=== PATIENT | female | born 1950 | race Caucasian/White ===

== ENCOUNTER → 2016-12-19 | Outpatient (CLI) | payer OTHER, BC ==
[~2016-12-19] MED LIST: ACET-1256 PO; AMLO-110 PO; AMOX500T PO; ASPI81TA28 PO; ATOR-24 PO; CEFE1INJ3 IV; CLC100 PO; CLIN150C PO; DESM0.1T8 PO; DESM1TAB16 PO; FERR1TAB13 PO; FLM4 PO; FSLUDL325 PO; KPP/1000 PO; LACO100T PO; LCTX PO; LEVE100S IV; LEVE250T PO; LISI-725 PO; LPT40 PO; LSN20 PO; LSN5 OR; MAGN400T6 PO; MCRK20 PO; METO25TA3 PO; METO25TA56 PO; METO50TA17 PO; MGNO400 PO; MRLP17X PO; MULT-116 PO; NYSS/ PO; ONDA4TAB10 SL; OXYC-57 PO; PANT40TA PO; PHEN-775 PO; POTA10CA28 PO; POTA20TA16 PO; PRLSR20 PO; PROB1CAP32 PO; RGLI10 IV; SACC250C3 PO; SENN-65 PO; TOPI100T20 PO; TOPI100T45 PO; TOPI25TA99 PO; TOPI50TA16 PO; [UNRECOGNIZED DRUG - CODE] IV
--- NOTE | 2016-12-19 14:10 | DIAGNOSTIC IMAGING REPORT ---
VIDEO SWALLOW HISTORY: Stroke. Dysphagia. TECHNIQUE: Video fluoroscopic evaluation of swallowing was performed in the AP and lateral projections by the speech pathology staff. The patient is fed nectar-thick and thin liquid barium, a barium coated wafer, and barium pudding. FLUOROSCOPY TIME: 3.2 minutes.. COMPARISON STUDY: None. FINDINGS: There is normal hyoid excursion and epiglottic deflection. No significant penetration or aspiration identified. Swallowing function is within normal limits. IMPRESSION: 1. No aspiration identified. 2. Please see the speech pathologist report for detailed findings and recommendations. Electronically signed by: Jaspreet Gilliam M.D. 12/19/2016 2:08 PM Dictated Date/Time: 12/19/2016 2:07 PM
--- NOTE | 2016-12-19 16:47 | SWALLOWING EVALUATION ---
REFERRING SPEECH PATHOLOGIST: N/A HISTORY: This 66 year-old female, currently an inpatient at [facility], was referred for a VFSS at [facility] in order to determine readiness for diet upgrade and possible removal of PEG-tube. The patient has a PMH significant for frontal stroke associated with respiratory failure and seizure s/p back surgery for L4-S1 decompression in September 2016. She required tracheostomy and PEG-tube placement s/cp CVA and is now decannulated. She reports that she is eating a pureed diet and drinking thin liquids and she is anxious for a diet upgrade. Other PMH: head aches, hypertension, hypercholesterolemia, and carpal tunnel syndrome. PROCEDURE: The patient was seen in the Radiology Department of [facility] for the VFSS. Cursory examination of the oral cavity revealed adequate dentition. Movement of the articulators was WNL. Pt has active thrush. The patient was seated upright in a wheelchair and was viewed in both the Anterior-Posterior (A-P) and Lateral planes. Volitional phonation exercises completed in the A-P plane revealed bilateral vocal fold movement and vocal intensity within functional limits. In the lateral plane, the patient was given the following boluses: 1 tsp. thin liquid barium x 2, single swallow thin liquid barium self-presented from a cup, sequential swallows of thin liquid barium self-presented from a straw, 1 tsp. nectar-thick liquid barium, single swallow nectar-thick liquid barium self-presented from a cup, 1 tsp. barium pudding, and 1 club cracker with barium pudding. The patient was then repositioned into the A-P plane and given 1 tsp. barium pudding. RESULTS: Oral Stage: No labial bolus escape. Cohesive bolus between tongue and palate during oral bolus hold exercise. Prolonged mastication with complete bolus re-collection and delayed initiation of posterior bolus movement, but when given verbal cue to "push that back and swallow it" the patient moved the bolus cohesively to the pharynx. Diffuse lining of oral structures after the swallow, but patient has thrush so barium clung to tongue and palate. Initiation of the pharyngeal swallow when the bolus head was in the valleculae. Oral stage of the swallow was functionally WNL, but the patient needs verbal cues to stop chewing and initiate a swallow. She is responsive to the cues. Pharyngeal Stage: No bolus between the soft palate and pharyngeal wall. Complete superior movement of the thyroid cartilage with complete approximation of the arytenoids to the epiglottic petiole. Complete anterior hyoid movement. Complete epiglottic inversion. Complete laryngeal vestibular closure. Present pharyngeal stripping wave. Complete pharyngeal contraction in the AP plane. Complete PES opening. No contrast between tongue base and pharyngeal wall. No pharyngeal bolus retention. The pharyngeal stage of the swallow was WNL. No penetration or aspiration during this study. Esophageal Stage: A pudding bolus transited the esophagus without evidence of retention. SUMMARY/RECOMMENDATIONS: This patient presents with mild oral-stage dysphagia. The following is recommended: 1. Moist regular diet 2. Compensatory Strategies: supervision at meals to encourage timely mastication and bolus transfer to the pharynx, alternate solids and liquids, use general aspiration precautions, straws okay 3. Consideration of continued f/u with [facility] to address decreasing bolus preparation and transit time. 4. Consideration of PEG-tube removal if oral intake is adequate. A summary of the results and recommendations was recorded on a Consultation Record and returned with the patient immediately following the study. In addition, verbal report was given to the patient and her . Thank you for referral of this patient. Please contact me at if any additional information is needed.
== END | disposition home or self-care (01) ==
LOC: C.RAD 12:33
PROVIDERS: ATTEND Internal Medicine Critical Care Medicine
DX: R13.10 Dysphagia, unspecified (principal); I63.9 Cerebral infarction, unspecified

== ENCOUNTER → 2017-01-10 | Outpatient (CLI) | payer BC ==
[~2017-01-10] MED LIST changes: +OPTIRAY 320 IV PRN
--- NOTE | 2017-01-10 16:59 | DIAGNOSTIC IMAGING REPORT ---
CHEST CT WITH CONTRAST CT DOSE: 1109.25 mGy.cm HISTORY: Coughing. TECHNIQUE: Multiaxial CT images of the chest were performed following the intravenous administration of contrast. COMPARISON: None. FINDINGS: The central airways are patent. No pleural effusions. No pneumothorax. A few linear densities at the lung bases favor subsegmental atelectasis. Otherwise, the lungs are clear. There is mild motion artifact. Suggestion of hypertrophy of the kidneys. However, these are only partially imaged on this study. Benign fat-containing lesion within the left adrenal gland measuring 1.5 cm. This favors an adrenal myelolipoma. The visualized liver and spleen are unremarkable. No mediastinal or hilar lymphadenopathy. Normal caliber thoracic aorta. The central pulmonary arteries are patent. The heart is normal in size. IMPRESSION: 1. No focal lung consolidations to suggest pneumonia. 2. Possible enlargement of the kidneys which can be seen in the setting of acute renal failure. However, these are only partially visualized on this study. Recommend correlation with renal function laboratory values. Electronically signed by: Huan Carney M.D. 01/10/2017 4:57 PM Dictated Date/Time: 01/10/2017 4:53 PM
== END | disposition home or self-care (01) ==
LOC: C.CTS 16:17
PROVIDERS: ATTEND Internal Medicine Pulmonary Disease
DX: D64.9 Anemia, unspecified (principal); R00.0 Tachycardia, unspecified; R05 Cough; N20.1 Calculus of ureter; N83.201 Unspecified ovarian cyst, right side; K57.30 Diverticulosis of large intestine without perforation or abscess without bleeding

== ENCOUNTER → 2017-01-10 | Outpatient (CLI) | payer OTHER, BC ==
[~2017-01-10] MED LIST changes: -OPTIRAY 320 IV PRN
--- NOTE | 2017-01-10 17:04 | DIAGNOSTIC IMAGING REPORT ---
ABDOMEN AND PELVIS CT WITH IV AND ORAL CONTRAST CT DOSE: HISTORY: Pain nausea. Vomiting. TECHNIQUE: Multiaxial CT images of the abdomen and pelvis were performed following the use of intravenous and oral contrast. COMPARISON STUDY: None. FINDINGS: Lung bases are clear. Liver is uniform in enhancement area in gallbladder slightly contracted. Right kidney enhances uniformly. There is minimal outer cortical scarring. It is negative for hydronephrosis. Left kidney shows several nonobstructing renal calcifications. There is mild fullness left renal collecting system and left ureter. This appears to be secondary to a 5 mm partially obstructing calculus left ureterovesical junction. Bladder is midline. There are no contained calcifications. Bowel pattern is nonobstructive. There are several scattered colonic diverticuli with no evidence for acute diverticulitis. The right ovary is multicystic with several cysts measuring up to 1.5 cm. There are postoperative changes to low lumbar spine consistent with lumbar laminectomy and fusion. IMPRESSION: 1. 5 mm partially obstructing calculus left ureterovesical junction. 2. Mild left hydroureteronephrosis. 3. Several right ovarian cysts measuring up to 1.5 cm. 4. Scattered colonic diverticuli with no evidence for diverticulitis Electronically signed by: Tyler Herbert M.D. 01/10/2017 5:03 PM Dictated Date/Time: 01/10/2017 4:59 PM
== END | disposition home or self-care (01) ==
LOC: C.CTS 16:15
PROVIDERS: ATTEND Internal Medicine Critical Care Medicine
DX: R11.2 Nausea with vomiting, unspecified (principal); Z93.1 Gastrostomy status; D64.9 Anemia, unspecified; R00.0 Tachycardia, unspecified; R05 Cough; N20.1 Calculus of ureter; N83.201 Unspecified ovarian cyst, right side; K57.30 Diverticulosis of large intestine without perforation or abscess without bleeding

== ENCOUNTER 2017-01-19 09:20 | Inpatient (IN) | payer OTHER, BC ==
[~2017-01-19] VITALS: Ht 167.6 cm; Wt 66.5 kg
[2017-01-19] MEDS ORDERED: ONDANSETRON INJ 2 MG/ML 2 ML VIAL IV PRN (10:30)
[2017-01-19] MEDS ORDERED: MoRPHine SULFATE 4 MG/ML 1 ML CARP\\VIAL IV PRN (10:30)
[2017-01-19] MEDS ORDERED: SENN-65 PO (10:39)
[2017-01-19] MEDS ORDERED: KPP/1000 PO (10:39)
[2017-01-19] MEDS ORDERED: CLIN150C PO (10:39)
[2017-01-19] MEDS ORDERED: AMLO-110 PO (10:39)
[2017-01-19] MEDS ORDERED: MRLP17X PO (10:39)
[2017-01-19] MEDS ORDERED: NYSS/ PO (10:39)
[2017-01-19] MEDS ORDERED: CLC100 PO (10:39)
[2017-01-19] MEDS ORDERED: METO25TA56 PO (10:39)
[2017-01-19] MEDS ORDERED: PANT40TA PO (10:39)
[2017-01-19] MEDS ORDERED: CEFE1INJ3 IV (10:39)
[2017-01-19] MEDS ORDERED: TOPI100T45 PO (10:39)
[2017-01-19] MEDS ORDERED: TOPI25TA99 PO (10:39)
[2017-01-19] MEDS ORDERED: MULT-116 PO (10:39)
--- NOTE | 2017-01-19 10:51 | EMERGENCY ROOM VISIT NOTE ---
History Report prepared by Glenna: Missael Lemus Under the Supervision of: Dr. Jerry Brantley M.D. First contact with patient: 10:08 Chief Complaint: CONSTIPATION Stated Complaint: ABD PAIJN/NAUSEA/VOMITING Nursing Triage Summary: Pt arrives ALS from [facility] Pt at [facility] for stroke in November Pt c/o diffuse abd pain x "several days" Last BM 01/11 per staff +nausea Pt had 4mg zofran en route History of Present Illness The patient is a 66 year old female who presents to the Emergency Room via ALS from [facility] with complaints of persistent constipation starting a few days ago. Her last normal bowel movement was on January 11. She was given Magnesium Citrate and soap suds enema without relief. For the past few days, she has been having vomiting with eating. She has some trouble with swallowing occurring for the past 6-7 weeks. She has been coughing, gagging, and vomiting a white-clear- sticky liquid when she drinks fluids. She has lost about 30 pounds in the past few weeks. She currently complains of lower back pain and lower abdominal pain. As per family, the patient recently had back surgery. The patient denies fevers , chills, chest pain, shortness of breath, or any other complaints. She is not on any blood thinners. Source of History: patient, family Onset: a few days ago Position: other (global) Quality: other (constipation) Timing: other (persistent) Modifying Factors (Relieving): other (Magnesium Citrate and soap suds enema without relief) Associated Symptoms: + abdominal pain, + back pain, + vomiting, No SOB, No chest pain, No chills, No fevers Review of Systems All systems have been listed, reviewed, and are negative other than those previously mentioned. Please see Additional Medical History Sheet. Past Medical & Surgical Medical Problems: (1) Hyperlipidemia (2) Hypertension (3) Seizure Surgical Problems: (1) H/O: hysterectomy (2) History of appendectomy Family History FH: arthritis FH: emphysema Heart disease Stroke Social History Smoking Status: Never Smoker Marital Status: Occupation Status: unemployed Current/Historical Medications Scheduled Amlodipine (Norvasc), 5 MG PO DAILY Cefepime Hcl (Cefepime), 1 GM IV Q12 Clindamycin Hcl (Cleocin), 600 MG PO Q8 Docusate Sodium (Docusate Sodium), 100 MG PO BID Lacosamide (Vimpat), 200 MG PO Q12 Levetiracetam (Keppra), 2,000 MG PO Q12 Metoprolol Tartrate (Lopressor) (Lopressor), 75 MG PO Q12 Multiple Vitamins W/ Minerals (Theragran-M), 1 TAB PO DAILY Nystatin (Nystatin Suspension), 5 ML PO QID Pantoprazole (Protonix), 40 MG PO DAILY Polyethylene (Miralax), 17 GM PO DAILY@1200 Senna/Docusate Sod (Senokot S), 2 TAB PO DAILY@1200 Topiramate (Topamax), 100 MG PO BID Topiramate (Topamax ), 50 MG PO BID Allergies Coded Allergies: No Known Allergies (Verified , 01/19/17) Physical Exam Vital Signs Date Time Temp Pulse Resp B/P Pulse Ox O2 Delivery O2 Flow Rate FiO2 01/19/17 15:32 90 21 146/79 95 Room Air 01/19/17 13:48 101 16 151/69 95 Room Air 01/19/17 11:01 91 18 147/79 98 Room Air 01/19/17 09:26 36.7 90 18 149/67 97 Nasal Cannula 2.0 Physical Exam GENERAL: Patient awake, alert, oriented to person and place. Patient follows commands. Patient does not appear toxic. Patient is adequately hydrated and well-nourished. SKIN: No erythema, pallor, cyanosis or rash HEENT: Normal head, pupils equal, reactive to light and accommodation. Ears normal. Oral cavity and posterior pharynx appear normal. Neck: Without adenopathy, no neck vein distention. Healing trach site. LUNGS: Clear to auscultation. No wheezes, no rales, no rhonchi. HEART: No murmurs. No gallops. No rubs ABDOMEN: Slightly distended. Occasional infrequent bowel sounds. No masses, no rebound, no hepatomegaly or splenomegaly. EXTREMITIES: No signs of trauma. No pedal or pretibial edema. No calf or thigh tenderness. NEUROLOGIC: Cranial nerves II-XII within normal limits. No gross motor sensory function deficits. Medical Decision & Procedures ER Provider Diagnostic Interpretation: X-ray results as stated below per my interpretation and radiologist interpretation. CT results as stated below per my review and radiologist interpretation: CT SCAN OF THE ABDOMEN AND PELVIS WITH IV CONTRAST CLINICAL HISTORY: Generalized abdominal pain. Nausea and vomiting. COMPARISON STUDY: Abdominal CT dated 01/10/2017. TECHNIQUE: Following the IV administration of 116 cc of Optiray 320, CT scan of the abdomen and pelvis is performed from the lung bases to the proximal femora. Images are reviewed in the axial, sagittal, and coronal planes. IV contrast was administered without complication. Automated dose control exposure was utilized. The examination is degraded by motion artifact as well as by streak artifact from the patient's arms which could not be elevated above the abdomen. CT DOSE: 978.90 mGy.cm FINDINGS: Lung bases: The heart is normal in size and without pericardial effusion. There is a small right pleural effusion and right basilar airspace consolidation. Subsegmental atelectasis is present at the left lung base. Liver: The contrast-enhanced liver is normal in size, contour, and attenuation. There is no intrahepatic biliary ductal dilatation. The hepatic veins and portal veins are patent. An 11 mm cyst is again seen in the inferior right lobe of the liver on axial image #192. Gallbladder: Unremarkable. Spleen: Normal in size and attenuation. Pancreas: Atrophic and grossly unremarkable. Adrenal glands: A 1.7 cm fat-containing lesion in the left adrenal gland is typical in appearance for a myelolipoma. The right adrenal gland is unremarkable. Kidneys: The contrast enhanced kidneys are atrophic and without hydronephrosis. The kidneys enhance symmetrically. A 5 mm obstructing calculus at the left vesicoureteral junction seen on image #433 is unchanged in position from 01/10/2017. This causes mild left hydroureter. Additional nonobstructing left renal calculi are suspected. Abdominal vasculature: The abdominal aorta is normal in course and caliber noting mild atherosclerotic calcification. Bowel: The small bowel and colon are normal in course and caliber. Mild wall thickening and hyperemia is suggested in the rectum. The appendix is not identified and reported surgically absent. Peritoneum: There is no intraperitoneal free air or abdominal ascites. There is a small fat-containing umbilical hernia. Lymphadenopathy: None. Pelvic viscera: The the bladder is distended but otherwise normal in appearance. The uterus is surgically absent. Right-sided ovarian cystic foci measure up to 2.3 cm as seen on image #359. Phleboliths are noted in the pelvis. A 1.5 cm right-sided Bartholin's gland cyst is suspected. Skeletal structures: The skeletal structures are osteopenic. No lytic or blastic lesions are seen. There is moderate lumbosacral spondylosis with postoperative changes from L4 -S1 spinal fusion. IMPRESSION: 1. Motion and streak artifact degraded examination. 2. There is a small right pleural effusion with patchy airspace consolidation at the right lung base. The appearance is typical for pneumonia. Radiographic follow-up to resolution is recommended. 3. An obstructing 5 mm calculus at the left vesicoureteral junction is unchanged in position from 01/10/2017. This causes left-sided hydroureter. There is no left-sided hydronephrosis. 4. Additional nonobstructing left renal calculi are suspected. This is difficult to assess on a contrast-enhanced examination. 5. The rectal wall appears mildly thickened and hyperemic. Correlate clinically for evidence of a mild proctitis. 6. A 1.5 cm right-sided Bartholin's gland cyst is suspected. 7. There are cystic foci identified in the right ovary measuring up to 2.3 cm. This is an abnormal finding in a postmenopausal patient. Follow-up with nonemergent pelvic ultrasound in gynecologic assessment is recommended for further assessment. 8. Additional findings as above. Electronically signed by: Julio Mojica M.D. 01/19/2017 1:33 PM Dictated Date/Time: 01/19/2017 1:22 PM SINGLE VIEW CHEST CLINICAL HISTORY: Aspiration. FINDINGS: An AP, portable, upright chest radiograph is correlated with chest CT dated 01/10/2017. The examination is degraded by portable technique and patient rotation. The heart is top normal for projection. There is patchy bibasilar airspace consolidation, right greater than left. Small pleural effusions are identified. No pneumothorax is seen. The skeletal structures are osteopenic. The bony thorax is grossly intact. IMPRESSION: There is patchy bibasilar airspace consolidation, right greater than left with small pleural effusions. Correlate clinically for evidence of developing pneumonia/aspiration pneumonitis. Radiographic follow-up to resolution is recommended. Electronically signed by: Julio Mojica M.D. 01/19/2017 11:38 AM Dictated Date/Time: 01/19/2017 11:36 AM Laboratory Results 01/19/17 10:50 Red Blood Count 3.44, Mean Corpuscular Volume 84.6, Mean Corpuscular Hemoglobin 27.3, Mean Corpuscular Hemoglobin Concent 32.3, Mean Platelet Volume 8.5, Neutrophils (%) (Auto) 83.2, Lymphocytes (%) (Auto) 7.4, Monocytes (%) (Auto) 8.2, Eosinophils (%) (Auto) 0.5, Basophils (%) (Auto) 0.1, Neutrophils # (Auto) 13.32, Lymphocytes # (Auto) 1.19, Monocytes # (Auto) 1.32, Eosinophils # (Auto) 0.08, Basophils # (Auto) 0.01 01/19/17 10:50 Test 01/19/17 10:30 01/19/17 10:50 Urine Color YELLOW Urine Appearance CLEAR (CLEAR) Urine pH 7.0 (4.5-7.5) Urine Specific [place] 1.008 (1.000-1.030) Urine Protein TRACE (NEG) Urine Glucose (UA) NEG (NEG) Urine Ketones NEG (NEG) Urine Occult Blood TRACE (NEG) Urine Nitrite NEG (NEG) Urine Bilirubin NEG (NEG) Urine Urobilinogen NEG (NEG) Urine Leukocyte Esterase LARGE (NEG) Urine WBC (Auto) >30 /hpf (0-5) Urine RBC (Auto) 0-4 /hpf (0-4) Urine Hyaline Casts (Auto) 1-5 /lpf (0-5) Urine Epithelial Cells (Auto) 10-20 /lpf (0-5) Urine Bacteria (Auto) 1+ (NEG) Urine Renal Epithelial Cells /lpf (0-5) White Blood Count 16.02 K/uL (4.8-10.8) Red Blood Count 3.44 M/uL (4.2-5.4) Hemoglobin 9.4 g/dL (12.0-16.0) Hematocrit 29.1 % (37-47) Mean Corpuscular Volume 84.6 fL (80-100) Mean Corpuscular Hemoglobin 27.3 pg (25-34) Mean Corpuscular Hemoglobin Concent 32.3 g/dl (32-36) Platelet Count 371 K/uL (130-400) Mean Platelet Volume 8.5 fL (7.4-10.4) Neutrophils (%) (Auto) 83.2 % Lymphocytes (%) (Auto) 7.4 % Monocytes (%) (Auto) 8.2 % Eosinophils (%) (Auto) 0.5 % Basophils (%) (Auto) 0.1 % Neutrophils # (Auto) 13.32 K/uL (1.4-6.5) Lymphocytes # (Auto) 1.19 K/uL (1.2-3.4) Monocytes # (Auto) 1.32 K/uL (0.11-0.59) Eosinophils # (Auto) 0.08 K/uL (0-0.5) Basophils # (Auto) 0.01 K/uL (0-0.2) RDW Standard Deviation 50.5 fL (36.4-46.3) RDW Coefficient of Variation 16.2 % (11.5-14.5) Immature Granulocyte % (Auto) 0.6 % Immature Granulocyte # (Auto) 0.10 K/uL (0.00-0.02) Anion Gap 12.0 mmol/L (3-11) Est Creatinine Clear Calc Drug Dose 51.1 ml/min Estimated GFR () 67.5 Estimated GFR (Non- 58.3 BUN/Creatinine Ratio 26.2 (10-20) Calcium Level 9.7 mg/dl (8.5-10.1) Total Bilirubin 0.5 mg/dl (0.2-1) Aspartate Amino Transf (AST/SGOT) 39 U/L (15-37) Alanine Aminotransferase (ALT/SGPT) 63 U/L (12-78) Alkaline Phosphatase 314 U/L (45-117) Total Protein 7.3 gm/dl (6.4-8.2) Albumin 2.4 gm/dl (3.4-5.0) Globulin 4.9 gm/dl (2.5-4.0) Albumin/Globulin Ratio 0.5 (0.9-2) Lipase 64 U/L (73-393) Laboratory results as stated above per my review. ECG Indication: abdominal pain Rate (beats per minute): 90 Rhythm: normal sinus Findings: nonspecific-ST abn, RBBB (incomplete), no ectopy ED Course 1008: Past medical records reviewed. The patient was evaluated in room B02. A complete history and physical examination was performed. 1030: Zofran Inj 4 mg IV, Morphine Sulfate 2 mg IV 1517: Upon reevaluation, the patient is resting comfortably.I discussed today's findings with her. She verbalized agreement of the treatment plan. I spoke with Dr. Rocha of the [facility] to evaluate the patient for further management. Medical Decision Differential diagnosis includes but is not limited to constipation, bowel obstruction, pneumonia, status post back surgery. The patient had a very difficult several months with multiple admissions to a hospital in [facility]. The patient is now here with constipation and extreme weakness. Multiple labs, urinalysis and imaging were obtained. Please see above. The patient does not have a bowel obstruction. She does appear to have some proctitis. Patient also appears to have a new pneumonia. She is hypokalemic. The patient is anemic. Her white count is elevated. The patient will require admission for further evaluation and treatment. I discussed care with the patient, her and the hospitalist. Consults Time Called: 1500 Consulting Physician: Dr. Rocha of the [facility] Returned Call: [address] Rocha of the [facility] to evaluate the patient for further management. Impression Primary Impression: Pneumonia Additional Impressions: UTI (urinary tract infection) Hypokalemia Scribe Attestation The scribe's documentation has been prepared under my direction and personally reviewed by me in its entirety. I confirm that the note above accurately reflects all work, treatment, procedures, and medical decision making performed by me. Departure Information Dispostion Being Evaluated By Hospitalist Referrals Marek Pittman M.D. (PCP) Patient Instructions My [facility] Problem Qualifiers
[2017-01-19 11:00] LABS: HEMATOCRIT 29.1 % (37-47); MEAN CELL VOLUME 84.6 fL (80-100); MEAN CORPUSCULAR HEMOGLOBIN 27.3 pg (25-34); MEAN CORPUSCULAR HGB CONC 32.3 g/dl (32-36); MEAN PLATELET VOLUME 8.5 fL (7.4-10.4); PLATELET COUNT 371 K/uL (130-400); RED BLOOD COUNT 3.44 M/uL (4.2-5.4); WHITE BLOOD COUNT 16.02 K/uL (4.8-10.8)
[2017-01-19 11:17] LABS: BUN/CREATININE RATIO 26.2 (10-20); CALCIUM 9.7 mg/dl (8.5-10.1); POTASSIUM 2.9 mmol/L (3.5-5.1)
[2017-01-19 11:19] LABS: ALB/GLOB RATIO 0.5 (0.9-2)
[2017-01-19 11:20] LABS: BASO % 0.1 %; BASO ABS # 0.01 K/uL (0-0.2); COMPLETE YES; EOS % 0.5 %; IG% 0.6 %; LYMPH % 7.4 %; LYMPH ABS # 1.19 K/uL (1.2-3.4); MONO % 8.2 %; NEUT % 83.2 %
--- NOTE | 2017-01-19 11:39 | DIAGNOSTIC IMAGING REPORT ---
SINGLE VIEW CHEST CLINICAL HISTORY: Aspiration. FINDINGS: An AP, portable, upright chest radiograph is correlated with chest CT dated 01/10/2017. The examination is degraded by portable technique and patient rotation. The heart is top normal for projection. There is patchy bibasilar airspace consolidation, right greater than left. Small pleural effusions are identified. No pneumothorax is seen. The skeletal structures are osteopenic. The bony thorax is grossly intact. IMPRESSION: There is patchy bibasilar airspace consolidation, right greater than left with small pleural effusions. Correlate clinically for evidence of developing pneumonia/aspiration pneumonitis. Radiographic follow-up to resolution is recommended. Electronically signed by: Julio Mojica M.D. 01/19/2017 11:38 AM Dictated Date/Time: 01/19/2017 11:36 AM
[2017-01-19 11:52] LABS: URINE APPEARANCE CLEAR (CLEAR); URINE BILIRUBIN NEG (NEG); URINE COLOR YELLOW; URINE NITRITE NEG (NEG); URINE SPECIFIC GRAVITY 1.008 (1.000-1.030); UROBILINOGEN NEG (NEG); ZZURINE CULT IF INDIC CATH YES
[2017-01-19 11:53] LABS: MANUAL MICROSCOPIC REQUIRED? NO; REVIEW REQ? YES
--- NOTE | 2017-01-19 13:35 | DIAGNOSTIC IMAGING REPORT ---
CT SCAN OF THE ABDOMEN AND PELVIS WITH IV CONTRAST CLINICAL HISTORY: Generalized abdominal pain. Nausea and vomiting. COMPARISON STUDY: Abdominal CT dated 01/10/2017. TECHNIQUE: Following the IV administration of 116 cc of Optiray 320, CT scan of the abdomen and pelvis is performed from the lung bases to the proximal femora. Images are reviewed in the axial, sagittal, and coronal planes. IV contrast was administered without complication. Automated dose control exposure was utilized. The examination is degraded by motion artifact as well as by streak artifact from the patient's arms which could not be elevated above the abdomen. CT DOSE: 978.90 mGy.cm FINDINGS: Lung bases: The heart is normal in size and without pericardial effusion. There is a small right pleural effusion and right basilar airspace consolidation. Subsegmental atelectasis is present at the left lung base. Liver: The contrast-enhanced liver is normal in size, contour, and attenuation. There is no intrahepatic biliary ductal dilatation. The hepatic veins and portal veins are patent. An 11 mm cyst is again seen in the inferior right lobe of the liver on axial image #192. Gallbladder: Unremarkable. Spleen: Normal in size and attenuation. Pancreas: Atrophic and grossly unremarkable. Adrenal glands: A 1.7 cm fat-containing lesion in the left adrenal gland is typical in appearance for a myelolipoma. The right adrenal gland is unremarkable. Kidneys: The contrast enhanced kidneys are atrophic and without hydronephrosis. The kidneys enhance symmetrically. A 5 mm obstructing calculus at the left vesicoureteral junction seen on image #433 is unchanged in position from 01/10/2017. This causes mild left hydroureter. Additional nonobstructing left renal calculi are suspected. Abdominal vasculature: The abdominal aorta is normal in course and caliber noting mild atherosclerotic calcification. Bowel: The small bowel and colon are normal in course and caliber. Mild wall thickening and hyperemia is suggested in the rectum. The appendix is not identified and reported surgically absent. Peritoneum: There is no intraperitoneal free air or abdominal ascites. There is a small fat-containing umbilical hernia. Lymphadenopathy: None. Pelvic viscera: The the bladder is distended but otherwise normal in appearance. The uterus is surgically absent. Right-sided ovarian cystic foci measure up to 2.3 cm as seen on image #359. Phleboliths are noted in the pelvis. A 1.5 cm right-sided Bartholin's gland cyst is suspected. Skeletal structures: The skeletal structures are osteopenic. No lytic or blastic lesions are seen. There is moderate lumbosacral spondylosis with postoperative changes from L4 -S1 spinal fusion. IMPRESSION: 1. Motion and streak artifact degraded examination. 2. There is a small right pleural effusion with patchy airspace consolidation at the right lung base. The appearance is typical for pneumonia. Radiographic follow-up to resolution is recommended. 3. An obstructing 5 mm calculus at the left vesicoureteral junction is unchanged in position from 01/10/2017. This causes left-sided hydroureter. There is no left-sided hydronephrosis. 4. Additional nonobstructing left renal calculi are suspected. This is difficult to assess on a contrast-enhanced examination. 5. The rectal wall appears mildly thickened and hyperemic. Correlate clinically for evidence of a mild proctitis. 6. A 1.5 cm right-sided Bartholin's gland cyst is suspected. 7. There are cystic foci identified in the right ovary measuring up to 2.3 cm. This is an abnormal finding in a postmenopausal patient. Follow-up with nonemergent pelvic ultrasound in gynecologic assessment is recommended for further assessment. 8. Additional findings as above. Electronically signed by: Julio Mojica M.D. 01/19/2017 1:33 PM Dictated Date/Time: 01/19/2017 1:22 PM
[2017-01-19] MEDS ORDERED: POTASSIUM CHLR 20 MEQ / WTR 20 MEQ in PREMIXED WATER 100 ML IV STA (15:19)
[2017-01-19] MEDS ORDERED: POTASSIUM CHLORIDE 10 MEQ TABCR PO STA (15:19)
[2017-01-19] MEDS ORDERED: SOD PHOSPHATE/SOD BIPHOSPHATE ENEMA 132 ML BTL PR STA ×2 (15:59→19:14)
[2017-01-19] MEDS ORDERED: HEPARIN SOD 5000 UNIT/0.5 ML CARP SQ SCH (16:00)
[2017-01-19] MEDS ORDERED: ALUMINUM/MAGNESIUM/SIMETH (MAALOX MAX) 30 ML UDC PO PRN (16:00)
[2017-01-19] MEDS ORDERED: MAGNESIUM HYDROXIDE SUSP 30 ML UDC PO PRN (16:00)
[2017-01-19] MEDS ORDERED: POLYETHYLENE (MIRALAX) 17 GM PACK PO PRN (16:30)
--- NOTE | 2017-01-19 16:34 | History and Physical ---
History & Physical Date & Time of Service: Jan 19, 2017 at 16:09 Chief Complaint: Abd Paijn/Nausea/Vomiting Primary Care Physician: Marek Pittman M.D. History of Present Illness Source: patient, family Patient is a pleasant 66 y/o female, with PMHx of CVA, seizure disorder, HTN, and GERD, who presented to the ED with complaints of constipation x3 days. Patient is from [facility]. Her last normal bowel movement was on 01/11. She was was given milk of mag and soap suds enema without relief. Patient is passing small amounts of gas today. For about one week now, patient has been having nausea and vomiting. She is unable to keep anything down. The smell of food alone makes her very nausea. Patient suffered a CVA after receiving back surgery in September 2016. She has residual left sided weakness, difficulty with swallowing, and experiences seizures. Per , over the last couple of weeks , patient has not been progressing very well with PT/OT due to illnesses. Per , she has been on Cefepime and Clindamycin for pneumonia treatment. Patient has difficultly with swallowing- per patient, she has lost 30 pounds in the few weeks. +SOB. +cough. Patient denies any fever, chills, sweats, lightheadedness, dizziness, vision changes, CP, palpitations, edema, wheezing, diarrhea, urinary symptoms, melena, numbness/tingling, muscle/joint pain, anxiety/depression, active bleeding, or new skin discoloration/changes. Past Medical/Surgical History Medical Problems: 1. h/o CVA 2. Hyperlipidemia 3. HTN 4. GERD 5. Seizure disorder Surgical Problems: 1. H/O: hysterectomy 2. History of appendectomy 3. h/o back surgery Family History FH: arthritis FH: emphysema Heart disease Stroke Social History Smoking Status: Never Smoker Marital Status: Occupational Status: unemployed Multi-Drug Resistant Organisms History of MDRO: No Allergies Coded Allergies: No Known Allergies (Verified , 01/19/17) Home Medications Scheduled Amlodipine (Norvasc), 5 MG PO DAILY Cefepime Hcl (Cefepime), 1 GM IV Q12 Clindamycin Hcl (Cleocin), 600 MG PO Q8 Docusate Sodium (Docusate Sodium), 100 MG PO BID Lacosamide (Vimpat), 200 MG PO Q12 Levetiracetam (Keppra), 2,000 MG PO Q12 Metoprolol Tartrate (Lopressor) (Lopressor), 75 MG PO Q12 Multiple Vitamins W/ Minerals (Theragran-M), 1 TAB PO DAILY Nystatin (Nystatin Suspension), 5 ML PO QID Pantoprazole (Protonix), 40 MG PO DAILY Polyethylene (Miralax), 17 GM PO DAILY@1200 Senna/Docusate Sod (Senokot S), 2 TAB PO DAILY@1200 Topiramate (Topamax), 100 MG PO BID Topiramate (Topamax ), 50 MG PO BID Physical Exam Vital Signs Date Time Temp Pulse Resp B/P Pulse Ox O2 Delivery O2 Flow Rate FiO2 01/19/17 15:32 90 21 146/79 95 Room Air 01/19/17 13:48 101 16 151/69 95 Room Air 01/19/17 11:01 91 18 147/79 98 Room Air 01/19/17 09:26 36.7 90 18 149/67 97 Nasal Cannula 2.0 General Appearance: no apparent distress Head: normocephalic, atraumatic Eyes: normal inspection, PERRL ENT: hearing grossly normal Neck: supple Respiratory/Chest: lungs clear, no respiratory distress, no accessory muscle use Cardiovascular: regular rate, rhythm Abdomen/GI: normal bowel sounds, soft, + tenderness (diffuse mild ttp ) Extremities/Musculoskelatal: no calf tenderness, no pedal edema Neurologic/Psych: alert, normal mood/affect, oriented x 3, + pertinent finding (left-sided weakness ) Skin: normal color, warm/dry, no rash Diagnostics Laboratory Results Results Past 24 Hours Test 01/19/17 10:30 01/19/17 10:50 Range/Units Urine Color YELLOW Urine Appearance CLEAR CLEAR Urine pH 7.0 4.5-7.5 Urine Specific Denio 1.008 1.000-1.030 Urine Protein TRACE NEG Urine Glucose (UA) NEG NEG Urine Ketones NEG NEG Urine Occult Blood TRACE NEG Urine Nitrite NEG NEG Urine Bilirubin NEG NEG Urine Urobilinogen NEG NEG Urine Leukocyte Esterase LARGE NEG Urine WBC (Auto) >30 0-5 /hpf Urine RBC (Auto) 0-4 0-4 /hpf Urine Hyaline Casts (Auto) 1-5 0-5 /lpf Urine Epithelial Cells (Auto) 10-20 0-5 /lpf Urine Bacteria (Auto) 1+ NEG Urine Renal Epithelial Cells 0-5 /lpf White Blood Count 16.02 4.8-10.8 K/uL Red Blood Count 3.44 4.2-5.4 M/uL Hemoglobin 9.4 12.0-16.0 g/dL Hematocrit 29.1 37-47 % Mean Corpuscular Volume 84.6 80-100 fL Mean Corpuscular Hemoglobin 27.3 25-34 pg Mean Corpuscular Hemoglobin Concent 32.3 32-36 g/dl Platelet Count 371 130-400 K/uL Mean Platelet Volume 8.5 7.4-10.4 fL Neutrophils (%) (Auto) 83.2 % Lymphocytes (%) (Auto) 7.4 % Monocytes (%) (Auto) 8.2 % Eosinophils (%) (Auto) 0.5 % Basophils (%) (Auto) 0.1 % Neutrophils # (Auto) 13.32 1.4-6.5 K/uL Lymphocytes # (Auto) 1.19 1.2-3.4 K/uL Monocytes # (Auto) 1.32 0.11-0.59 K/uL Eosinophils # (Auto) 0.08 0-0.5 K/uL Basophils # (Auto) 0.01 0-0.2 K/uL RDW Standard Deviation 50.5 36.4-46.3 fL RDW Coefficient of Variation 16.2 11.5-14.5 % Immature Granulocyte % (Auto) 0.6 % Immature Granulocyte # (Auto) 0.10 0.00-0.02 K/uL Sodium Level 144 136-145 mmol/L Potassium Level 2.9 3.5-5.1 mmol/L Chloride Level 108 98-107 mmol/L Carbon Dioxide Level 24 21-32 mmol/L Anion Gap 12.0 3-11 mmol/L Blood Urea Nitrogen 26 7-18 mg/dl Creatinine 1.00 0.60-1.20 mg/dl Est Creatinine Clear Calc Drug Dose 51.1 ml/min Estimated GFR () 67.5 Estimated GFR (Non- 58.3 BUN/Creatinine Ratio 26.2 10-20 Random Glucose 134 70-99 mg/dl Calcium Level 9.7 8.5-10.1 mg/dl Total Bilirubin 0.5 0.2-1 mg/dl Aspartate Amino Transf (AST/SGOT) 39 15-37 U/L Alanine Aminotransferase (ALT/SGPT) 63 12-78 U/L Alkaline Phosphatase 314 45-117 U/L Total Protein 7.3 6.4-8.2 gm/dl Albumin 2.4 3.4-5.0 gm/dl Globulin 4.9 2.5-4.0 gm/dl Albumin/Globulin Ratio 0.5 0.9-2 Lipase 64 73-393 U/L Microbiology Results 01/19/17 Urine Culture, Received Pending Diagnostic Radiology SINGLE VIEW CHEST CLINICAL HISTORY: Aspiration. FINDINGS: An AP, portable, upright chest radiograph is correlated with chest CT dated 01/10/2017. The examination is degraded by portable technique and patient rotation. The heart is top normal for projection. There is patchy bibasilar airspace consolidation, right greater than left. Small pleural effusions are identified. No pneumothorax is seen. The skeletal structures are osteopenic. The bony thorax is grossly intact. IMPRESSION: There is patchy bibasilar airspace consolidation, right greater than left with small pleural effusions. Correlate clinically for evidence of developing pneumonia/aspiration pneumonitis. Radiographic follow-up to resolution is recommended. Electronically signed by: Julio Mojica M.D. 01/19/2017 11:38 AM Dictated Date/Time: 01/19/2017 11:36 AM The status of this report is Signed. Draft = Not yet reviewed or approved by Radiologist. Signed = Reviewed and approved by Radiologist. CT SCAN OF THE ABDOMEN AND PELVIS WITH IV CONTRAST CLINICAL HISTORY: Generalized abdominal pain. Nausea and vomiting. COMPARISON STUDY: Abdominal CT dated 01/10/2017. TECHNIQUE: Following the IV administration of 116 cc of Optiray 320, CT scan of the abdomen and pelvis is performed from the lung bases to the proximal femora. Images are reviewed in the axial, sagittal, and coronal planes. IV contrast was administered without complication. Automated dose control exposure was utilized. The examination is degraded by motion artifact as well as by streak artifact from the patient's arms which could not be elevated above the abdomen. CT DOSE: 978.90 mGy.cm FINDINGS: Lung bases: The heart is normal in size and without pericardial effusion. There is a small right pleural effusion and right basilar airspace consolidation. Subsegmental atelectasis is present at the left lung base. Liver: The contrast-enhanced liver is normal in size, contour, and attenuation. There is no intrahepatic biliary ductal dilatation. The hepatic veins and portal veins are patent. An 11 mm cyst is again seen in the inferior right lobe of the liver on axial image #192. Gallbladder: Unremarkable. Spleen: Normal in size and attenuation. Pancreas: Atrophic and grossly unremarkable. Adrenal glands: A 1.7 cm fat-containing lesion in the left adrenal gland is typical in appearance for a myelolipoma. The right adrenal gland is unremarkable. Kidneys: The contrast enhanced kidneys are atrophic and without hydronephrosis. The kidneys enhance symmetrically. A 5 mm obstructing calculus at the left vesicoureteral junction seen on image #433 is unchanged in position from 01/10/2017. This causes mild left hydroureter. Additional nonobstructing left renal calculi are suspected. Abdominal vasculature: The abdominal aorta is normal in course and caliber noting mild atherosclerotic calcification. Bowel: The small bowel and colon are normal in course and caliber. Mild wall thickening and hyperemia is suggested in the rectum. The appendix is not identified and reported surgically absent. Peritoneum: There is no intraperitoneal free air or abdominal ascites. There is a small fat-containing umbilical hernia. Lymphadenopathy: None. Pelvic viscera: The the bladder is distended but otherwise normal in appearance. The uterus is surgically absent. Right-sided ovarian cystic foci measure up to 2.3 cm as seen on image #359. Phleboliths are noted in the pelvis. A 1.5 cm right-sided Bartholin's gland cyst is suspected. Skeletal structures: The skeletal structures are osteopenic. No lytic or blastic lesions are seen. There is moderate lumbosacral spondylosis with postoperative changes from L4 -S1 spinal fusion. IMPRESSION: 1. Motion and streak artifact degraded examination. 2. There is a small right pleural effusion with patchy airspace consolidation at the right lung base. The appearance is typical for pneumonia. Radiographic follow-up to resolution is recommended. 3. An obstructing 5 mm calculus at the left vesicoureteral junction is unchanged in position from 01/10/2017. This causes left-sided hydroureter. There is no left-sided hydronephrosis. 4. Additional nonobstructing left renal calculi are suspected. This is difficult to assess on a contrast-enhanced examination. 5. The rectal wall appears mildly thickened and hyperemic. Correlate clinically for evidence of a mild proctitis. 6. A 1.5 cm right-sided Bartholin's gland cyst is suspected. 7. There are cystic foci identified in the right ovary measuring up to 2.3 cm. This is an abnormal finding in a postmenopausal patient. Follow-up with nonemergent pelvic ultrasound in gynecologic assessment is recommended for further assessment. 8. Additional findings as above. Electronically signed by: Julio Mojica M.D. 01/19/2017 1:33 PM Dictated Date/Time: 01/19/2017 1:22 PM The status of this report is Signed. Draft = Not yet reviewed or approved by Radiologist. Signed = Reviewed and approved by Radiologist. EKG NAZARIO JUNG ID:[id number] 19-JAN-2017 10:30:44 [facility] Normal sinus rhythm Incomplete right bundle branch block Diffuse Minor Nonspecific T wave abnormality Abnormal ECG When compared with ECG of 29-MAR-2010 12:14, Vent. rate has increased BY 33 BPM Otherwise no significant change Confirmed by YURIDIA HURTADO ([id number]) on 01/19/2017 2:00:07 PM 25mm/s 10mm/mV 150Hz 8.0 SP2 12SL 241 LATOYA: 0 Referred by: Cleone [facility] Confirmed By: YURIDIA HURTADO Vent. rate 90 BPM MN interval 162 ms QRS duration 94 ms QT/QTc 326/398 ms P-R-T axes 36 -8 38 1950 (66 yr) Female Room: Loc:15 [employer] Deputy Director:DIVYA Vargas ind: Impression Assessment and Plan 66 y/o female, with PMHx of CVA, seizure disorder, HTN, and GERD, who presented to the ED with complaints of constipation x3 days and nausea/vomiting x1 week. Constipation/Proctitis: - Admit med/surg - Fleet enema daily - Consult GI, appreciate recommendations Hypokalemia: - IV NSS + 40 mEq KCL @ 100 ml/hr - Mag level pending - Follow PRP Pneumonia, right lung base: - IV Zosyn + Vancomycin - MRSA swab pending - Follow CBC UTI: - Urine culture pending - Covered with IV antibiotics as above h/o CVA, residual left-sided weakness: - Difficulty with swallowing. Consult speech therapy Seizure disorder: Keppra 2000 mg BID PO to IV, Topamax 150 mg BID, Vimpat 200 mg BID HTN: Metoprolol 75 mg BID GERD: Protonix 40 mg IV GI Prophylaxis: Maalox PRN, IV Zofran PRN, Colace and/or Milk of Mag PRN DVT prophylaxis: KARAN and SCDs Code Status: LEVEL V, DNR Dispo: From [facility] Level of Care Med/Surg Resuscitation Status DO NOT RESUSCITATE VTE Prophylaxis VTE Risk Assessment Done? Y/N: Yes Risk Level: High Given or contraindicated: Unfractionated heparin SQ, T.E.D. Stockings, SCD's
[2017-01-19] MEDS ORDERED: POTASSIUM CHLORIDE 10 MEQ / 100ML WTR IV ONE (16:51)
[2017-01-19] MEDS: POTASSIUM CHLR 10 MEQ / WTR 10 MEQ in PREMIXED WATER 100 ML IV SCH ×2 (17:00→18:00)
[2017-01-19] MEDS ORDERED: VANCOMYCIN INJ 1,500 MG in SODIUM CHLORIDE 0.9% 500ML 500 ML IV SCH (17:00)
[2017-01-19] MEDS ORDERED: PIPERACILL/TAZOBAC IV 3.375 GM in DEXTROSE 5% 100ML IV ONE (17:00)
[2017-01-19] MEDS ORDERED: POTASSIUM CHLORIDE PWD 20 MEQ PACK PO ONE (17:15)
[2017-01-19] MEDS ORDERED: PIPERACILL/TAZOBAC CONSULT ACTIVE PRN (17:30)
[2017-01-19] MEDS ORDERED: VANCOMYCIN CONSULT ACTIVE PRN (17:30)
[2017-01-19 18:44] VITALS: Ht 167.6 cm; Wt 66.5 kg
--- NOTE | 2017-01-19 19:13 | Pharmacy Progress Note ---
Pharmacy Antibiotic Consult Date of Service: Jan 19, 2017. Pharmacy Dosing Scope Pharmacy is consulted to initiate vancomycin IV dosing therapy, order appropriate labs and adjust drug dose/frequency. Subjective The patient is a 66 year old female admitted on Jan 19, 2017 at 16:08 with constipation, nausea/vomiting. She was diagnosed with a pneumonia at [facility] and has been treated with cefepime and clindamycin. Objective Height (Feet): 5 Height (Inches): 6.00 Weight (Kilograms): 70.000 Lab Results (24hrs): Laboratory Tests Test 01/19/17 10:50 BUN/Creatinine Ratio 26.2 Blood Urea Nitrogen 26 mg/dl Creatinine 1.00 mg/dl White Blood Count 16.02 K/uL Red Blood Count 3.44 M/uL Hemoglobin 9.4 g/dL Hematocrit 29.1 % Mean Corpuscular Volume 84.6 fL Mean Corpuscular Hemoglobin 27.3 pg Mean Corpuscular Hemoglobin Concent 32.3 g/dl Platelet Count 371 K/uL Mean Platelet Volume 8.5 fL Neutrophils (%) (Auto) 83.2 % Lymphocytes (%) (Auto) 7.4 % Monocytes (%) (Auto) 8.2 % Eosinophils (%) (Auto) 0.5 % Basophils (%) (Auto) 0.1 % Neutrophils # (Auto) 13.32 K/uL Lymphocytes # (Auto) 1.19 K/uL Monocytes # (Auto) 1.32 K/uL Eosinophils # (Auto) 0.08 K/uL Basophils # (Auto) 0.01 K/uL Assessment & Plan Loading dose: vancomycin 1500 (20 mg/kg) mg IV X 1 dose then: vancomycin 1000 mg IV every 16 hours (population pharmacokinetics suggest a half-life of 15.1 hours with an elimination constant of 0.046 h-1); first dose of vancomycin will be given approximately 4 hours early because full load not given). Goal peak level estimate: between 35 - 40 mcg/mL. Goal trough level estimate: between 15 - 20 mcg/mL (indication: pneumonia). Trough has been ordered for: prior to the 1300 dose. Pharmacy will continue to follow and will adjust dose/frequency as necessary. Thank you
[2017-01-19 19:14] VITALS: BP 155/81; PULSE 104; TEMP 36.7; O2SAT 95
[2017-01-19] MEDS: TOPIRAMATE 50 MG TAB PO SCH (20:12)
[2017-01-19] MEDS: ACETAMINOPHEN 325 MG TAB PO PRN (20:12)
[2017-01-19] MEDS: LACOSAMIDE 50 MG TAB PO SCH (20:12)
[2017-01-19] MEDS: DOCUSATE SODIUM 100 MG CAP PO SCH (20:12)
[2017-01-19] MEDS: LEVETIRACETAM IV 2,000 MG in DEXTROSE 5% 250ML 250 ML IV SCH (20:13)
[2017-01-19] MEDS: METOPROLOL TARTRATE 25 MG TAB PO SCH (20:13)
[2017-01-19] MEDS: TOPIRAMATE 100 MG TAB PO SCH (20:13)
[2017-01-19] MEDS: POTASSIUM CHLORIDE INJ 40 MEQ in SODIUM CHLORIDE 0.9% 1000ML 1,000 ML IV SCH (20:14)
[2017-01-19 22:18] VITALS: BP 123/73; PULSE 67; TEMP 36.7; O2SAT 92
[2017-01-20] MEDS: ONDANSETRON INJ 2 MG/ML 2 ML VIAL IV PRN ×2 (00:09→05:22)
[2017-01-20] MEDS: PIPERACILL/TAZOBAC IV 3.375 GM in DEXTROSE 5% 100ML 100 ML IV SCH ×3 (02:27→17:41)
[2017-01-20] MEDS: POTASSIUM CHLORIDE INJ 40 MEQ in SODIUM CHLORIDE 0.9% 1000ML 1,000 ML IV SCH ×2 (05:18→15:26)
[2017-01-20] MEDS: VANCOMYCIN INJ 1,000 MG in SODIUM CHLORIDE 0.9% 250ML 250 ML IV SCH ×2 (05:18→21:23)
[2017-01-20 07:09] LABS: MEAN CELL VOLUME 84.1 fL (80-100); MEAN CORPUSCULAR HEMOGLOBIN 26.4 pg (25-34); MEAN CORPUSCULAR HGB CONC 31.4 g/dl (32-36); MEAN PLATELET VOLUME 8.3 fL (7.4-10.4); PLATELET COUNT 349 K/uL (130-400); RED BLOOD COUNT 3.45 M/uL (4.2-5.4); WHITE BLOOD COUNT 14.67 K/uL (4.8-10.8)
[2017-01-20 07:16] VITALS: BP 150/77; PULSE 88; TEMP 36.5; O2SAT 93
[2017-01-20 07:38] LABS: CREATININE 1.1 mg/dl (0.60-1.20)
[2017-01-20 07:39] LABS: BUN/CREATININE RATIO 16.5 (10-20); CALCIUM 9.2 mg/dl (8.5-10.1); MAGNESIUM 1.8 mg/dl (1.8-2.4); POTASSIUM 3.3 mmol/L (3.5-5.1)
[2017-01-20] MEDS: LEVETIRACETAM IV 2,000 MG in DEXTROSE 5% 250ML 250 ML IV SCH ×2 (07:59→20:11)
[2017-01-20] MEDS ORDERED: AMLODIPINE BESYLATE 5 MG TAB PO SCH (08:00)
[2017-01-20] MEDS: DOCUSATE SODIUM 100 MG CAP PO SCH ×2 (08:36→20:00)
[2017-01-20] MEDS: TOPIRAMATE 100 MG TAB PO SCH ×2 (08:37→20:32)
[2017-01-20] MEDS: TOPIRAMATE 50 MG TAB PO SCH ×2 (08:37→20:32)
[2017-01-20] MEDS: LACOSAMIDE 50 MG TAB PO SCH ×2 (08:38→20:32)
[2017-01-20] MEDS: METOPROLOL TARTRATE 25 MG TAB PO SCH ×2 (08:38→20:33)
--- NOTE | 2017-01-20 09:10 | Progress Note ---
Subjective Date of Service: Jan 20, 2017. Subjective Pt evaluation today including: conversation w/ patient, conversation w/ family , physical exam, chart review, review of studies, review of inpatient medication list Spoke wit at great length. He provided additional history including back surgery a year ago for spinal fluid leak, CVA x2 with known PFO, one seizure episoe associated with her first CVA. For her BP, she takes amlodipine and metoprolol succinate. She also has a h/o f tachycardic episode but workup by cardiology revealed no cardiac damage and no further intervention per the . No recent seizures since the back surgery. Patient is mostly bedridden and dependent with ADL. No chest pain, no sob. She only complains of left-sided an lower abdominal discomfort. She also reports chronic aspirations and coughing when she eats. Problem List Medical Problems: (1) Hypokalemia Status: Acute (2) Pneumonia Status: Acute (3) UTI (urinary tract infection) Status: Acute Review of Systems All Other Systems: Reviewed and Negative Medications Acetaminophen (Tylenol Tab) 650 mg Q4H PRN PO Last administered on 01/19/17 20 :12; Admin Dose 650 MG; Start 01/19/17 at 16:00; Stop 02/18/17 at 15:59 Al Hydrox/Mg Hydrox/Simethicone (Maalox Max Susp) 15 ml Q4H PRN PO; Start at 16:00; Stop 02/18/17 at 15:59 Amlodipine Besylate (Norvasc Tab) 5 mg DAILY PO Last administered on 01/20/17 08 :37; Admin Dose 5 MG; Start 01/20/17 at 08:00; Stop 02/19/17 at 08:59 Docusate Sodium (coLACE CAP) 100 mg BID PO Last administered on 01/20/17 08:36; Admin Dose 100 MG; Start 01/19/17 at 20:00; Stop 02/18/17 at 20:59 Lacosamide 200 mg 200 mg BID PO Last administered on 01/20/17 08:38; Admin Dose 200 MG; Start 01/19/17 at 20:00; Stop 02/18/17 at 20:59 Levetiracetam/ Dextrose (Keppra Iv/D5 250ml) 270 ml @ 540 mls/hr BID IV Last administered on 01/20/17 07:59; Admin Dose 540 MLS/HR; Start 01/19/17 at 20:00; Stop 02/18/17 at 20:59 Magnesium Hydroxide (Milk Of Magnesia Susp) 30 ml Q6H PRN PO; Start 01/19/17 at 16:00; Stop 02/18/17 at 15:59 Metoprolol Tartrate (Lopressor Tab) 75 mg Q12 PO Last administered on 01/20/17 08:38; Admin Dose 75 MG; Start 01/19/17 at 21:00; Stop 02/18/17 at 20:59 Ondansetron HCl 4 mg 4 mg Q6H PRN IV Last administered on 01/20/17 05:22; Admin Dose 4 MG; Start 01/19/17 at 16:00; Stop 02/18/17 at 15:59 Pantoprazole Sodium/Syringe (Protonix Inj/ Syringe) 10 ml @ 5 mls/min DAILY@11 IV; Start 01/20/17 at 11:00; Stop 02/19/17 at 10:59 Piperacillin Sod/ Tazobactam Sod (Consult) 1 ea UD PRN N/A; Start 01/19/17 at 17 :30; Stop 02/18/17 at 17:29 Piperacillin Sod/ Tazobactam Sod 3.375 gm/Dextrose 115 ml @ 28.75 mls/ hr Q8H IV Last administered on 01/20/17 02:27; Admin Dose 28.75 MLS/HR; Start 01/20/17 at 02:00; Stop 01/26/17 at 23:59 Polyethylene (Miralax Powder Packet) 17 gm DAILY PRN PO; Start 01/19/17 at 16:30 ; Stop 02/18/17 at 16:29 Polyethylene (Miralax Powder Packet) 17 gm DAILY@1200 PO; Start 01/20/17 at 12:00 ; Stop 02/19/17 at 11:59 Potassium Chloride 40 meq/ Sodium Chloride 1,020 ml @ 100 mls/hr [id number] IV Last administered on 01/20/17 05:18; Admin Dose 100 MLS/HR; Start 01/19/17 at 19: 00; Stop 02/18/17 at 18:59 Senna/Docusate Sodium (Senokot S Tab) 2 tab DAILY@1200 PO; Start 01/20/17 at 12: 00; Stop 02/19/17 at 11:59 Sodium Biphosphate/ Sodium Phosphate (Fleet Enema) 132 ml DAILY PRN [place]; Start 01/20/17 at 16:00; Stop 02/19/17 at 15:59 Topiramate (Topamax Tab) 50 mg BID PO Last administered on 01/20/17 08:37; Admin Dose 50 MG; Start 01/19/17 at 20:00; Stop 02/18/17 at 20:59 Topiramate (Topamax Tab) 100 mg BID PO Last administered on 01/20/17 08:37; Admin Dose 100 MG; Start 01/19/17 at 20:00; Stop 02/18/17 at 20:59 Vancomycin HCl (Consult) 1 ea UD PRN N/A; Start 01/19/17 at 17:30; Stop 02/18/17 at 17:29 Vancomycin HCl 1000 mg/Sodium Chloride 270 ml @ 125 mls/hr Q16H IV Last administered on 01/20/17 05:18; Admin Dose 125 MLS/HR; Start 01/20/17 at 05:00; Stop 01/26/17 at 23:59 Objective Vital Signs Date Time Temp Pulse Resp B/P Pulse Ox O2 Delivery O2 Flow Rate FiO2 01/20/17 07:16 36.5 88 20 150/77 93 Room Air 01/20/17 01:45 Room Air 01/19/17 22:18 36.7 67 18 123/73 92 Room Air 01/19/17 19:14 36.7 104 24 155/81 95 Room Air 01/19/17 18:44 Room Air 01/19/17 17:50 94 20 165/73 95 01/19/17 15:32 90 21 146/79 95 Room Air 01/19/17 13:48 101 16 151/69 95 Room Air 01/19/17 11:01 91 18 147/79 98 Room Air 01/19/17 09:26 36.7 90 18 149/67 97 Nasal Cannula 2.0 Physical Exam Comments: nad, aox3 eomi, anicteric s1 s2 rrr, no murmurs appreciated right LL rales, no wheezing, no rhonchi ab soft, LLQ tend with deep palpation +BS no LE edema LUE weakness with good strength in all other extremities Laboratory Results Last 24 Hours Test 01/19/17 10:30 01/19/17 10:50 01/20/17 07:00 Urine Color YELLOW Urine Appearance CLEAR Urine pH 7.0 Urine Specific [place] 1.008 Urine Protein TRACE Urine Glucose (UA) NEG Urine Ketones NEG Urine Occult Blood TRACE Urine Nitrite NEG Urine Bilirubin NEG Urine Urobilinogen NEG Urine Leukocyte Esterase LARGE Urine WBC (Auto) >30 /hpf Urine RBC (Auto) 0-4 /hpf Urine Hyaline Casts (Auto) 1-5 /lpf Urine Epithelial Cells (Auto) 10-20 /lpf Urine Bacteria (Auto) 1+ Urine Renal Epithelial Cells /lpf White Blood Count 16.02 K/uL 14.67 K/uL Red Blood Count 3.44 M/uL 3.45 M/uL Hemoglobin 9.4 g/dL 9.1 g/dL Hematocrit 29.1 % 29.0 % Mean Corpuscular Volume 84.6 fL 84.1 fL Mean Corpuscular Hemoglobin 27.3 pg 26.4 pg Mean Corpuscular Hemoglobin Concent 32.3 g/dl 31.4 g/dl Platelet Count 371 K/uL 349 K/uL Mean Platelet Volume 8.5 fL 8.3 fL Neutrophils (%) (Auto) 83.2 % Lymphocytes (%) (Auto) 7.4 % Monocytes (%) (Auto) 8.2 % Eosinophils (%) (Auto) 0.5 % Basophils (%) (Auto) 0.1 % Neutrophils # (Auto) 13.32 K/uL Lymphocytes # (Auto) 1.19 K/uL Monocytes # (Auto) 1.32 K/uL Eosinophils # (Auto) 0.08 K/uL Basophils # (Auto) 0.01 K/uL RDW Standard Deviation 50.5 fL 50.3 fL RDW Coefficient of Variation 16.2 % 16.4 % Immature Granulocyte % (Auto) 0.6 % Immature Granulocyte # (Auto) 0.10 K/uL Sodium Level 144 mmol/L 146 mmol/L Potassium Level 2.9 mmol/L 3.3 mmol/L Chloride Level 108 mmol/L 115 mmol/L Carbon Dioxide Level 24 mmol/L 20 mmol/L Anion Gap 12.0 mmol/L 11.0 mmol/L Blood Urea Nitrogen 26 mg/dl 18 mg/dl Creatinine 1.00 mg/dl 1.10 mg/dl Est Creatinine Clear Calc Drug Dose 51.1 ml/min 46.4 ml/min Estimated GFR () 67.5 60.2 Estimated GFR (Non- 58.3 51.9 BUN/Creatinine Ratio 26.2 16.5 Random Glucose 134 mg/dl 156 mg/dl Calcium Level 9.7 mg/dl 9.2 mg/dl Total Bilirubin 0.5 mg/dl Aspartate Amino Transf (AST/SGOT) 39 U/L Alanine Aminotransferase (ALT/SGPT) 63 U/L Alkaline Phosphatase 314 U/L Total Protein 7.3 gm/dl Albumin 2.4 gm/dl Globulin 4.9 gm/dl Albumin/Globulin Ratio 0.5 Lipase 64 U/L Magnesium Level 1.8 mg/dl Assessment and Plan 1. constipation - would stop amlodipine with known association with constipation - will monitor BP throughout the day with only metoprolol - if persistently >150 systolic, will start acei/arb 2. htn - has been elevated - will give metoprolol this morning, norvasc already given - will monitor bp throughout the day - will start acei or arb if persistently elevated 3. prior CVA x2, seizure - cont lacosamide, cont keppra IV for now, topiramate 4. Recent pneumonia - on Cefepime and Clinda outpatient - I'm unsure why this was switched to ZOsyn and Vanco - if cultures and work-up for infectious process including UCx are negative, would resume prior abx regimen 5. DVT ppx
[2017-01-20] MEDS ORDERED: HydrALAZINE HCL 20 MG/ML VIAL IV. PRN (09:15)
[2017-01-20] MEDS: PANTOprazole INJ 40 MG in SYRINGE 0 ML IV SCH (09:46)
[2017-01-20] MEDS: DOCUSATE SODIUM/SENNA 50/8.6MG TAB PO SCH (11:52)
[2017-01-20] MEDS ORDERED: POLYETHYLENE (MIRALAX) 17 GM PACK PO SCH ×2 (12:00→17:00)
[2017-01-20 12:55] LABS: BUN/CREATININE RATIO 15.5 (10-20); CALCIUM 9.2 mg/dl (8.5-10.1); MAGNESIUM 1.8 mg/dl (1.8-2.4); POTASSIUM 3.4 mmol/L (3.5-5.1)
--- NOTE | 2017-01-20 14:39 | Gastrointestinal Consultation ---
Gastrointestinal Consultation Date of Consultation: Jan 20, 2017 Attending Physician: Dr. Caldera Consulting Physician: Dr. Leslie Reason for Consultation: constipation History of Present Illness Patient is a 66 year old female with multiple comorbidities including h/o CVA following back surgery in 2016, seizure disorder, chronic constipation, and HTN whose was admitted with 1 week of nausea, intermittent vomiting, and worsened constipation. SHe also has a history of recurrent aspiration and has been on broad spectrum antibiotics at [facility]. Her outpatient/[facility] bowel regimen has consisted of MiraLax once daily and Senokot BID. Per patient and family she has a BM about once a week. CT scan done on admission showed mild rectal wall thickening - "clinical correlation needed to r/o proctitis." Sh eis on amlodipine for HTN. THis was stopped here as it can contribute to constipation. Past Medical/Surgical History Medical Problems: (1) Hypokalemia Status: Acute (2) Pneumonia Status: Acute (3) UTI (urinary tract infection) Status: Acute Past Medical History: as noted in HPI Past Surgical History: ALEXIA appy back surgery Family History FH: arthritis FH: emphysema Heart disease Stroke non-contributory Social History Smoking Status: Never Smoker Alcohol Use: none Drug Use: none Marital Status: Occupation Status: unemployed Allergies Coded Allergies: No Known Allergies (Verified , 01/19/17) Current Medications Home Meds and Scripts Medications Dose Route/Sig Max Daily Dose Days Date Category Topamax (Topiramate) 25 Mg Tab 50 Mg PO BID 01/19/17 Reported Topamax (Topiramate) 100 Mg Tab 100 Mg PO BID 01/19/17 Reported Senokot S (Senna/Docusate Sodium) 1 Tab Tab 2 Tab PO DAILY@1200 01/19/17 Reported Miralax (Polyethylene) 17 Gm Pow 17 Gm PO DAILY@1200 01/19/17 Reported Protonix (Pantoprazole Sodium) 40 Mg Tab 40 Mg PO DAILY 01/19/17 Reported Nystatin Suspension (Nystatin) 1 Ml Susp 5 Ml PO QID 01/19/17 Reported Theragran-M (Multiple Vitamins W/ Minerals) 1 Tab Tab 1 Tab PO DAILY 01/19/17 Reported Lopressor (Metoprolol Tartrate) 25 Mg Tab 75 Mg PO Q12 01/19/17 Reported Keppra (Levetiracetam) 1,000 Mg Tab 2,000 Mg PO Q12 01/19/17 Reported Vimpat (Lacosamide) 100 Mg Tab 200 Mg PO Q12 01/19/17 Reported Docusate Sodium 100 Mg Cap 100 Mg PO BID 01/19/17 Reported Cleocin (Clindamycin Hcl) 150 Mg Cap 600 Mg PO Q8 01/19/17 Reported Cefepime (Cefepime Hcl) 1 Gm Inj 1 Gm IV Q12 01/19/17 Reported Norvasc (Amlodipine Besylate) 5 Mg Tab 5 Mg PO DAILY 01/19/17 Reported Review of Systems 12 systems reviewed and negative except as noted Physical Exam Date Time Temp Pulse Resp B/P Pulse Ox O2 Delivery O2 Flow Rate FiO2 01/20/17 08:30 Room Air 01/20/17 07:16 36.5 88 20 150/77 93 Room Air 01/20/17 01:45 Room Air 01/19/17 22:18 36.7 67 18 123/73 92 Room Air 01/19/17 19:14 36.7 104 24 155/81 95 Room Air 01/19/17 18:44 Room Air 01/19/17 17:50 94 20 165/73 95 01/19/17 15:32 90 21 146/79 95 Room Air General Appearance: WD/WN, no apparent distress Eyes: normal inspection, PERRL ENT: normal ENT inspection, hearing grossly normal, pharynx normal Neck: supple, no adenopathy, no JVD Respiratory/Chest: chest non-tender, + decreased breath sounds Cardiovascular: regular rate, rhythm, no murmur Abdomen: normal bowel sounds, non tender, + distended Extremities: + pedal edema Neurologic/Psych: screw down II-XII nml as tested, alert, normal mood/affect, oriented x 3, + pertinent finding (left sided weakness) Skin: normal color, no jaundice, warm/dry, no rash Laboratory Results Last 24 Hours Test 01/20/17 07:00 01/20/17 12:20 White Blood Count 14.67 K/uL Red Blood Count 3.45 M/uL Hemoglobin 9.1 g/dL Hematocrit 29.0 % Mean Corpuscular Volume 84.1 fL Mean Corpuscular Hemoglobin 26.4 pg Mean Corpuscular Hemoglobin Concent 31.4 g/dl RDW Standard Deviation 50.3 fL RDW Coefficient of Variation 16.4 % Platelet Count 349 K/uL Mean Platelet Volume 8.3 fL Sodium Level 146 mmol/L 145 mmol/L Potassium Level 3.3 mmol/L 3.4 mmol/L Chloride Level 115 mmol/L 115 mmol/L Carbon Dioxide Level 20 mmol/L 16 mmol/L Anion Gap 11.0 mmol/L 14.0 mmol/L Blood Urea Nitrogen 18 mg/dl 16 mg/dl Creatinine 1.10 mg/dl 1.00 mg/dl Est Creatinine Clear Calc Drug Dose 46.4 ml/min 51.1 ml/min Estimated GFR () 60.2 67.5 Estimated GFR (Non- 51.9 58.3 BUN/Creatinine Ratio 16.5 15.5 Random Glucose 156 mg/dl 153 mg/dl Calcium Level 9.2 mg/dl 9.2 mg/dl Magnesium Level 1.8 mg/dl 1.8 mg/dl Impression Patient is a 66 year old female with a history of stroke, seizure disorder, aspiration/dysphagia following CVA, and chronic constipation. Last "real" BM reportedly was 01/11. Admitted with abd discomfort, nausea and vomiting in addition. Plan - She needs a more aggressive bowel regimen. Would increase her miralax to BID and if she can tolerate it, consider giving her 1/2 of a bowel prep (like for a colonoscopy). - Colace 100 mg BID. - PRN enemas and stimulant suppositories. - Mobilize as possible, - CT findings likely a result of chronic constipation/obstipation. Would not consider colonoscopy at this time.
[2017-01-20 15:49] VITALS: BP 153/70; PULSE 82; TEMP 36.8; O2SAT 94
[2017-01-20] MEDS ORDERED: SOD PHOSPHATE/SOD BIPHOSPHATE ENEMA 132 ML BTL PR PRN (16:00)
[2017-01-20] MEDS ORDERED: POTASSIUM CHLORIDE 10 MEQ TABCR PO STA (16:36)
[2017-01-20 16:57] LABS: INR 1.1 (0.9-1.1); PARTIAL THROMBOPLASTIN RATIO 1.1; PROTHROMBIN TIME (PATIENT) 11.9 SECONDS (9.0-12.0)
[2017-01-20 20:35] VITALS: BP 157/78; PULSE 102
[2017-01-20] MEDS: HEPARIN SOD 5000 UNIT/0.5 ML CARP SQ SCH (22:02)
[2017-01-20 23:30] VITALS: BP 156/64; PULSE 74; TEMP 36.6; O2SAT 95
[2017-01-21] MEDS: POTASSIUM CHLORIDE INJ 40 MEQ in SODIUM CHLORIDE 0.9% 1000ML 1,000 ML IV SCH (01:33)
[2017-01-21] MEDS: PIPERACILL/TAZOBAC IV 3.375 GM in DEXTROSE 5% 100ML 100 ML IV SCH ×3 (01:33→17:48)
[2017-01-21 06:01] LABS: BASO % 0.4 %; BASO ABS # 0.05 K/uL (0-0.2); COMPLETE YES; EOS % 9.5 %; HEMATOCRIT 29.6 % (37-47); IG% 1.5 %; LYMPH % 11.2 %; LYMPH ABS # 1.35 K/uL (1.2-3.4); MEAN CELL VOLUME 87.3 fL (80-100); MEAN CORPUSCULAR HEMOGLOBIN 27.1 pg (25-34); MEAN CORPUSCULAR HGB CONC 31.1 g/dl (32-36); MEAN PLATELET VOLUME 8.9 fL (7.4-10.4); MONO % 5.8 %; NEUT % 71.6 %; PLATELET COUNT 416 K/uL (130-400); RED BLOOD COUNT 3.39 M/uL (4.2-5.4); WHITE BLOOD COUNT 12.08 K/uL (4.8-10.8)
[2017-01-21 06:40] LABS: BUN/CREATININE RATIO 14.8 (10-20); CALCIUM 9.6 mg/dl (8.5-10.1); CREATININE 0.84 mg/dl (0.60-1.20); MAGNESIUM 1.8 mg/dl (1.8-2.4); POTASSIUM 3.6 mmol/L (3.5-5.1)
[2017-01-21] MEDS: LEVETIRACETAM IV 2,000 MG in DEXTROSE 5% 250ML 250 ML IV SCH ×2 (07:31→20:02)
[2017-01-21] MEDS: LACOSAMIDE 50 MG TAB PO SCH ×2 (07:31→20:03)
[2017-01-21] MEDS: TOPIRAMATE 50 MG TAB PO SCH ×2 (07:32→20:02)
[2017-01-21] MEDS: DOCUSATE SODIUM 100 MG CAP PO SCH ×2 (07:32→20:02)
[2017-01-21] MEDS: METOPROLOL TARTRATE 25 MG TAB PO SCH ×2 (07:32→20:23)
[2017-01-21] MEDS: TOPIRAMATE 100 MG TAB PO SCH ×2 (07:32→20:02)
[2017-01-21] MEDS: HEPARIN SOD 5000 UNIT/0.5 ML CARP SQ SCH ×2 (07:34→21:35)
--- NOTE | 2017-01-21 08:29 | Progress Note ---
Subjective Date of Service: Jan 21, 2017. Subjective Pt evaluation today including: conversation w/ patient, physical exam, chart review, lab review, review of inpatient medication list Patient feeling better. Had BM overnight. Did receive abdominal sq shot (likely heparin) and complaining of discomfort in that area. Otherwise, no chest pain ,no sob. Tolerating diet. Problem List Medical Problems: (1) Hypokalemia Status: Acute (2) Pneumonia Status: Acute (3) UTI (urinary tract infection) Status: Acute Review of Systems All Other Systems: Reviewed and Negative Medications Acetaminophen (Tylenol Tab) 650 mg Q4H PRN PO Last administered on 01/19/17 20 :12; Admin Dose 650 MG; Start 01/19/17 at 16:00; Stop 02/18/17 at 15:59 Al Hydrox/Mg Hydrox/Simethicone (Maalox Max Susp) 15 ml Q4H PRN PO; Start at 16:00; Stop 02/18/17 at 15:59 Docusate Sodium (coLACE CAP) 100 mg BID PO Last administered on 01/21/17 07:32; Admin Dose 100 MG; Start 01/19/17 at 20:00; Stop 02/18/17 at 20:59 Heparin Sodium (Porcine) 5000 unit 5,000 unit Q12 SQ Last administered on 07:34; Admin Dose 5,000 UNIT; Start 01/20/17 at 21:00; Stop 02/19/17 at 20:59 Hydralazine HCl (HydrALAZINE INJ) 10 mg Q8H PRN IV.; Start 01/20/17 at 09:15; Stop 02/19/17 at 09:14 Lacosamide 200 mg 200 mg BID PO Last administered on 01/21/17 07:31; Admin Dose 200 MG; Start 01/19/17 at 20:00; Stop 02/18/17 at 20:59 Levetiracetam/ Dextrose (Keppra Iv/D5 250ml) 270 ml @ 540 mls/hr BID IV Last administered on 01/21/17 07:31; Admin Dose 540 MLS/HR; Start 01/19/17 at 20:00; Stop 02/18/17 at 20:59 Lisinopril (Zestril Tab) 20 mg QAM PO; Start 01/21/17 at 10:00; Stop 02/20/17 at 09:59 Magnesium Hydroxide (Milk Of Magnesia Susp) 30 ml Q6H PRN PO; Start 01/19/17 at 16:00; Stop 02/18/17 at 15:59 Metoprolol Tartrate (Lopressor Tab) 75 mg Q12 PO Last administered on 01/21/17 07:32; Admin Dose 75 MG; Start 01/19/17 at 21:00; Stop 02/18/17 at 20:59 Ondansetron HCl 4 mg 4 mg Q6H PRN IV Last administered on 01/20/17 05:22; Admin Dose 4 MG; Start 01/19/17 at 16:00; Stop 02/18/17 at 15:59 Pantoprazole Sodium/Syringe (Protonix Inj/ Syringe) 10 ml @ 5 mls/min DAILY@11 IV Last administered on 01/20/17 09:46; Admin Dose 5 MLS/MIN; Start 01/20/17 at 11:00; Stop 02/19/17 at 10:59 Piperacillin Sod/ Tazobactam Sod (Consult) 1 ea UD PRN N/A; Start 01/19/17 at 17 :30; Stop 02/18/17 at 17:29 Piperacillin Sod/ Tazobactam Sod 3.375 gm/Dextrose 115 ml @ 28.75 mls/ hr Q8H IV Last administered on 01/21/17 01:33; Admin Dose 28.75 MLS/HR; Start 01/20/17 at 02:00; Stop 01/26/17 at 23:59 Polyethylene (Miralax Powder Packet) 17 gm BID@0900,1700 PRN PO; Start 01/21/17 at 09:00; Stop 02/20/17 at 08:59 Potassium Chloride/Sodium Chloride (1/2 Nss + 20meq KCl 1000ml) 1,000 ml @ 75 mls/hr [id number] IV; Start 01/21/17 at 10:00; Stop 02/20/17 at 09:59 Senna/Docusate Sodium (Senokot S Tab) 2 tab DAILY@1200 PO Last administered on 11:52; Admin Dose 2 TAB; Start 01/20/17 at 12:00; Stop 02/19/17 at 11:59 Sodium Biphosphate/ Sodium Phosphate (Fleet Enema) 132 ml DAILY PRN [place]; Start 01/20/17 at 16:00; Stop 02/19/17 at 15:59 Topiramate (Topamax Tab) 50 mg BID PO Last administered on 01/21/17 07:32; Admin Dose 50 MG; Start 01/19/17 at 20:00; Stop 02/18/17 at 20:59 Topiramate (Topamax Tab) 100 mg BID PO Last administered on 01/21/17 07:32; Admin Dose 100 MG; Start 01/19/17 at 20:00; Stop 02/18/17 at 20:59 Vancomycin HCl (Consult) 1 ea UD PRN N/A; Start 01/19/17 at 17:30; Stop 02/18/17 at 17:29 Vancomycin HCl 1000 mg/Sodium Chloride 270 ml @ 125 mls/hr Q16H IV Last administered on 01/20/17 21:23; Admin Dose 125 MLS/HR; Start 01/20/17 at 05:00; Stop 01/26/17 at 23:59 Objective Vital Signs Date Time Temp Pulse Resp B/P Pulse Ox O2 Delivery O2 Flow Rate FiO2 01/20/17 23:59 Room Air 01/20/17 23:30 36.6 74 20 156/64 95 Room Air 01/20/17 20:35 102 157/78 01/20/17 20:00 Room Air 01/20/17 16:30 Room Air 01/20/17 15:49 36.8 82 22 153/70 94 Room Air 01/20/17 08:30 Room Air Physical Exam Comments: nad, aox3 eomi, perrl, anicteric s1 s2 rrr, no murmurs appreciated ctab no w/r/r abd soft, nt/nd +BS no LE edema left hemiparesis noted Laboratory Results Last 24 Hours Test 01/20/17 12:20 01/20/17 16:29 01/21/17 05:19 Sodium Level 145 mmol/L 153 mmol/L Potassium Level 3.4 mmol/L 3.6 mmol/L Chloride Level 115 mmol/L 122 mmol/L Carbon Dioxide Level 16 mmol/L 20 mmol/L Anion Gap 14.0 mmol/L 11.0 mmol/L Blood Urea Nitrogen 16 mg/dl 12 mg/dl Creatinine 1.00 mg/dl 0.84 mg/dl Est Creatinine Clear Calc Drug Dose 51.1 ml/min 60.8 ml/min Estimated GFR () 67.5 83.4 Estimated GFR (Non- 58.3 71.9 BUN/Creatinine Ratio 15.5 14.8 Random Glucose 153 mg/dl 121 mg/dl Calcium Level 9.2 mg/dl 9.6 mg/dl Magnesium Level 1.8 mg/dl 1.8 mg/dl Prothrombin Time 11.9 SECONDS Prothromb Time International Ratio 1.1 Activated Partial Thromboplast Time 27.5 SECONDS Partial Thromboplastin Ratio 1.1 White Blood Count 12.08 K/uL Red Blood Count 3.39 M/uL Hemoglobin 9.2 g/dL Hematocrit 29.6 % Mean Corpuscular Volume 87.3 fL Mean Corpuscular Hemoglobin 27.1 pg Mean Corpuscular Hemoglobin Concent 31.1 g/dl Platelet Count 416 K/uL Mean Platelet Volume 8.9 fL Neutrophils (%) (Auto) 71.6 % Lymphocytes (%) (Auto) 11.2 % Monocytes (%) (Auto) 5.8 % Eosinophils (%) (Auto) 9.5 % Basophils (%) (Auto) 0.4 % Neutrophils # (Auto) 8.65 K/uL Lymphocytes # (Auto) 1.35 K/uL Monocytes # (Auto) 0.70 K/uL Eosinophils # (Auto) 1.15 K/uL Basophils # (Auto) 0.05 K/uL RDW Standard Deviation 53.0 fL RDW Coefficient of Variation 16.5 % Immature Granulocyte % (Auto) 1.5 % Immature Granulocyte # (Auto) 0.18 K/uL Assessment and Plan 1. constipation - would stop amlodipine with known association with constipation - has had BMs overnight - resume bowel regimen as needed 2. htn - has been elevated - will give dose of lisinopril this morning - will start a nightly dose of lisinopril 10mg - resume metoprolol 3. prior CVA x2, seizure - cont lacosamide, cont keppra IV for now, topiramate 4. Recent pneumonia - on Cefepime and Clinda outpatient - UCx with staph growing, awaiting sensitivities - Cont on vanco and zosyn for now 5. DVT ppx
[2017-01-21] MEDS ORDERED: POLYETHYLENE (MIRALAX) 17 GM PACK PO PRN (09:00)
[2017-01-21 09:02] VITALS: BP 175/96; PULSE 106; TEMP 36.3; O2SAT 98
[2017-01-21] MEDS: LISINOPRIL 20 MG TAB PO SCH (09:36)
[2017-01-21] MEDS ORDERED: SODIUM CHLOR 0.45% + 20MEQ KCL 1,000 ML IV SCH (10:00)
[2017-01-21] MEDS: PANTOprazole INJ 40 MG in SYRINGE 0 ML IV SCH (10:52)
[2017-01-21] MEDS: DOCUSATE SODIUM/SENNA 50/8.6MG TAB PO SCH (11:44)
[2017-01-21] MEDS ORDERED: VANCOMYCIN TROUGH SCH (12:30)
[2017-01-21] MEDS: VANCOMYCIN INJ 1,000 MG in SODIUM CHLORIDE 0.9% 250ML 250 ML IV SCH (14:22)
[2017-01-21 15:00] VITALS: BP 156/78; PULSE 80; TEMP 36.8; O2SAT 96
--- NOTE | 2017-01-21 15:28 | Pharmacy Progress Note ---
Pharmacy Antibiotic Prog Note Date of Service: Jan 21, 2017. Subjective: The patient is currently receiving Vancomycin 1gm IV q16h. The patient is currently on day #3 of IV therapy. Objective: Height (Feet): 5 Height (Inches): 6.00 Weight (Kilograms): 70.000 Levels: Item Value Date Time Vancomycin Level Trough 17.0 mcg/ml 01/21/17 1243 Lab Results (24hrs): Laboratory Tests Test 01/21/17 05:19 01/21/17 15:00 BUN/Creatinine Ratio 14.8 Blood Urea Nitrogen 12 mg/dl Creatinine 0.84 mg/dl White Blood Count 12.08 K/uL Red Blood Count 3.39 M/uL Hemoglobin 9.2 g/dL Hematocrit 29.6 % Mean Corpuscular Volume 87.3 fL Mean Corpuscular Hemoglobin 27.1 pg Mean Corpuscular Hemoglobin Concent 31.1 g/dl Platelet Count 416 K/uL Mean Platelet Volume 8.9 fL Neutrophils (%) (Auto) 71.6 % Lymphocytes (%) (Auto) 11.2 % Monocytes (%) (Auto) 5.8 % Eosinophils (%) (Auto) 9.5 % Basophils (%) (Auto) 0.4 % Neutrophils # (Auto) 8.65 K/uL Lymphocytes # (Auto) 1.35 K/uL Monocytes # (Auto) 0.70 K/uL Eosinophils # (Auto) 1.15 K/uL Basophils # (Auto) 0.05 K/uL Micro Results: Item Value Date Time Urine Culture - Preliminary Resulted 01/19/17 1030 Urine,Catheterized Staph Species MRSA DNA Surveillance Screen - Final Complete 01/19/17 2200 Nasal Specimen Negative for MRSA by DNA Probe Recent Pertinent Medications: Item Value Date Time Vancomycin HCl 530 ml @ 200 mls/hr 01/19/17 1700 1500 mg/Sodium TODAY@1700/IV 01/19/17 1936 Chloride Vancomycin HCl 270 ml @ 125 mls/hr 01/20/17 0500 1000 mg/Sodium Q16H/IV 01/21/17 1422 Chloride Item Value Date Time Piperacillin Sod/ 115 ml @ 230 mls/hr 01/19/17 1700 Tazobactam Sod NOW ONCE/IV 01/19/17 1936 3.375 gm/Dextrose Piperacillin Sod/ 115 ml @ 28.75 mls/hr 01/20/17 0200 Tazobactam Sod Q8H/IV 01/21/17 0936 3.375 gm/Dextrose Assessment & Plan: Vancomycin * 66 yo F transferred from [facility] with pneumonia/UTI--staph in urine cx * goal trough level: 15-20mcg/mL * trough level drawn: 17mcg/mL --> Therapeutic * continue current tx with Vanco 1gm IV q16h * will recheck trough level in a few days or earlier if needed Pharmacy will continue to follow and will adjust dose/frequency as necessary. Thank you
[2017-01-21 16:33] LABS: BUN/CREATININE RATIO 13.2 (10-20); CREATININE 0.84 mg/dl (0.60-1.20)
[2017-01-21 20:01] VITALS: BP 165/76; PULSE 82
[2017-01-22 00:15] VITALS: BP 165/77; PULSE 63; TEMP 36.9; O2SAT 93
[2017-01-22] MEDS: PIPERACILL/TAZOBAC IV 3.375 GM in DEXTROSE 5% 100ML 100 ML IV SCH ×3 (02:36→17:54)
[2017-01-22] MEDS: VANCOMYCIN INJ 1,000 MG in SODIUM CHLORIDE 0.9% 250ML 250 ML IV SCH ×2 (05:27→22:21)
[2017-01-22 06:14] LABS: BASO % 0.7 %; BASO ABS # 0.08 K/uL (0-0.2); COMPLETE YES; EOS % 9.6 %; HEMATOCRIT 28.3 % (37-47); IG% 3.8 %; LYMPH % 15.4 %; LYMPH ABS # 1.68 K/uL (1.2-3.4); MEAN CELL VOLUME 85.2 fL (80-100); MEAN CORPUSCULAR HEMOGLOBIN 27.4 pg (25-34); MEAN CORPUSCULAR HGB CONC 32.2 g/dl (32-36); MEAN PLATELET VOLUME 8.3 fL (7.4-10.4); MONO % 8.9 %; NEUT % 61.6 %; PLATELET COUNT 385 K/uL (130-400); RED BLOOD COUNT 3.32 M/uL (4.2-5.4); WHITE BLOOD COUNT 10.92 K/uL (4.8-10.8)
[2017-01-22 06:42] LABS: BUN/CREATININE RATIO 12.7 (10-20); CALCIUM 8.7 mg/dl (8.5-10.1); CREATININE 0.77 mg/dl (0.60-1.20); MAGNESIUM 1.5 mg/dl (1.8-2.4); POTASSIUM 2.5 mmol/L (3.5-5.1)
[2017-01-22 08:25] VITALS: BP 169/83; PULSE 96; TEMP 36.7; O2SAT 97
[2017-01-22] MEDS ORDERED: MAGNESIUM SULFATE 1GM / D5W 1 GM in PREMIXED IN D5W 100 ML IV ONE (08:45)
[2017-01-22] MEDS: LISINOPRIL 20 MG TAB PO SCH (09:04)
[2017-01-22] MEDS: DOCUSATE SODIUM 100 MG CAP PO SCH ×2 (09:04→21:11)
[2017-01-22] MEDS: POTASSIUM CHLORIDE 20 MEQ TABCR PO SCH ×2 (09:05→21:12)
[2017-01-22] MEDS: METOPROLOL TARTRATE 25 MG TAB PO SCH ×2 (09:05→21:14)
[2017-01-22] MEDS: LACOSAMIDE 50 MG TAB PO SCH ×2 (09:06→21:13)
[2017-01-22] MEDS: POTASSIUM CHLR 10 MEQ / WTR 10 MEQ in PREMIXED WATER 100 ML IV SCH ×3 (09:07→13:46)
[2017-01-22] MEDS: TOPIRAMATE 50 MG TAB PO SCH ×2 (09:08→21:12)
[2017-01-22] MEDS: TOPIRAMATE 100 MG TAB PO SCH ×2 (09:09→21:12)
[2017-01-22] MEDS: HEPARIN SOD 5000 UNIT/0.5 ML CARP SQ SCH ×2 (09:11→21:24)
--- NOTE | 2017-01-22 09:36 | Clinical Documentation Query ---
JOCY GALEAS : CLINICAL DOCUMENTATION QUERIES QUERY 1 OF 3 Patient is a 66 year old female presenting for evaluation and treatment of constipation, nausea, and vomiting. Per patient's , she was being treated as an outpatient with Cefepime and Clindamycin for pneumonia. Inpatient antibiotic coverage has included Vancomycin and Zosyn. Patient reports difficulty swallowing and in fact speech evaluation earlier in this calendar year demonstrated mild oral stage dysphagia. In your clinical opinion is this patient being managed for: (X ) (Possible/Suspected/Likely) Aspiration and/or MRSA pneumonia ( ) Other explanation of clinical findings (Please Explain) ( ) Unable to determine (Please Define) ( ) Need to Discuss ( ) Not Agree The medical record reflects the following clinical findings, treatment, and risk factors. Clinical Indicators: As above Treatment: Blood cultures, Vancomycin, Zosyn Risk Factors: Oral dysphagia, CVA history QUERY 2 OF 3 Patient reports about a 30 pound weight loss in the past few weeks in the setting of constipation, nausea, and vomiting. 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 As appropriate, consider clarification as suggested below as this directly impacts DRG assignment, risk of mortality, and severity of illness. In your clinical opinion is this patient being managed for: ( x ) Severe protein-calorie malnutrition ( ) Other explanation of clinical findings (Please Explain) ( ) Unable to determine (Please Define) ( ) Need to Discuss ( ) Not Agree The medical record reflects the following clinical findings, treatment, and risk factors. Clinical Indicators: 30 pound weight loss in a few weeks duration, dysphagia Treatment: IVF, GI consultation Risk Factors: Dysphagia, CVA, constipation with nausea and vomiting QUERY 3 OF 3 Serum sodium on admission of 144 mmol/L. Values increased to a maximum of 153 mmol/L on 01/21. Patient was being treated IV NSS since admission until this time. IVF were changed to a 1/2NSS solution. Repeat PRP pending at this time. In your clinical opinion is this patient being managed for: ( ) Hypernatremia ( x) Other explanation of clinical findings (Please Explain) ( ) Unable to determine (Please Define) ( ) Need to Discuss ( ) Not Agree The medical record reflects the following clinical findings, treatment, and risk factors. Clinical Indicators: As above Treatment:IVF were changed to a 1/2NSS solution. Repeat PRP Risk Factors: Isotonic NSS administration Please clarify and document your clinical opinion in the progress notes and discharge summary. Terms such as "probable", "suspected", "likely", "questionable", "possible", or "still to be ruled out" are acceptable. IF IN AGREEMENT, YOU MUST DOCUMENT ABOVE DIAGNOSTIC STATEMENT IN DAILY PROGRESS NOTES AND DISCHARGE SUMMARY. This document is not part of the patient's record. Thank You, Weston Delatorre, RN [phone]
--- NOTE | 2017-01-22 09:37 | Clinical Documentation Query ---
LISBETH Cisneros : CLINICAL DOCUMENTATION QUERIES QUERY 1 OF 3 Patient is a 66 year old female presenting for evaluation and treatment of constipation, nausea, and vomiting. Per patient's , she was being treated as an outpatient with Cefepime and Clindamycin for pneumonia. Inpatient antibiotic coverage has included Vancomycin and Zosyn. Patient reports difficulty swallowing and in fact speech evaluation earlier in this calendar year demonstrated mild oral stage dysphagia. In your clinical opinion is this patient being managed for: ( x ) (Possible/Suspected/Likely) Aspiration and/or MRSA pneumonia ( ) Other explanation of clinical findings (Please Explain) ( ) Unable to determine (Please Define) ( ) Need to Discuss ( ) Not Agree The medical record reflects the following clinical findings, treatment, and risk factors. Clinical Indicators: As above Treatment: Blood cultures, Vancomycin, Zosyn Risk Factors: Oral dysphagia, CVA history QUERY 2 OF 3 Patient reports about a 30 pound weight loss in the past few weeks in the setting of constipation, nausea, and vomiting. 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 As appropriate, consider clarification as suggested below as this directly impacts DRG assignment, risk of mortality, and severity of illness. In your clinical opinion is this patient being managed for: (x ) Severe protein-calorie malnutrition ( ) Other explanation of clinical findings (Please Explain) ( ) Unable to determine (Please Define) ( ) Need to Discuss ( ) Not Agree The medical record reflects the following clinical findings, treatment, and risk factors. Clinical Indicators: 30 pound weight loss in a few weeks duration, dysphagia Treatment: IVF, GI consultation Risk Factors: Dysphagia, CVA, constipation with nausea and vomiting QUERY 3 OF 3 Serum sodium on admission of 144 mmol/L. Values increased to a maximum of 153 mmol/L on 01/21. Patient was being treated IV NSS since admission until this time. IVF were changed to a 1/2NSS solution. Repeat PRP pending at this time. In your clinical opinion is this patient being managed for: ( x ) Hypernatremia ( ) Other explanation of clinical findings (Please Explain) ( ) Unable to determine (Please Define) ( ) Need to Discuss ( ) Not Agree The medical record reflects the following clinical findings, treatment, and risk factors. Clinical Indicators: As above Treatment:IVF were changed to a 1/2NSS solution. Repeat PRP Risk Factors: Isotonic NSS administration Please clarify and document your clinical opinion in the progress notes and discharge summary. Terms such as "probable", "suspected", "likely", "questionable", "possible", or "still to be ruled out" are acceptable. IF IN AGREEMENT, YOU MUST DOCUMENT ABOVE DIAGNOSTIC STATEMENT IN DAILY PROGRESS NOTES AND DISCHARGE SUMMARY. This document is not part of the patient's record. Thank You, Weston Delatorre, RN [phone]
[2017-01-22] MEDS: LEVETIRACETAM IV 2,000 MG in DEXTROSE 5% 250ML 250 ML IV SCH ×2 (09:38→21:02)
[2017-01-22] MEDS: PANTOprazole INJ 40 MG in SYRINGE 0 ML IV SCH (11:10)
[2017-01-22] MEDS: DOCUSATE SODIUM/SENNA 50/8.6MG TAB PO SCH (12:48)
--- NOTE | 2017-01-22 12:48 | Clinical Documentation Query ---
JIMMY DAVIS : CLINICAL DOCUMENTATION QUERIES QUERY 1 OF 3 Patient is a 66 year old female presenting for evaluation and treatment of constipation, nausea, and vomiting. Per patient's , she was being treated as an outpatient with Cefepime and Clindamycin for pneumonia. Inpatient antibiotic coverage has included Vancomycin and Zosyn. Patient reports difficulty swallowing and in fact speech evaluation earlier in this calendar year demonstrated mild oral stage dysphagia. In your clinical opinion is this patient being managed for: ( x ) (Possible/Suspected/Likely) Aspiration and/or MRSA pneumonia ( ) Other explanation of clinical findings (Please Explain) ( ) Unable to determine (Please Define) ( ) Need to Discuss ( ) Not Agree The medical record reflects the following clinical findings, treatment, and risk factors. Clinical Indicators: As above Treatment: Blood cultures, Vancomycin, Zosyn Risk Factors: Oral dysphagia, CVA history QUERY 2 OF 3 Patient reports about a 30 pound weight loss in the past few weeks in the setting of constipation, nausea, and vomiting. 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 As appropriate, consider clarification as suggested below as this directly impacts DRG assignment, risk of mortality, and severity of illness. In your clinical opinion is this patient being managed for: ( ) Severe protein-calorie malnutrition ( ) Other explanation of clinical findings (Please Explain) (x ) Unable to determine (Please Define)-general malnutrition ( ) Need to Discuss ( ) Not Agree The medical record reflects the following clinical findings, treatment, and risk factors. Clinical Indicators: 30 pound weight loss in a few weeks duration, dysphagia Treatment: IVF, GI consultation Risk Factors: Dysphagia, CVA, constipation with nausea and vomiting QUERY 3 OF 3 Serum sodium on admission of 144 mmol/L. Values increased to a maximum of 153 mmol/L on 01/21. Patient was being treated IV NSS since admission until this time. IVF were changed to a 1/2NSS solution. Repeat PRP pending at this time. In your clinical opinion is this patient being managed for: ( x ) Hypernatremia ( ) Other explanation of clinical findings (Please Explain) ( ) Unable to determine (Please Define) ( ) Need to Discuss ( ) Not Agree The medical record reflects the following clinical findings, treatment, and risk factors. Clinical Indicators: As above Treatment:IVF were changed to a 1/2NSS solution. Repeat PRP Risk Factors: Isotonic NSS administration Please clarify and document your clinical opinion in the progress notes and discharge summary. Terms such as "probable", "suspected", "likely", "questionable", "possible", or "still to be ruled out" are acceptable. IF IN AGREEMENT, YOU MUST DOCUMENT ABOVE DIAGNOSTIC STATEMENT IN DAILY PROGRESS NOTES AND DISCHARGE SUMMARY. This document is not part of the patient's record. Thank You, Weston Delatorre, SWEETIE [phone]
--- NOTE | 2017-01-22 13:04 | Progress Note ---
Subjective Date of Service: Jan 22, 2017. (Danial Kilpatrick M.D.) Subjective pt has some memory loss but remembers me from previous visits (Danial Kilpatrick M.D.) Pt evaluation today including: conversation w/ patient, conversation w/ family , physical exam, chart review, lab review, review of studies, review of inpatient medication list Patient thinks that she is getting better. Denies any shortness of breath. Occasional cough with white sputum. Chest pressure. Still feeling nauseated. No fever or chills. No vomiting. Having bowel movements. (Pavithra Nair PA-C) Problem List Medical Problems: (1) Hypokalemia Status: Acute (2) Pneumonia Status: Acute (3) UTI (urinary tract infection) Status: Acute (Danial Kilpatrick M.D.) Review of Systems Constitutional: No chills, No fever, No weakness Cardiac: No chest pain, No edema Abdomen: + constipation, + diarrhea, + pain, No nausea, No vomiting (Danial Kilpatrick M.D.) 6 system review negative. Please see pertinent positives in the history of present illness section. (Pavithra Nair PA-C) Objective Vital Signs Date Time Temp Pulse Resp B/P Pulse Ox O2 Delivery O2 Flow Rate FiO2 01/22/17 00:15 36.9 63 20 165/77 93 Room Air 01/21/17 23:59 Room Air 01/21/17 20:01 82 165/76 01/21/17 20:00 Room Air 01/21/17 16:30 Room Air 01/21/17 15:00 36.8 80 20 156/78 96 Room Air 01/21/17 09:02 36.3 106 20 175/96 98 Room Air 01/21/17 08:30 Room Air (Danial Kilpatrick M.D.) Physical Exam General Appearance: WD/WN, + mild distress Neck: supple, no JVD Respiratory/Chest: chest non-tender, lungs clear, normal breath sounds Cardiovascular: regular rate, rhythm, no murmur Abdomen: normal bowel sounds, non tender, soft (Danial Kilpatrick M.D.) General Appearance: no apparent distress Eyes: EOMI ENT: + pertinent finding (oral mucosa somewhat dry) Neck: no JVD Respiratory/Chest: + pertinent finding (few crackles noted at the right base) Cardiovascular: regular rate, rhythm Abdomen: normal bowel sounds, non tender, soft Extremities: non-tender, no pedal edema Neurologic/Psychiatric: + pertinent finding (left-sided weakness noted. Left- sided facial droop noted.) Skin: warm/dry (Pavithra Nair PA-C) Laboratory Results Last 24 Hours Test 01/21/17 12:43 01/21/17 15:16 01/22/17 05:45 Vancomycin Level Trough 17.0 mcg/ml Sodium Level 150 mmol/L 149 mmol/L Potassium Level 3.0 mmol/L 2.5 mmol/L Chloride Level 116 mmol/L 115 mmol/L Carbon Dioxide Level 19 mmol/L 20 mmol/L Anion Gap 15.0 mmol/L 14.0 mmol/L Blood Urea Nitrogen 11 mg/dl 10 mg/dl Creatinine 0.84 mg/dl 0.77 mg/dl Est Creatinine Clear Calc Drug Dose 60.8 ml/min 66.3 ml/min Estimated GFR () 83.4 92.6 Estimated GFR (Non- 71.9 79.9 BUN/Creatinine Ratio 13.2 12.7 Random Glucose 115 mg/dl 165 mg/dl Calcium Level 9.0 mg/dl 8.7 mg/dl White Blood Count 10.92 K/uL Red Blood Count 3.32 M/uL Hemoglobin 9.1 g/dL Hematocrit 28.3 % Mean Corpuscular Volume 85.2 fL Mean Corpuscular Hemoglobin 27.4 pg Mean Corpuscular Hemoglobin Concent 32.2 g/dl Platelet Count 385 K/uL Mean Platelet Volume 8.3 fL Neutrophils (%) (Auto) 61.6 % Lymphocytes (%) (Auto) 15.4 % Monocytes (%) (Auto) 8.9 % Eosinophils (%) (Auto) 9.6 % Basophils (%) (Auto) 0.7 % Neutrophils # (Auto) 6.73 K/uL Lymphocytes # (Auto) 1.68 K/uL Monocytes # (Auto) 0.97 K/uL Eosinophils # (Auto) 1.05 K/uL Basophils # (Auto) 0.08 K/uL RDW Standard Deviation 51.5 fL RDW Coefficient of Variation 16.4 % Immature Granulocyte % (Auto) 3.8 % Immature Granulocyte # (Auto) 0.41 K/uL Magnesium Level 1.5 mg/dl (Danial Kilpatrick M.D.) 01/22/17 05:45 Red Blood Count 3.32, Mean Corpuscular Volume 85.2, Mean Corpuscular Hemoglobin 27.4, Mean Corpuscular Hemoglobin Concent 32.2, Mean Platelet Volume 8.3, Neutrophils (%) (Auto) 61.6, Lymphocytes (%) (Auto) 15.4, Monocytes (%) (Auto) 8.9, Eosinophils (%) (Auto) 9.6, Basophils (%) (Auto) 0.7, Neutrophils # (Auto) 6.73, Lymphocytes # (Auto) 1.68, Monocytes # (Auto) 0.97, Eosinophils # (Auto) 1.05, Basophils # (Auto) 0.08 01/22/17 05:45 Test 01/22/17 05:45 White Blood Count 10.92 K/uL (4.8-10.8) Red Blood Count 3.32 M/uL (4.2-5.4) Hemoglobin 9.1 g/dL (12.0-16.0) Hematocrit 28.3 % (37-47) Mean Corpuscular Volume 85.2 fL (80-100) Mean Corpuscular Hemoglobin 27.4 pg (25-34) Mean Corpuscular Hemoglobin Concent 32.2 g/dl (32-36) Platelet Count 385 K/uL (130-400) Mean Platelet Volume 8.3 fL (7.4-10.4) Neutrophils (%) (Auto) 61.6 % Lymphocytes (%) (Auto) 15.4 % Monocytes (%) (Auto) 8.9 % Eosinophils (%) (Auto) 9.6 % Basophils (%) (Auto) 0.7 % Neutrophils # (Auto) 6.73 K/uL (1.4-6.5) Lymphocytes # (Auto) 1.68 K/uL (1.2-3.4) Monocytes # (Auto) 0.97 K/uL (0.11-0.59) Eosinophils # (Auto) 1.05 K/uL (0-0.5) Basophils # (Auto) 0.08 K/uL (0-0.2) RDW Standard Deviation 51.5 fL (36.4-46.3) RDW Coefficient of Variation 16.4 % (11.5-14.5) Immature Granulocyte % (Auto) 3.8 % Immature Granulocyte # (Auto) 0.41 K/uL (0.00-0.02) Anion Gap 14.0 mmol/L (3-11) Est Creatinine Clear Calc Drug Dose 66.3 ml/min Estimated GFR () 92.6 Estimated GFR (Non- 79.9 BUN/Creatinine Ratio 12.7 (10-20) Calcium Level 8.7 mg/dl (8.5-10.1) Magnesium Level 1.5 mg/dl (1.8-2.4) (Pavithra Nair, PA-C) Assessment and Plan 66 y/o female, with PMHx of CVA post op spine surgery in 10/04, [facility], severe constipation, and pneumonia that was being treated on admission Constipation, relieved with fleets, now on Colace and Senokot Pneumonia, right lung base, concern for aspiration :- IV Zosyn + Vancomycin - Urine culture shows coag neg staph sensitive to vancomycin h/o CVA, residual left-sided weakness: - Difficulty with swallowing. Consult speech therapy Seizure disorder: stable Keppra 2000 mg BID PO to IV, Topamax 150 mg BID, Vimpat 200 mg BID HTN: Metoprolol 75 mg BID, lisinopril GERD: Protonix 40 mg IV DVT prophylaxis: KARAN and SCDs Code Status: LEVEL V, DNR Dispo: From [facility] (Danial Kilpatrick M.D.) 66-year-old female with a history of postoperative CVA, residual left-sided weakness and dysphagia admitted to the hospital with anorexia, nausea, constipation and likely aspiration pneumonia please refer to Dr. Kilpatrick's note for plan Right cystic structure on ovary -Patient will need a pelvic ultrasound as an outpatient for further evaluation L uretal stone-renal fxn in tact She will also need follow-up with urology for left ureteral stone Hypernatremia-likely dehydration -1/2 NS + KCl 20 mEq at 80 cc/hr x 1 liter Nausea -Zofran 4 mg IV q 6 hr scheduled Hypokalemia/hypomagnesia-poor po intake/malnutrition -repleted (Pavithra Nair, PEPE)
[2017-01-22] MEDS ORDERED: SODIUM CHLOR 0.45% + 20MEQ KCL 1,000 ML IV SCH (13:30)
[2017-01-22 15:49] VITALS: BP 164/76; PULSE 73; TEMP 36.6; O2SAT 96
[2017-01-22] MEDS: ONDANSETRON INJ 2 MG/ML 2 ML VIAL IV SCH ×2 (16:39→22:22)
[2017-01-22 23:50] VITALS: BP 145/70; PULSE 67; TEMP 36.8; O2SAT 92
[2017-01-23] VITALS: BP 143/69; PULSE 70; O2SAT 94
[2017-01-23 01:25] LABS: BLOOD UREA NITROGEN 10 mg/dl (7-18); CALCIUM 8.3 mg/dl (8.5-10.1); CARBON DIOXIDE 20 mmol/L (21-32); CHLORIDE 115 mmol/L (98-107); CREATININE 0.74 mg/dl (0.60-1.20); GLUCOSE 112 mg/dl (70-99); MAGNESIUM 1.5 mg/dl (1.8-2.4); POTASSIUM 2.9 mmol/L (3.5-5.1); SODIUM 148 mmol/L (136-145)
[2017-01-23] MEDS: PIPERACILL/TAZOBAC IV 3.375 GM in DEXTROSE 5% 100ML 100 ML IV SCH ×4 (01:43→18:01)
[2017-01-23] MEDS ORDERED: POTASSIUM CHLR 10 MEQ / WTR 10 MEQ in PREMIXED WATER 100 ML IV STA (03:21)
[2017-01-23] MEDS: ONDANSETRON INJ 2 MG/ML 2 ML VIAL IV SCH ×4 (03:51→22:10)
[2017-01-23 05:53] LABS: HEMATOCRIT 29.7 % (37-47); MEAN CELL VOLUME 86.8 fL (80-100); MEAN CORPUSCULAR HEMOGLOBIN 26.9 pg (25-34); MEAN PLATELET VOLUME 8.4 fL (7.4-10.4); PLATELET COUNT 407 K/uL (130-400); RED BLOOD COUNT 3.42 M/uL (4.2-5.4); WHITE BLOOD COUNT 11.89 K/uL (4.8-10.8)
[2017-01-23 06:28] LABS: BUN/CREATININE RATIO 10.7 (10-20); CALCIUM 8.7 mg/dl (8.5-10.1); CREATININE 0.81 mg/dl (0.60-1.20); MAGNESIUM 1.5 mg/dl (1.8-2.4)
[2017-01-23 07:18] VITALS: BP 138/76; PULSE 84; TEMP 37.1; O2SAT 94
[2017-01-23] MEDS ORDERED: ASPIRIN 81 MG ECTAB PO STA (07:35)
[2017-01-23] MEDS ORDERED: POTASSIUM CHLORIDE 20 MEQ/15 ML UDC PO STA (07:44)
--- NOTE | 2017-01-23 07:56 | Progress Note ---
Progress Note Date of Service Jan 23, 2017. Progress Note Overnight called by RN due to patient having chest pain. EKG stat ordered. S: Patient having right sided chest and neck pain. Same pain she has been having for the last 2 weeks. Intermittent. Lasts for 1 hour each time. Comes on at rest. Worse on exertion. No nausea, diaphoresis, O: HS 1+2, no murmurs noted, HR and blood pressure stable Chest appears clear to auscultation although she has poor inspiratory effort, normal RR with out accessory muscle use. No increase in saturations Abdo: SNT, BS pos No JVD or peripheral edema. A: Chest pain noted in Pavithra's note on 01/22. Possible related to her pneumonia. EKG show no ischemic changes. Given low potassium stat labs for BMP and troponin ordered. Unlikely cardiac ischemia causing pain. P: BMP + troponin stat - showed K 2.9 (10meq IV prescribed), troponin negative. Troponin added to labs from the morning. Discussed events overnight with day team (Pavithra Nair PA-C)
[2017-01-23] MEDS: METOPROLOL TARTRATE 25 MG TAB PO SCH ×2 (09:03→19:46)
[2017-01-23] MEDS: LACOSAMIDE 50 MG TAB PO SCH ×2 (09:03→19:45)
[2017-01-23] MEDS: LISINOPRIL 20 MG TAB PO SCH (09:03)
[2017-01-23] MEDS: TOPIRAMATE 50 MG TAB PO SCH ×2 (09:04→19:46)
[2017-01-23] MEDS: TOPIRAMATE 100 MG TAB PO SCH ×2 (09:04→19:45)
[2017-01-23] MEDS: PANTOprazole SOD 40 MG TAB PO SCH (09:04)
[2017-01-23] MEDS: DOCUSATE SODIUM 100 MG CAP PO SCH ×2 (09:05→19:47)
[2017-01-23] MEDS: POTASSIUM CHLR 10 MEQ / WTR 10 MEQ in PREMIXED WATER 100 ML IV SCH ×2 (09:06→10:07)
[2017-01-23] MEDS: MAGNESIUM SULFATE 1GM / D5W 1 GM in PREMIXED IN D5W 100 ML IV SCH ×2 (09:06→10:06)
[2017-01-23] MEDS: HEPARIN SOD 5000 UNIT/0.5 ML CARP SQ SCH (09:13)
[2017-01-23] MEDS: MAGNESIUM OXIDE 400 MG TAB PO SCH ×2 (09:14→19:48)
[2017-01-23] MEDS: LEVETIRACETAM IV 2,000 MG in DEXTROSE 5% 250ML 250 ML IV SCH (11:04)
[2017-01-23] MEDS: DOCUSATE SODIUM/SENNA 50/8.6MG TAB PO SCH (12:00)
--- NOTE | 2017-01-23 12:42 | Hospitalist Progress Note ---
Hospitalist Progress Note Date of Service Jan 23, 2017. (Pavithra Nair PA-C) Subjective Pt evaluation today including: conversation w/ patient, conversation w/ family , physical exam, chart review, lab review, review of inpatient medication list Artery today. Denies any shortness of breath. Mild cough noted. No fever or chills. Nausea is much improved. She is having regular bowel movements. She had 2 yesterday. The patient did experience some chest pain overnight. This lasted for approximately 30 minutes. She describes it as a tightening sensation in the center of her chest. It does not radiate anywhere. She denies any dizziness, heart palpitations or sweating. She thinks that this is possibly related to acid reflux she has been having this intermittently over the last several weeks. She denies any history of coronary disease. An EKG and labs were obtained during the pain. Additional Comments: 6 system review negative. Please see pertinent positives in the history of present illness section. (Pavithra Nair PA-C) Objective Vital Signs Date Time Temp Pulse Resp B/P Pulse Ox O2 Delivery O2 Flow Rate FiO2 01/23/17 10:50 Room Air 01/23/17 07:18 37.1 84 16 138/76 94 Room Air 01/23/17 00:45 Room Air 01/23/17 00:00 70 143/69 94 Room Air 01/22/17 23:50 36.8 67 16 145/70 92 Room Air 01/22/17 16:10 Room Air 01/22/17 15:49 36.6 73 16 164/76 96 Room Air (Pavithra Nair PA-C) Physical Exam General Appearance: no apparent distress (appears more energetic today. Color improved.) Eyes: EOMI ENT: + pertinent finding (oral mucosa remains slightly dry.) Neck: no JVD Respiratory/Chest: + pertinent finding (few crackles at the bases right greater than left.) Cardiovascular: regular rate, rhythm Abdomen: normal bowel sounds, non tender, soft Extremities: non-tender, no pedal edema Neurologic/Psychiatric: alert, oriented x 3, + pertinent finding (residual left -sided weakness and left facial droop) Skin: warm/dry (Pavithra Nair PA-C) Laboratory Results 01/23/17 05:25 01/23/17 05:25 Test 01/23/17 05:25 01/23/17 12:00 Red Blood Count 3.42 M/uL (4.2-5.4) Mean Corpuscular Volume 86.8 fL (80-100) Mean Corpuscular Hemoglobin 26.9 pg (25-34) Mean Corpuscular Hemoglobin Concent 31.0 g/dl (32-36) RDW Standard Deviation 52.0 fL (36.4-46.3) RDW Coefficient of Variation 16.3 % (11.5-14.5) Mean Platelet Volume 8.4 fL (7.4-10.4) Anion Gap 15.0 mmol/L (3-11) Est Creatinine Clear Calc Drug Dose 63.1 ml/min Estimated GFR () 87.1 Estimated GFR (Non- 75.2 BUN/Creatinine Ratio 10.7 (10-20) Calcium Level 8.7 mg/dl (8.5-10.1) Magnesium Level 1.5 mg/dl (1.8-2.4) Last 24 Hours Test 01/23/17 00:55 01/23/17 05:25 01/23/17 12:00 Sodium Level 148 mmol/L 148 mmol/L Potassium Level 2.9 mmol/L 3.0 mmol/L Chloride Level 115 mmol/L 116 mmol/L Carbon Dioxide Level 20 mmol/L 17 mmol/L Anion Gap 13.0 mmol/L 15.0 mmol/L Blood Urea Nitrogen 10 mg/dl 9 mg/dl Creatinine 0.74 mg/dl 0.81 mg/dl Est Creatinine Clear Calc Drug Dose 69.1 ml/min 63.1 ml/min Estimated GFR () 97.2 87.1 Estimated GFR (Non- 83.8 75.2 BUN/Creatinine Ratio 13.0 10.7 Random Glucose 112 mg/dl 121 mg/dl Calcium Level 8.3 mg/dl 8.7 mg/dl Magnesium Level 1.5 mg/dl 1.5 mg/dl Troponin I < 0.015 ng/ml 0.054 ng/ml White Blood Count 11.89 K/uL Red Blood Count 3.42 M/uL Hemoglobin 9.2 g/dL Hematocrit 29.7 % Mean Corpuscular Volume 86.8 fL Mean Corpuscular Hemoglobin 26.9 pg Mean Corpuscular Hemoglobin Concent 31.0 g/dl RDW Standard Deviation 52.0 fL RDW Coefficient of Variation 16.3 % Platelet Count 407 K/uL Mean Platelet Volume 8.4 fL (Pavithra Nair PA-C) Assessment and Plan 66-year-old female with a history of postoperative CVA found to have PFO in September 2016 after laminectomy, residual left-sided weakness and dysphagia admitted to the hospital with anorexia, nausea, constipation and likely aspiration pneumonia Aspiration pneumonia -Continue Zosyn. Treat for a total of 7 days -Patient will need PICC line UTI-MRSA -Continue vancomycin for a total of 7 days Constipation-improving -Continue MiraLAX prn -Dulcolax 100 mg po BID Nausea and vomiting -Zofran 4 mg IV every 6 hours was made scheduled yesterday with significant improvement in symptoms. Continue for today Chest pain overnight-EKG reviewed. No acute ischemic changes noted. First troponin negative. Very slight elevation in second troponin at 0.054 -Repeat troponin at noon today. If continuing to elevate, transfer to telemetry and obtain echo -Start ASA 81 mg daily Seizure disorder -Continue Vimpat -Keppra 2000 mg IV BID--> changed to PO today Hypokalemia -Repleted again today -Begin KCl po BID Hypomagnesemia -Mag sulfate 2 g IV ordered again today -Begin mag oxide 400 mg po BID Right cystic structure on ovary -Patient will need a pelvic ultrasound as an outpatient for further evaluation L uretal stone-renal fxn in tact She will also need follow-up with urology for left ureteral stone Hypernatremia-likely dehydration-modest improvement DVT prophylaxis -heparin subQ BID -TEDS, SCDs CODE STATUS -LEVEL V DO NO RESUSCITATE (Pavithra Nair PA-C) [facility] Physician Supervision Note: I interviewed and examined the patient. Discussed with [Name of resident] and agree with findings and plan as documented in the note. Any exceptions or clarifications are listed here: None This pt developed some atypical chest pain overnight and now mild troponin elevation without associated ECG or ECHO changes, is started on aspirin and lovenox. vss 'car is regular without murmur lungs are clear will transfer to tele to complete cardiac evaluation and if troponin continue to rise will consider cardiology consult, continue to treat aspiration pneumonia updated at bedside and sister via phone Documented By: Danial Kilpatrick (Danial Kilpatrick M.D.)
[2017-01-23] MEDS: VANCOMYCIN INJ 1,000 MG in SODIUM CHLORIDE 0.9% 250ML 250 ML IV SCH (13:44)
[2017-01-23 14:34] VITALS: BP 138/76; PULSE 84; TEMP 37.1; O2SAT 94
--- NOTE | 2017-01-23 16:20 | ECHOCARDIOGRAM REPORT ---
*NOTICE TO RECEIVING [facility] This information is strictly Confidential and protected under [place] law. [place] law prohibits you from making any further disclosure of this information unless further disclosure is expressly permitted by the written consent of the person to whom it pertains or is authorized by law. A general authorization for the release of medical or other information is not sufficient for this purpose. Hospital accepts no responsibility if the information is made available to any other person, INCLUDING THE PATIENT. Interpretation Summary * Name: NAZARIO JUNG Study Date: 01/23/2017 03:57 PM BP: 138/76 mmHg * Patient Location: .2T\S\E219\S\1 HR: 84 * : 1950 (M/d/yyy) Gender: Female Height: 66 in * Age: 66 yrs Ethnicity: [place] Weight: 154 lb * Ordering Physician: Pavithra Nair * [facility] * Performed By: Ariane Moulton * * Reason For Study: CHEST PAIN * BSA: 1.8 m2 * -- Conclusions -- * Left ventricular systolic function is normal. * No regional wall motion abnormalities noted. * Ejection Fraction = 60-65%. * There is mild concentric left ventricular hypertrophy. * There is mild mitral regurgitation. Procedure Details * A complete two-dimensional transthoracic echocardiogram was performed (2D, M-mode, Doppler and color flow Doppler). * The study was technically difficult. * There were technical limitations due to patient'sinability to cooperate * A contrast injection of Definity was performed to improve assessment of LV function. * Contrast was injected into an intravenous site in the left arm. * One vial of Definity ultrasound contrast was diluted in normal saline to a total volume of 10 ml. A total of '2' ml of solution was administered during imaging. * Lot # [id number] of Definity utilized for procedure. * Expiration date 01/06. * The attending nurse who injected the contrast agent was MARIA DE JESUS OCONNELL RN. Left Ventricle * The left ventricle is normal in size. * There is mild concentric left ventricular hypertrophy. * Ejection Fraction = 60-65%. * Left ventricular systolic function is normal. * No regional wall motion abnormalities noted. Right Ventricle * The right ventricle is grossly normal size. * The right ventricular systolic function is normal as assessed by tricuspid annular plane systolic excursion (TAPSE) (normal >1.5 cm). Atria * The left atrial size is normal. * Right atrial size is normal. * No ASD detected; PFO is not assessed. Mitral Valve * The mitral valve anatomy is normal. * There is no mitral valve stenosis. * There is mild mitral regurgitation. Tricuspid Valve * The tricuspid valve is not well visualized, but is grossly normal. * There is no tricuspid stenosis. * Significant tricuspid regurgitation is absent. Aortic Valve * The aortic valve is normal in structure and function. * No hemodynamically significant valvular aortic stenosis. * No aortic regurgitation is present. Pulmonic Valve * The pulmonary valve is not well seen, but the Doppler examination is normal without significant regurgitation or stenosis. Great Vessels * Borderline aortic root dilatation. * The pulmonary is not well visualized. Pericardium/Pleural * There is no pericardial effusion. Great Vessels * Normal inferior vena cava size and collapsability with sniff indicates a normal right atrial pressure of 3 mmHg Left Ventricular Diastolic Function * Grade I diastolic dysfunction, (abnormal relaxation pattern). MMode 2D Measurements and Calculations IVSd 1.4 cm IVSs 1.6 cm LVIDd 3.6 cm LVIDs 2.0 cm LVPWd 1.1 cm LVPWs 1.5 cm IVS/LVPW 1.2 FS 43.5 % EDV(Teich) 55.0 ml ESV(Teich) 13.4 ml EF(Teich) 75.6 % EDV(cubed) 47.2 ml ESV(cubed) 8.5 ml EF(cubed) 82.0 % % IVS thick 13.4 % % LVPW thick 35.0 % LV mass(C)d 153.9 grams LV mass(C)dI 86.0 grams/m\S\2 LV mass(C)s 107.3 grams LV mass(C)sI 59.9 grams/m\S\2 SV(Teich) 41.6 ml SI(Teich) 23.2 ml/m\S\2 SV(cubed) 38.7 ml SI(cubed) 21.6 ml/m\S\2 ACS 1.2 cm LA dimension 2.9 cm asc Aorta Diam 3.1 cm LVOT diam 1.9 cm LVOT area 3.0 cm\S\2 LVAd ap4 31.1 cm\S\2 LVLd ap4 8.4 cm EDV(MOD-sp4) 94.3 ml EDV(sp4-el) 97.7 ml LVAs ap4 14.9 cm\S\2 LVLs ap4 6.2 cm ESV(MOD-sp4) 29.7 ml ESV(sp4-el) 30.2 ml EF(MOD-sp4) 68.5 % EF(sp4-el) 69.1 % LVAd ap2 23.7 cm\S\2 LVLd ap2 7.5 cm EDV(MOD-sp2) 65.2 ml EDV(sp2-el) 63.4 ml LVAs ap2 10.4 cm\S\2 LVLs ap2 5.2 cm ESV(MOD-sp2) 17.6 ml ESV(sp2-el) 17.9 ml EF(MOD-sp2) 72.9 % EF(sp2-el) 71.8 % LVLd %diff -12.07 % EDV(MOD-bp) 82.0 ml LVLs %diff -20.09 % ESV(MOD-bp) 25.0 ml EF(MOD-bp) 69.6 % SV(MOD-sp4) 64.6 ml SI(MOD-sp4) 36.1 ml/m\S\2 SV(MOD-sp2) 47.6 ml SI(MOD-sp2) 26.6 ml/m\S\2 SV(MOD-bp) 57.0 ml SI(MOD-bp) 31.9 ml/m\S\2 SV(sp4-el) 67.5 ml SI(sp4-el) 37.7 ml/m\S\2 SV(sp2-el) 45.5 ml SI(sp2-el) 25.4 ml/m\S\2 Doppler Measurements and Calculations MV E max misael 78.5 cm/sec MV A max misael 62.7 cm/sec MV E/A 1.3 MV dec time 0.30 sec Ao V2 max 114.3 cm/sec Ao max PG 5.2 mmHg Ao max PG (full) 0.69 mmHg SHAKA(V,A) 2.7 cm\S\2 SHAKA(V,D) 2.7 cm\S\2 LV V1 max PG 4.5 mmHg LV V1 max 106.4 cm/sec PA V2 max 74.7 cm/sec PA max PG 2.2 mmHg PI end-d misael 95.9 cm/sec TR max misael 247.4 cm/sec
[2017-01-23] MEDS ORDERED: ENOXAPARIN 1 MG/KG SQ SCH (18:15)
[2017-01-23] MEDS: ENOXAPARIN 80 MG/0.8 ML SYR SQ SCH (18:20)
[2017-01-23 19:37] VITALS: BP 147/70; PULSE 74; TEMP 36.3; O2SAT 98
[2017-01-23] MEDS: POTASSIUM CHLORIDE 20 MEQ/15 ML UDC PO SCH (19:44)
[2017-01-23] MEDS: LEVETIRACETAM ORAL SOLN 100MG/ML PO SCH (19:47)
[2017-01-23 23:33] VITALS: BP 134/75; PULSE 67; TEMP 36.9; O2SAT 97
[2017-01-24] VITALS (7 sets, daily range): BP systolic 147–156; BP diastolic 69–84; PULSE 70–93; TEMP 36.2–36.8; O2SAT 96–99
[2017-01-24] MEDS: PIPERACILL/TAZOBAC IV 3.375 GM in DEXTROSE 5% 100ML 100 ML IV SCH ×3 (01:59→18:29)
[2017-01-24] MEDS: ONDANSETRON INJ 2 MG/ML 2 ML VIAL IV SCH (03:45)
[2017-01-24] MEDS ORDERED: VANCOMYCIN TROUGH SCH (04:30)
[2017-01-24 04:33] LABS: BLOOD UREA NITROGEN 7 mg/dl (7-18); BUN/CREATININE RATIO 8.1 (10-20); CALCIUM 8.9 mg/dl (8.5-10.1); CARBON DIOXIDE 19 mmol/L (21-32); CHLORIDE 117 mmol/L (98-107); CREATININE 0.91 mg/dl (0.60-1.20); GLUCOSE 124 mg/dl (70-99); POTASSIUM 3.7 mmol/L (3.5-5.1); SODIUM 148 mmol/L (136-145)
[2017-01-24] MEDS: VANCOMYCIN INJ 1,000 MG in SODIUM CHLORIDE 0.9% 250ML 250 ML IV SCH (05:17)
[2017-01-24] MEDS: ENOXAPARIN 80 MG/0.8 ML SYR SQ SCH ×2 (05:19→18:30)
[2017-01-24] MEDS: METOPROLOL TARTRATE 25 MG TAB PO SCH (07:55)
[2017-01-24] MEDS: TOPIRAMATE 100 MG TAB PO SCH (07:55)
[2017-01-24] MEDS: MAGNESIUM OXIDE 400 MG TAB PO SCH (07:56)
[2017-01-24] MEDS: TOPIRAMATE 50 MG TAB PO SCH (07:56)
[2017-01-24] MEDS: DOCUSATE SODIUM/SENNA 50/8.6MG TAB PO SCH (07:56)
[2017-01-24] MEDS: LISINOPRIL 20 MG TAB PO SCH (07:56)
[2017-01-24] MEDS: PANTOprazole SOD 40 MG TAB PO SCH (07:56)
[2017-01-24] MEDS: LACOSAMIDE 50 MG TAB PO SCH (07:56)
[2017-01-24] MEDS: POTASSIUM CHLORIDE 20 MEQ/15 ML UDC PO SCH (07:57)
[2017-01-24] MEDS: LEVETIRACETAM ORAL SOLN 100MG/ML PO SCH (07:57)
[2017-01-24] MEDS: DOCUSATE SODIUM 100 MG CAP PO SCH ×2 (07:58→20:59)
--- NOTE | 2017-01-24 09:46 | Pharmacy Progress Note ---
Pharmacy Antibiotic Prog Note Date of Service: Jan 24, 2017. Subjective: The patient is currently receiving Vancomycin 1000 mg IV q16h and Zosyn 3.375 g IV q8h for treatment of aspiration pneumonia and coag neg staph UTI. The patient is currently on day # 6 of IV therapy. Objective: Height (Feet): 5 Height (Inches): 6.00 Weight (Kilograms): 66.700 Levels: Item Value Date Time Vancomycin Level Trough 21.5 mcg/ml 01/24/17 0350 Lab Results (24hrs): Laboratory Tests Test 01/24/17 03:50 BUN/Creatinine Ratio 8.1 Blood Urea Nitrogen 7 mg/dl Creatinine 0.91 mg/dl Micro Results: RUN DATE: 01/22/17 [facility] PAGE 1 RUN TIME: 0806 Specimen Inquiry PATIENT: NAZARIO JUNG LOC: [id number] U # : [id number] AGE/SX: 66/F ROOM: E406 REG : 01/19/[address]: Rosa Allan MD : 1950 BED: 1 DIS : STATUS: ADM IN TLOC: SPEC #: [id number] LAURA: 01/19/17 STATUS: DWAYNE REQ #: [id number] RECD: 01/19/[address] [facility] [address]: Jerry Brantley M.D. SOURCE: URINE CATH ENTR: 01/19/[address]: Marek Pittman [facility].D. [facility] C[facility] UR CATH Procedure Result Verified Site URINE CULTURE Final 01/22/17 Organism 1 COAG NEG STAPH NOT SAPROPHYTIC COLONY COUNT >100,000 CFU/ml SENS SENSITIVITY TO FOLLOW 1. COAG NEG STAPH NOT SAPROPHYTIC Target Route Dose RX AB Cost M.I.C. IQ ------ ----- ------ -- ------ -------- - ------ TRIMET/SULFA R >2/38 * OXACILLIN R >2 VANCOMYCIN S 4 DAPTOMYCIN S 1 NITROFURANTOIN S <=32 S = SENSITIVE I = INTERMEDIATE R = RESISTANT Assessment & Plan: 65 year old female on day #6 of Zosyn for aspiration pneumonia and Vanc IV for treatment of oxacillin resistant coag negative staph UTI. Patient was recently at [facility] and received broad spectrum antibiotic therapy (cefepime and clindamycin). Plan Vancomycin for UTI * Trough level of 21.5 mcg/mL is slightly supratherapeutic. Of note, trough level was drawn ~40 min early * Will extend dosing interval - > change to Vancomycin 1000 mg (15 mg/kg) IV every 18 hours. * Goal trough level estimate for UTI: between 15 - 20 mcg/mL. * No further levels will be ordered unless change in clinical status or antibiotic is continued beyond 7 days. Zosyn for asp. pnx * Continue 3.375 g IV every 8 hours (ext. infusion) for CrCl > 20 ml/min. Pharmacy will continue to follow and will adjust dose/frequency as necessary. Thank you
[2017-01-24] MEDS: ATORVASTATIN 40 MG TAB PO SCH (09:55)
--- NOTE | 2017-01-24 11:45 | Hospitalist Progress Note ---
Hospitalist Progress Note Date of Service Jan 24, 2017. (Pavithra Nair PA-C) Subjective Pt evaluation today including: conversation w/ patient, conversation w/ family , physical exam, chart review, lab review, review of inpatient medication list Patient one episode of vomiting this morning immediately after taking her pills. She did not feel nauseated beforehand. She does not feel nauseated now. She is having adequate bowel movements. Denies abdominal pain. Eating better. Denies any chest pain or pressure. No shortness of breath, dizziness, heart palpitations or sweating overnight. No fever or chills. Additional Comments: 6 system review negative. Please see pertinent positives in the history of present illness section. (Pavithra Nair PA-C) Objective Vital Signs Date Time Temp Pulse Resp B/P Pulse Ox O2 Delivery O2 Flow Rate FiO2 01/24/17 07:33 36.5 75 16 147/76 96 Room Air 01/24/17 04:06 36.4 74 19 150/69 96 Room Air 01/24/17 04:00 Room Air 01/23/17 23:59 Room Air 01/23/17 23:33 36.9 67 19 134/75 97 Room Air 01/23/17 20:00 Room Air 01/23/17 19:37 36.3 74 18 147/70 98 01/23/17 17:01 Room Air 01/23/17 16:00 Room Air 01/23/17 14:34 37.1 84 16 94 (Pavithra Nair PA-C) Physical Exam General Appearance: + mild distress (mildly uncomfortable in appearance. Sitting up eating breakfast.) Eyes: EOMI Neck: no JVD Respiratory/Chest: lungs clear Cardiovascular: regular rate, rhythm Abdomen: normal bowel sounds, non tender, soft Extremities: non-tender, no pedal edema Neurologic/Psychiatric: oriented x 3 (answering questions appropriately. Residual left-sided weakness noted.) (Pavithra Nair PA-C) Laboratory Results 01/24/17 03:50 Test 01/24/17 03:50 Anion Gap 12.0 mmol/L (3-11) Est Creatinine Clear Calc Drug Dose 56.2 ml/min Estimated GFR () 75.7 Estimated GFR (Non- 65.3 BUN/Creatinine Ratio 8.1 (10-20) Calcium Level 8.9 mg/dl (8.5-10.1) Magnesium Level 2.1 mg/dl (1.8-2.4) Total Creatine Kinase 18 U/L (26-192) Creatine Kinase MB < 0.5 ng/ml (0.5-3.6) Creatine Kinase MB Ratio (0-3.0) Troponin I 0.085 ng/ml (0-0.045) Vancomycin Level Trough 21.5 mcg/ml (SEE COMMENT) Last 24 Hours Test 01/23/17 12:41 01/23/17 19:24 01/24/17 03:50 Troponin I 0.280 ng/ml 0.180 ng/ml 0.085 ng/ml Total Creatine Kinase 10 U/L 18 U/L Creatine Kinase MB 1.0 ng/ml < 0.5 ng/ml Creatine Kinase MB Ratio 10.0 Sodium Level 148 mmol/L Potassium Level 3.7 mmol/L Chloride Level 117 mmol/L Carbon Dioxide Level 19 mmol/L Anion Gap 12.0 mmol/L Blood Urea Nitrogen 7 mg/dl Creatinine 0.91 mg/dl Est Creatinine Clear Calc Drug Dose 56.2 ml/min Estimated GFR () 75.7 Estimated GFR (Non- 65.3 BUN/Creatinine Ratio 8.1 Random Glucose 124 mg/dl Calcium Level 8.9 mg/dl Magnesium Level 2.1 mg/dl Vancomycin Level Trough 21.5 mcg/ml (Pavithra Nair, PAKenzieC) Assessment and Plan 66-year-old female with a history of postoperative CVA found to have PFO in September 2016 after laminectomy, residual left-sided weakness and dysphagia admitted to the hospital with anorexia, nausea, constipation and likely aspiration pneumonia Aspiration pneumonia-clinically improving -Continue Zosyn. Treat for a total of 7 days. Today is day #5 UTI-MRSA -Continue vancomycin for a total of 7 days. Today is day #5 Constipation-resolved -Continue MiraLAX prn -Dulcolax 100 mg po BID Nausea and vomiting-did have one episode of emesis this morning. Likely associated with taking her pills. -Change Zofran back to every 6 hours as needed Chest pain on 01/23 in the middle the night-no EKG changes noted. Troponin peaked at 0.280. Now trending down to 0.085. ? NSTEMI -Transferred to tele 01/23-->continue for now -Echo shows a preserved EF of 60-65%. No regional wall motion abnormalities noted. -Started on aspirin 81 mg daily -Full dose Lovenox started 01/23--> continue for now -Cardiology consult -Continue ASHLEY inhibitor beta mellisa. Begin statin. Seizure disorder -Continue Vimpat, Topamax -Keppra 2000 mg IV BID--> changed to liquid -Will set up f/u with [employer] here in [place] as her f/u appt now is scheduled in [place] in April Hypokalemia-stabilizing -Begin KCl po BID Hypomagnesemia-resolved -Begin mag oxide 400 mg po BID Right cystic structure on ovary -Patient will need a pelvic ultrasound as an outpatient for further evaluation L uretal stone-renal fxn in tact She will also need follow-up with urology for left ureteral stone Hypernatremia-noted. -check serum/urine osmol, ADH -D5W @ 100 cc/hr x 2 liters -daily PRP DVT prophylaxis -Lovenox -TEDS, SCDs CODE STATUS -LEVEL V DO NO RESUSCITATE (Pavithra Nair, PA-C) I interviewed and examined the patient. Discussed with Pavithra Nair PAC and agree with findings and plan as documented in the note. Any exceptions or clarifications are listed here: None PT with peak and decline of a mild troponin elevation and chest pain without associated ECG or ECHO changes, is started on aspirin and lovenox. vss car is regular without murmur lungs are clear cardiology consult does not feel ACS but offered risk stratifying stress which the patient declined, 48 hrs of lovenox for nstemi, asa statin continue to treat aspiration pneumonia, mrsa uti, will attempt to continue to use peripheral IV and not use picc at this time (Danial Kilpatrick M.D.)
--- NOTE | 2017-01-24 14:17 | CARDIOLOGY CONSULTATION ---
DATE OF CONSULTATION: 01/24/2017 PERTINENT HISTORY: Ms. Osborne is a 66-year-old white female with a complex past medical history, who developed a chest pain syndrome early in the day on January 23. This consultation was ordered to assist in her cardiac management. Just after midnight on January 23, the patient developed discomfort in her upper abdomen which radiated up her right chest to her neck. The patient claims that this discomfort lasted for approximately 30 minutes. There were no associated symptoms such as shortness of breath, nausea, vomiting, or diaphoresis. The patient explains that the discomfort resolved spontaneously. There were no EKG changes. Initial troponin was undetectable, but followup values increased to 0.28. CKs were normal. The patient has never experienced this discomfort previously. Her recent history began back in September when she had elective back surgery at the [facility] in [place], [place]. She apparently suffered a grand-mal seizure at the end of the case. She was eventually transferred to [facility] in a comatose state according to her . She had a complicated course there and eventually suffered a CVA, which was likely a secondary paradoxical embolism and related to her patent foramen ovale. She now has a significant left-sided residual and dysphagia. She was admitted to our institution on the 3rd of this month with a presumed aspiration pneumonia. We have had a long discussion regarding management of this episode of chest discomforts realizing her elevated troponin level. She was offered to be doing stress test, however, she refused. She would like to simply follow her symptoms. PAST MEDICAL HISTORY: 1. Hypertension. 2. Hypercholesterolemia. 3. Mild left ventricular hypertrophy. 4. Lumbar back surgery - September 2016. 5. CVA - paradoxical embolism - patent foramen ovale - winter. 6. Right-sided residual. 7. Dysphagia. 8. Chronic aspiration. 9. GERD. 10. Seizure disorder. 11. Appendectomy. 12. Tonsillectomy. 13. Tubal ligation. 14. Vaginal hysterectomy. MEDICATIONS: 1. Lopressor 75 mg b.i.d. 2. Lisinopril 20 mg daily. 3. Lipitor 40 mg at bedtime. 4. Lovenox 70 mg b.i.d. 5. Magnesium oxide 400 mg b.i.d. 6. Potassium 40 mEq b.i.d. 7. Vancomycin 1 gram IV q. 18 hours. 8. Piperacillin/tazobactam 3.375 grams IV q. 8 hours. 9. Colace 100 mg b.i.d. 10. Senokot-S 2 tablets daily. 11. Protonix 40 mg per day. 12. Topamax 150 mg b.i.d. 13. Vimpat 200 mg b.i.d. ALLERGIES: None. SOCIAL HISTORY: The patient is and lives with her . 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 Does not use tobacco. Alcohol use is occasional. FAMILY HISTORY: Father at age 79 from congestive heart failure. Mother at age 92 from "old age." REVIEW OF SYSTEMS: A 10-point review of systems is negative except for that described above. PHYSICAL EXAMINATION: GENERAL: This is a well-developed and well-nourished white female lying supine in bed without complaints. VITAL SIGNS: Blood pressure 140/76 with a regular pulse of 75, respiratory rate is 16. The patient is afebrile at 36.5 degrees Celsius. Saturations 96% on room air. HEENT: Negative. NECK: Supple with full carotid upstrokes. No carotid bruits. Jugular venous pressure is flat at 90 degrees. There is no thyromegaly. CARDIOVASCULAR: Reveals a regular rhythm with normal S1 and S2. Heart sounds are distant. No obvious murmurs. LUNGS: Clear without rales, rhonchi, or wheezes. ABDOMEN: Soft and nontender without bruits. EXTREMITIES: Reveal intact radial artery pulses bilaterally. Trace pretibial edema is noted. DATA: CBC notes hemoglobin of 9.2, hematocrit 29.7, white count 11.8, and platelet count 407,000. Electrolytes note a sodium of 148, potassium 3.7, chloride 117, bicarb 19, creatinine 0.9, BUN 7, glucose 124. EKG notes normal sinus rhythm with an incomplete right bundle-branch block. Echocardiogram notes normal left ventricular systolic function with ejection fraction of 60% to 65%. There are no wall motion abnormalities. Mild left ventricular hypertrophy is seen along with mild mitral regurgitation. IMPRESSION: Ms. Osborne experienced a 30-minute episode of chest discomfort and did have an elevation in her troponin I level suggesting the possibility of myocardial ischemia. As above, she was offered dobutamine stress test, but refuses. This seems reasonable as she has never experienced similar discomfort. Her explanations for her elevated troponin could be related to her left ventricular hypertrophy. We will follow her wishes and simply observe at this time. PLAN: 1. Continue her current medications. 2. Monitor symptom complex. 3. Discussed duration of Lovenox with Dr. Kilpatrick. They favor a total of 48 hours. 4. Further recommendations depending on her clinical course.
[2017-01-24] MEDS: DEXTROSE 5% 1000ML 1,000 ML IV SCH (14:19)
[2017-01-24] MEDS ORDERED: VANCOMYCIN HCL 125 MG/2.5ML SOLN PO PRN (18:00)
[2017-01-24] MEDS: SACCHAROMYCES BOUL (FLORASTOR) 250 MG CAP PO SCH (18:00)
[2017-01-25] VITALS (7 sets, daily range): BP systolic 134–150; BP diastolic 75–84; PULSE 65–99; TEMP 36.4–36.9; O2SAT 93–99
[2017-01-25] MEDS: VANCOMYCIN INJ 1,000 MG in SODIUM CHLORIDE 0.9% 250ML 250 ML IV SCH ×2 (00:32→18:14)
[2017-01-25] MEDS: DEXTROSE 5% 1000ML 1,000 ML IV SCH (00:32)
[2017-01-25] MEDS: METOPROLOL TARTRATE 25 MG TAB PO SCH ×3 (00:35→21:08)
[2017-01-25] MEDS: TOPIRAMATE 100 MG TAB PO SCH ×3 (00:35→21:08)
[2017-01-25] MEDS: MAGNESIUM OXIDE 400 MG TAB PO SCH ×3 (00:35→21:02)
[2017-01-25] MEDS: LEVETIRACETAM ORAL SOLN 100MG/ML PO SCH ×2 (00:35→07:44)
[2017-01-25] MEDS: TOPIRAMATE 50 MG TAB PO SCH ×3 (00:35→21:03)
[2017-01-25] MEDS: POTASSIUM CHLORIDE 20 MEQ/15 ML UDC PO SCH ×2 (00:35→07:43)
[2017-01-25] MEDS: LACOSAMIDE 50 MG TAB PO SCH ×3 (00:36→21:04)
[2017-01-25] MEDS: PIPERACILL/TAZOBAC IV 3.375 GM in DEXTROSE 5% 100ML 100 ML IV SCH ×3 (03:07→18:14)
[2017-01-25] MEDS: ENOXAPARIN 80 MG/0.8 ML SYR SQ SCH ×2 (05:11→18:14)
[2017-01-25] MEDS: ONDANSETRON INJ 2 MG/ML 2 ML VIAL IV PRN (06:14)
[2017-01-25 07:35] LABS: BUN/CREATININE RATIO 7.3 (10-20); CALCIUM 8.9 mg/dl (8.5-10.1); CREATININE 0.8 mg/dl (0.60-1.20); POTASSIUM 2.8 mmol/L (3.5-5.1)
[2017-01-25] MEDS: SACCHAROMYCES BOUL (FLORASTOR) 250 MG CAP PO SCH (07:41)
[2017-01-25] MEDS: PANTOprazole SOD 40 MG TAB PO SCH (07:41)
[2017-01-25] MEDS: LISINOPRIL 20 MG TAB PO SCH (07:42)
[2017-01-25] MEDS: DOCUSATE SODIUM 100 MG CAP PO SCH ×2 (07:44→21:07)
--- NOTE | 2017-01-25 08:27 | Progress Note ---
Subjective Date of Service: Jan 25, 2017. Subjective pt has no further chest pain, has issues with electrolytes, I spoke to Dr Pittman today about possible adh deficiency Problem List Medical Problems: (1) Hypokalemia Status: Acute (2) Pneumonia Status: Acute (3) UTI (urinary tract infection) Status: Acute Review of Systems Constitutional: No chills, No fever Respiratory: No cough, No shortness of breath Cardiac: No chest pain, No edema Abdomen: No diarrhea, No nausea, No pain, No vomiting Psychiatric: + anxiety, + depression symptoms Objective Vital Signs Date Time Temp Pulse Resp B/P Pulse Ox O2 Delivery O2 Flow Rate FiO2 01/25/17 07:46 36.6 99 20 138/84 98 Room Air 01/25/17 04:00 Room Air 01/25/17 03:24 36.9 95 18 134/75 93 Room Air 01/24/17 23:59 Room Air 01/24/17 23:57 36.7 93 18 151/72 96 Room Air 01/24/17 20:00 Room Air 01/24/17 19:08 36.7 78 20 152/78 98 Room Air 01/24/17 16:00 98 Room Air 01/24/17 15:13 36.2 70 20 148/84 98 Room Air 01/24/17 12:00 Room Air 01/24/17 11:47 36.8 80 22 156/ 99 Physical Exam General Appearance: WD/WN, + mild distress Neck: supple, no JVD Respiratory/Chest: chest non-tender, lungs clear Cardiovascular: regular rate, rhythm, no murmur Abdomen: normal bowel sounds, non tender, soft Extremities: no pedal edema, no calf tenderness Neurologic/Psychiatric: alert, + motor weakness Laboratory Results Last 24 Hours Test 01/24/17 14:16 01/24/17 14:45 01/25/17 06:45 Urine Osmolality 155 mOms/kg Sodium Level 145 mmol/L Potassium Level 2.8 mmol/L Chloride Level 112 mmol/L Carbon Dioxide Level 20 mmol/L Anion Gap 13.0 mmol/L Blood Urea Nitrogen 6 mg/dl Creatinine 0.80 mg/dl Est Creatinine Clear Calc Drug Dose 63.9 ml/min Estimated GFR () 88.4 Estimated GFR (Non- 76.3 BUN/Creatinine Ratio 7.3 Random Glucose 129 mg/dl Calcium Level 8.9 mg/dl Assessment and Plan 66 y/o female, with PMHx of CVA post op spine surgery in 10/04, [facility] [place] with anorexia, severe constipation, and pneumonia also identified MRSA UTI and mild troponin elevation felt not to have acs, and now persistent electrolyte abnormalities with new nephrology consult Pneumonia, right lung base, concern for aspiration :- IV Zosyn + Vancomycin - Urine culture shows coag neg staph sensitive to vancomycin Elevated troponin with abdominal and chest pain, enzymes have receded, no ECG or Echo changes, pt does not want to proceed with stress Hypokalemia, some hypernatremia, elevated chloride and minor bicarb decrease, will consult nephrology, have fluid restriction,consider adh use h/o CVA, residual left-sided weakness: - Difficulty with swallowing. return to [facility], 01/25 I spoke to rehab medical attending Dr Villarreal and gave update of patients progress [facility] hopes of return Seizure disorder: stable Keppra 2000 mg BID PO to IV, Topamax 150 mg BID, Vimpat 200 mg BID HTN: Metoprolol 75 mg BID, lisinopril GERD: Protonix 40 mg IV DVT prophylaxis: KARAN and SCDs Code Status: LEVEL V, DNR Dispo: From [facility]
[2017-01-25] MEDS: POTASSIUM CHLORIDE INJ 40 MEQ in DEXTROSE 5% 1000ML 1,000 ML IV SCH ×2 (08:54→19:43)
[2017-01-25] MEDS: ATORVASTATIN 40 MG TAB PO SCH (08:55)
[2017-01-25] MEDS: POTASSIUM CHLR 10 MEQ / WTR 10 MEQ in PREMIXED WATER 100 ML IV SCH ×3 (08:56→13:02)
--- NOTE | 2017-01-25 09:45 | CARDIOLOGY PROGRESS NOTE ---
DATE: 01/25/2017 SUBJECTIVE: Mrs. Osborne is resting comfortably in bed without complaints of chest pain or dyspnea. Had a sleep last night. OBJECTIVE: VITAL SIGNS: Blood pressure 138/84 with a regular pulse of 90. Respiratory rate is 20. The patient is afebrile at 36.6 degrees Celsius. Saturation 93% on room air. NECK: Supple with full carotid upstrokes. There are no carotid bruits. Jugular venous pressure is flat at 90 degrees. There is no thyromegaly. CARDIOVASCULAR: Reveals a regular rhythm with normal S1 and S2. Heart sounds are distant. No obvious murmurs. LUNGS: Clear without rales, rhonchi, or wheezes. ABDOMEN: Soft, nontender without bruits. EXTREMITIES: Reveal intact radial artery pulses bilaterally. Trace pretibial edema is noted. DATA: Electrolytes note a sodium of 145, potassium 2.8, chloride 112, bicarbonate 20, BUN 6, creatinine 0.8, glucose 129. traffic monitor specialist is benign. IMPRESSION AND PLAN: 1. Chest pain syndrome - as before, had a 30-minute episode with a minor increase in her troponin. She was offered dobutamine stress test; however, refuses. She would simply like to follow her symptoms at this time. 2. Hypertension - controlled. 3. Hypercholesterolemia - continue statin. 4. Mild left ventricular hypertrophy. 5. Hypokalemia - repletion ordered. 6. History of cerebrovascular accident - likely secondary to a paradoxical embolism related to a patent foramen ovale. 7. Right-sided residual. 8. Dysphagia - with chronic aspiration. [facility]
[2017-01-25] MEDS: DOCUSATE SODIUM/SENNA 50/8.6MG TAB PO SCH (10:11)
[2017-01-25] MEDS ORDERED: NURSING VERBAL MED ORDER ONE (10:15)
[2017-01-25 10:58] LABS: ARTERIAL BLD GAS O2 SATURATION 94.4 % (90-95); ARTERIAL BLOOD GAS BASE EXCESS -3.1 mEq/L (-9-1.8); ARTERIAL BLOOD GAS HCO3 20 mmol/L (19-24); ARTERIAL BLOOD GAS PO2 85 mm/Hg (80-95); ARTERIAL BLOOD GAS pH 7.46 (7.35-7.45)
[2017-01-25 10:59] LABS: ALLEN TEST POS (POS); O2 ADMINISTRATION ROOM AIR
[2017-01-25] MEDS: DESMOPRESSIN ACETATE 0.1 MG TAB PO SCH ×2 (11:18→21:05)
--- NOTE | 2017-01-25 11:47 | NEPHROLOGY CONSULTATION ---
DATE OF CONSULTATION: 01/25/2017 REFERRING PHYSICIAN: [facility] group hospitalist service. SUBJECTIVE: Ms. Osborne is a 66-year-old woman that has been followed by me for a number of years, primarily for problems of hypertension, hypercholesterolemia and non-insulin dependent diabetes mellitus. Over the years, she has done remarkably well and has remained physically active. Prior to the acute events that ultimately led to this hospitalization, she had been taking spironolactone/hydrochlorothiazide 25/25 mg 1 twice daily and metoprolol succinate 25 mg daily for her hypertension. Her blood pressure was well controlled. Additionally, she was taking atorvastatin 40 mg at bedtime for hypercholesterolemia, which was likewise well controlled. Additionally, she has a history of non-insulin dependent diabetes mellitus. On a restricted sodium and principally restricted carbohydrate diet, she has done well. She had never been on oral hypoglycemics. Her peak hemoglobin A1c prior to starting a restricted carbohydrate diet was 6.8 mg/dL, but subsequent to that, her hemoglobin A1c remained in the range of 6.0%-6.2%. It was last checked as an outpatient by me in approximately July of 2016. The only complication of her diabetes was peripheral neuropathy, which was likely multifactorial. Pertinent to her immediate problems, when her electrolytes were last checked as an outpatient, which they were at least twice a year, her serum sodium was 135 mmol/L, potassium 3.9 mmol/L, chloride is 98 mmol/L, and CO2 content 32 mmol/L. Her BUN and creatinine were normal. Her serum calcium was 9.8. She had had no previous history of heart disease, acquired or congenital that had been recognized. Additionally, she had had no central nervous system symptoms or problems including seizures. An intercurrent issue that developed over the years was problems with back pain and sciatica. She had been worked up extensively. She was noted to have spinal stenosis at L2-L3 and L3-L4 as well as neural foraminal stenosis at L2-L3, L3-L4 and L5-S1. She had been treated as an outpatient with physical therapy and epidural steroids. However, her discomfort persisted and finally on 10/07/2016, she underwent an elective decompression at L4-L5 with an instrumented fusion. Surgery was done at [facility] by Dr. Kennedy. Unfortunately, she had a postoperative seizure and remained in status epilepticus. She was treated with anti-seizure medications. An MRI showed significant abnormalities. She had a T2 hyperdensity in the right middle frontal gyrus. She was transferred to the [facility]. A repeat MRI done there showed evidence of an intracranial hypotension as well as scattered right-sided hemispheric signal diffusion abnormalities and restricted diffusion. She was also noted to have a significant spinal leak at the site. She had a prolonged hospitalization at [facility] that was complicated in many ways. During that time, a lumbar drain was placed for her CSF leak and she also had a tracheostomy and a PEG tube placed. Both of those have been removed. Apparently during her hospitalization, she also developed a pneumonia. Because of a poor venous access, a PICC line was placed. That was complicated by phlebitis. Prior to that, she had been anticoagulated. When she developed the phlebitis at the site of her PICC line, anticoagulation was discontinued. Unfortunately, she developed new central nervous system changes. She underwent a JAN and it was recognized (according to the family) that she had a patent foramen ovale, which led to a paradoxical embolus to her brain. Nonetheless, since that time, she has made significant progress. Obviously, her trach tube and PEG tube have been removed. She is now admitted here with evidence of pneumonia and possible urinary tract infection as well. In the hospital, she has been treated with intermittent boluses of vancomycin as well as piperacillin/tazobactam in appropriate doses. Her anti-seizure therapy includes Keppra, Topamax, and Vimpat. Of specific note is the fact that when she came to the hospital, she was noted to be hyponatremic and to have a very significant urine output. According to the patient, she has always been drinking a lot of fluid and urinating a lot since childhood. [place] and apparently had a chores to do and would drink regularly to keep hydrated. During her adult years, she used to drink significant amounts of Diet Pepsi. She did not think that she had an unusually large urine output. As noted above, when her electrolytes were regularly checked to follow up on her antihypertensive therapy, particularly with diuretics, her serum sodium was always in the normal or low normal range. Again on presentation here, her serum sodium was elevated. Her urine output has been dramatic. According to her , she has been drinking water constantly and maintains a relatively large urine output. She says that she feels a significant thirst and is uncertain as to whether or not that is different than the chronic thirst that she has had over the years. Nonetheless, at the current time, her serum sodium has been quite high and her serum potassium has been low. She is not currently taking any diuretics. She has not had any vomiting and she has not had any diarrhea. Her pneumonia appears to be clearing at this time. The remainder of her past medical history, family history, social history and review of systems are as outlined on her admission note and the information alluded to above. CURRENT MEDICATIONS: Include intravenous potassium supplements, intermittent vancomycin, Keppra, Lovenox, Protonix, magnesium oxide, Zestril, p.r.n. hydralazine, Topamax, Vimpat and p.r.n. Tylenol. ALLERGIES: No known drug allergies. OBJECTIVE: GENERAL: On physical exam when seen by me on the day of this dictation, the patient was lying comfortably in bed. She was awake, alert and oriented, but somewhat slower than she had been in the past. She had somewhat of a depressed affect. VITAL SIGNS: She is afebrile (36.6), her blood pressure 138/84, her pulse 99 and regular, respiratory rate recorded as 20 and I observed it to be about the same and her pulse ox 98% on room air. SKIN: Shows essentially normal skin turgor. She has scars from prior surgical procedures. She has no rash or infiltrative skin disease. LYMPHATICS: Show no palpable lymphadenopathy. HEAD: Normal. EYES: Grossly normal. She has a slight disconjugate gaze involving the right eye. Pupils are equal and reactive to light. The ocular fundi were not examined. EARS, NOSE, MOUTH AND THROAT: Unremarkable. Oral mucous membranes are moist. NECK: Supple. She has no jugular venous distention, carotid bruit or thyromegaly. CHEST: Shows a few bibasilar crackles that seemed to improve with deep breathing. CARDIAC: Shows a regular rhythm. S1 and S2 are normal. I hear no definite murmur or gallop. ABDOMEN: Nontender. There is no organomegaly or mass. Bowel sounds are normal. EXTREMITIES: Show no cyanosis, clubbing or peripheral edema. Peripheral pulses are intact. She has no diabetic foot changes. NEUROLOGIC: A full neurologic examination was not done. There were no obvious lateralizing changes. PERTINENT LABORATORY WORK: From today shows a sodium of 145 mmol/L, potassium 2.8 mmol/L, chlorides 112 mmol/L, and CO2 content of 20 mmol/L. Her anion gap is 13, but is likely higher because of an albumin level of 2.4 that was noted on admission on January 19. Her BUN is 6 and creatinine is 0.80. Her serum calcium is 8.9. Her serum osmolality is 287. Urine osmolality is 155. Her routine urinalysis at the time of admission did show greater than 30 white cells per high power field and 10-20 epithelial cells per high power field as well as some bacteria. Her urine culture did grow out a coag negative staph. She was MRSA negative. Her vancomycin trough level done yesterday was 21.5. Previously, a serum magnesium level was in the low normal range. She has received supplemental magnesium. ASSESSMENT: Ms. Osborne had multiple unfortunate complications of her lumbar surgery. During that time, she has been discovered to have a patent foramen ovale that likely led to paradoxical embolus at least as described by the patient's family. Details are not clear on the discharge note that I got from [facility], however. Her immediate issues for which I was consulted include her hypernatremia as well as polyuria and a low urine osmolality. She had been treated with half normal saline, but her serum sodium did not drop. Yesterday after discussion that I had with Dr. Kilpatrick, we switched her to D5W that has led to some improvement in her serum sodium. Nonetheless, her urine output remains dramatic and the issue of diabetes insipidus is raised. Diabetes insipidus is either central or nephrogenic. However, nephrogenic diabetes insipidus is unlikely given her history of normal serum sodiums that occurred prior to the current acute complications. Therefore, a central diabetes insipidus is more likely and it would appear that that would have to be acquired given her longstanding history of a normal serum sodiums. 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 I am not aware of any symptoms or problems of diabetes insipidus associated with Keppra, Topamax or Vimpat. Additionally, she has a significant hypokalemia, the etiology of which is unclear since she is not currently receiving diuretics nor she had any vomiting or diarrhea. Her hypokalemia may be explained by a significant alkalosis. Given her electrolyte picture, this would have to be more of a respiratory alkalosis. RECOMMENDATIONS: After discussion with Dr. Kilpatrick yesterday, we did send off an ADH level. Given her history, I would expect that her ADH level is going to be very low. Therapeutically for now, I would continue her on D5W. However, I would start her on desmopressin 0.2 mg orally twice daily. Would keep a close eye on her urine output and continue to monitor daily electrolytes. For the evaluation of her hypokalemia, I would first check arterial blood gases to see if she is significantly alkalotic. If not, we will have to look further into what might have caused her hypokalemia. I doubt that hypomagnesemia is a significant factor. Thank you for allowing me to formally participate in the care of this very nice, but unfortunate woman.
[2017-01-25] MEDS: POTASSIUM CHLORIDE 20 MEQ TABCR PO SCH ×2 (13:03→21:07)
[2017-01-25] MEDS ORDERED: POTASSIUM CHLORIDE 20 MEQ/15 ML UDC PO SCH (14:00)
[2017-01-25] MEDS: LEVETIRACETAM 500 MG TAB PO SCH (21:05)
[2017-01-26] VITALS (8 sets, daily range): BP systolic 106–133; BP diastolic 64–81; PULSE 61–82; TEMP 36.2–36.9; O2SAT 92–99
[2017-01-26] MEDS: PIPERACILL/TAZOBAC IV 3.375 GM in DEXTROSE 5% 100ML 100 ML IV SCH ×3 (02:23→17:14)
[2017-01-26] MEDS: ENOXAPARIN 80 MG/0.8 ML SYR SQ SCH (06:16)
[2017-01-26 07:28] LABS: HEMATOCRIT 29.1 % (37-47); MEAN CELL VOLUME 85.8 fL (80-100); MEAN CORPUSCULAR HEMOGLOBIN 27.1 pg (25-34); MEAN CORPUSCULAR HGB CONC 31.6 g/dl (32-36); MEAN PLATELET VOLUME 8.1 fL (7.4-10.4); PLATELET COUNT 392 K/uL (130-400); RED BLOOD COUNT 3.39 M/uL (4.2-5.4); WHITE BLOOD COUNT 9.57 K/uL (4.8-10.8)
[2017-01-26 08:12] LABS: CALCIUM 8.8 mg/dl (8.5-10.1); CREATININE 0.93 mg/dl (0.60-1.20); POTASSIUM 4.1 mmol/L (3.5-5.1)
[2017-01-26] MEDS: LISINOPRIL 20 MG TAB PO SCH (08:25)
[2017-01-26] MEDS: PANTOprazole SOD 40 MG TAB PO SCH (08:25)
[2017-01-26] MEDS: MAGNESIUM OXIDE 400 MG TAB PO SCH ×2 (08:26→19:42)
[2017-01-26] MEDS: LACOSAMIDE 50 MG TAB PO SCH ×2 (08:26→19:43)
[2017-01-26] MEDS: LEVETIRACETAM 500 MG TAB PO SCH ×2 (08:26→19:39)
[2017-01-26] MEDS: POTASSIUM CHLORIDE 20 MEQ TABCR PO SCH ×3 (08:28→19:41)
[2017-01-26] MEDS: DESMOPRESSIN ACETATE 0.1 MG TAB PO SCH ×3 (08:29→22:09)
[2017-01-26] MEDS: ATORVASTATIN 40 MG TAB PO SCH (08:29)
[2017-01-26] MEDS: TOPIRAMATE 100 MG TAB PO SCH ×2 (08:29→19:42)
[2017-01-26] MEDS: SACCHAROMYCES BOUL (FLORASTOR) 250 MG CAP PO SCH (08:29)
[2017-01-26] MEDS: METOPROLOL TARTRATE 25 MG TAB PO SCH ×2 (08:29→19:41)
[2017-01-26] MEDS: TOPIRAMATE 50 MG TAB PO SCH ×2 (08:29→19:42)
[2017-01-26] MEDS: ACETAMINOPHEN 325 MG TAB PO PRN (08:30)
[2017-01-26] MEDS: DOCUSATE SODIUM 100 MG CAP PO SCH (08:30)
[2017-01-26] MEDS: ENOXAPARIN 40 MG/0.4 ML SYR SQ SCH (09:31)
--- NOTE | 2017-01-26 11:21 | PROGRESS NOTE ---
DATE: 01/26/2017 SUBJECTIVE: Mrs. Osborne says she is doing about the same. Today, I watched that she was walking in the riggs with the physical therapist and she seemed to be doing reasonably well. She says that there has been no change in her thirst and her urine output has remained quite vigorous. She has been started on DDAVP 0.1 mg b.i.d. Her first dose was given at 11:18 yesterday. OBJECTIVE: GENERAL: On physical examination, Mrs. Osborne appears about the same. She was sitting in her room at the time seen by me. She was afebrile (36.8). VITAL SIGNS: Her blood pressure 121/72. Her pulse is 73 and regular. Respiratory rate 20. Her pulse ox 94-95%. SKIN: Her skin shows normal skin turgor. She has scars from prior procedures including her lumbar scar, a scar from a tracheostomy and small abdominal scars from PEG tube. She has no lymphadenopathy. HEAD: Normal. EYES: Grossly normal. The ocular fundi not examined. EARS, NOSE, MOUTH AND THROAT: Unremarkable. Oral mucous membranes are moist. NECK: Supple. I see no jugular venous distention. I hear no carotid bruit and there is no thyromegaly. CHEST: Clear to auscultation. CARDIAC: Shows a regular rhythm. S1 and S2 seem normal. I hear no murmur or gallop. ABDOMEN: Nontender. There is no obvious organomegaly or mass. EXTREMITIES: She has no peripheral edema. NEUROLOGIC: Not done. She was however awake, alert and oriented. PERTINENT LABORATORY WORK: Shows a white count of 9570. Her hemoglobin is 9.2. Her hematocrit 29.1 and platelet count is 392,000. Clinical chemistries done from today show a sodium of 143 mmol/L, potassium 4.1 mmol/L, chloride is 112 mmol/L, and CO2 content 21 mmol/L. Her BUN is down to 9, her creatinine 0.93. Her serum calcium is 8.8. A random blood sugar was 114, presumably with an IV running. Arterial blood gases done yesterday showed a pH of 7.46, pCO2 of 30 and pO2 of 85 on room air. ASSESSMENT: It is difficult to assess the degree to which the addition of DDAVP has been helpful. I have not seen a dramatic decrease in her urine output, associated with DDAVP although her serum sodium is down. However, that may be an improvement purely related to her getting pure free water as an IV. RECOMMENDATIONS: For now, we would continue her on the same IV. We would increase her DDAVP to 0.1 mg q. 8 hours. Continue to monitor her I\T\O. Over the next day or so, if her serum sodium falls below 140, we would dramatically taper her IV fluids and discontinue them completely if it appears that her urine output has declined significantly. As far as her previous hypokalemia is concerned, I do not think any additional steps need to be taken at this point but if her serum potassium does drop again, checking a urine potassium will be helpful. No other immediate recommendations for now. She does have an anemia and certainly checking a serum iron, iron binding capacity and ferritin would be helpful, as well as B12 and folic acid level.
[2017-01-26 11:35] LABS: FERRITIN 439.1 ng/ml (8.0-388.0)
[2017-01-26] MEDS: VANCOMYCIN INJ 1,000 MG in SODIUM CHLORIDE 0.9% 250ML 250 ML IV SCH (11:37)
--- NOTE | 2017-01-26 12:16 | CARDIOLOGY PROGRESS NOTE ---
DATE: 01/26/2017 SUBJECTIVE: Mrs. Osborne is resting comfortably in a bedside chair without complaints of chest discomfort. She was ambulatory in the hallway this morning without difficulty. OBJECTIVE: VITAL SIGNS: Blood pressure 106/64 with a regular pulse of 65. Respiratory rate is 20. The patient is afebrile at 36.7 degrees Celsius. Saturations 96% on room air. NECK: Supple with full carotid upstrokes. No obvious bruits. Jugular venous pressure is flat at 90 degrees. There is no thyromegaly. CARDIOVASCULAR: Reveals a regular rhythm with normal S1 and S2. Heart sounds are distant. No obvious murmurs. LUNGS: Clear without rales, rhonchi or wheezes. ABDOMEN: Soft without bruits. EXTREMITIES: Reveal intact radial artery pulses bilaterally. Trace pretibial edema is noted. DATA: CBC notes hemoglobin of 9.2, hematocrit 29.1, white count 9.5, platelet count 392,000. Electrolytes note a sodium of 143, potassium 4.1, chloride 112, bicarbonate 21, BUN 9, creatinine 0.9, glucose 114. nuclear monitoring technician is benign. IMPRESSION AND PLAN: 1. Chest pain syndrome -- has resolved. The patient refused dobutamine stress test several days ago. We will continue to monitor her symptoms. 2. Hypertension -- controlled. 3. Hypercholesterolemia -- continue statin. 4. Mild left ventricular hypertrophy. 5. Electrolyte abnormalities -- management per Dr. Pittman. 6. 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 7. Dysfunction -- chronic aspiration.
--- NOTE | 2017-01-26 12:45 | Hospitalist Progress Note ---
Hospitalist Progress Note Date of Service Jan 26, 2017. (Pavithra Nair PA-C) Subjective Pt evaluation today including: conversation w/ patient, conversation w/ family , physical exam, chart review, lab review, conversation w/ organizational consultant, review of inpatient medication list Reports feeling better today. Denies any chest pain or shortness of breath. No fever or chills. Minimal cough. Denies nausea or abdominal pain. Had a BM last night that was reportedly loose. Constitutional: No fever Respiratory: No shortness of breath Cardiovascular: No chest pain Abdomen: No nausea, No pain Additional Comments: 6 system review negative. Please see pertinent positives in the history of present illness section. (Pavithar Nair PA-C) Objective Vital Signs Date Time Temp Pulse Resp B/P Pulse Ox O2 Delivery O2 Flow Rate FiO2 01/26/17 07:49 36.8 73 20 121/72 94 Room Air 01/26/17 04:03 36.6 68 18 124/73 95 Room Air 01/26/17 04:00 Room Air 01/26/17 00:00 36.7 72 18 131/81 95 Room Air 01/25/17 23:59 Room Air 01/25/17 20:00 98 Room Air 01/25/17 19:24 36.4 87 20 134/76 98 Room Air 01/25/17 16:00 99 Room Air 01/25/17 15:13 36.8 68 16 150/78 99 Room Air 01/25/17 11:53 36.8 65 18 147/82 94 Room Air 01/25/17 11:37 Room Air (Pavithra Nair PA-C) Physical Exam General Appearance: no apparent distress Eyes: EOMI Neck: no JVD Respiratory/Chest: lungs clear Cardiovascular: regular rate, rhythm Abdomen: normal bowel sounds, non tender, soft Extremities: non-tender, no pedal edema Neurologic/Psychiatric: oriented x 3, + pertinent finding (residual left-sided weakness) Skin: warm/dry (Pavithra Nair PA-C) Laboratory Results 01/26/17 07:14 01/26/17 07:05 Test 01/26/17 07:05 01/26/17 07:14 01/26/17 10:51 Anion Gap 10.0 mmol/L (3-11) Est Creatinine Clear Calc Drug Dose 55.0 ml/min Estimated GFR () 73.7 Estimated GFR (Non- 63.6 BUN/Creatinine Ratio 10.0 (10-20) Calcium Level 8.8 mg/dl (8.5-10.1) Red Blood Count 3.39 M/uL (4.2-5.4) Mean Corpuscular Volume 85.8 fL (80-100) Mean Corpuscular Hemoglobin 27.1 pg (25-34) Mean Corpuscular Hemoglobin Concent 31.6 g/dl (32-36) RDW Standard Deviation 51.7 fL (36.4-46.3) RDW Coefficient of Variation 17.0 % (11.5-14.5) Mean Platelet Volume 8.1 fL (7.4-10.4) Iron Level 26 mcg/dl (35-150) Total Iron Binding Capacity 181 mcg/dl (250-450) Ferritin 439.1 ng/ml (8.0-388.0) Last 24 Hours Test 01/25/17 10:46 01/26/17 07:05 01/26/17 07:14 Arterial Blood pH 7.46 Arterial Blood Partial Pressure CO2 30 mmHg Arterial Blood Partial Pressure O2 85 mm/Hg Arterial Blood HCO3 20 mmol/L Arterial Blood Oxygen Saturation 94.4 % Arterial Blood Base Excess -3.1 mEq/L Arterial Blood Gas Delivery ROOM AIR Ernesto Test POS Sodium Level 143 mmol/L Potassium Level 4.1 mmol/L Chloride Level 112 mmol/L Carbon Dioxide Level 21 mmol/L Anion Gap 10.0 mmol/L Blood Urea Nitrogen 9 mg/dl Creatinine 0.93 mg/dl Est Creatinine Clear Calc Drug Dose 55.0 ml/min Estimated GFR () 73.7 Estimated GFR (Non- 63.6 BUN/Creatinine Ratio 10.0 Random Glucose 114 mg/dl Calcium Level 8.8 mg/dl White Blood Count 9.57 K/uL Red Blood Count 3.39 M/uL Hemoglobin 9.2 g/dL Hematocrit 29.1 % Mean Corpuscular Volume 85.8 fL Mean Corpuscular Hemoglobin 27.1 pg Mean Corpuscular Hemoglobin Concent 31.6 g/dl RDW Standard Deviation 51.7 fL RDW Coefficient of Variation 17.0 % Platelet Count 392 K/uL Mean Platelet Volume 8.1 fL (Pavithra Nair, PA-C) Assessment and Plan 66-year-old female with a history of postoperative CVA found to have PFO in September 2016 after laminectomy, residual left-sided weakness and dysphagia admitted to the hospital with anorexia, nausea, constipation and likely aspiration pneumonia Aspiration pneumonia-clinically improving -Continue Zosyn. Treat for a total of 7 days. Day 05/25 UTI-MRSA -Continue vancomycin for a total of 7 days. Day 05/25 Constipation-resolved -Continue MiraLAX prn -Dulcolax 100 mg po BID Nausea and vomiting- -Change Zofran back to every 6 hours as needed Chest pain on 01/23 in the middle the night-no EKG changes noted. Troponin peaked at 0.280. Now trending down to 0.085. ? NSTEMI -Transferred to tele 01/23 -Echo shows a preserved EF of 60-65%. No regional wall motion abnormalities noted. -Started on aspirin 81 mg daily and atorvastatin 40 mg daily -Full dose Lovenox started 01/23--> continued for 48 hrs. D/C today -Cardiology consult appreciated. Pt refused stress test -Continue ASHLEY inhibitor, beta mellisa. Seizure disorder -Continue Vimpat, Topamax -Keppra 2000 mg IV BID--> changed to liquid -Will set up f/u with [facility] here [place] as her f/u appt now is scheduled in [place] in April Hypokalemia- -KCl po BID scheduled Hypomagnesemia-resolved -Continue mag oxide 400 mg po BID Right cystic structure on ovary -Patient will need a pelvic ultrasound as an outpatient for further evaluation L uretal stone-renal fxn in tact She will also need follow-up with urology for left ureteral stone Hypernatremia-urine very dilute...? diabetes insipidus vs polydipsia. Na improving -nephrology consult appreciated-->begin desmopressin 0.2 mg BID -D5W @ 100 cc/hr for another day DVT prophylaxis -Lovenox -TEDS, SCDs CODE STATUS -LEVEL V DO NO RESUSCITATE (Pavithra Nair, PA-C) I interviewed and examined the patient. Discussed with Pavithra Nair PAC and agree with findings and plan as documented in the note. Any exceptions or clarifications are listed here: None Pt has had good response to desmopressin as suggestion of [facility], followed by Dr Pittman for clinical response vss car is regular without murmur lungs are clear still making dilute clear urine hypernatremia, hypokalemia, hyperchloremia, improving with D5W and ADH, follow and augment as needed cardiology consult does not feel ACS but offered risk stratifying stress which the patient declined, 48 hrs of lovenox for nstemi, asa statin complete treatment of aspiration pneumonia, mrsa uti, (Danial Kilpatrick M.D.)
[2017-01-27] MEDS: ONDANSETRON INJ 2 MG/ML 2 ML VIAL IV PRN (01:17)
[2017-01-27 03:46] VITALS: BP 128/72; PULSE 77; TEMP 37.1; O2SAT 92
[2017-01-27] MEDS: DESMOPRESSIN ACETATE 0.1 MG TAB PO SCH (06:20)
[2017-01-27 07:13] LABS: BUN/CREATININE RATIO 13.4 (10-20); CALCIUM 9.4 mg/dl (8.5-10.1); CREATININE 0.99 mg/dl (0.60-1.20); POTASSIUM 4.4 mmol/L (3.5-5.1)
[2017-01-27 08:10] VITALS: BP 129/71; PULSE 83; TEMP 36.2; O2SAT 97
[2017-01-27] MEDS: ATORVASTATIN 40 MG TAB PO SCH (08:23)
[2017-01-27] MEDS: LEVETIRACETAM 500 MG TAB PO SCH (08:24)
[2017-01-27] MEDS: LISINOPRIL 20 MG TAB PO SCH (08:24)
[2017-01-27] MEDS: METOPROLOL TARTRATE 25 MG TAB PO SCH (08:24)
[2017-01-27] MEDS: TOPIRAMATE 50 MG TAB PO SCH (08:25)
[2017-01-27] MEDS: TOPIRAMATE 100 MG TAB PO SCH (08:25)
[2017-01-27] MEDS: PANTOprazole SOD 40 MG TAB PO SCH (08:25)
[2017-01-27] MEDS: SACCHAROMYCES BOUL (FLORASTOR) 250 MG CAP PO SCH (08:25)
[2017-01-27] MEDS: LACOSAMIDE 50 MG TAB PO SCH (08:26)
[2017-01-27] MEDS: MAGNESIUM OXIDE 400 MG TAB PO SCH (08:26)
[2017-01-27] MEDS: ENOXAPARIN 40 MG/0.4 ML SYR SQ SCH (08:26)
[2017-01-27] MEDS: POTASSIUM CHLORIDE 20 MEQ TABCR PO SCH ×2 (08:27→14:03)
--- NOTE | 2017-01-27 10:05 | Discharge Instructions ---
Discharge Instructions Date of Service Jan 27, 2017. Admission Reason for Admission: Hypokalemia, Pneumonia, Uti Discharge Discharge Diagnosis / Problem: constipation, aspiration PNA, UTI, DI Discharge Goals Goal(s): Improve function, Diagnostic testing, Therapeutic intervention Activity Recommendations Activity Limitations: per Instructions/Follow-up section Exercise/Sports Limitations: as tolerated Instructions / Follow-Up Instructions / Follow-Up You have been treated in the hospital for aspiration pneumonia, MRSA UTI, constipation and Diabetes insipidus The following changes/additions have been made to your medication list: -Desmopressin 0.2 mg every 8 hrs -Docusate 100 mg twice daily -Zofran 4 mg every 6 hrs as needed for nausea -Florastor 1 tab daily -Ferrous sulfate 325 mg twice daily -Lisinopril 20 mg daily -potassium and magnesium supplements Please repeat a basic metabolic panel in 3 days The following follow up appointments are needed: -Dr. Pittman, nephrololgy, within 1 week -Dr. Barrera or Dr. Garcia, neurology within 2 weeks -Dr. Askew from [employer] [facility] within 2-4 weeks Call your doctor or return to the emergency department if you have any of the following symptoms: -Fever of 101F or greater -Persistent vomiting - Persistent diarrhea -Lethargy -Chest pain -Shortness of breath -severe dizziness -weakness on one side of your body DISCHARGE SUMMARY 66-year-old female with a history of postoperative CVA found to have PFO in September 2016 after laminectomy, residual left-sided weakness and dysphagia admitted to the hospital with anorexia, nausea, constipation and likely aspiration pneumonia (from [facility]) Aspiration pneumonia-clinically improving -Completed a 7 day course of zosyn UTI-MRSA -Completed a 7 day course of vancomycin Constipation-resolved -Continue MiraLAX prn -Dulcolax 100 mg po BID Nausea and vomiting-improved with treating constipation -continue zofran PRN Dysphagia -aspiration precautions Chest pain on 01/23 in the middle the night-no EKG changes noted. Troponin peaked at 0.280. Now trending down to 0.085. ? NSTEMI -Transferred to [facility] 01/23 -Echo shows a preserved EF of 60-65%. No regional wall motion abnormalities noted. -Started on aspirin 81 mg daily and atorvastatin 40 mg daily -Full dose Lovenox started 01/23--> continued for 48 hrs. -Cardiology consult appreciated. Pt refused stress test -Continue ASHLEY inhibitor, beta mellisa. Seizure disorder -Continue Vimpat, Topamax -Keppra 2000 mg IV BID--> changed to liquid -Will set up f/u with [facility] here in [place] (Dr. Barrera or Dr. Garcia) in 2 weeks Hypokalemia-ongoing supplementation needed -KCl po BID scheduled Hypomagnesemia-resolved -Continue mag oxide 400 mg po BID Right cystic structure on ovary -Patient will need a pelvic ultrasound as an outpatient for further evaluation L uretal stone-renal fxn in tact. No pain Hypernatremia-likely secondary to diabetes insipidus -hydrated with D5W -nephrology consult appreciated-->begin desmopressin 0.2 mg po q 8 hrs -needs repeat PRP in 3 days -f/u with Dr. Pittman this week DVT prophylaxis -Lovenox -TEDS, SCDs CODE STATUS -LEVEL V DO NO RESUSCITATE DISPO -BACK TO [facility] FOR [facility] Current Hospital Diet Patient's current hospital diet: Regular Diet Discharge Diet Recommended Diet: Regular Diet Procedures Procedures Performed: ct abd pelvis 1. Motion and streak artifact degraded examination. 2. There is a small right pleural effusion with patchy airspace consolidation at the right lung base. The appearance is typical for pneumonia. Radiographic follow-up to resolution is recommended. 3. An obstructing 5 mm calculus at the left vesicoureteral junction is unchanged in position from 01/10/2017. This causes left-sided hydroureter. There is no left-sided hydronephrosis. 4. Additional nonobstructing left renal calculi are suspected. This is difficult to assess on a contrast-enhanced examination. 5. The rectal wall appears mildly thickened and hyperemic. Correlate clinically for evidence of a mild proctitis. 6. A 1.5 cm right-sided Bartholin's gland cyst is suspected. 7. There are cystic foci identified in the right ovary measuring up to 2.3 cm. This is an abnormal finding in a postmenopausal patient. Follow-up with nonemergent pelvic ultrasound in gynecologic assessment is recommended for further assessment. 8. Additional findings as above. Pending Studies Studies pending at discharge: no Laboratory Results 01/27/17 06:24 Test 01/26/17 10:51 01/27/17 06:24 Iron Level 26 mcg/dl (35-150) Total Iron Binding Capacity 181 mcg/dl (250-450) Ferritin 439.1 ng/ml (8.0-388.0) Vitamin B12 Level 585 pg/mL (211-911) Folate 17.39 ng/mL (>5.38) Anion Gap 13.0 mmol/L (3-11) Est Creatinine Clear Calc Drug Dose 51.6 ml/min Estimated GFR () 68.3 Estimated GFR (Non- 59.0 BUN/Creatinine Ratio 13.4 (10-20) Calcium Level 9.4 mg/dl (8.5-10.1) Medical Emergencies . Who to Call and When: Medical Emergencies: If at any time you feel your situation is an emergency, please call 911 immediately. . Non-Emergent Contact Non-Emergency issues call your: Primary Care Provider . . "Provider Documentation" section prepared by Pavithra Nair. VTE Core Measure Inpt VTE Proph given/why not?: Unfractionated heparin SQ, T.E.Adryan. Stockings, SCD 's
[2017-01-27] MEDS ORDERED: SACC250C3 PO (10:11)
[2017-01-27] MEDS ORDERED: MGNO400 PO (10:11)
[2017-01-27] MEDS ORDERED: LPT40 PO (10:11)
[2017-01-27] MEDS ORDERED: FSLUDL325 PO (10:11)
[2017-01-27] MEDS ORDERED: DESM0.1T8 PO (10:11)
[2017-01-27] MEDS ORDERED: LSN20 PO (10:11)
[2017-01-27] MEDS ORDERED: MCRK20 PO (10:11)
--- NOTE | 2017-01-27 10:23 | Discharge Summary ---
Discharge Summary Date of Service Jan 27, 2017. (Pavithra Nair PA-C) Discharge Summary Admission Date: Jan 19, 2017 at 16:08 Discharge Date: Jan 27, 2017 Discharge Disposition: Rehab Principal Diagnosis: aspiration pneumonia, MRSA UTI, Problems/Secondary Diagnoses: CVA with residual left-sided weakness status post laminectomy in September 2016 constipation diabetes insipidus NSTEMI Hypertension Nausea, vomiting Procedures: Echo * Left ventricular systolic function is normal. * No regional wall motion abnormalities noted. * Ejection Fraction = 60-65%. * There is mild concentric left ventricular hypertrophy. * There is mild mitral regurgitation. CT abdomen and pelvis 1. Motion and streak artifact degraded examination. 2. There is a small right pleural effusion with patchy airspace consolidation at the right lung base. The appearance is typical for pneumonia. Radiographic follow-up to resolution is recommended. 3. An obstructing 5 mm calculus at the left vesicoureteral junction is unchanged in position from 01/10/2017. This causes left-sided hydroureter. There is no left-sided hydronephrosis. 4. Additional nonobstructing left renal calculi are suspected. This is difficult to assess on a contrast-enhanced examination. 5. The rectal wall appears mildly thickened and hyperemic. Correlate clinically for evidence of a mild proctitis. 6. A 1.5 cm right-sided Bartholin's gland cyst is suspected. 7. There are cystic foci identified in the right ovary measuring up to 2.3 cm. This is an abnormal finding in a postmenopausal patient. Follow-up with nonemergent pelvic ultrasound in gynecologic assessment is recommended for further assessment. 8. Additional findings as above. Consultations: GI Cardiology Nephrology (Pavithra Nair PA-C) Medication Reconciliation New Medications: Atorvastatin (Atorvastatin Calcium) 40 Mg Tab 40 MG PO QAM for 30 Days, #30 TAB Desmopressin Acetate (Desmopressin Acetate) 0.1 Mg Tab 0.2 MG PO Q8 for 30 Days, #90 TAB Ferrous Sulfate (Ferrous Sulfate) 325 Mg/7.4 Ml Elix 325 MG PO BIDM for 30 Days, #60 DOSE Lisinopril (Lisinopril) 20 Mg Tab 20 MG PO QAM for 30 Days, #30 TAB Magnesium Oxide (Magnesium-Oxide) 400 Mg Tab 400 MG PO BID for 30 Days, #60 TAB Potassium Chloride (Klor-Con M20) 20 Meq Tabcr 40 MEQ PO TID for 30 Days, #90 DOSE Saccharomyces Boulardii (Florastor) 250 Mg Cap 250 MG PO DAILY for 30 Days, #30 CAP Continued Medications: Amlodipine (Norvasc) 5 Mg Tab 5 MG PO DAILY, TAB Docusate Sodium (Docusate Sodium) 100 Mg Cap 100 MG PO BID Lacosamide (Vimpat) 100 Mg Tab 200 MG PO Q12 Levetiracetam (Keppra) 1,000 Mg Tab 2000 MG PO Q12, TAB Metoprolol Tartrate (Lopressor) (Lopressor) 25 Mg Tab 75 MG PO Q12, TAB Multiple Vitamins W/ Minerals (Theragran-M) 1 Tab Tab 1 TAB PO DAILY Pantoprazole (Protonix) 40 Mg Tab 40 MG PO DAILY, #30 TAB Polyethylene (Miralax) 17 Gm Pow 17 GM PO DAILY@1200 Senna/Docusate Sod (Senokot S) 1 Tab Tab 2 TAB PO DAILY@1200, TAB Topiramate (Topamax) 100 Mg Tab 100 MG PO BID, TAB Topiramate (Topamax ) 25 Mg Tab 50 MG PO BID, TAB Discontinued Medications: Cefepime Hcl (Cefepime) 1 Gm Inj 1 GM IV Q12 Clindamycin Hcl (Cleocin) 150 Mg Cap 600 MG PO Q8, CAP Nystatin (Nystatin Suspension) 1 Ml Susp 5 ML PO QID Referrals At Discharge Follow up Referrals: Human Relations Teacher Referral - Within a Month with Marissa Askew M.D. Bookkeeping Manager Referral - Within 1 Week with Marek Pittman M.D. Neurologist Referral - Within 2 Weeks with Christopher Garcia M.D. (MEDICINE) Discharge Exam Patient reports feeling depressed today. Thinks that she needs to get out of the hospital. Denies any pain. No shortness of breath or cough. Denies any chest pain or pressure. Review of Systems: Constitutional: No fever Respiratory: No cough, No shortness of breath Cardiovascular: No chest pain Abdomen: No nausea Physical Exam: General Appearance: no apparent distress Eyes: EOMI Neck: no JVD Respiratory/Chest: lungs clear Cardiovascular: regular rate, rhythm Abdomen / GI: normal bowel sounds, non tender, soft Extremities: no calf tenderness, no pedal edema Neurologic/Psychiatric: oriented x 3, + pertinent finding (depressed affect noted) Skin: warm/dry (Pavithra Nair PA-C) Hospital Course 66-year-old female with a history of postoperative CVA found to have PFO in September 2016 after laminectomy, residual left-sided weakness and dysphagia admitted to the hospital with anorexia, nausea, constipation and likely aspiration pneumonia (from [facility]) Aspiration pneumonia-clinically improving -Completed a 7 day course of zosyn UTI-MRSA -Completed a 7 day course of vancomycin Constipation-resolved -Continue MiraLAX prn -Dulcolax 100 mg po BID Nausea and vomiting-improved with treating constipation -continue zofran PRN Dysphagia -aspiration precautions Chest pain on 01/23 in the middle the night-no EKG changes noted. Troponin peaked at 0.280. Now trending down to 0.085. ? NSTEMI -Transferred to [facility] 01/23 -Echo shows a preserved EF of 60-65%. No regional wall motion abnormalities noted. -Started on aspirin 81 mg daily and atorvastatin 40 mg daily -Full dose Lovenox started 01/23--> continued for 48 hrs. -Cardiology consult appreciated. Pt refused stress test -Continue ASHLEY inhibitor, beta mellisa. Seizure disorder -Continue Vimpat, Topamax -Keppra 2000 mg IV BID--> changed to liquid -Will set up f/u with [facility] here in [place] (Dr. Barrera or Dr. Garcia) in 2 weeks Hypokalemia-ongoing supplementation needed -KCl po BID scheduled Hypomagnesemia-resolved -Continue mag oxide 400 mg po BID Right cystic structure on ovary -Patient will need a pelvic ultrasound as an outpatient for further evaluation L uretal stone-renal fxn in tact. No pain Hypernatremia-likely secondary to diabetes insipidus -hydrated with D5W -nephrology consult appreciated-->begin desmopressin 0.1 mg po q 8 hrs -needs repeat PRP in 3 days -f/u with Dr. Pittman this week Depression-would likely improve once patient is discharged. -Not interested in starting any medication -No SI -Needs close f/u with PCP DVT prophylaxis -Lovenox -TEDS, SCDs CODE STATUS -LEVEL V DO NO RESUSCITATE DISPO -BACK TO [facility] FOR REHAB Total Time Spent: Greater than 30 minutes This includes examination of the patient, discharge planning, medication reconciliation, and communication with other providers. (Pavithra Nair PA-C) I interviewed and examined the patient. Discussed with Pavithra Nair PAC and agree with findings and plan as documented in the note. Any exceptions or clarifications are listed here: None Pt feels intensly depressed and requested to move to rehab today as to continue her progress toward eventually getting home, has had good response to desmopressin as suggestion of [facility], will be followed by Dr Pittman for clinical response in the outpt setting vss car is regular without murmur lungs are clear hypernatremia, hypokalemia, hyperchloremia, improved with desmopressin, will continue weekly outpt follow up cardiology consult does not feel ACS but offered risk stratifying stress which the patient declined, 48 hrs of lovenox for nstemi, asa statin complete treatment of aspiration pneumonia, mrsa uti, Total Time Spent: Greater than 30 minutes (Danial Kilpatrick M.D.) Discharge Instructions Please refer to the electronic Patient Visit Report (Discharge Instructions) for additional information. (Pavithra Nair PA-C) Follow-Up PCP, Dr. Pittman-1 week Neurology, Dr. Barrera or Jose-[address] Askew, [employer]-1 month (Pavithra Nair PA-C) Additional Copies To Marissa Askew M.D.; Marek Pittman M.D.; Christopher Garcia M.D. (MEDICINE)
[2017-01-27] MEDS ORDERED: DESMOPRESSIN ACETATE 0.1 MG TAB PO SCH (11:00)
--- NOTE | 2017-01-27 12:32 | Nephrology Progress Note ---
Nephrology Progress Note Date of Service Jan 27, 2017. Chief Complaint Follow-up for hypernatremia possibly secondary to neurogenic diabetes insipidus. Ralph Cheek was seen and examined in her room with her family at bedside. Overall she feels same and continues to feel tired. Denies any shortness of breath. No chest pain or palpitation. She feels like thirsty and she has been drinking liquids but wondering whether she is drinking too much. serum sodium slightly went up to 145 again today, she continues to be net negative more than 2 L and her urine output was almost 4.3 L. Review of Systems A complete review of systems was performed. Pertinent positives are noted above. All other systems are negative. Vital Signs Last 8 Hrs Date Time Temp Pulse Resp B/P Pulse Ox O2 Delivery O2 Flow Rate FiO2 01/27/17 08:10 36.2 83 16 129/71 97 Room Air 01/27/17 08:00 Room Air I & O 24-Hour Column 01/27/17 08:00 Intake Total 1703 ml Output Total 4250 ml Balance -2547 ml Last Recorded Weight Weight (Kilograms): 66.500 Physical Exam GENERAL: Middle-aged female, AAA x 3, pleasant, ill-appearing, not in any distress. NECK: Supple, no JVD. RESPIRATORY: Normal breathing efforts, no accessory muscle use, clear to auscultation bilaterally, no wheezes or rales. CARDIOVASCULAR: S1, S2 normal, rate rhythm regular. EXTREMITY: No lower extremity edema NEURO: speech fluent. PSYCHIATRY: Normal mood and judgment Family History FH: arthritis FH: emphysema Heart disease Stroke Social History Drug Use: none Marital Status: Occupation: unemployed Laboratory Results Past 24 Hours 01/27/17 06:24 Test 01/27/17 06:24 Anion Gap 13.0 mmol/L (3-11) Est Creatinine Clear Calc Drug Dose 51.6 ml/min Estimated GFR () 68.3 Estimated GFR (Non- 59.0 BUN/Creatinine Ratio 13.4 (10-20) Calcium Level 9.4 mg/dl (8.5-10.1) Allergies Coded Allergies: No Known Allergies (Verified , 01/19/17) Medications Current Inpatient Medications Medications (Trade) Dose Ordered Sig/[place] Route Start Time Stop Time Status Last Admin Dose Admin Acetaminophen (Tylenol Tab) 650 mg Q4H PRN PO 01/19/17 16:00 02/18/17 15:59 01/26/17 08:30 650 MG Al Hydrox/Mg Hydrox/Simethicone (Maalox Max Susp) 15 ml Q4H PRN PO 01/19/17 16:00 02/18/17 15:59 Magnesium Hydroxide (Milk Of Magnesia Susp) 30 ml Q6H PRN PO 01/19/17 16:00 02/18/17 15:59 Sodium Biphosphate/ Sodium Phosphate (Fleet Enema) 132 ml DAILY PRN DC 01/20/17 16:00 02/19/17 15:59 Metoprolol Tartrate (Lopressor Tab) 75 mg Q12 PO 01/19/17 21:00 02/18/17 20:59 01/27/17 08:24 75 MG Topiramate (Topamax Tab) 50 mg BID PO 01/19/17 20:00 02/18/17 20:59 01/27/17 08:25 50 MG Topiramate (Topamax Tab) 100 mg BID PO 01/19/17 20:00 02/18/17 20:59 01/27/17 08:25 100 MG Lacosamide (Vimpat Tab) 200 mg BID PO 01/19/17 20:00 02/18/17 20:59 01/27/17 08:26 200 MG Hydralazine HCl (HydrALAZINE INJ) 10 mg Q8H PRN IV. 01/20/17 09:15 02/19/17 09:14 Lisinopril (Zestril Tab) 20 mg QAM PO 01/21/17 10:00 02/20/17 09:59 01/27/17 08:24 20 MG Polyethylene (Miralax Powder Packet) 17 gm BID@0900,1700 PRN PO 01/21/17 09:00 02/20/17 08:59 01/22/17 09:06 17 GM Pantoprazole Sodium (Protonix Tab) 40 mg QAM PO 01/23/17 08:00 02/22/17 07:59 01/27/17 08:25 40 MG Magnesium Oxide (Mag-Ox Tab) 400 mg BID PO 01/23/17 08:00 02/22/17 07:59 01/27/17 08:26 400 MG Ondansetron HCl (Zofran Inj) 4 mg Q6H PRN IV 01/24/17 10:00 02/23/17 09:59 01/27/17 01:17 4 MG Atorvastatin Calcium (Lipitor Tab) 40 mg QAM PO 01/24/17 09:00 02/23/17 08:59 01/27/17 08:23 40 MG Saccharomyces Boulardii (Florastor Cap) 250 mg DAILY PO 01/24/17 18:00 02/23/17 17:59 01/27/17 08:25 250 MG Potassium Chloride (Klor-Con Tab) 40 meq TID PO 01/25/17 14:00 02/24/17 13:59 01/27/17 08:27 40 MEQ Levetiracetam (Keppra Tab) 2,000 mg BID PO 01/25/17 21:00 02/24/17 20:59 01/27/17 08:24 2,000 MG Enoxaparin Sodium (Lovenox Inj) 40 mg QAM SQ 01/26/17 09:00 02/25/17 08:59 01/27/17 08:26 40 MG Ferrous Sulfate (Feosol Elix) 325 mg BIDM PO 01/27/17 16:45 02/26/17 16:44 Desmopressin Acetate (Desmopressin Acetate) 0.2 mg Q8 PO 01/27/17 11:00 02/26/17 10:59 01/27/17 10:48 0.2 MG Nazia Cheek is a 66-year-old female with 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 ADH level is currently pending. serum sodium improved but again slightly increased today to 145, however she feels thirsty and she has been drinking that she drinks more than 2 L of but urine output continues to remain high area she made 4.3 L of urine and has been net negative more than 2 L. DDAVP was the started the tumor and currently on 0.1 3 times a day. Recommendations --encourage patient to continue to increase her fluid intake as she is persistently net negative with high urine output -- increase DDAVP to 0.2 mg 3 times a day -- closely monitor intake and output --If patient is not able to keep up with the fluid intake and serum sodium continues to go high, may need to start her on D5 water --We should check serum sodium at least every 12 hours Will follow
[2017-01-27 14:32] VITALS: BP 129/71; PULSE 83; TEMP 36.2; O2SAT 97
[2017-01-27] MEDS ORDERED: FERROUS SULFATE 325 MG/7.4 ML UDP PO SCH (16:45)
[2017-01-27] MEDS ORDERED: VANCOMYCIN TROUGH ONE (23:30)
--- NOTE | 2017-02-07 11:23 | REHABILITATION CONSULTATION ---
DATE OF CONSULTATION: 01/24/2017 The patient was discussed with Dr. Kilpatrick. She has been admitted to [facility] 4 times in the past 6 months, has been on continous hospitalization. She was seen upon readmission to [facility]. She does need a rehabilitation consult at [facility].
[2017-02-16] MEDS ORDERED: AMOX500T PO (12:44)
[2017-02-16] MEDS ORDERED: LSN5 OR (12:44)
[2017-02-16] MEDS ORDERED: METO50TA17 PO (12:44)
[2017-02-16] MEDS ORDERED: FLM4 PO (12:44)
[2017-02-16] MEDS ORDERED: ONDA4TAB10 SL (15:00)
[2017-02-20] MEDS ORDERED: LEVE250T PO (08:15)
[2017-02-20] MEDS ORDERED: METO25TA3 PO (08:15)
[2017-02-20] MEDS ORDERED: TOPI50TA16 PO (08:15)
[2017-02-20] MEDS ORDERED: PROB1CAP32 PO (08:17)
[2017-02-22] MEDS ORDERED: OXYC-57 PO (11:07)
[2017-02-22] MEDS ORDERED: PHEN-775 PO (11:07)
[2017-08-06] MEDS ORDERED: ATOR-24 PO (02:53)
[2017-08-06] MEDS ORDERED: DESM1TAB16 PO (02:53)
[2017-08-06] MEDS ORDERED: LISI-725 PO (08:15)
[2017-08-06] MEDS ORDERED: LACO100T PO (10:39)
[2017-08-06] MEDS ORDERED: ASPI81TA28 PO (13:56)
== END 2017-01-27 15:15 | DRG 178 ==
LOC: ENRESERVTM → ENRESERVDT → EDBD 09:20 → C.EDB 09:22 → C.4E 16:08 → UNDOADMIN 16:08 → C.4E 01-23 15:26 → C.2T 01-23 15:26
PROVIDERS: ADMIT Hospitalist; ATTEND Internal Medicine
DX: J69.0 Pneumonitis due to inhalation of food and vomit (principal); N39.0 Urinary tract infection, site not specified; I69.354 Hemiplegia and hemiparesis following cerebral infarction affecting left non-dominant side; E23.2 Diabetes insipidus; E46 Unspecified protein-calorie malnutrition; N20.2 Calculus of kidney with calculus of ureter; J90 Pleural effusion, not elsewhere classified; A49.02 Methicillin resistant Staphylococcus aureus infection, unspecified site; K59.00 Constipation, unspecified; I10 Essential (primary) hypertension; G40.909 Epilepsy, unspecified, not intractable, without status epilepticus; K21.9 Gastro-esophageal reflux disease without esophagitis; E86.0 Dehydration; E83.42 Hypomagnesemia; K42.9 Umbilical hernia without obstruction or gangrene; R13.10 Dysphagia, unspecified; Z66 Do not resuscitate; K62.89 Other specified diseases of anus and rectum; E78.00 Pure hypercholesterolemia, unspecified; R07.9 Chest pain, unspecified; N83.201 Unspecified ovarian cyst, right side; F32.9 Major depressive disorder, single episode, unspecified

== ENCOUNTER 2017-02-13 00:58 | Inpatient (IN) | payer OTHER, BC ==
[2017-02-13] VITALS (8 sets, daily range): BP systolic 79–133; BP diastolic 46–65; PULSE 62–101; TEMP 36.3–37.4; O2SAT 95–99; Ht 167.6 cm; Wt 68.0 kg
[~2017-02-13] VITALS: Ht 167.6 cm; Wt 68.0 kg
[~2017-02-13 00:58] MED LIST changes: -ACET-1256 PO; -AMOX500T PO; -ASPI81TA28 PO; -ATOR-24 PO; -CEFE1INJ3 IV; -CLIN150C PO; -DESM1TAB16 PO; -FERR1TAB13 PO; -FLM4 PO; -LACO100T PO; -LCTX PO; -LEVE100S IV; -LEVE250T PO; -LISI-725 PO; -LSN5 OR; -MAGN400T6 PO; -METO25TA3 PO; -METO50TA17 PO; -NYSS/ PO; -ONDA4TAB10 SL; -OXYC-57 PO; -PHEN-775 PO; -POTA10CA28 PO; -POTA20TA16 PO; -PRLSR20 PO; -PROB1CAP32 PO; -RGLI10 IV; -TOPI100T20 PO; -TOPI50TA16 PO; -[UNRECOGNIZED DRUG - CODE] IV
[2017-02-13] MEDS ORDERED: SODIUM CHLORIDE 0.9% 1000ML 1,000 ML IV SCH (01:11)
[2017-02-13] MEDS ORDERED: ONDANSETRON INJ 2 MG/ML 2 ML VIAL IV STA (01:23)
[2017-02-13 01:39] LABS: BASO % 0.5 %; BASO ABS # 0.05 K/uL (0-0.2); COMPLETE YES; EOS % 4.6 %; HEMATOCRIT 29.3 % (37-47); IG% 1.4 %; LYMPH % 32.3 %; LYMPH ABS # 3.13 K/uL (1.2-3.4); MEAN CELL VOLUME 82.3 fL (80-100); MEAN CORPUSCULAR HGB CONC 32.8 g/dl (32-36); MEAN PLATELET VOLUME 8.1 fL (7.4-10.4); MONO % 9.3 %; NEUT % 51.9 %; PLATELET COUNT 353 K/uL (130-400); RED BLOOD COUNT 3.56 M/uL (4.2-5.4); WHITE BLOOD COUNT 9.68 K/uL (4.8-10.8)
[2017-02-13 01:58] LABS: BLOOD UREA NITROGEN 29 mg/dl (7-18); BUN/CREATININE RATIO 22.4 (10-20); CALCIUM 9.9 mg/dl (8.5-10.1); CARBON DIOXIDE 24 mmol/L (21-32); CHLORIDE 101 mmol/L (98-107); GLUCOSE 112 mg/dl (70-99); POTASSIUM 4.1 mmol/L (3.5-5.1); SODIUM 135 mmol/L (136-145)
[2017-02-13 02:26] LABS: URINE APPEARANCE CLOUDY (CLEAR); URINE BILIRUBIN NEG (NEG); URINE COLOR YELLOW; URINE EPITHELIAL CELL AUTO 0-5 /lpf (0-5); URINE NITRITE NEG (NEG); UROBILINOGEN NEG (NEG); ZZURINE CULT IF INDIC CATH YES
[2017-02-13 02:31] LABS: MANUAL MICROSCOPIC REQUIRED? NO; REVIEW REQ? NO
[2017-02-13] MEDS ORDERED: VANCOMYCIN IV STA (02:41)
[2017-02-13] MEDS ORDERED: SODIUM CHLORIDE 0.9% IV STA (02:41)
[2017-02-13] MEDS ORDERED: PIPERACILLIN/TAZOBACTAM 4.5 GM/100ML D5W IV STA (02:41)
--- NOTE | 2017-02-13 02:49 | EMERGENCY ROOM VISIT NOTE ---
History Report prepared by Glenna: Alon[facility] Under the Supervision of: Dr. Felicity Lees M.D. First contact with patient: 01:11 Chief Complaint: ALTERED MENTAL STATUS Stated Complaint: ALTERED MENTAL STATUS EVALUATION History of Present Illness The patient is a 66 year old female who presents to the Emergency Room with complaints of a constant altered mental status beginning shortly prior to arrival. The patient's states that he went to check on during the night after he heard her violently coughing, and found her to be very confused. He estimates that he noticed her symptoms 1.5 hours ago. He states that she was behaving fairly normally tonight before she went to bed. He states that she went to bed approximately four hours ago. The patient is unsure as to what happened tonight. She states that she does not know where she is or why she is here. Nursing staff states that the patient knew where she was several minutes earlier. The patient's states that the patient had a laminectomy four months ago, and ultimately ended up having a seizure and a stroke. He states that the patient was in a coma for around five weeks. He states that the patient has since had problems with constipation, a second stroke, a UTI and multiple pneumonias since that time. The patient's states that the patient has a few physical ailments including left arm weakness from her previous stroke, but is usually able to converse normally at baseline. HPI limited secondary to altered mental status. Source of History: patient, spouse/significant other () History Limited By: AMS Onset: shortly prior to arrival Quality: other (altered mental status) Timing: constant Review of Systems ROS limited secondary to altered mental status. Past Medical & Surgical Medical Problems: (1) Hyperlipidemia (2) Hypertension (3) Seizure Surgical Problems: (1) H/O: hysterectomy (2) History of appendectomy Family History FH: arthritis FH: emphysema Heart disease Stroke Social History Smoking Status: Never Smoker Alcohol Use: none Drug Use: none Marital Status: Occupation Status: unemployed Current/Historical Medications Scheduled Amlodipine (Norvasc), 5 MG PO HS Atorvastatin (Lipitor), 40 MG PO QPM Desmopressin Acetate (Ddavp), 0.2 MG PO TIDM Ferrous Sulfate (Kp Ferrous Sulfate), 1 TAB PO BIDM Lacosamide (Vimpat), 200 MG PO BID Lactobacillus Acidophilus (Floranex), 1 TAB PO QPM Levetiracetam (Keppra), 2,000 MG PO BID Lisinopril (Lisinopril), 20 MG PO QAM Magnesium Oxide (Mag-Ox), 400 MG PO BID Metoprolol Tartrate (Lopressor) (Lopressor), 75 MG PO BID Omeprazole (Prilosec), 20 MG PO QPM Ondasetron Odt (Zofran Odt), 4 MG SL Q6H Potassium Ext Rel (Klor-Con), 20 MEQ PO QAM Topiramate (Topamax ), 50 MG PO BID Topiramate (Topamax), 100 MG PO BID Scheduled PRN Acetaminophen (Tylenol), 500 MG PO Q4H PRN for Pain or Fever Allergies Coded Allergies: Clarithromycin (Verified Allergy, Unknown, UNKNOWN, 02/13/17) Codeine (Verified Allergy, Unknown, UNKNOWN, 02/13/17) Doxycycline (Verified Allergy, Unknown, UNKNOWN, 02/13/17) Oxycodone (Verified Allergy, Unknown, UNKNOWN, 02/13/17) Physical Exam Vital Signs Date Time Temp Pulse Resp B/P Pulse Ox O2 Delivery O2 Flow Rate FiO2 02/13/17 02:44 62 20 110/54 99 Room Air 02/13/17 02:16 62 20 111/47 99 Room Air 02/13/17 01:09 64 02/13/17 01:05 98 Room Air 02/13/17 01:05 36.4 65 18 130/51 98 Room Air Physical Exam Vital signs reviewed. General: Well-appearing female, in no significant distress. HEENT: No scleral icterus, PERRLA, neck supple. Atraumatic. Cardiovascular: Regular rate and rhythm, no extra sounds. Pulmonary: Clear to auscultation bilaterally, normal work of breathing. Abdomen: Soft, nontender, nondistended, positive bowel sounds. Musculoskeletal: Atraumatic, no peripheral edema. Neurologic: Left nasal labial fold flattening. 3/4 strength to the LUE. 5/5 to the RUE. Difficulty following complicated commands. Unable to state date of or age. Knows her name and her husbands name. Unaware of location and proceeding events. Skin: Warm, dry, no rash Medical Decision & Procedures ER Provider Diagnostic Interpretation: CT results per statrad and my review. CT HEAD: No prior available for comparison. Right frontal operculum hypodensity, involving cortex, suspicious for a late acute or subacute infarct, chronic infarct considered less likely. No evidence of intracranial hemorrhage. Left cerebellar hemispheric hypodensity, compatible with remote infarct. Layering material or mucosal thickening in right sphenoid sinus. One View Chest X-ray interpreted by me: Right lower lobe infiltrate. No pneumothorax. No failure. Laboratory Results Test 02/13/17 01:28 02/13/17 01:33 02/13/17 01:47 02/13/17 01:50 RDW Standard Deviation 51.0 fL (36.4-46.3) RDW Coefficient of Variation 16.8 % (11.5-14.5) White Blood Count 9.68 K/uL (4.8-10.8) Red Blood Count 3.56 M/uL (4.2-5.4) Hemoglobin 9.6 g/dL (12.0-16.0) Hematocrit 29.3 % (37-47) Mean Corpuscular Volume 82.3 fL (80-100) Mean Corpuscular Hemoglobin 27.0 pg (25-34) Mean Corpuscular Hemoglobin Concent 32.8 g/dl (32-36) Platelet Count 353 K/uL (130-400) Mean Platelet Volume 8.1 fL (7.4-10.4) Neutrophils (%) (Auto) 51.9 % Lymphocytes (%) (Auto) 32.3 % Monocytes (%) (Auto) 9.3 % Eosinophils (%) (Auto) 4.6 % Basophils (%) (Auto) 0.5 % Neutrophils # (Auto) 5.01 K/uL (1.4-6.5) Lymphocytes # (Auto) 3.13 K/uL (1.2-3.4) Monocytes # (Auto) 0.90 K/uL (0.11-0.59) Eosinophils # (Auto) 0.45 K/uL (0-0.5) Basophils # (Auto) 0.05 K/uL (0-0.2) Immature Granulocyte % (Auto) 1.4 % Immature Granulocyte # (Auto) 0.14 K/uL (0.00-0.02) Prothrombin Time 11.0 SECONDS (9.0-12.0) Prothromb Time International Ratio 1.0 (0.9-1.1) Activated Partial Thromboplast Time 25.6 SECONDS (21.0-31.0) Partial Thromboplastin Ratio 1.0 Total Creatine Kinase 24 U/L (26-192) Creatine Kinase MB < 0.5 ng/ml (0.5-3.6) Creatine Kinase MB Ratio (0-3.0) Troponin I < 0.015 ng/ml (0-0.045) Bedside Prothrombin Time INR 0.9 (0.9-1.1) Bedside Glucose 117 mg/dl (70-90) Urine Color YELLOW Urine Appearance CLOUDY (CLEAR) Urine pH 7.0 (4.5-7.5) Urine Specific [place] 1.010 (1.000-1.030) Urine Protein NEG (NEG) Urine Glucose (UA) NEG (NEG) Urine Ketones NEG (NEG) Urine Occult Blood NEG (NEG) Urine Nitrite NEG (NEG) Urine Bilirubin NEG (NEG) Urine Urobilinogen NEG (NEG) Urine Leukocyte Esterase LARGE (NEG) Urine WBC (Auto) >30 /hpf (0-5) Urine RBC (Auto) 0-4 /hpf (0-4) Urine Hyaline Casts (Auto) 1-5 /lpf (0-5) Urine Epithelial Cells (Auto) 0-5 /lpf (0-5) Urine Bacteria (Auto) 1+ (NEG) Laboratory results per my review. Medications Administered Medications (Trade) Dose Ordered Sig/[place] Route Start Time Stop Time Status Last Admin Dose Admin Sodium Chloride (Nss 1000ml) 1,000 ml @ 100 mls/hr Q10H IV 02/13/17 01:11 02/13/17 05:10 DC 02/13/17 02:05 100 MLS/HR Ondansetron HCl (Zofran Inj) 4 mg NOW STAT IV 02/13/17 01:23 02/13/17 01:24 DC 02/13/17 02:05 4 MG Piperacillin Sod/ Tazobactam Sod (Zosyn Iv) 4.5 gm NOW STAT IV 02/13/17 02:41 02/13/17 02:44 DC 02/13/17 02:51 4.5 GM ECG Indication: altered mental status Rate (beats per minute): 64 Rhythm: normal sinus Findings: RBBB (incomplete), other (repolarization abnormality. Possible previous anterior infarct. ) ED Course 0118: Past medical records reviewed. The patient was evaluated in room B7. A complete history and physical examination was performed. 0111: Ordered Sodium Chloride 1000 ml @ 100 mls/hr IV. 0123: Ordered Zofran Inj 4 mg IV. 0241: Ordered Zosyn IV 4.5 gm IV, Vancomycin HCl 1675 mg/Sodium Chloride 533.5 mL @ 200 mL/hr IV. Upon reevaluation, the patient is resting comfortably. I discussed laboratory and radiographic results with the patient and her . They verbalized agreement of the treatment plan. I spoke with Dr. Pena of the [facility] Hospitalist Service. The patient will be evaluated for further management and care. Medical Decision Differential diagnosis: Etiologies such as metabolic, infection, hypoglycemia, electrolyte abnormalities , cardiac sources, intracerebral event, toxicologic, neurologic, as well as others were entertained. This patient was evaluated and appeared to be in no significant distress. The patient is having a difficult time conversing. She will follow commands but is not able to focus for a long period of time. She holds her left upper extremity in flexion once it is placed there. Patient has mild left nasolabial fold flattening and weakness of the left upper extremity. CT scan of the head was performed and is read as above. In obtaining records from the outside facility, the patient has had several infarcts previously as well as a hemorrhagic stroke. Head CT does not appear to be acute in etiology. Patient' s urinalysis is concerning for greater than 30 WBCs. Chest x-ray reveals a possible right lower lobe pneumonia. Patient was medicated with IV Zosyn 4.5 g. Patient's case was discussed with Dr. Almodovar the hospitalist service. He will evaluate the patient for admission and further management. Consults Time Called: [phone] Consulting Physician: Dr. Pena -[facility] Returned Call: [phone] I reviewed the patient's case with Dr. Pena. He will evaluate the patient for further management. Impression Primary Impression: Pneumonia Additional Impressions: UTI (urinary tract infection) Altered mental status Scribe Attestation The scribe's documentation has been prepared under my direction and personally reviewed by me in its entirety. I confirm that the note above accurately reflects all work, treatment, procedures, and medical decision making performed by me. Departure Information Dispostion Being Evaluated By Hospitalist Referrals Marek Pittman M.D. (PCP) Patient Instructions My [facility] Problem Qualifiers
[2017-02-13] MEDS ORDERED: TOPI100T20 PO (02:53)
[2017-02-13] MEDS ORDERED: ACET-1256 PO (02:53)
[2017-02-13] MEDS ORDERED: PRLSR20 PO (02:53)
[2017-02-13] MEDS ORDERED: MAGN400T6 PO (02:53)
[2017-02-13] MEDS ORDERED: LCTX PO (02:53)
[2017-02-13] MEDS ORDERED: LSN20 PO (02:53)
[2017-02-13] MEDS ORDERED: TOPI25TA99 PO (02:53)
[2017-02-13] MEDS ORDERED: POTA20TA16 PO (02:53)
[2017-02-13] MEDS ORDERED: FERR1TAB13 PO (02:53)
[2017-02-13] MEDS ORDERED: ONDA4TAB10 SL (02:53)
[2017-02-13] MEDS ORDERED: VANCOMYCIN INJ 1,000 MG in SODIUM CHLORIDE 0.9% 250ML 250 ML IV STA (03:05)
[2017-02-13] MEDS: METOPROLOL TARTRATE 1 MG/ML VIAL IV. SCH ×5 (04:00→21:34)
[2017-02-13] MEDS ORDERED: VANCOMYCIN INJ 1,700 MG in SODIUM CHLORIDE 0.9% 500ML 500 ML IV STA (04:22)
[2017-02-13] MEDS ORDERED: PIPERACILL/TAZOBAC CONSULT ACTIVE PRN (05:15)
[2017-02-13] MEDS ORDERED: VANCOMYCIN CONSULT ACTIVE PRN (05:15)
[2017-02-13] MEDS: NSS + 20MEQ KCL 1000ML 1,000 ML IV SCH (05:45)
--- NOTE | 2017-02-13 06:07 | History and Physical ---
History & Physical Date & Time of Service: Feb 13, 2017 at 05:51 Chief Complaint: Pneumonia, Uti Primary Care Physician: Marek Pittman M.D. History of Present Illness Source: patient, spouse The patient is a 66-year-old female who is brought to the emergency department with altered mental status that began just prior to arrival. The patient's reports that she was very confused after he went to check on her when he heard violent coughing about one half hours prior to arrival. ED physician reports the patient was confused, however, when she spoke with me she was oriented. Patient had laminectomy 4 months ago and during that time had a seizure and stroke and reportedly was in a coma for about 5 weeks. Since that time she has had constipation, second CVA, multiple pneumonias and urinary tract infection. She has persistent left arm weakness from a previous CVA. Past Medical/Surgical History Medical Problems: (1) Hyperlipidemia Status: Chronic (2) Hypertension Status: Chronic (3) Seizure Status: Resolved Surgical Problems: (1) H/O: hysterectomy Status: Resolved (2) History of appendectomy Status: Resolved Family History FH: arthritis FH: emphysema Heart disease Stroke Social History Smoking Status: Never Smoker Smokeless Tobacco Use: No Alcohol Use: none Drug Use: none Marital Status: Housing status: lives with family Occupational Status: unemployed Multi-Drug Resistant Organisms History of MDRO: No Allergies Coded Allergies: Clarithromycin (Verified Allergy, Unknown, UNKNOWN, 02/13/17) Codeine (Verified Allergy, Unknown, UNKNOWN, 02/13/17) Doxycycline (Verified Allergy, Unknown, UNKNOWN, 02/13/17) Oxycodone (Verified Allergy, Unknown, UNKNOWN, 02/13/17) Home Medications Scheduled Amlodipine (Norvasc), 5 MG PO HS Atorvastatin (Lipitor), 40 MG PO QPM Desmopressin Acetate (Ddavp), 0.2 MG PO TIDM Ferrous Sulfate (Kp Ferrous Sulfate), 1 TAB PO BIDM Lacosamide (Vimpat), 200 MG PO BID Lactobacillus Acidophilus (Floranex), 1 TAB PO QPM Levetiracetam (Keppra), 2,000 MG PO BID Lisinopril (Lisinopril), 20 MG PO QAM Magnesium Oxide (Mag-Ox), 400 MG PO BID Metoprolol Tartrate (Lopressor) (Lopressor), 75 MG PO BID Omeprazole (Prilosec), 20 MG PO QPM Ondasetron Odt (Zofran Odt), 4 MG SL Q6H Potassium Ext Rel (Klor-Con), 20 MEQ PO QAM Topiramate (Topamax ), 50 MG PO BID Topiramate (Topamax), 100 MG PO BID Scheduled PRN Acetaminophen (Tylenol), 500 MG PO Q4H PRN for Pain or Fever Review of Systems The patient denies chest pain, palpitations, shortness of breath, cough, lower extremity swelling, vision change, hearing change, sore throat, fevers, chills, sweats, weight change, fatigue, nausea, vomiting, abdominal pain, pelvic pain, blood in urine or stool, dysuria, urinary frequency or urgency, rash, abnormal bruising or bleeding, arthralgias or myalgias, back or neck pain, night sweats , or allergy symptoms. The review of systems is otherwise negative other than for that already noted above, and at least 10 systems have been reviewed. Physical Exam Vital Signs Date Time Temp Pulse Resp B/P Pulse Ox O2 Delivery O2 Flow Rate FiO2 02/13/17 05:22 67 16 98/46 97 Room Air 02/13/17 04:00 67 98/46 02/13/17 03:50 36.3 62 20 123/58 96 Room Air 02/13/17 02:44 62 20 110/54 99 Room Air 02/13/17 02:16 62 20 111/47 99 Room Air 02/13/17 01:09 64 02/13/17 01:05 98 Room Air 02/13/17 01:05 36.4 65 18 130/51 98 Room Air The patient is awake, alert and oriented 3, normocephalic and atraumatic, lying in bed and in no acute distress. HEENT--PERRL, EOMI, mucous membranes and oropharynx dry, with mild thrush. Neck--supple, no JVD or bruits, thyroid normal, trachea midline, no adenopathy. Heart--normal S1 and S2, no extra beats, no murmurs, rubs or gallops. Lungs--decreased breath sounds at the bases bilaterally right worse than left, no respiratory distress, no accessory muscle use. Abdomen--normal bowel sounds and soft, nontender and nondistended, no hernias or masses, no organomegaly. Extremities--no cyanosis, clubbing or edema. There are good distal pulses b/l. Dermatologic--normal skin turgor, normal color, warm and dry, no abnormal lymph nodes, no rash. Neurologic--limited Rheumatologic--limited Psychiatric--flat affect. Diagnostics Laboratory Results Results Past 24 Hours Test 02/13/17 01:28 02/13/17 01:47 02/13/17 01:50 Range/Units White Blood Count 9.68 4.8-10.8 K/uL Red Blood Count 3.56 4.2-5.4 M/uL Hemoglobin 9.6 12.0-16.0 g/dL Hematocrit 29.3 37-47 % Mean Corpuscular Volume 82.3 80-100 fL Mean Corpuscular Hemoglobin 27.0 25-34 pg Mean Corpuscular Hemoglobin Concent 32.8 32-36 g/dl Platelet Count 353 130-400 K/uL Mean Platelet Volume 8.1 7.4-10.4 fL Neutrophils (%) (Auto) 51.9 % Lymphocytes (%) (Auto) 32.3 % Monocytes (%) (Auto) 9.3 % Eosinophils (%) (Auto) 4.6 % Basophils (%) (Auto) 0.5 % Neutrophils # (Auto) 5.01 1.4-6.5 K/uL Lymphocytes # (Auto) 3.13 1.2-3.4 K/uL Monocytes # (Auto) 0.90 0.11-0.59 K/uL Eosinophils # (Auto) 0.45 0-0.5 K/uL Basophils # (Auto) 0.05 0-0.2 K/uL RDW Standard Deviation 51.0 36.4-46.3 fL RDW Coefficient of Variation 16.8 11.5-14.5 % Immature Granulocyte % (Auto) 1.4 % Immature Granulocyte # (Auto) 0.14 0.00-0.02 K/uL Prothrombin Time 11.0 9.0-12.0 SECONDS Prothromb Time International Ratio 1.0 0.9-1.1 Activated Partial Thromboplast Time 25.6 21.0-31.0 SECONDS Partial Thromboplastin Ratio 1.0 Sodium Level 135 136-145 mmol/L Potassium Level 4.1 3.5-5.1 mmol/L Chloride Level 101 98-107 mmol/L Carbon Dioxide Level 24 21-32 mmol/L Anion Gap 10.0 3-11 mmol/L Blood Urea Nitrogen 29 7-18 mg/dl Creatinine 1.30 0.60-1.20 mg/dl Estimated GFR () 49.2 Estimated GFR (Non- 42.4 BUN/Creatinine Ratio 22.4 10-20 Random Glucose 112 70-99 mg/dl Calcium Level 9.9 8.5-10.1 mg/dl Total Creatine Kinase 24 26-192 U/L Creatine Kinase MB < 0.5 0.5-3.6 ng/ml Creatine Kinase MB Ratio 0-3.0 Troponin I < 0.015 0-0.045 ng/ml Bedside Glucose 117 70-90 mg/dl Urine Color YELLOW Urine Appearance CLOUDY CLEAR Urine pH 7.0 4.5-7.5 Urine Specific [place] 1.010 1.000-1.030 Urine Protein NEG NEG Urine Glucose (UA) NEG NEG Urine Ketones NEG NEG Urine Occult Blood NEG NEG Urine Nitrite NEG NEG Urine Bilirubin NEG NEG Urine Urobilinogen NEG NEG Urine Leukocyte Esterase LARGE NEG Urine WBC (Auto) >30 0-5 /hpf Urine RBC (Auto) 0-4 0-4 /hpf Urine Hyaline Casts (Auto) 1-5 0-5 /lpf Urine Epithelial Cells (Auto) 0-5 0-5 /lpf Urine Bacteria (Auto) 1+ NEG Microbiology Results 02/13/17 Urine Culture, Received Pending EKG EKG shows normal sinus rhythm at 64 bpm, right bundle branch block, no acute ST- T changes. Impression Assessment and Plan Altered mental status/right lower lobe pneumonia/UTI--patient will be admitted to telemetry unit. Right lower lobe pneumonia--placed on vancomycin IV per renal dosing, Zosyn 3.375 mg IV every 6 hours, levofloxacin 500 mg IV every 24 hours, Xopenex with Atrovent nebulizer use every 6 hours while awake and every 2 hours when necessary. UTI--antibiotics as above, and placed on normal saline with potassium chloride 20 mEq at 25 ML's per hour. Thrush--clotrimazole troches dissolve in mouth 5 times per day for 5 days. Seizure disorder--at this point unsure patient's swallowing due to encephalopathy. We'll change Keppra from 2000 mg by mouth every 12 hours to 2000 mg IV 12 hours. Continue Vimpat 200 mg by mouth every 12 hours and Topamax 150 milligrams by mouth twice a day. Continue DDAVP 0.2 mg by mouth every 8 hours. Hypertension hold amlodipine 5 mg by mouth daily, lisinopril 20 mg by mouth every morning, mag oxide 40 mg by mouth twice a day, metoprolol tartrate 75 mg by mouth every 12 hours and potassium chloride 40 mEq by mouth [address] on Lopressor 5 mg IV every 4 hours with hold parameters. His Hypercholesterolemia--hold atorvastatin 40 mg by mouth every morning. GERD--change pantoprazole 40 mg by mouth daily to 40 mg IV daily. Level of Care Telemetry Advanced Directives Existing Advance Directive: No Existing Living Will: Yes Existing Power of Chicken Sexer: Yes Resuscitation Status FULL RESUSCITATION VTE Prophylaxis VTE Risk Assessment Done? Y/N: Yes Risk Level: Moderate Given or contraindicated: SCD's
[2017-02-13] MEDS ORDERED: LEVALBUTEROL 1.25MG/0.5ML NEB INH PRN (06:15)
[2017-02-13] MEDS ORDERED: IPRATROPIUM BROMIDE NEB SOLN 0.02% 2.5 ML VIAL INH PRN (06:15)
[2017-02-13] MEDS ORDERED: [UNRECOGNIZED DRUG - REMARK] PRN (06:30)
--- NOTE | 2017-02-13 06:37 | DIAGNOSTIC IMAGING REPORT ---
CHEST ONE VIEW PORTABLE CLINICAL HISTORY: Stroke COMPARISON STUDY: 01/19/2017 FINDINGS: The heart is mildly enlarged. There are persistent but improving right basilar airspace opacities. Minimal increased markings the left lung base are likely atelectatic. There is no overt failure. There are no pleural effusions.[ IMPRESSION: Persistent but improving right basilar airspace opacities Electronically signed by: Jaspreet Gilliam M.D. 02/13/2017 6:36 AM Dictated Date/Time: 02/13/2017 6:36 AM
--- NOTE | 2017-02-13 06:43 | DIAGNOSTIC IMAGING REPORT ---
CT HEAD WITHOUT CONTRAST (CT) CLINICAL HISTORY: Stroke ACUTE CHANGE IN MENTAL STATUS. COMPARISON STUDY: No previous studies for comparison. TECHNIQUE: Axial CT of the brain is performed from the vertex to the skull base. IV contrast was not administered for this examination. CT DOSE: 614.27 mGy.cm FINDINGS: There is a hypodensity present within the right posterior frontal lobe, consistent with an infarct, possibly subacute. There is evidence for infarct involving the left posterior lateral cerebellar hemisphere. There is no acute hemorrhage. There is no midline shift. There is minor ventricular prominence. There is fluid within the sphenoid sinus. IMPRESSION: Infarcts involving the right posterior frontal lobe, and left posterior lateral cerebellar hemisphere. The appearance of the frontal lobe infarct suggests that it may be subacute. Electronically signed by: Jaspreet Gilliam M.D. 02/13/2017 6:42 AM Dictated Date/Time: 02/13/2017 6:39 AM
[2017-02-13] MEDS: CLOTRIMAZOLE 10 MG TROCHE MT SCH ×5 (07:49→23:00)
[2017-02-13] MEDS: DESMOPRESSIN ACETATE 0.1 MG TAB PO SCH ×3 (07:51→21:37)
[2017-02-13] MEDS: TOPIRAMATE 100 MG TAB PO SCH ×2 (07:51→21:36)
[2017-02-13] MEDS: TOPIRAMATE 25 MG TAB PO SCH ×2 (07:52→21:36)
[2017-02-13] MEDS: LACOSAMIDE 50 MG TAB PO SCH ×2 (07:52→21:35)
[2017-02-13] MEDS ORDERED: LEVOFLOXACIN / D5W 500 MG in PREMIXED IN D5W 100 ML IV SCH (08:00)
[2017-02-13] MEDS: PIPERACILL/TAZOBAC IV 3.375 GM in DEXTROSE 5% 100ML 100 ML IV SCH ×2 (08:40→16:06)
[2017-02-13] MEDS: IPRATROPIUM BROMIDE NEB SOLN 0.02% 2.5 ML VIAL INH SCH ×3 (09:00→20:32)
[2017-02-13] MEDS ORDERED: LEVETIRACTAM 1000 MG in DEXTROSE 5% 100ML IV SCH (09:00)
[2017-02-13] MEDS: LEVALBUTEROL 1.25MG/0.5ML NEB INH SCH ×3 (09:00→20:32)
[2017-02-13] MEDS ORDERED: LEVETIRACETAM IV 2,000 MG in DEXTROSE 5% 250ML 250 ML IV SCH (09:00)
[2017-02-13] MEDS ORDERED: LEVALBUTEROL/IPRATROPIUM NEB INH SCH (09:00)
[2017-02-13] MEDS: PANTOprazole INJ 40 MG in SYRINGE 0 ML IV SCH (11:03)
--- NOTE | 2017-02-13 11:44 | Pharmacy Progress Note ---
Pharmacy Antibiotic Consult Date of Service: Feb 13, 2017. Pharmacy Dosing Scope Pharmacy is consulted to initiate IV vancomycin and renally dose Keppra IV, order appropriate labs and adjust drug dose/frequency. Subjective The patient is a 66 year old female admitted on Feb 13, 2017 at 03:00 with mental status changes, probable PNX, possible UTI Objective Height (Feet): 5 Height (Inches): 6.00 Weight (Kilograms): 65.500 Lab Results (24hrs): Laboratory Tests Test 02/13/17 01:28 BUN/Creatinine Ratio 22.4 Blood Urea Nitrogen 29 mg/dl Creatinine 1.30 mg/dl White Blood Count 9.68 K/uL Red Blood Count 3.56 M/uL Hemoglobin 9.6 g/dL Hematocrit 29.3 % Mean Corpuscular Volume 82.3 fL Mean Corpuscular Hemoglobin 27.0 pg Mean Corpuscular Hemoglobin Concent 32.8 g/dl Platelet Count 353 K/uL Mean Platelet Volume 8.1 fL Neutrophils (%) (Auto) 51.9 % Lymphocytes (%) (Auto) 32.3 % Monocytes (%) (Auto) 9.3 % Eosinophils (%) (Auto) 4.6 % Basophils (%) (Auto) 0.5 % Neutrophils # (Auto) 5.01 K/uL Lymphocytes # (Auto) 3.13 K/uL Monocytes # (Auto) 0.90 K/uL Eosinophils # (Auto) 0.45 K/uL Basophils # (Auto) 0.05 K/uL Micro Results: 02/13/17: urine cx collected Recent Pertinent Medications Vancomycin 1700mg IV x 1 @ 0442 Assessment & Plan VANCOMYCIN: * 1700mg (26mg/kg) loading dose given this AM * Goal trough: 15-20mcg/mL for pulm infxn * Maint 1100mg (16.8mg/kg) IV Q 24 hrs * Will check trough with 3rd maint dose given long dosing interval * LAURA noted, baseline SCr ~0.8-0.9, receiving IV hydration, monitor VS's, U.O. SCr/BUN closely. If renal fxn improves, dosing interval may need shortened. Of note, she received vancomycin IV earlier this month and it appeared she would require ~1gm Q 18 hrs if renal fxn returns to baseline. KEPPRA: * Pharmacist who received consult earlier placed the patient on 1gm IV Q 12 hours * Reported home dose is 2gm PO BID - the maximum recommended daily dose * Dose reduction probably warranted in LAURA but there are no clear recommendations for adjustment, f/u in patients receiving an established maintenance dose who develop LAURA. Toxic level is unclear. * Will defer to prior pharmacist's judgement for dose reduction, however check a trough Keppra level with this evening's dose. Pharmacy will continue to follow and will adjust dose/frequency as necessary. Thank you
[2017-02-13] MEDS ORDERED: ALUMINUM/MAGNESIUM SUSP 30 ML UDC PO PRN (15:00)
[2017-02-13] MEDS ORDERED: NURSING VERBAL MED ORDER ONE (15:00)
--- NOTE | 2017-02-13 18:33 | Progress Note ---
Subjective Date of Service: Feb 13, 2017. Subjective Pt evaluation today including: conversation w/ patient, physical exam, chart review, lab review, review of inpatient medication list Problem List Medical Problems: (1) Altered mental status Status: Acute (2) Hypokalemia Status: Acute (3) Pneumonia Status: Acute (4) Pneumonia Status: Acute (5) UTI (urinary tract infection) Status: Acute (6) UTI (urinary tract infection) Status: Acute Review of Systems Constitutional: No chills, No fatigue, No fever, No problem reported, No see HPI, No sweats, No weakness, No weight loss Eyes: No diplopia, No discharge, No eye pain, No problem reported, No redness, No see HPI, No worsening of vision ENT: No dental problems, No hearing loss, No nasal symptoms, No problem reported, No see HPI, No sore throat, No tinnitus, No trouble swallowing, No unusual epistaxis Respiratory: No cough, No dyspnea at rest, No dyspnea on exertion, No hemoptysis, No problem reported, No see HPI, No shortness of breath, No sputum, No wheezing Cardiac: No PND, No chest pain, No claudication, No edema, No orthopnea, No palpitations, No problem reported, No see HPI Abdomen: No GI bleeding, No constipation, No diarrhea, No nausea, No pain, No problem reported, No see HPI, No vomiting Musculoskeletal: No calf pain, No joint pain, No muscle pain, No problem reported, No see HPI, No swelling Female : No abnormal vaginal bleeding, No dysuria, No hematuria, No incontinence, No problem reported, No see HPI, No urinary frequency, No vaginal discharge Neurologic: No balance problems, No memory loss, No numbness/tingling, No paralysis, No problem reported, No see HPI, No vertigo, No weakness Psychiatric: No anhedonism, No anxiety, No depression symptoms, No insomnia, No problem reported, No see HPI, No substance abuse Heme: No abnormal bleeding/bruising, No clotting problems, No night sweats, No problem reported, No see HPI, No swollen lymph nodes Endo: No excessive thirst, No excessive urination, No fatigue, No problem reported, No see HPI Medications Current Inpatient Medications Medications (Trade) Dose Ordered Sig/[place] Route Start Time Stop Time Status Last Admin Dose Admin Potassium Chloride/Sodium Chloride (Nss + 20meq KCl 1000ml) 1,000 ml @ 125 mls/hr Q8H IV 02/13/17 05:00 03/15/17 04:59 02/13/17 05:45 125 MLS/HR Lacosamide (Vimpat Tab) 200 mg BID PO 02/13/17 09:00 03/15/17 08:59 02/13/17 07:52 200 MG Metoprolol Tartrate (Lopressor Iv) 5 mg Q4 IV. 02/13/17 04:00 03/15/17 03:59 02/13/17 16:07 5 MG Desmopressin Acetate 0.2 mg 0.2 mg TID PO 02/13/17 09:00 03/15/17 08:59 02/13/17 13:34 0.2 MG Pantoprazole Sodium 40 mg/ Syringe 10 ml @ 5 mls/min DAILY@11 IV 02/13/17 11:00 03/15/17 10:59 02/13/17 11:03 5 MLS/MIN Piperacillin Sod/ Tazobactam Sod/ Dextrose (Zosyn Iv/D5 100ml) 115 ml @ 28 mls/hr Q8H IV 02/13/17 08:00 02/20/17 07:59 02/13/17 16:06 28 MLS/HR Vancomycin HCl (Consult) 1 ea UD PRN N/A 02/13/17 05:15 03/15/17 05:14 Piperacillin Sod/ Tazobactam Sod 1 ea 1 ea UD PRN N/A 02/13/17 05:15 03/15/17 05:14 Levofloxacin/Prmx (Levaquin / D5W/ Premixed D5W) 100 ml @ 100 mls/hr Q24H IV 02/13/17 08:00 02/20/17 07:59 02/13/17 07:44 100 MLS/HR Topiramate (Topamax Tab) 50 mg BID PO 02/13/17 09:00 03/15/17 08:59 02/13/17 07:52 50 MG Topiramate (Topamax Tab) 100 mg BID PO 02/13/17 09:00 03/15/17 08:59 02/13/17 07:51 100 MG Clotrimazole (Mycelex 10MG Daniela) 1 daniela 5XDQ4H MT 02/13/17 07:00 02/23/17 06:59 02/13/17 07:49 1 DANIELA Ipratropium [place] (Atrovent 0.02% 0.5MG/2.5ML Neb) 0.5 mg Q6R INH 02/13/17 09:00 03/15/17 08:59 02/13/17 15:29 0.5 MG Levalbuterol (Xopenex 1.25MG/ 0.5ML Neb) 1.25 mg Q6R INH 02/13/17 09:00 03/15/17 08:59 02/13/17 15:29 1.25 MG Ipratropium [place] (Atrovent 0.02% 0.5MG/2.5ML Neb) 0.5 mg Q2H PRN INH 02/13/17 06:15 03/15/17 06:14 Levalbuterol 1.25 mg 1.25 mg Q2H PRN INH 02/13/17 06:15 03/15/17 06:14 Levetiracetam/ Dextrose (Keppra Iv/D5 100ml) 110 ml @ 440 mls/hr Q12H IV 02/13/17 09:00 03/15/17 08:59 02/13/17 07:50 440 MLS/HR Miscellaneous Information 1 ea 1 ea UD PRN N/A 02/13/17 06:30 03/15/17 06:29 Vancomycin HCl/ Sodium Chloride (Vancomycin Inj/ Nss 250ml) 272 ml @ 125 mls/hr Q24H IV 02/14/17 04:00 02/21/17 03:59 Al Hydroxide/Mg Hydroxide (Maalox Susp) 30 ml Q6H PRN PO 02/13/17 15:00 03/15/17 14:59 02/13/17 15:14 30 ML Objective Vital Signs Date Time Temp Pulse Resp B/P Pulse Ox O2 Delivery O2 Flow Rate FiO2 02/13/17 16:07 107 119/63 02/13/17 16:00 99 Room Air 02/13/17 16:00 36.9 91 22 119/63 99 Room Air 02/13/17 15:29 92 20 97 Room Air 02/13/17 12:00 95 Room Air 02/13/17 12:00 37.4 101 22 133/65 95 Room Air 02/13/17 11:04 101 133/65 02/13/17 08:00 99 Room Air 02/13/17 08:00 36.5 79 20 79/55 99 Room Air 120/50 02/13/17 07:49 79 79/55 02/13/17 05:22 67 16 98/46 97 Room Air 02/13/17 04:00 67 98/46 02/13/17 03:50 36.3 62 20 123/58 96 Room Air 02/13/17 02:44 62 20 110/54 99 Room Air 02/13/17 02:16 62 20 111/47 99 Room Air 02/13/17 01:09 64 02/13/17 01:05 98 Room Air 02/13/17 01:05 36.4 65 18 130/51 98 Room Air Physical Exam General Appearance: no apparent distress Eyes: normal inspection, EOMI ENT: normal ENT inspection, hearing grossly normal, pharynx normal Neck: supple Respiratory/Chest: chest non-tender, lungs clear, normal breath sounds, no respiratory distress, no accessory muscle use Cardiovascular: regular rate, rhythm, no edema, no gallop, no JVD, no murmur Abdomen: normal bowel sounds, non tender, soft Extremities: normal range of motion, non-tender, normal inspection, no pedal edema 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, no motor/sensory deficits, alert, normal mood/affect, oriented x 3 Skin: normal color, warm/dry, no rash Laboratory Results Last 24 Hours Test 02/13/17 01:28 02/13/17 01:33 02/13/17 01:47 02/13/17 01:50 White Blood Count 9.68 K/uL Red Blood Count 3.56 M/uL Hemoglobin 9.6 g/dL Hematocrit 29.3 % Mean Corpuscular Volume 82.3 fL Mean Corpuscular Hemoglobin 27.0 pg Mean Corpuscular Hemoglobin Concent 32.8 g/dl Platelet Count 353 K/uL Mean Platelet Volume 8.1 fL Neutrophils (%) (Auto) 51.9 % Lymphocytes (%) (Auto) 32.3 % Monocytes (%) (Auto) 9.3 % Eosinophils (%) (Auto) 4.6 % Basophils (%) (Auto) 0.5 % Neutrophils # (Auto) 5.01 K/uL Lymphocytes # (Auto) 3.13 K/uL Monocytes # (Auto) 0.90 K/uL Eosinophils # (Auto) 0.45 K/uL Basophils # (Auto) 0.05 K/uL RDW Standard Deviation 51.0 fL RDW Coefficient of Variation 16.8 % Immature Granulocyte % (Auto) 1.4 % Immature Granulocyte # (Auto) 0.14 K/uL Prothrombin Time 11.0 SECONDS Prothromb Time International Ratio 1.0 Activated Partial Thromboplast Time 25.6 SECONDS Partial Thromboplastin Ratio 1.0 Sodium Level 135 mmol/L Potassium Level 4.1 mmol/L Chloride Level 101 mmol/L Carbon Dioxide Level 24 mmol/L Anion Gap 10.0 mmol/L Blood Urea Nitrogen 29 mg/dl Creatinine 1.30 mg/dl Estimated GFR () 49.2 Estimated GFR (Non- 42.4 BUN/Creatinine Ratio 22.4 Random Glucose 112 mg/dl Calcium Level 9.9 mg/dl Total Creatine Kinase 24 U/L Creatine Kinase MB < 0.5 ng/ml Creatine Kinase MB Ratio Troponin I < 0.015 ng/ml Bedside Prothrombin Time INR 0.9 Bedside Glucose 117 mg/dl Urine Color YELLOW Urine Appearance CLOUDY Urine pH 7.0 Urine Specific [place] 1.010 Urine Protein NEG Urine Glucose (UA) NEG Urine Ketones NEG Urine Occult Blood NEG Urine Nitrite NEG Urine Bilirubin NEG Urine Urobilinogen NEG Urine Leukocyte Esterase LARGE Urine WBC (Auto) >30 /hpf Urine RBC (Auto) 0-4 /hpf Urine Hyaline Casts (Auto) 1-5 /lpf Urine Epithelial Cells (Auto) 0-5 /lpf Urine Bacteria (Auto) 1+ Assessment and Plan The patient is a 66-year-old female p/w confusion and change in mental status. S/P laminectomy 4 months ago and during that time had a seizure and stroke and reportedly was in a coma for about 5 weeks. Assessment/plan: Altered mental status secondary to metabolic encephalopathy , improved right lower lobe consolidation likely atelectasis rather than pneumonia/ continue Xopenex with Atrovent nebulizer incentive spirometer sputum Cx urine legionella blood Cx UTI POA / septic shock, improved continue zosyn DC vanco and levofloxacin F/U blood and Ucx start lactinex LAURA likely prerenal , continue normal saline with potassium chloride 20 mEq at 25 ML's per hour. Thrush--clotrimazole troches dissolve in mouth 5 times per day for 5 days. Seizure disorder switch Keppra back to PO. Continue Vimpat 200 mg by mouth every 12 hours and Topamax 150 milligrams by mouth twice a day. Continue DDAVP 0.2 mg by mouth every 8 hours. Hypertension hold amlodipine 5 mg by mouth daily, lisinopril 20 mg by mouth every morning, mag oxide 40 mg by mouth twice a day, metoprolol tartrate 75 mg by mouth every 12 hours and potassium chloride 40 mEq by mouth [address] on Lopressor 5 mg IV every 4 hours with hold parameters. His Hypercholesterolemia--restart atorvastatin 40 mg by mouth every morning. GERD--change pantoprazole 40 mg by mouth daily to 40 mg IV daily.
[2017-02-13] MEDS: LEVETIRACETAM 500 MG TAB PO SCH (21:47)
[2017-02-14 00:01] VITALS: BP 112/50; PULSE 77; TEMP 36.6; O2SAT 95
[2017-02-14] MEDS: PIPERACILL/TAZOBAC IV 3.375 GM in DEXTROSE 5% 100ML 100 ML IV SCH ×4 (00:23→23:50)
[2017-02-14] MEDS: METOPROLOL TARTRATE 1 MG/ML VIAL IV. SCH ×3 (00:24→09:13)
[2017-02-14] MEDS: NSS + 20MEQ KCL 1000ML 1,000 ML IV SCH ×4 (00:27→21:57)
[2017-02-14] MEDS: IPRATROPIUM BROMIDE NEB SOLN 0.02% 2.5 ML VIAL INH SCH ×3 (02:31→20:03)
[2017-02-14] MEDS: LEVALBUTEROL 1.25MG/0.5ML NEB INH SCH ×3 (02:31→20:03)
[2017-02-14 04:00] VITALS: BP 127/58; PULSE 75; TEMP 36.6; O2SAT 96
[2017-02-14] MEDS ORDERED: VANCOMYCIN INJ 1,100 MG in SODIUM CHLORIDE 0.9% 250ML 250 ML IV SCH (04:00)
[2017-02-14 06:36] LABS: BASO % 0.3 %; BASO ABS # 0.02 K/uL (0-0.2); EOS % 9.7 %; LYMPH % 22.3 %; MEAN CELL VOLUME 85.3 fL (80-100); MEAN CORPUSCULAR HEMOGLOBIN 27.6 pg (25-34); MEAN CORPUSCULAR HGB CONC 32.4 g/dl (32-36); MEAN PLATELET VOLUME 8.4 fL (7.4-10.4); MONO % 9.1 %; NEUT % 57.6 %; PLATELET COUNT 279 K/uL (130-400); RED BLOOD COUNT 2.93 M/uL (4.2-5.4); WHITE BLOOD COUNT 6.28 K/uL (4.8-10.8)
[2017-02-14 06:58] LABS: COMPLETE YES; OVALOCYTES 1+
[2017-02-14] MEDS: CLOTRIMAZOLE 10 MG TROCHE MT SCH ×5 (07:00→23:48)
[2017-02-14 07:07] LABS: ALB/GLOB RATIO 0.8 (0.9-2); BUN/CREATININE RATIO 15.9 (10-20); CALCIUM 8.7 mg/dl (8.5-10.1); CREATININE 1.1 mg/dl (0.60-1.20); MAGNESIUM 1.9 mg/dl (1.8-2.4); PHOSPHORUS 3.4 mg/dl (2.5-4.9); POTASSIUM 3.6 mmol/L (3.5-5.1)
[2017-02-14 08:00] VITALS: BP 116/60; PULSE 84; TEMP 36.4; O2SAT 94
[2017-02-14] MEDS: LEVETIRACETAM 500 MG TAB PO SCH ×2 (09:13→22:02)
[2017-02-14] MEDS: LACTOBACILLUS ACIDOPHILUS 1 GM PACK PO SCH ×3 (09:14→18:31)
[2017-02-14] MEDS: TOPIRAMATE 100 MG TAB PO SCH ×2 (09:14→22:03)
[2017-02-14] MEDS: ATORVASTATIN 40 MG TAB PO SCH (09:14)
[2017-02-14] MEDS: DESMOPRESSIN ACETATE 0.1 MG TAB PO SCH ×3 (09:14→22:02)
[2017-02-14] MEDS: TOPIRAMATE 25 MG TAB PO SCH ×2 (09:15→22:04)
[2017-02-14] MEDS: LACOSAMIDE 50 MG TAB PO SCH ×2 (09:16→22:04)
[2017-02-14 10:03] LABS: CHOLESTEROL/HDL RATIO 4.1
[2017-02-14 10:05] LABS: ESTIMATED AVERAGE GLUCOSE 146 mg/dl; HA1C FLAG Normal (Normal)
[2017-02-14] MEDS: PANTOprazole INJ 40 MG in SYRINGE 0 ML IV SCH (13:42)
[2017-02-14 15:43] VITALS: BP 110/67; PULSE 89; TEMP 36.5; O2SAT 97
--- NOTE | 2017-02-14 17:39 | Progress Note ---
Subjective Date of Service: Feb 14, 2017. Subjective Pt evaluation today including: conversation w/ patient, conversation w/ family , physical exam, chart review, lab review Problem List Medical Problems: (1) Altered mental status Status: Acute (2) Hypokalemia Status: Acute (3) Pneumonia Status: Acute (4) Pneumonia Status: Acute (5) UTI (urinary tract infection) Status: Acute (6) UTI (urinary tract infection) Status: Acute Review of Systems Constitutional: No chills, No fatigue, No fever, No problem reported, No see HPI, No sweats, No weakness, No weight loss Eyes: No diplopia, No discharge, No eye pain, No problem reported, No redness, No see HPI, No worsening of vision ENT: No dental problems, No hearing loss, No nasal symptoms, No problem reported, No see HPI, No sore throat, No tinnitus, No trouble swallowing, No unusual epistaxis Respiratory: No cough, No dyspnea at rest, No dyspnea on exertion, No hemoptysis, No problem reported, No see HPI, No shortness of breath, No sputum, No wheezing Cardiac: No PND, No chest pain, No claudication, No edema, No orthopnea, No palpitations, No problem reported, No see HPI Abdomen: No GI bleeding, No constipation, No diarrhea, No nausea, No pain, No problem reported, No see HPI, No vomiting Musculoskeletal: No calf pain, No joint pain, No muscle pain, No problem reported, No see HPI, No swelling Female : + incontinence, No abnormal vaginal bleeding, No dysuria, No hematuria, No problem reported, No see HPI, No urinary frequency, No vaginal discharge Neurologic: No balance problems, No memory loss, No numbness/tingling, No paralysis, No problem reported, No see HPI, No vertigo, No weakness Psychiatric: No anhedonism, No anxiety, No depression symptoms, No insomnia, No problem reported, No see HPI, No substance abuse Heme: No abnormal bleeding/bruising, No clotting problems, No night sweats, No problem reported, No see HPI, No swollen lymph nodes Endo: No excessive thirst, No excessive urination, No fatigue, No problem reported, No see HPI Skin: No bleeding, No color change, No itch, No new/changing skin lesions, No problem reported, No rash, No see HPI Medications Current Inpatient Medications Medications (Trade) Dose Ordered Sig/[place] Route Start Time Stop Time Status Last Admin Dose Admin Potassium Chloride/Sodium Chloride (Nss + 20meq KCl 1000ml) 1,000 ml @ 125 mls/hr Q8H IV 02/13/17 05:00 03/15/17 04:59 02/14/17 13:43 125 MLS/HR Lacosamide (Vimpat Tab) 200 mg BID PO 02/13/17 09:00 03/15/17 08:59 02/14/17 09:16 200 MG Desmopressin Acetate 0.2 mg 0.2 mg TID PO 02/13/17 09:00 03/15/17 08:59 02/14/17 13:44 0.2 MG Piperacillin Sod/ Tazobactam Sod/ Dextrose (Zosyn Iv/D5 100ml) 115 ml @ 28 mls/hr Q8H IV 02/13/17 08:00 02/20/17 07:59 02/14/17 09:12 28 MLS/HR Piperacillin Sod/ Tazobactam Sod (Consult) 1 ea UD PRN N/A 02/13/17 05:15 03/15/17 05:14 Topiramate (Topamax Tab) 50 mg BID PO 02/13/17 09:00 03/15/17 08:59 02/14/17 09:15 50 MG Topiramate (Topamax Tab) 100 mg BID PO 02/13/17 09:00 03/15/17 08:59 02/14/17 09:14 100 MG Clotrimazole (Mycelex 10MG Daniela) 1 daniela 5XDQ4H MT 02/13/17 07:00 02/23/17 06:59 02/14/17 13:43 1 DANIELA Ipratropium [place] (Atrovent 0.02% 0.5MG/2.5ML Neb) 0.5 mg Q6R INH 02/13/17 09:00 03/15/17 08:59 02/13/17 20:32 0.5 MG Levalbuterol (Xopenex 1.25MG/ 0.5ML Neb) 1.25 mg Q6R INH 02/13/17 09:00 03/15/17 08:59 02/13/17 20:32 1.25 MG Ipratropium [place] (Atrovent 0.02% 0.5MG/2.5ML Neb) 0.5 mg Q2H PRN INH 02/13/17 06:15 03/15/17 06:14 Levalbuterol (Xopenex 1.25MG/ 0.5ML Neb) 1.25 mg Q2H PRN INH 02/13/17 06:15 03/15/17 06:14 Al Hydroxide/Mg Hydroxide (Maalox Susp) 30 ml Q6H PRN PO 02/13/17 15:00 03/15/17 14:59 02/13/17 15:14 30 ML Levetiracetam (Keppra Tab) 1,000 mg BID PO 02/13/17 21:00 03/15/17 20:59 02/14/17 09:13 1,000 MG Atorvastatin Calcium (Lipitor Tab) 40 mg QAM PO 02/14/17 09:00 03/16/17 08:59 02/14/17 09:14 40 MG Lactobacillus Acidophilus (Lactinex Granules Pack) 1 gm TIDM PO 02/14/17 07:15 03/16/17 07:14 02/14/17 13:44 1 GM Pantoprazole Sodium (Protonix Tab) 40 mg QAM PO 02/15/17 09:00 03/17/17 08:59 Metoprolol Tartrate (Lopressor Tab) 50 mg BID PO 02/14/17 21:00 03/16/17 20:59 Objective Vital Signs Date Time Temp Pulse Resp B/P Pulse Ox O2 Delivery O2 Flow Rate FiO2 02/14/17 15:43 36.5 89 18 110/67 97 Room Air 02/14/17 09:13 84 116/60 02/14/17 08:00 94 Room Air 02/14/17 08:00 36.4 84 22 116/60 94 Room Air 02/14/17 04:46 77 127/58 02/14/17 04:00 36.6 75 18 127/58 96 Room Air 02/14/17 04:00 Room Air 02/14/17 00:24 70 112/50 02/14/17 00:01 36.6 77 19 112/50 95 Room Air 02/13/17 23:59 Room Air 02/13/17 21:34 110 112/59 02/13/17 20:32 95 22 95 Room Air 02/13/17 20:00 36.9 99 20 112/59 96 Room Air 02/13/17 20:00 Room Air 02/13/17 20:00 36.9 99 20 112/59 96 Room Air Physical Exam General Appearance: no apparent distress Eyes: normal inspection, EOMI ENT: normal ENT inspection, hearing grossly normal, pharynx normal Neck: supple Respiratory/Chest: chest non-tender, lungs clear, normal breath sounds, no respiratory distress, no accessory muscle use Cardiovascular: regular rate, rhythm, no edema, no gallop, no JVD, no murmur Abdomen: normal bowel sounds, non tender, soft, no organomegaly Extremities: normal range of motion, non-tender, normal inspection, no pedal edema, no calf tenderness 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, no motor/sensory deficits, alert, normal mood/affect, oriented x 3 Skin: normal color, warm/dry, no rash Laboratory Results Last 24 Hours Test 02/13/17 19:56 02/14/17 06:00 Procalcitonin 0.10 ng/mL White Blood Count 6.28 K/uL Red Blood Count 2.93 M/uL Hemoglobin 8.1 g/dL Hematocrit 25.0 % Mean Corpuscular Volume 85.3 fL Mean Corpuscular Hemoglobin 27.6 pg Mean Corpuscular Hemoglobin Concent 32.4 g/dl Platelet Count 279 K/uL Mean Platelet Volume 8.4 fL Neutrophils (%) (Auto) 57.6 % Lymphocytes (%) (Auto) 22.3 % Monocytes (%) (Auto) 9.1 % Eosinophils (%) (Auto) 9.7 % Basophils (%) (Auto) 0.3 % Neutrophils # (Auto) 3.62 K/uL Lymphocytes # (Auto) 1.40 K/uL Monocytes # (Auto) 0.57 K/uL Eosinophils # (Auto) 0.61 K/uL Basophils # (Auto) 0.02 K/uL RDW Standard Deviation 54.0 fL RDW Coefficient of Variation 17.1 % Immature Granulocyte % (Auto) 1.0 % Immature Granulocyte # (Auto) 0.06 K/uL Ovalocytes 1+ Sodium Level 140 mmol/L Potassium Level 3.6 mmol/L Chloride Level 109 mmol/L Carbon Dioxide Level 22 mmol/L Anion Gap 9.0 mmol/L Blood Urea Nitrogen 18 mg/dl Creatinine 1.10 mg/dl Est Creatinine Clear Calc Drug Dose 46.4 ml/min Estimated GFR () 60.2 Estimated GFR (Non- 51.9 BUN/Creatinine Ratio 15.9 Random Glucose 89 mg/dl Estimated Average Glucose 146 mg/dl Hemoglobin A1c 6.7 % Calcium Level 8.7 mg/dl Phosphorus Level 3.4 mg/dl Magnesium Level 1.9 mg/dl Total Bilirubin 0.2 mg/dl Aspartate Amino Transf (AST/SGOT) 13 U/L Alanine Aminotransferase (ALT/SGPT) 19 U/L Alkaline Phosphatase 110 U/L Total Protein 5.7 gm/dl Albumin 2.5 gm/dl Globulin 3.2 gm/dl Albumin/Globulin Ratio 0.8 Triglycerides Level 178 mg/dl Cholesterol Level 150 mg/dl HDL Cholesterol 37 mg/dl LDL Cholesterol, Calculated 77 mg/dl VLDL Cholesterol, Calculated 36 mg/dl Cholesterol/HDL Ratio 4.1 Assessment and Plan The patient is a 66-year-old female p/w confusion and change in mental status. S/P laminectomy 4 months ago and during that time had a seizure and stroke and reportedly was in a coma for about 5 weeks. Assessment/plan: Altered mental status secondary to metabolic encephalopathy , improved right lower lobe consolidation likely atelectasis rather than pneumonia/ continue Xopenex with Atrovent nebulizer incentive spirometer sputum Cx, not obtained blood Cx, negative thus far UTI POA / septic shock, improved continue zosyn DC vanco and levofloxacin F/U blood and Ucx, UCx rowing GNR start lactinex consult urologist for incontinence with recurrent UTI LAURA likely prerenal , continue normal saline with potassium chloride 20 mEq at 25 ML's per hour. Thrush--clotrimazole troches dissolve in mouth 5 times per day for 5 days. Seizure disorder switch Keppra back to PO. Continue Vimpat 200 mg by mouth every 12 hours and Topamax 150 milligrams by mouth twice a day. Continue DDAVP 0.2 mg by mouth every 8 hours. Hypertension hold amlodipine 5 mg by mouth daily, lisinopril 20 mg by mouth every morning, mag oxide 40 mg by mouth twice a day, metoprolol tartrate 75 mg by mouth every 12 hours and potassium chloride 40 mEq by mouth 3 [address] on Lopressor 5 mg IV every 4 hours with hold parameters. His Hypercholesterolemia--restart atorvastatin 40 mg by mouth every morning. GERD--change pantoprazole 40 mg by mouth daily to 40 mg IV daily.
[2017-02-14 20:03] VITALS: PULSE 102; O2SAT 91
[2017-02-14] MEDS: METOPROLOL TARTRATE 50 MG TAB PO SCH (22:03)
[2017-02-15] VITALS (10 sets, daily range): BP systolic 128–180; BP diastolic 71–82; PULSE 68–95; TEMP 35.6–36.3; O2SAT 90–99
[2017-02-15] MEDS: IPRATROPIUM BROMIDE NEB SOLN 0.02% 2.5 ML VIAL INH SCH ×4 (03:02→20:48)
[2017-02-15] MEDS: LEVALBUTEROL 1.25MG/0.5ML NEB INH SCH ×4 (03:02→20:48)
[2017-02-15] MEDS: NSS + 20MEQ KCL 1000ML 1,000 ML IV SCH ×2 (05:00→15:51)
[2017-02-15] MEDS: CLOTRIMAZOLE 10 MG TROCHE MT SCH ×5 (05:47→21:29)
[2017-02-15 08:28] LABS: BASO % 0.6 %; BASO ABS # 0.05 K/uL (0-0.2); EOS % 9.7 %; HEMATOCRIT 27.2 % (37-47); IG% 0.8 %; LYMPH % 26.8 %; LYMPH ABS # 2.26 K/uL (1.2-3.4); MEAN CELL VOLUME 84.7 fL (80-100); MEAN CORPUSCULAR HEMOGLOBIN 27.1 pg (25-34); MEAN PLATELET VOLUME 8.3 fL (7.4-10.4); MONO % 9.1 %; PLATELET COUNT 297 K/uL (130-400); RED BLOOD COUNT 3.21 M/uL (4.2-5.4); WHITE BLOOD COUNT 8.43 K/uL (4.8-10.8)
[2017-02-15 09:06] LABS: ALB/GLOB RATIO 0.7 (0.9-2); CALCIUM 9.4 mg/dl (8.5-10.1); CREATININE 0.83 mg/dl (0.60-1.20); MAGNESIUM 1.4 mg/dl (1.8-2.4); POTASSIUM 3.6 mmol/L (3.5-5.1)
[2017-02-15 09:12] LABS: COMPLETE YES
[2017-02-15] MEDS: ATORVASTATIN 40 MG TAB PO SCH (09:18)
[2017-02-15] MEDS: TOPIRAMATE 100 MG TAB PO SCH ×3 (09:19→21:30)
[2017-02-15] MEDS: DESMOPRESSIN ACETATE 0.1 MG TAB PO SCH ×3 (09:19→21:37)
[2017-02-15] MEDS: METOPROLOL TARTRATE 50 MG TAB PO SCH ×3 (09:20→21:29)
[2017-02-15] MEDS: PANTOprazole SOD 40 MG TAB PO SCH (09:20)
[2017-02-15] MEDS: LEVETIRACETAM 500 MG TAB PO SCH ×3 (09:20→21:30)
[2017-02-15] MEDS: TOPIRAMATE 25 MG TAB PO SCH ×3 (09:25→21:30)
[2017-02-15] MEDS: LACTOBACILLUS ACIDOPHILUS 1 GM PACK PO SCH ×3 (09:26→18:49)
[2017-02-15] MEDS: LACOSAMIDE 50 MG TAB PO SCH ×3 (09:27→21:31)
[2017-02-15] MEDS: AMPICILLIN/SULBACTAM SOD INJ 3,000 MG in SODIUM CHLORIDE 0.9% 100ML 100 ML IV SCH ×2 (11:20→18:49)
--- NOTE | 2017-02-15 12:23 | Urology Consultation ---
History General Date of Service: Feb 15, 2017. Chief Complaint: recurrent UTI Primary Care Physician: Marek Pittman M.D. Pt seen a urologist before?: No History of Present Illness 66 yo female admitted for potential pneumonia. consulted for recurrent UTI. The pt reports having spinal surgery in September. She then reports she was in a coma for 5 weeks post-op. Since that time she has gone between repeat hospitalizations and [facility] for rehab. She reports difficulty voiding requiring CIC as well as recurrent UTIs since her spinal surgery. She was noted to have a CT scan on 01-19 showing a 5mm left UVJ stone with hydro. She denies a previous hx of stones. She reports she was aware of the stone, and was to f/u with Dr. Cartagena as an outpatient, but her appt was cancelled d/t hospitalization at [facility]. She denies any flank pain today. Denies dysuria and hematuria as well. Laboratory Last 24 Hours Test 02/15/17 07:50 02/15/17 10:30 White Blood Count 8.43 K/uL Red Blood Count 3.21 M/uL Hemoglobin 8.7 g/dL Hematocrit 27.2 % Mean Corpuscular Volume 84.7 fL Mean Corpuscular Hemoglobin 27.1 pg Mean Corpuscular Hemoglobin Concent 32.0 g/dl Platelet Count 297 K/uL Mean Platelet Volume 8.3 fL Neutrophils (%) (Auto) 53.0 % Lymphocytes (%) (Auto) 26.8 % Monocytes (%) (Auto) 9.1 % Eosinophils (%) (Auto) 9.7 % Basophils (%) (Auto) 0.6 % Neutrophils # (Auto) 4.46 K/uL Lymphocytes # (Auto) 2.26 K/uL Monocytes # (Auto) 0.77 K/uL Eosinophils # (Auto) 0.82 K/uL Basophils # (Auto) 0.05 K/uL RDW Standard Deviation 51.9 fL RDW Coefficient of Variation 16.8 % Immature Granulocyte % (Auto) 0.8 % Immature Granulocyte # (Auto) 0.07 K/uL Red Blood Cell Morphology Unremarkable Sodium Level 141 mmol/L Potassium Level 3.6 mmol/L Chloride Level 113 mmol/L Carbon Dioxide Level 16 mmol/L Anion Gap 12.0 mmol/L Blood Urea Nitrogen 8 mg/dl Creatinine 0.83 mg/dl Est Creatinine Clear Calc Drug Dose 61.5 ml/min Estimated GFR () 84.6 Estimated GFR (Non- 73.0 BUN/Creatinine Ratio 9.0 Random Glucose 95 mg/dl Calcium Level 9.4 mg/dl Magnesium Level 1.4 mg/dl Total Bilirubin 0.2 mg/dl Aspartate Amino Transf (AST/SGOT) 15 U/L Alanine Aminotransferase (ALT/SGPT) 16 U/L Alkaline Phosphatase 119 U/L Total Protein 6.2 gm/dl Albumin 2.6 gm/dl Globulin 3.6 gm/dl Albumin/Globulin Ratio 0.7 Problem List Medical Problems: (1) Altered mental status Status: Acute (2) Hypokalemia Status: Acute (3) Pneumonia Status: Acute (4) Pneumonia Status: Acute (5) UTI (urinary tract infection) Status: Acute (6) UTI (urinary tract infection) Status: Acute Past History high cholesterol, hypertension, kidney stones, seizure, urinary tract infection Past Surgical History: appendectomy, hysterectomy, spinal surgery Family History FH: arthritis FH: emphysema Heart disease Stroke Social History Hx Tobacco Use In Past Year?: No Smoking: non-smoker Alcohol: never Drug use: none Marital status: Housing status: lives with family Occupation status: unemployed History of MDRO No Allergies Coded Allergies: Clarithromycin (Verified Allergy, Unknown, UNKNOWN, 02/13/17) Codeine (Verified Allergy, Unknown, UNKNOWN, 02/13/17) Doxycycline (Verified Allergy, Unknown, UNKNOWN, 02/13/17) Oxycodone (Verified Allergy, Unknown, UNKNOWN, 02/13/17) Medications Home Medications: Home Meds and Scripts Medications Dose Route/Sig Max Daily Dose Days Date Category Topamax (Topiramate) 100 Mg Tab 100 Mg PO BID 02/13/17 Reported Topamax (Topiramate) 25 Mg Tab 50 Mg PO BID 02/13/17 Reported Klor-Con (Potassium Chloride) 20 Meq Tabcr 20 Meq PO QAM 02/13/17 Reported Mag-Ox (Magnesium Oxide) 400 Mg Tab 400 Mg PO BID 02/13/17 Reported Lisinopril 20 Mg Tab 20 Mg PO QAM 02/13/17 Reported Kp Ferrous Sulfate (Ferrous Sulfate) 325 Mg Tab 1 Tab PO BIDM 30 02/13/17 Reported Ddavp (Desmopressin Acetate) 0.2 Mg Tab 0.2 Mg PO TIDM 02/13/17 Reported Lipitor (Atorvastatin Calcium) 40 Mg Tab 40 Mg PO QPM 02/13/17 Reported Prilosec (Omeprazole) 20 Mg Capcr 20 Mg PO QPM 02/13/17 Reported Zofran Odt (Ondansetron HCl) 4 Mg Tab 4 Mg SL Q6H 02/13/17 Reported Floranex (Lactobacillus Acidophilus) 1 Tab Tab 1 Tab PO QPM 02/13/17 Reported Tylenol (Acetaminophen) 500 Mg Tab 500 Mg PO Q4H PRN 02/13/17 Reported Lopressor (Metoprolol Tartrate) 25 Mg Tab 75 Mg PO BID 01/19/17 Reported Keppra (Levetiracetam) 1,000 Mg Tab 2,000 Mg PO BID 01/19/17 Reported Vimpat (Lacosamide) 100 Mg Tab 200 Mg PO BID 01/19/17 Reported Norvasc (Amlodipine Besylate) 5 Mg Tab 5 Mg PO HS 01/19/17 Reported Inpatient Medications: Current Inpatient Medications Medications (Trade) Dose Ordered Sig/[place] Route Start Time Stop Time Status Last Admin Dose Admin Potassium Chloride/Sodium Chloride (Nss + 20meq KCl 1000ml) 1,000 ml @ 125 mls/hr Q8H IV 02/13/17 05:00 03/15/17 04:59 02/15/17 05:00 125 MLS/HR Lacosamide (Vimpat Tab) 200 mg BID PO 02/13/17 09:00 03/15/17 08:59 02/15/17 09:27 200 MG Desmopressin Acetate (Desmopressin Acetate) 0.2 mg TID PO 02/13/17 09:00 03/15/17 08:59 02/15/17 09:19 0.2 MG Topiramate (Topamax Tab) 50 mg BID PO 02/13/17 09:00 03/15/17 08:59 02/15/17 09:25 50 MG Topiramate (Topamax Tab) 100 mg BID PO 02/13/17 09:00 03/15/17 08:59 02/15/17 09:19 100 MG Clotrimazole (Mycelex 10MG Daniela) 1 daniela 5XDQ4H MT 02/13/17 07:00 02/23/17 06:59 02/15/17 11:20 1 DANIELA Ipratropium [place] (Atrovent 0.02% 0.5MG/2.5ML Neb) 0.5 mg Q6R INH 02/13/17 09:00 03/15/17 08:59 02/15/17 07:23 0.5 MG Levalbuterol (Xopenex 1.25MG/ 0.5ML Neb) 1.25 mg Q6R INH 02/13/17 09:00 03/15/17 08:59 02/15/17 07:23 1.25 MG Ipratropium [place] (Atrovent 0.02% 0.5MG/2.5ML Neb) 0.5 mg Q2H PRN INH 02/13/17 06:15 03/15/17 06:14 Levalbuterol (Xopenex 1.25MG/ 0.5ML Neb) 1.25 mg Q2H PRN INH 02/13/17 06:15 03/15/17 06:14 Al Hydroxide/Mg Hydroxide (Maalox Susp) 30 ml Q6H PRN PO 02/13/17 15:00 03/15/17 14:59 02/13/17 15:14 30 ML Levetiracetam (Keppra Tab) 1,000 mg BID PO 02/13/17 21:00 03/15/17 20:59 02/15/17 09:20 1,000 MG Atorvastatin Calcium (Lipitor Tab) 40 mg QAM PO 02/14/17 09:00 03/16/17 08:59 02/15/17 09:18 40 MG Lactobacillus Acidophilus (Lactinex Granules Pack) 1 gm TIDM PO 02/14/17 07:15 03/16/17 07:14 02/15/17 09:26 1 GM Pantoprazole Sodium (Protonix Tab) 40 mg QAM PO 02/15/17 09:00 03/17/17 08:59 02/15/17 09:20 40 MG Metoprolol Tartrate 50 mg 50 mg BID PO 02/14/17 21:00 03/16/17 20:59 02/15/17 09:20 50 MG Ampicillin Sodium/ Sulbactam Sodium/ Sodium Chloride (Unasyn Inj/Nss 100ml) 108 ml @ 200 mls/hr Q6H IV 3/30/17 12:00 02/25/17 08:59 02/15/17 11:20 200 MLS/HR Review of Systems Review of Systems Constitutional: No chills, No fever Eyes: No double vision Neurological: No dizzy Endocrine: No excessive thirst Gastrointestinal: No abdominal pain, No nausea, No vomiting Cardiovascular: No chest pain Respiratory: No shortness of breath Skin: No rash Musculoskeletal: No back pain Female : No blood in urine, No painful urination Physical Exam Vital Signs: Vital Signs Past 12 Hours Date Time Temp Pulse Resp B/P Pulse Ox O2 Delivery O2 Flow Rate FiO2 02/15/17 11:33 73 16 146/73 95 Room Air 02/15/17 09:01 35.6 20 180/82 96 02/15/17 08:00 96 Room Air 02/15/17 07:23 81 16 91 Room Air 02/15/17 03:02 81 16 90 Room Air 02/15/17 01:45 Room Air 02/15/17 00:39 36.3 75 18 128/74 97 Room Air Physical Exam: General Appearance: no apparent distress Eyes: bilateral eyes normal inspection ENT: hearing grossly normal Neck: no JVD Respiratory/Chest: no respiratory distress, no accessory muscle use Cardiovascular: no JVD Extremities: normal inspection Neurologic/Psychiatric: alert, normal mood/affect, oriented x 3 Skin: normal color Assessment & Plan Assessment & Plan A/P: UTI, incomplete bladder emptying, 5mm left ureteral stone AFVSS. UC&S growing klebsiella. Currently on Augmentin. Would recommend treating for 10 days. Then would consider starting a prophylactic abx such as trimethoprim for 3-6 months for recurrent UTI. Incomplete bladder emptying may be contributing to her UTIs. Will check bladder scans qshift. Place esparza catheter if >200ml. Would recommend esparza remain in place for 7 days. Can attempt an outpatient TOV at that time. If incomplete emptying persists, would recommend further evaluation with outpatient cysto and UDS. Would also consider starting her on Flomax. As for her previous left UVJ stone, this may be contributing to her recurrent UTIs. Will recheck a CT and KUB to see if stone and hydro persists. May need to consider URS and stent placement while inpatient vs outpatient ESWL. Will make her NPO after midnight in the event stent placement is needed tomorrow. Thanks for the consult. Will continue to follow along with primary service at this time.
--- NOTE | 2017-02-15 13:20 | DIAGNOSTIC IMAGING REPORT ---
CT SCAN OF THE ABDOMEN AND PELVIS WITHOUT CONTRAST CLINICAL HISTORY: Abdominal pain. Ureteral calculus. COMPARISON STUDY: 01/19/2017 TECHNIQUE: CT scan of the abdomen and pelvis was performed from the lung bases to the proximal femurs. Images are reviewed in the axial, sagittal, and coronal planes. IV contrast was not administered for this examination. CT DOSE: 340.77 mGy.cm FINDINGS: Lower chest: There are small bilateral pleural effusions. There is respiratory motion artifact. There is bibasal atelectasis/consolidation. Liver: The unenhanced liver is normal in size, contour, and attenuation. There is no intrahepatic biliary ductal dilatation. Gallbladder: Tiny calculi are visualized. Spleen: Normal in size and attenuation. Pancreas: Unremarkable. Adrenal glands: Unremarkable. Kidneys: There are punctate lower pole left renal calculi. There is minimal dilatation of the left renal collecting system. There is an 8 x 3 mm proximal left ureteral calculus. There is a 5 mm left UVJ calculus. Bowel: There are no transition zones indicate bowel obstruction. No acute inflammatory changes are visualized. Peritoneum: There is no intraperitoneal free air or abdominal ascites. Vasculature: The abdominal aorta is normal in course and caliber. Adenopathy: None. Pelvic viscera: The uterus appears surgically absent. The bladder is distended. There are persistent right adnexal cystic lesions, likely representing either ovarian cysts or hydrosalpinx. Skeletal structures: There are postsurgical changes present within the spine. IMPRESSION: 1. Small pleural effusions with bibasal atelectasis/consolidation right greater than left 2. Left-sided nephrolithiasis 3. 8 x 3 mm proximal left ureteral calculus. 5 mm left UVJ calculus. 4. No evidence of bowel obstruction. No evidence of free air 5. Cholelithiasis 6. Bladder distention 7. Persistent right ovarian cysts versus hydrosalpinx. Electronically signed by: Jaspreet Gilliam M.D. 02/15/2017 1:18 PM Dictated Date/Time: 02/15/2017 1:12 PM
--- NOTE | 2017-02-15 13:37 | DIAGNOSTIC IMAGING REPORT ---
KUB CLINICAL HISTORY: ureteral stone nephrocalcinosis COMPARISON STUDY: No previous studies for comparison. FINDINGS: The soft tissues, psoas shadows, renal outlines and intestinal gas pattern appear normal. There is no evidence for bowel obstruction. No abnormal abdominal calcifications are seen. IMPRESSION: Normal study. Electronically signed by: Tyler Herbert M.D. 02/15/2017 1:35 PM Dictated Date/Time: 02/15/2017 1:29 PM
--- NOTE | 2017-02-15 19:42 | Progress Note ---
Subjective Date of Service: Feb 15, 2017. Subjective Pt evaluation today including: conversation w/ patient, physical exam, chart review, lab review Problem List Medical Problems: (1) Altered mental status Status: Acute (2) Hypokalemia Status: Acute (3) Pneumonia Status: Acute (4) Pneumonia Status: Acute (5) UTI (urinary tract infection) Status: Acute (6) UTI (urinary tract infection) Status: Acute Review of Systems Constitutional: No chills, No fatigue, No fever, No problem reported, No see HPI, No sweats, No weakness, No weight loss Eyes: No diplopia, No discharge, No eye pain, No problem reported, No redness, No see HPI, No worsening of vision ENT: No dental problems, No hearing loss, No nasal symptoms, No problem reported, No see HPI, No sore throat, No tinnitus, No trouble swallowing, No unusual epistaxis Respiratory: No cough, No dyspnea at rest, No dyspnea on exertion, No hemoptysis, No problem reported, No see HPI, No shortness of breath, No sputum, No wheezing Cardiac: No PND, No chest pain, No claudication, No edema, No orthopnea, No palpitations, No problem reported, No see HPI Abdomen: No GI bleeding, No constipation, No diarrhea, No nausea, No pain, No problem reported, No see HPI, No vomiting Musculoskeletal: No calf pain, No joint pain, No muscle pain, No problem reported, No see HPI, No swelling Female : No abnormal vaginal bleeding, No dysuria, No hematuria, No incontinence, No problem reported, No see HPI, No urinary frequency, No vaginal discharge Neurologic: No balance problems, No memory loss, No numbness/tingling, No paralysis, No problem reported, No see HPI, No vertigo, No weakness Psychiatric: No anhedonism, No anxiety, No depression symptoms, No insomnia, No problem reported, No see HPI, No substance abuse Heme: No abnormal bleeding/bruising, No clotting problems, No night sweats, No problem reported, No see HPI, No swollen lymph nodes Endo: No excessive thirst, No excessive urination, No fatigue, No problem reported, No see HPI Skin: No bleeding, No color change, No itch, No new/changing skin lesions, No problem reported, No rash, No see HPI Medications Current Inpatient Medications Medications (Trade) Dose Ordered Sig/[place] Route Start Time Stop Time Status Last Admin Dose Admin Potassium Chloride/Sodium Chloride (Nss + 20meq KCl 1000ml) 1,000 ml @ 125 mls/hr Q8H IV 02/13/17 05:00 03/15/17 04:59 02/15/17 15:51 125 MLS/HR Lacosamide (Vimpat Tab) 200 mg BID PO 02/13/17 09:00 03/15/17 08:59 02/15/17 09:27 200 MG Desmopressin Acetate (Desmopressin Acetate) 0.2 mg TID PO 02/13/17 09:00 03/15/17 08:59 02/15/17 09:19 0.2 MG Topiramate (Topamax Tab) 50 mg BID PO 02/13/17 09:00 03/15/17 08:59 02/15/17 09:25 50 MG Topiramate (Topamax Tab) 100 mg BID PO 02/13/17 09:00 03/15/17 08:59 02/15/17 09:19 100 MG Clotrimazole (Mycelex 10MG Daniela) 1 daniela 5XDQ4H MT 02/13/17 07:00 02/23/17 06:59 02/15/17 15:51 1 DANIELA Ipratropium [place] (Atrovent 0.02% 0.5MG/2.5ML Neb) 0.5 mg Q6R INH 02/13/17 09:00 03/15/17 08:59 02/15/17 07:23 0.5 MG Levalbuterol (Xopenex 1.25MG/ 0.5ML Neb) 1.25 mg Q6R INH 02/13/17 09:00 03/15/17 08:59 02/15/17 07:23 1.25 MG Ipratropium [place] (Atrovent 0.02% 0.5MG/2.5ML Neb) 0.5 mg Q2H PRN INH 02/13/17 06:15 03/15/17 06:14 Levalbuterol (Xopenex 1.25MG/ 0.5ML Neb) 1.25 mg Q2H PRN INH 02/13/17 06:15 03/15/17 06:14 Al Hydroxide/Mg Hydroxide (Maalox Susp) 30 ml Q6H PRN PO 02/13/17 15:00 03/15/17 14:59 02/13/17 15:14 30 ML Levetiracetam (Keppra Tab) 1,000 mg BID PO 02/13/17 21:00 03/15/17 20:59 02/15/17 09:20 1,000 MG Atorvastatin Calcium (Lipitor Tab) 40 mg QAM PO 02/14/17 09:00 03/16/17 08:59 02/15/17 09:18 40 MG Lactobacillus Acidophilus (Lactinex Granules Pack) 1 gm TIDM PO 02/14/17 07:15 03/16/17 07:14 02/15/17 18:49 1 GM Pantoprazole Sodium (Protonix Tab) 40 mg QAM PO 02/15/17 09:00 03/17/17 08:59 02/15/17 09:20 40 MG Metoprolol Tartrate 50 mg 50 mg BID PO 02/14/17 21:00 03/16/17 20:59 02/15/17 09:20 50 MG Ampicillin Sodium/ Sulbactam Sodium/ Sodium Chloride (Unasyn Inj/Nss 100ml) 108 ml @ 200 mls/hr Q6H IV 02/15/17 12:00 02/25/17 08:59 02/15/17 18:49 200 MLS/HR Objective Vital Signs Date Time Temp Pulse Resp B/P Pulse Ox O2 Delivery O2 Flow Rate FiO2 02/15/17 17:00 36.3 74 18 132/73 98 Room Air 02/15/17 14:10 68 99 02/15/17 11:33 73 16 146/73 95 Room Air 02/15/17 09:01 35.6 20 180/82 96 02/15/17 08:00 96 Room Air 02/15/17 07:23 81 16 91 Room Air 02/15/17 03:02 81 16 90 Room Air 02/15/17 01:45 Room Air 02/15/17 00:39 36.3 75 18 128/74 97 Room Air 02/14/17 20:03 102 18 91 Room Air Physical Exam General Appearance: no apparent distress Eyes: normal inspection, EOMI ENT: normal ENT inspection, hearing grossly normal Neck: supple Respiratory/Chest: chest non-tender, lungs clear, normal breath sounds, no respiratory distress, no accessory muscle use Cardiovascular: regular rate, rhythm, no edema, no gallop, no JVD Abdomen: normal bowel sounds, non tender, soft, no organomegaly, no pulsatile mass Extremities: normal range of motion, non-tender, normal inspection, no pedal edema 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46 K/uL Lymphocytes # (Auto) 2.26 K/uL Monocytes # (Auto) 0.77 K/uL Eosinophils # (Auto) 0.82 K/uL Basophils # (Auto) 0.05 K/uL RDW Standard Deviation 51.9 fL RDW Coefficient of Variation 16.8 % Immature Granulocyte % (Auto) 0.8 % Immature Granulocyte # (Auto) 0.07 K/uL Red Blood Cell Morphology Unremarkable Sodium Level 141 mmol/L Potassium Level 3.6 mmol/L Chloride Level 113 mmol/L Carbon Dioxide Level 16 mmol/L Anion Gap 12.0 mmol/L Blood Urea Nitrogen 8 mg/dl Creatinine 0.83 mg/dl Est Creatinine Clear Calc Drug Dose 61.5 ml/min Estimated GFR () 84.6 Estimated GFR (Non- 73.0 BUN/Creatinine Ratio 9.0 Random Glucose 95 mg/dl Calcium Level 9.4 mg/dl Magnesium Level 1.4 mg/dl Total Bilirubin 0.2 mg/dl Aspartate Amino Transf (AST/SGOT) 15 U/L Alanine Aminotransferase (ALT/SGPT) 16 U/L Alkaline Phosphatase 119 U/L Total Protein 6.2 gm/dl Albumin 2.6 gm/dl Globulin 3.6 gm/dl Albumin/Globulin Ratio 0.7 Assessment and Plan The patient is a 66-year-old female p/w confusion and change in mental status. S/P laminectomy 4 months ago and during that time had a seizure and stroke and reportedly was in a coma for about 5 weeks. Assessment/plan: Altered mental status secondary to metabolic encephalopathy , improved appears to have underlying dementia check TSH B12 right lower lobe consolidation likely atelectasis rather than pneumonia continue Xopenex with Atrovent nebulizer incentive spirometer sputum Cx, not obtained blood Cx, negative thus far UTI POA / septic shock, improved discontinue zosyn/ vanco and levofloxacin start her only on unasyn, as ucx grew sensitive kleb pneumo F/U blood and Ucx, UCx rowing GNR start lactinex consult urologist for incontinence with recurrent UTI appreciated recommended flomax CT abd/pelvis showed ; left renal calculi. There is minimal dilatation of the left renal collecting system. There is an 8 x 3 mm proximal left ureteral calculus. There is a 5 mm left UVJ calculus LAURA likely prerenal , improved DC IVF Thrush--clotrimazole troches dissolve in mouth 5 times per day for 5 days. Seizure disorder switch Keppra back to PO. Continue Vimpat 200 mg by mouth every 12 hours and Topamax 150 milligrams by mouth twice a day. Continue DDAVP 0.2 mg by mouth every 8 hours. Hypertension hold amlodipine 5 mg by mouth daily, lisinopril 20 mg by mouth every morning, mag oxide 40 mg by mouth twice a day, metoprolol tartrate 75 mg by mouth every 12 hours and potassium chloride 40 mEq by mouth [address] on Lopressor 5 mg IV every 4 hours with hold parameters. His Hypercholesterolemia--restart atorvastatin 40 mg by mouth every morning. GERD--change pantoprazole 40 mg by mouth daily to 40 mg IV daily.
[2017-02-15] MEDS ORDERED: TAMSULOSIN HCL 0.4 MG CAP PO SCH (21:00)
[2017-02-15] MEDS: HEPARIN SOD 5000 UNIT/0.5 ML CARP SQ SCH ×2 (21:32→21:50)
[2017-02-16] MEDS: CLOTRIMAZOLE 10 MG TROCHE MT SCH ×3 (00:05→11:00)
[2017-02-16] MEDS: AMPICILLIN/SULBACTAM SOD INJ 3,000 MG in SODIUM CHLORIDE 0.9% 100ML 100 ML IV SCH ×3 (00:05→11:42)
[2017-02-16] MEDS: LEVALBUTEROL 1.25MG/0.5ML NEB INH SCH ×3 (01:57→14:17)
[2017-02-16] MEDS: IPRATROPIUM BROMIDE NEB SOLN 0.02% 2.5 ML VIAL INH SCH ×3 (01:57→14:16)
[2017-02-16] MEDS ORDERED: VANCOMYCIN TROUGH ONE (03:30)
[2017-02-16] MEDS: HEPARIN SOD 5000 UNIT/0.5 ML CARP SQ SCH ×2 (06:00→14:00)
[2017-02-16 06:18] LABS: BASO % 0.5 %; BASO ABS # 0.04 K/uL (0-0.2); COMPLETE YES; EOS % 9.4 %; HEMATOCRIT 29.5 % (37-47); IG% 0.6 %; LYMPH % 31.7 %; LYMPH ABS # 2.58 K/uL (1.2-3.4); MEAN CORPUSCULAR HEMOGLOBIN 27.4 pg (25-34); MEAN CORPUSCULAR HGB CONC 32.2 g/dl (32-36); MEAN PLATELET VOLUME 8.2 fL (7.4-10.4); MONO % 8.6 %; NEUT % 49.2 %; PLATELET COUNT 322 K/uL (130-400); RED BLOOD COUNT 3.47 M/uL (4.2-5.4); WHITE BLOOD COUNT 8.15 K/uL (4.8-10.8)
[2017-02-16 07:10] LABS: ALB/GLOB RATIO 0.8 (0.9-2); BUN/CREATININE RATIO 4.9 (10-20); CALCIUM 9.6 mg/dl (8.5-10.1); CREATININE 0.77 mg/dl (0.60-1.20); MAGNESIUM 1.4 mg/dl (1.8-2.4); POTASSIUM 2.9 mmol/L (3.5-5.1); THYROID STIMULATING HORMONE 4.1 uIu/ml (0.300-4.500)
[2017-02-16 07:44] VITALS: BP 150/70; PULSE 102; TEMP 36.7; O2SAT 95
[2017-02-16] MEDS: LACTOBACILLUS ACIDOPHILUS 1 GM PACK PO SCH ×2 (08:00→11:37)
[2017-02-16] MEDS: DESMOPRESSIN ACETATE 0.1 MG TAB PO SCH ×2 (08:26→14:00)
[2017-02-16] MEDS: TOPIRAMATE 100 MG TAB PO SCH (08:27)
[2017-02-16] MEDS: TOPIRAMATE 25 MG TAB PO SCH (08:27)
[2017-02-16] MEDS: LEVETIRACETAM 500 MG TAB PO SCH (08:27)
[2017-02-16] MEDS: PANTOprazole SOD 40 MG TAB PO SCH (08:27)
[2017-02-16] MEDS: METOPROLOL TARTRATE 50 MG TAB PO SCH (08:27)
[2017-02-16] MEDS: ATORVASTATIN 40 MG TAB PO SCH (08:27)
[2017-02-16] MEDS: LACOSAMIDE 50 MG TAB PO SCH (08:27)
[2017-02-16 08:43] VITALS: O2SAT 95
--- NOTE | 2017-02-16 09:58 | Progress Note ---
Subjective Date of Service: Feb 16, 2017. (Sonya Bedoya CRNP) Subjective Voiding: esparza catheter in place 66 year old female with UTI and left ureteral stones. Today pt was bladder scanned for >900 ml- esparza inserted and return over 1L of clear yellow urine. Pt did do CIC at home but had some difficulty with insertion. CT scan shows 2 left ureteral stones - a 5 mm UVJ and 8 x 3 proximal ureteral stone no hydro. Pt denies pain. Stones are not visible on KUB. possible uric acid. Her uric acid level is normal 3.4 White count and creatinine normal. Afebrile w/ intermittent tachycardia and hypertension. Urine culture positive for Klebsiella- treated with IV ampicillin. (Sonya Bedoya CRNP) Problem List Medical Problems: (1) Altered mental status Status: Acute (2) Hypokalemia Status: Acute (3) Pneumonia Status: Acute (4) Pneumonia Status: Acute (5) UTI (urinary tract infection) Status: Acute (6) UTI (urinary tract infection) Status: Acute (Sonya Bedoya CRNP) Review of Systems Constitutional: No chills, No fever Eyes: No worsening of vision ENT: No hearing loss Respiratory: No shortness of breath Cardiac: No chest pain Abdomen: No pain, No vomiting Female : + see HPI, No dysuria, No urinary frequency Psychiatric: No depression symptoms Heme: No abnormal bleeding/bruising (Sonya Bedoya CRNP) Objective Vital Signs Date Time Temp Pulse Resp B/P Pulse Ox O2 Delivery O2 Flow Rate FiO2 02/16/17 08:43 95 Room Air 02/16/17 07:44 36.7 102 21 150/70 95 Room Air 02/16/17 00:00 Room Air 02/15/17 23:04 36.2 95 18 130/71 97 Room Air 02/15/17 21:19 85 147/77 02/15/17 17:00 36.3 74 18 132/73 98 Room Air 02/15/17 16:00 Room Air 02/15/17 14:10 68 99 02/15/17 11:33 73 16 146/73 95 Room Air (Sonya Bedoya CRNP) Physical Exam General Appearance: WD/WN, no apparent distress ENT: hearing grossly normal Respiratory/Chest: no respiratory distress, no accessory muscle use Cardiovascular: no JVD Abdomen: soft Extremities: normal inspection, no pedal edema, no calf tenderness Neurologic/Psychiatric: alert (appears confused), normal mood/affect Skin: normal color, warm/dry (Sonya Bedoya CRNP) Laboratory Results Last 24 Hours Test 02/15/17 10:30 02/15/17 22:30 02/16/17 05:28 Uric Acid 3.4 mg/dl White Blood Count 8.15 K/uL Red Blood Count 3.47 M/uL Hemoglobin 9.5 g/dL Hematocrit 29.5 % Mean Corpuscular Volume 85.0 fL Mean Corpuscular Hemoglobin 27.4 pg Mean Corpuscular Hemoglobin Concent 32.2 g/dl Platelet Count 322 K/uL Mean Platelet Volume 8.2 fL Neutrophils (%) (Auto) 49.2 % Lymphocytes (%) (Auto) 31.7 % Monocytes (%) (Auto) 8.6 % Eosinophils (%) (Auto) 9.4 % Basophils (%) (Auto) 0.5 % Neutrophils # (Auto) 4.01 K/uL Lymphocytes # (Auto) 2.58 K/uL Monocytes # (Auto) 0.70 K/uL Eosinophils # (Auto) 0.77 K/uL Basophils # (Auto) 0.04 K/uL RDW Standard Deviation 54.0 fL RDW Coefficient of Variation 17.1 % Immature Granulocyte % (Auto) 0.6 % Immature Granulocyte # (Auto) 0.05 K/uL Sodium Level 144 mmol/L Potassium Level 2.9 mmol/L Chloride Level 114 mmol/L Carbon Dioxide Level 19 mmol/L Anion Gap 11.0 mmol/L Blood Urea Nitrogen 4 mg/dl Creatinine 0.77 mg/dl Est Creatinine Clear Calc Drug Dose 66.3 ml/min Estimated GFR () 92.6 Estimated GFR (Non- 79.9 BUN/Creatinine Ratio 4.9 Random Glucose 88 mg/dl Calcium Level 9.6 mg/dl Magnesium Level 1.4 mg/dl Total Bilirubin 0.2 mg/dl Aspartate Amino Transf (AST/SGOT) 11 U/L Alanine Aminotransferase (ALT/SGPT) 18 U/L Alkaline Phosphatase 129 U/L Total Protein 6.6 gm/dl Albumin 2.9 gm/dl Globulin 3.7 gm/dl Albumin/Globulin Ratio 0.8 Thyroid Stimulating Hormone (TSH) 4.100 uIu/ml (Sonya Bedoya CRNP) Assessment and Plan UTI with stones. Urine culture positive for Klebsiella. Currently on IV Augmentin. Recommend treatment with antibiotic until outpt stone surgery. Not candidate for ESWL- stones are not visible on KUB (possible uric acid). Given she denies pain and is afebrile will avoid placing stent for now. Will set up for outpt ULL w/ stent. Consider starting a prophylactic abx such as trimethoprim for 3-6 months for recurrent UTI. Incomplete bladder emptying may be contributing to her UTIs. Esparza placed with 1 L clear urine return. Recommend keeping for 7 days however if she is pulling on catheter recommend straight cath qshift and prn. Consider starting her on flomax to facilitate bladder emptying. No further acute management needed. Please recall prn. Our office will call to setup appt. (Sonya Bedoya CRNP) further discussion with the today. Pt has had ongoing issues with urinary retention since her stroke and he was unaware of her stone . She is back to her baseline today from a mental status pov . Feel it would be in her bst interst vto address her l ureteral stone or stones while on antibiotics this week and have scheduled appt Sunday at nine to havve ureteroscopy later next week . Not sure proximal calcification in the ureter (Morris Araujo M.D.)
[2017-02-16] MEDS ORDERED: LSN5 OR (12:44)
[2017-02-16] MEDS ORDERED: AMOX500T PO (12:44)
[2017-02-16] MEDS ORDERED: FLM4 PO (12:44)
[2017-02-16] MEDS ORDERED: METO50TA17 PO (12:44)
--- NOTE | 2017-02-16 12:45 | Discharge Instructions ---
Discharge Instructions Admission Admission Date: Feb 13, 2017 at 03:00 Admission Diagnosis: Pneumonia, Uti. Discharge Care Plan - Problem: Medical Problems: (1) Altered mental status (2) Pneumonia (3) UTI (urinary tract infection) Care Plan - Goal(s): Increase independence Care Plan - Instructions: Recommended Home Diet: NPO VTE Core Measure Inpt VTE Proph given/why not?: Unfractionated heparin SQ, SCD's Laboratory Results Test Results: Hemoglobin A1c Test 02/14/17 06:00 Range/Units Estimated Average Glucose 146 mg/dl Hemoglobin A1c 6.7 H 4.5-5.6 % Lipid Panel Test 02/14/17 06:00 Range/Units Triglycerides Level 178 H 0-150 mg/dl Cholesterol Level 150 0-200 mg/dl HDL Cholesterol 37 mg/dl Cholesterol/HDL Ratio 4.1 LDL Cholesterol, Calculated 77 mg/dl Grace Ro Recommendations: Call your doctor if: * Temperature above 101 degrees * Pain not relieved by pain medicine ordered * There is increased drainage or redness from any incision * You have any unanswered questions or concerns. Your Doctors Instructions noted above were prepared by provider Delia Sinha.
[2017-02-16 14:35] VITALS: BP 154/72; PULSE 104; TEMP 36.6; O2SAT 96
[2017-02-16] MEDS ORDERED: ONDA4TAB10 SL (15:00)
--- NOTE | 2017-02-16 15:10 | Discharge Summary ---
Discharge Summary Date of Service Feb 16, 2017. Discharge Summary Admission Date: Feb 13, 2017 at 03:00 Discharge Date: Feb 16, 2017 Discharge Disposition: Home with services Principal Diagnosis: Complicated UTI POA Problems/Secondary Diagnoses: UTI POA / septic shock, LAURA likely prerenal metabolic encephalopathy , improved Seizure disorder Hypertension Hypercholesterolemia GERD Medication Reconciliation New Medications: Amoxicillin & Pot Clavulanate (Augmentin 500MG) 1 Tab Tab 1 TAB PO BID for 14 Days, #28 TAB Lisinopril (Lisinopril) 5 Mg Tab 5 MG OR DAILY for 30 Days, #30 Ondasetron Odt (Zofran Odt) 4 Mg Tab 4 MG SL Q6H for Nausea, #30 TAB Metoprolol Tartrate (Metoprolol Tartrate) 50 Mg Tab 50 MG PO BID for 30 Days, #60 TAB Tamsulosin HCl (Tamsulosin HCl) 0.4 Mg Cap 0.4 MG PO HS for 30 Days, #30 CAP Continued Medications: Acetaminophen (Tylenol) 500 Mg Tab 500 MG PO Q4H PRN for Pain or Fever, TAB Amlodipine (Norvasc) 5 Mg Tab 5 MG PO HS, TAB Atorvastatin (Lipitor) 40 Mg Tab 40 MG PO QPM, TAB Desmopressin Acetate (Ddavp) 0.2 Mg Tab 0.2 MG PO TIDM Ferrous Sulfate (Kp Ferrous Sulfate) 325 Mg Tab 1 TAB PO BIDM for 30 Days, #60 TAB 3 Refills Lacosamide (Vimpat) 100 Mg Tab 200 MG PO BID Lactobacillus Acidophilus (Floranex) 1 Tab Tab 1 TAB PO QPM Levetiracetam (Keppra) 1,000 Mg Tab 2000 MG PO BID, TAB Magnesium Oxide (Mag-Ox) 400 Mg Tab 400 MG PO BID, TAB Omeprazole (Prilosec) 20 Mg Capcr 20 MG PO QPM, CAP Ondasetron Odt (Zofran Odt) 4 Mg Tab 4 MG SL Q6H for Nausea, #6 TAB Topiramate (Topamax ) 25 Mg Tab 50 MG PO BID, TAB Topiramate (Topamax) 100 Mg Tab 100 MG PO BID, TAB Discontinued Medications: Lisinopril (Lisinopril) 20 Mg Tab 20 MG PO QAM Metoprolol Tartrate (Lopressor) (Lopressor) 25 Mg Tab 75 MG PO BID, TAB Potassium Ext Rel (Klor-Con) 20 Meq Tabcr 20 MEQ PO QAM, TAB Referrals At Discharge Follow up Referrals: Urologist Referral - Within 1-2 Weeks with Lidya Walker CRNP Discharge Exam Review of Systems: Constitutional: No chills, No fatigue, No fever, No problem reported, No sweats, No weakness, No weight loss Eyes: No diplopia, No discharge, No eye pain, No problem reported, No redness, No worsening of vision ENT: No dental problems, No hearing loss, No nasal symptoms, No problem reported, No sore throat, No tinnitus, No trouble swallowing, No unusual epistaxis Respiratory: No cough, No dyspnea at rest, No dyspnea on exertion, No hemoptysis, No problem reported, No shortness of breath, No sputum, No wheezing Cardiovascular: No PND, No chest pain, No claudication, No edema, No orthopnea, No palpitations, No problem reported Abdomen: + nausea, No GI bleeding, No constipation, No diarrhea, No pain, No problem reported, No vomiting Genitourinary - Female: No dysmenorrhea, No dysuria, No hematuria, No menorrhagia, No metrorrhagia, No , No problem reported, No rash, No urinary frequency, No urinary incontinence, No urinary retention, No urinary urgency, No vaginal bleeding, No vaginal discharge, No vaginal itching, No vulvodynia Neurologic: No balance problems, No memory loss, No numbness/tingling, No paralysis, No problem reported, No vertigo, No weakness Psychiatric: No anhedonism, No anxiety, No depression symptoms, No insomnia , No problem reported, No substance abuse Endocrine: No excessive thirst, No excessive urination, No fatigue, No problem reported Hematologic / Lymphatic: No abnormal bleeding/bruising, No clotting problems , No night sweats, No problem reported, No swollen lymph nodes Integumentary: No bleeding, No color change, No itch, No new/changing skin lesions, No problem reported, No rash Physical Exam: General Appearance: no apparent distress Eyes: normal inspection, EOMI ENT: normal ENT inspection, hearing grossly normal Neck: supple Respiratory/Chest: chest non-tender, lungs clear Cardiovascular: regular rate, rhythm, no edema, no gallop, no JVD, no murmur Abdomen / GI: normal bowel sounds, non tender, soft, no organomegaly, no pulsatile mass, normal rectal exam Extremities: normal inspection, no calf tenderness, normal capillary refill , no pedal edema 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 S/P laminectomy 4 months ago and during that time had a seizure and stroke and reportedly was in a coma for about 5 weeks. since then she has some cognition dysfunction. she was admitted to the hospital with change in mental status, found to have UTI and some element of obstructive uropathy found to have UTI POA / septic shock, improved, also had LAURA likely prerenal , improved her Altered mental status appeared to be secondary to metabolic encephalopathy , improved appears to have underlying dementia, discussed with her and she will follow up as an out patient her TSH and B12 were normal on admission she was found to have right lower lobe consolidation likely atelectasis ruled out pneumonia discontinue zosyn/ vanco and levofloxacin started her only on unasyn, as ucx grew sensitive kleb pneumo consult urologist for incontinence with recurrent UTI appreciated recommended flomax adn esparza cath for retention. also did a CT abdomen that showed left renal calculi. There is minimal dilatation of the left renal collecting system. There is an 8 x 3 mm proximal left ureteral calculus. There is a 5 mm left UVJ calculus. they will follow her up as an out patient for stone extraction cureently cleared for discharge on Augmentin and retained esparza until she see urologist Total Time Spent: Greater than 30 minutes This includes examination of the patient, discharge planning, medication reconciliation, and communication with other providers. Discharge Instructions Please refer to the electronic Patient Visit Report (Discharge Instructions) for additional information.
[2017-02-19 11:34] LABS: LEGIONELLA ANTIGEN NOT DETECTED (NOT DETECTED)
[2017-02-20] MEDS ORDERED: METO25TA3 PO (08:15)
[2017-02-20] MEDS ORDERED: LEVE250T PO (08:15)
[2017-02-20] MEDS ORDERED: TOPI50TA16 PO (08:15)
[2017-02-20] MEDS ORDERED: PROB1CAP32 PO (08:17)
[2017-02-22] MEDS ORDERED: OXYC-57 PO (11:07)
[2017-02-22] MEDS ORDERED: PHEN-775 PO (11:07)
[2017-08-06] MEDS ORDERED: DESM1TAB16 PO (02:53)
[2017-08-06] MEDS ORDERED: ATOR-24 PO (02:53)
[2017-08-06] MEDS ORDERED: LISI-725 PO (08:15)
[2017-08-06] MEDS ORDERED: LACO100T PO (10:39)
[2017-08-06] MEDS ORDERED: ASPI81TA28 PO (13:56)
== END 2017-02-16 15:49 | disposition home or self-care (01) | DRG 871 ==
LOC: ENRESERVDT → CANRESERV → ENRESERVTM → EDBD 00:58 → C.EDB 00:58 → C.MSICU 03:00 → C.MS2W 02-14 11:18
PROVIDERS: ADMIT Hospitalist; ATTEND Internal Medicine
DX: A41.9 Sepsis, unspecified organism (principal); G93.41 Metabolic encephalopathy; R65.21 Severe sepsis with septic shock; N39.0 Urinary tract infection, site not specified; N17.9 Acute kidney failure, unspecified; R32 Unspecified urinary incontinence; I10 Essential (primary) hypertension; E78.5 Hyperlipidemia, unspecified; Z90.710 Acquired absence of both cervix and uterus; Z90.49 Acquired absence of other specified parts of digestive tract; Z83.6 Family history of other diseases of the respiratory system; Z82.61 Family history of arthritis; Z82.3 Family history of stroke; Z88.5 Allergy status to narcotic agent; Z79.899 Other long term (current) drug therapy; G40.909 Epilepsy, unspecified, not intractable, without status epilepticus; E78.00 Pure hypercholesterolemia, unspecified; K21.9 Gastro-esophageal reflux disease without esophagitis; Z87.442 Personal history of urinary calculi; Z82.49 Family history of ischemic heart disease and other diseases of the circulatory system; N20.0 Calculus of kidney; R33.9 Retention of urine, unspecified; F03.90 Unspecified dementia, unspecified severity, without behavioral disturbance, psychotic disturbance, mood disturbance, and anxiety; I69.398 Other sequelae of cerebral infarction; B37.9 Candidiasis, unspecified; R53.1 Weakness; Z88.3 Allergy status to other anti-infective agents; Z88.1 Allergy status to other antibiotic agents

== ENCOUNTER 2017-02-22 07:21 | Day surgery (SDC) | payer BC, OTHER ==
[2017-02-20 08:18] VITALS: BMI 24.0
[~2017-02-22] VITALS: Ht 167.6 cm; Wt 67.7 kg
[~2017-02-22 07:21] MED LIST changes: +ACET-1256 PO; +AMOX500T PO; +CIPROFLOXACIN / D5W 400 MG IV SCH; -CLC100 PO; -DESM0.1T8 PO; +FERR1TAB13 PO; +FLM4 PO; -FSLUDL325 PO; -KPP/1000 PO; +LACTATED RINGER'S 1000ML 1,000 ML IV SCH; +LCTX PO; +LEVE250T PO; -LPT40 PO; -LSN20 PO; +MAGN400T6 PO; -MCRK20 PO; +METO25TA3 PO; -METO25TA56 PO; -MGNO400 PO; -MRLP17X PO; -MULT-116 PO; +ONDA4TAB10 SL; -PANT40TA PO; +PRLSR20 PO; +PROB1CAP32 PO; -SACC250C3 PO; -SENN-65 PO; +TOPI100T20 PO; -TOPI100T45 PO; -TOPI25TA99 PO; +TOPI50TA16 PO
--- NOTE | 2017-02-22 08:14 | History & Physical Bridge Note ---
H&P Re-Evaluation Bridge Note: I have examined the patient, reviewed the History & Physical and in the interval since the performance of the History & Physical I have noted the following changes of clinical significance: No changes noted
[2017-02-22 08:15] VITALS: BP 120/55; PULSE 123; TEMP 36.5; O2SAT 96; Ht 167.6 cm; Wt 67.7 kg
[2017-02-22] MEDS ORDERED: MIDAZOLAM HCL 1 MG/ML 2ML VIAL ONE (08:48)
[2017-02-22] MEDS ORDERED: FENTANYL CITRATE INJ 50 MCG/1 ML 2 ML VIAL ONE (08:48)
[2017-02-22] MEDS ORDERED: LACTATED RINGER'S 1000ML 1,000 ML IV PRN (09:40)
[2017-02-22] MEDS ORDERED: CONRAY 30% 150ML BOTTLE ONE (09:41)
[2017-02-22] MEDS ORDERED: ONDANSETRON INJ 2 MG/ML 2 ML VIAL IV PRN (09:45)
[2017-02-22] MEDS ORDERED: FENTANYL CITRATE INJ 50 MCG/1 ML 2 ML VIAL IV PRN (09:45)
[2017-02-22 09:46] LABS: CALCIUM 9.4 mg/dl (8.5-10.1); CREATININE 0.78 mg/dl (0.60-1.20); POTASSIUM 2.8 mmol/L (3.5-5.1)
[2017-02-22] MEDS ORDERED: LIDOCAINE HCL 2% 2 ML VIAL (20MG/ML) ONE (10:22)
[2017-02-22] MEDS ORDERED: DEXAMETHASONE SOD INJ 4 MG/ML VIAL ONE (10:22)
[2017-02-22] MEDS ORDERED: EpHEDrine SULFATE 50MG/5ML SYR ONE (10:22)
[2017-02-22] MEDS ORDERED: PROPOFOL IV EMULSION 10 MG/ML 20 ML VIAL IV ONE (10:22)
[2017-02-22] MEDS ORDERED: ONDANSETRON INJ 2 MG/ML 2 ML VIAL ONE (10:22)
[2017-02-22] MEDS ORDERED: PHEN-775 PO (11:07)
[2017-02-22] MEDS ORDERED: OXYC-57 PO (11:07)
--- NOTE | 2017-02-22 11:08 | Discharge Instructions ---
Discharge Instructions Date of Service Feb 22, 2017. Admission Reason for Admission: Stones Discharge Discharge Diagnosis / Problem: L ureteral stones s/p uscope Discharge Goals Goal(s): Decrease discomfort, Improve function, Improve disease control, Therapeutic intervention Activity Recommendations Activity Limitations: per Instructions/Follow-up section Lifting Limitations: no more than 25 pounds, gradually increase as tolerated Exercise/Sports Limitations: rest today, gradually increase as tolerated May Resume Sexual Activity: after two weeks Shower/Bathe: no limitations Driving or Machine Use: resume 3 days after discharge . Instructions / Follow-Up Instructions / Follow-Up As scheduled in office with KUB Xray before visit for stent removal Discharge Diet Recommended Diet: Regular Diet (good fluid intake) Procedures Procedures Performed: Cystoscopy, Left Retrograde Pyelography, Left Flexible and Rigid Ureteroscopy, Laser Lithotripsy, Basket Stone Extraction, Left Ureteral Stent Pending Studies Studies pending at discharge: yes List of pending studies: stone analysis Laboratory Results Hemoglobin A1c Test 02/14/17 06:00 Range/Units Estimated Average Glucose 146 mg/dl Hemoglobin A1c 6.7 H 4.5-5.6 % Lipid Panel Test 02/14/17 06:00 Range/Units Triglycerides Level 178 H 0-150 mg/dl Cholesterol Level 150 0-200 mg/dl HDL Cholesterol 37 mg/dl Cholesterol/HDL Ratio 4.1 LDL Cholesterol, Calculated 77 mg/dl Medical Emergencies . Who to Call and When: Medical Emergencies: If at any time you feel your situation is an emergency, please call 911 immediately. . Non-Emergent Contact Non-Emergency issues call your: Urologist Call Non-Emergent contact if: you have a fever, temperature is above 101, your pain is not controlled, your pain is worsening, your pain is unusual for you, your pain is concerning you, you have any medication questions . . "Provider Documentation" section prepared by Frandy Moulton. VTE Core Measure Inpt VTE Proph given/why not?: SCD's [place] Drug Monitoring Program Search Results: patient reviewed within database, no issues identified
--- NOTE | 2017-02-22 11:10 | [facility] Post Operative Brief Note ---
Immediate Operative Summary Operative Date Feb 22, 2017. Pre-Operative Diagnosis Left ureteral stones Post-Operative Diagnosis Same as pre-operative, distal stones Procedure(s) Performed Cystoscopy, Left Retrograde Pyelography, Left Flexible and Rigid Ureteroscopy, Laser Lithotripsy, Basket Stone Extraction, Left Ureteral Stent Surgeon Dr. Frandy Moulton Technical Service Representative Surgeon(s) none Estimated Blood Loss zero ml Findings Distal ureteral stones fragmented and removed, no significant renal or proximal ureteral stones on ureteroscopy Specimens SPECIMEN: A: Left Distal Ureteral Stone Drains 6 fr 26 cm JJ stent Anesthesia GALMA Complication(s) None Disposition Recovery Room / PACU
[2017-02-22] MEDS ORDERED: OXYCODONE/ACETAMINOPHEN 5-325 TAB PO PRN (11:15)
[2017-02-22] MEDS ORDERED: PHENAZOPYRIDINE HCL 100 MG TAB PO PRN (11:15)
--- NOTE | 2017-02-22 11:21 | DIAGNOSTIC IMAGING REPORT ---
RETROGRADE INCLUDES KUB HISTORY: Left-sided ureteral stone. Stent placement. FLUOROSCOPY TIME: 1 minute and 41 seconds. FINDINGS: 5 fluoroscopic spot images were submitted for review. Initial images demonstrate retrograde opacification of the left urinary system followed by placement of a left ureteral stent. Only the proximal portion of the stent was identified and appears to be in good position. IMPRESSION: Fluoroscopy provided for left ureteral stent placement.. Electronically signed by: Huan Carney M.D. 02/22/2017 11:19 AM Dictated Date/Time: 02/22/2017 11:18 AM
[2017-02-22] MEDS: POTASSIUM CHLR 10 MEQ / WTR 10 MEQ in PREMIXED WATER 100 ML IV SCH ×2 (11:30→12:36)
--- NOTE | 2017-02-22 11:44 | OPERATIVE REPORT ---
DATE OF OPERATION: 02/22/2017 PREOPERATIVE DIAGNOSIS: Left ureteral stones. POSTOPERATIVE DIAGNOSIS: Left distal ureteral stones. PROCEDURE: Cystoscopy, left retrograde pyelography, left semirigid and flexible ureteroscopy with laser lithotripsy, stone extraction, and ureteral stent placement. SURGEON: Dr. Frandy Moulton. AUTOMOTIVE GLASS TECHNICIAN: None. ANESTHESIA: General anesthesia with laryngeal mask. COMPLICATIONS: None. ESTIMATED BLOOD LOSS: Zero. DRAINS LEFT IN PLACE: Include a 6-Salvadorean 26-cm double-J left-sided ureteral stent. FINDINGS: Distal ureteral stone with proximal hydronephrosis, no proximal or significant renal stones on flexible ureteropyeloscopy. SPECIMENS SENT TO PATHOLOGY: Distal ureteral stone fragments for chemical analysis. BRIEF HISTORY: Ms. Osborne is a pleasant 66-year-old female who has been seen by our service as an outpatient for history of stone disease. On CT scan, a distal left ureteral stone is present but this was not visible for shockwave lithotripsy. She is being brought in for endoscopic management of her stone. There was a question of proximal ureteral stones on her plain imaging, and therefore, proximal evaluation will be performed as well today. Please see H\T\P for further details. The patient has been treated for a previously positive urine culture with antibiotics on which she continues. Intravenous antibiotic coverage provided today. PROCEDURE IN DETAIL: The patient was properly identified and brought to the operative suite. After identification of appropriate consent on the chart, general anesthesia with laryngeal mask was initiated and the patient was prepped and draped in standard fashion for this procedure. Full timeout procedure was followed. A 22-Salvadorean rigid cystoscope was passed into the bladder under direct visualization. Bladder was surveyed in its entirety, demonstrating no intravesical lesions, papillary masses, tumors, mucosal changes or calculi. Ureteral orifices were noted in the normal anatomic location bilaterally. Left-sided ureteral orifice was cannulated and gentle retrograde pyelography was performed. This demonstrated a filling defect in the distal ureter and proximal hydroureteronephrosis down to the level of the distal ureter. Sensor tip was able to be advanced up to the level of the kidney without difficulties and was kept until the end of the case as a safety wire. Semi-rigid ureteroscope was easily passed into the distal ureter and stone material was encountered. This was fragmented into small pieces using a 200 micron fiber and basketed into the bladder for retrieval at the end of the case. Due to the proximal hydronephrosis, the semi-rigid scope was easily able to be passed up to the level of the proximal ureter with no further stones or abnormalities noted. Complete exit ureteroscopy was performed demonstrating no injury to the ureter. A working Amplatz wire was placed and a 14/16 25-cm ureteral access sheath was placed without resistance or difficulties to the level of the mid ureter. Flexible ureteroscope was passed over the working wire and complete ureteroscopy and pyeloscopy was performed. Upper, mid and lower pole calices were observed. Some small fragments of a mobile stone within the left lower pole were felt to be of no clinical significance. None of them appeared to be larger than a millimeter in size. These were flushed free and no stone requiring therapy was appreciated. Complete exit ureteroscopy was performed and again the ureter was noted to be free of injuries or tears. Cystoscope was backloaded over the safety wire and a 6-Salvadorean 26-cm double-J ureteral stent was advanced with a full coil present within the left renal pelvis on fluoroscopy and a full coil directly visualized in the bladder. Stones were flushed free off the bladder and sent for chemical analysis. Bladder was drained and cystoscope was removed. Anesthesia was reversed. The patient was transferred to the recovery room in stable condition. FOLLOWUP CARE: The patient will be discharged home with a prescription for Percocet and Pyridium for discomfort. She is to complete her antibiotic as discussed with her preoperatively. She is instructed to contact our service should she note any fevers, chills, nausea, vomiting or other significant difficulties in the postoperative period. Postoperative appointment for followup is confirmed. I attest to the content of the Intraoperative Record and any orders documented therein. Any exceptio ns are noted below.
[2017-02-22 11:50] VITALS: BP_SYST 114; BP_SYST 184; BP_DIAS 57; BP_DIAS 88; PULSE 69; TEMP 36.5; O2SAT 99
--- NOTE | 2017-02-22 12:04 | Anesthesiology Progress Note ---
Anesthesia Post Op Note Date & Time Feb 22, 2017 at 11:46 Vital Signs Pain Intensity: 0 Vital Signs Past 12 Hours Date Time Temp Pulse Resp B/P Pulse Ox O2 Delivery O2 Flow Rate FiO2 02/22/17 11:35 36.3 64 16 121/62 98 Nasal Cannula 3 02/22/17 11:25 63 16 112/52 100 Nasal Cannula 3 02/22/17 11:15 63 16 105/52 100 Mask 5 02/22/17 11:05 65 16 105/52 100 Mask 10 02/22/17 11:00 36.0 62 16 104/45 100 Mask 10 02/22/17 08:15 36.5 123 18 120/55 96 Room Air Notes Mental Status: alert / awake / arousable, participated in evaluation Pt Amnestic to Procedure: Yes Nausea / Vomiting: adequately controlled Pain: adequately controlled Airway Patency, RR, SpO2: stable & adequate BP & HR: stable & adequate Hydration State: stable & adequate Anesthetic Complications: no major complications apparent Pt doing well. She remains hypokalemic, 2.8 today, 2.9 on 02/16. We're giving the pt a total of 30 mEq KCl IV. I spoke to Dr. Pittman who is the pt's PCP. He has an appt w/ the pt tomorrow. He asked me to draw an ABG today to help determine the etiology of the hypokalemia so I ordered this. Dr. Moulton's plan is to send the pt home and Dr. Pittman is ok w/ this.
[2017-02-22 12:20] VITALS: BP 114/57; PULSE 66; O2SAT 96
[2017-02-22 12:50] VITALS: BP 115/58; PULSE 74; TEMP 36.6; O2SAT 94
[2017-02-22 13:28] LABS: ARTERIAL BLD GAS O2 SATURATION 93.7 % (90-95); ARTERIAL BLOOD GAS BASE EXCESS -3.6 mEq/L (-9-1.8); ARTERIAL BLOOD GAS HCO3 21 mmol/L (19-24); ARTERIAL BLOOD GAS PO2 78 mm/Hg (80-95); ARTERIAL BLOOD GAS pH 7.41 (7.35-7.45)
[2017-02-22 13:29] LABS: ALLEN TEST POS (POS); O2 ADMINISTRATION ROOM AIR
[2017-02-22 13:50] VITALS: BP 133/59; PULSE 84; TEMP 36.6; O2SAT 95
[2017-08-06] MEDS ORDERED: ATOR-24 PO (02:53)
[2017-08-06] MEDS ORDERED: DESM1TAB16 PO (02:53)
[2017-08-06] MEDS ORDERED: LISI-725 PO (08:15)
[2017-08-06] MEDS ORDERED: LACO100T PO (10:39)
[2017-08-06] MEDS ORDERED: ASPI81TA28 PO (13:56)
== END 2017-02-22 14:20 | disposition home or self-care (01) ==
LOC: C.ACU 07:21
PROVIDERS: ATTEND Urology
DX: N20.1 Calculus of ureter (principal); N13.30 Unspecified hydronephrosis; I10 Essential (primary) hypertension; D64.9 Anemia, unspecified; E11.9 Type 2 diabetes mellitus without complications; I82.629 Acute embolism and thrombosis of deep veins of unspecified upper extremity; E78.00 Pure hypercholesterolemia, unspecified; G62.9 Polyneuropathy, unspecified; R33.9 Retention of urine, unspecified

== ENCOUNTER → 2017-02-27 | Outpatient (CLI) | payer BC ==
[~2017-02-27] MED LIST changes: +ASPI81TA28 PO; +ATOR-24 PO; -CIPROFLOXACIN / D5W 400 MG IV SCH; +DESM1TAB16 PO; +KPP/1000 PO; +LACO100T PO; -LACTATED RINGER'S 1000ML 1,000 ML IV SCH; +LEVE100S IV; +LISI-725 PO; +METO25TA56 PO; +OXYC-57 PO; +PHEN-775 PO; +POTA10CA28 PO; +RGLI10 IV; +[UNRECOGNIZED DRUG - CODE] IV
[2017-02-27 17:51] LABS: BLOOD UREA NITROGEN 7 mg/dl (7-18); CALCIUM 9.7 mg/dl (8.5-10.1); CARBON DIOXIDE 24 mmol/L (21-32); CHLORIDE 104 mmol/L (98-107); CREATININE 0.73 mg/dl (0.60-1.20); GLUCOSE 109 mg/dl (70-99); POTASSIUM 3.5 mmol/L (3.5-5.1); SODIUM 138 mmol/L (136-145)
== END | disposition home or self-care (01) ==
LOC: C.LABBFT 11:59
PROVIDERS: ATTEND Obstetrics & Gynecology
DX: E23.2 Diabetes insipidus (principal); N83.209 Unspecified ovarian cyst, unspecified side

== ENCOUNTER 2017-03-02 03:40 | Emergency (ER) | payer BC ==
[~2017-03-02] VITALS: Ht 168.9 cm; Wt 67.2 kg
[~2017-03-02 03:40] MED LIST changes: -ASPI81TA28 PO; -ATOR-24 PO; -DESM1TAB16 PO; -KPP/1000 PO; -LACO100T PO; -LEVE100S IV; -LISI-725 PO; -METO25TA56 PO; -POTA10CA28 PO; -RGLI10 IV; -[UNRECOGNIZED DRUG - CODE] IV
[2017-03-02 03:43] VITALS: TEMP 36.5; Ht 168.9 cm; Wt 67.2 kg
[2017-03-02] MEDS ORDERED: LIDOCAINE/EPINEPH/TETRACAINE 1 EA SYR EXT STA (04:04)
[2017-03-02] MEDS ORDERED: XYLOCAINE 1%/SOD BICARB 20 ML VIAL INFIL ONE (05:54)
--- NOTE | 2017-03-02 06:48 | EMERGENCY ROOM VISIT NOTE ---
History First contact with patient: 03:50 Chief Complaint: LACERATION/CUT (SUT/DERMABOND) Stated Complaint: FELL AND CUT HEAD Nursing Triage Summary: Patient states "Someone left their size 11 shoes in the middle of the floor and I fell. I had a stroke 11 months ago and I was on the toilet and I'm very impatient and didn't wait for someone to help me." Denies LOC. patient has laceration to right eyebrow. History of Present Illness The patient is a 66 year old female who presents to the Emergency Department by private vehicle with her family for evaluation of a laceration to her face. The patient has residual LEFT sided weakness after sustaining a stroke 11 months ago during a back surgery. Her reports that she is now gaining strength and able to ambulate independently, but does have balance issues. He reports that he put her on the toilet and she got up from the toilet herself. She tripped and fell striking her head. She did not lose consciousness. She reports pain to the RIGHT-sided head. The patient rates her current discomfort as a 4/10. She denies any blurry vision, double vision, neck pain, or worsening stroke any weakness. She does not utilize blood thinners. Review of Systems A complete 10-point Review of Systems was discussed with the patient, with pertinent positives and negatives listed in the History of Present Illness. All remaining Review of Systems questions can be considered negative unless otherwise specified. Past Medical/Surgical History Medical Problems: (1) Hyperlipidemia (2) Hypertension (3) Nephrolithiasis (4) Seizure Surgical Problems: (1) H/O: hysterectomy (2) History of appendectomy Family History FH: arthritis FH: emphysema Heart disease Stroke Social History Smoking Status: Never Smoker Alcohol Use: none Drug Use: none Marital Status: Occupation Status: unemployed Current/Historical Medications Scheduled Amlodipine (Norvasc), 5 MG PO HS Atorvastatin (Lipitor), 40 MG PO QPM Desmopressin Acetate (Ddavp), 0.2 MG PO TIDM Ferrous Sulfate (Kp Ferrous Sulfate), 1 TAB PO BIDM Lacosamide (Vimpat), 200 MG PO BID Lactobacillus Acidophilus (Floranex), 1 TAB PO QPM Levetiracetam (Keppra), 4 TAB PO BID Lisinopril (Zestril), 20 MG PO QAM Magnesium Oxide (Mag-Ox), 400 MG PO BID Metoprolol Succinate (Toprol Xl), 25 MG PO BID Omeprazole (Prilosec), 20 MG PO QPM Ondasetron Odt (Zofran Odt), 4 MG SL Q6H Probiotic Product (Probiotic Colon Support), 1 CAP PO QPM Tamsulosin HCl (Tamsulosin HCl), 0.4 MG PO HS Topiramate (Topamax), 100 MG PO BID Topiramate (Topamax), 50 MG PO BID Scheduled PRN Acetaminophen (Tylenol), 500 MG PO Q4H PRN for Pain or Fever Oxycodone/Acetaminophen 5MG/325MG (Percocet 5MG/325MG), 1 TABLET PO Q4H PRN for Pain Allergies Coded Allergies: Clarithromycin (Verified Allergy, Unknown, UNKNOWN, 03/02/17) Codeine (Verified Allergy, Unknown, UNKNOWN, 03/02/17) Doxycycline (Verified Allergy, Unknown, UNKNOWN, 03/02/17) Oxycodone (Verified Adverse Reaction, Unknown, UPSET STOMACH, 03/02/17) Physical Exam Vital Signs Date Time Temp Pulse Resp B/P Pulse Ox O2 Delivery O2 Flow Rate FiO2 03/02/17 07:12 77 18 104/65 99 03/02/17 05:41 78 16 113/62 96 Room Air 03/02/17 03:43 36.5 78 18 131/59 100 Room Air Pain Rating (0-10): 4 Physical Exam VITAL SIGNS - Vital signs and nursing notes were reviewed. GENERAL - 66-year-old female appearing her stated age. Communicates well with provider and answers questions appropriately. HEAD - Normocephalic. 3.5 cm laceration noted to the lateral aspect of the RIGHT brow. Edges gape apart with traction. No deep structures appreciated. No active bleeding noted. No Boogie's Sign or Raccoon's Eyes. No depressed skull fractures palpable. EYES - PERRL with EOMI bilaterally. Without subconjunctival hemorrhage. Palpebral conjunctiva pink and moist with no injection. EARS - No deformities of external structures noted on gross examination bilaterally. No hemotympanum present. No tympanic perforation noted. Handle of malleus, umbo, cone of light, pars tensa/flaccid all easily visualized. NOSE - Midline and without cyanosis. No epistaxis or clear watery discharge noted. Septum midline without deviation. No septal hematoma noted. No overlying ecchymosis noted. MOUTH/OROPHARYNX - Without perioral cyanosis. Tongue midline with equal elevation of palate bilaterally. No blood noted in the oropharynx. No tonsillar hypertrophy, erythema, or exudates noted. No dental fractures noted. NECK - FROM assessed. No nuchal rigidity. No tenderness to palpation over the cervical spinous processes. No cervical paraspinal muscle tenderness noted. LUNGS - Chest wall symmetric without accessory muscle use, intercostals retractions, or central cyanosis. Normal vesicular breath sounds CTA B/L. No wheezes, rales, or rhonchi appreciated. CARDIAC - RRR with S1/S2. No murmur, rubs, or gallops appreciated. ABDOMEN - Abdominal contour flat without pulsations or visible masses. BS normoactive all four quadrants. EXTREMITIES - No gross deformities noted of the extremities. +5/5 strength noted in UE/LE bilaterally. NEUROLOGIC - Cranial nerves II through XII grossly intact. Sensory intact to light touch throughout. PSYCH - A&Ox3 and cooperates fully with examiner. Pt is very pleasant and interacts well with examiner. Medical Decision & Procedures ER Provider Diagnostic Interpretation: Radiological imaging and reports were reviewed by myself. Radiologist's Interpretation per [facility] as follows: CT HEAD: Comparison: 02/05/2017 No evidence of acute infarct, hemorrhage, mass or edema. Small focal area of encephalomalacia within the right frontal lobe and left cerebellum, grossly unchanged compared to the prior. Mild mucosal thickening in the paranasal sinuses. Partial opacification right mastoid air cells. No acute osseous abnormality. CT C SPINE: No evidence of fracture or traumatic malalignment. CT L SPINE: Age-indeterminate compression deformity of L2 with less than 15% height loss. Laminectomy changes and posterior fusion hardware noted at L4-S1. Incidental note of a double-J left ureteral stent. 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 Medications Administered Medications (Trade) Dose Ordered Sig/[place] Route Start Time Stop Time Status Last Admin Dose Admin Tetracaine/ Epinephrine/ Lidocaine (L.e.t. Gel 4%/ 1:100/0.5%) 1 ea NOW STAT EXT 03/02/17 04:04 03/02/17 04:06 DC 03/02/17 04:04 1 EA Procedure Costs and benefits of performing primary wound closure versus no repair were discussed with the patient who verbalizes understanding. Verbal consent was obtained prior to performing the procedure. LET was applied to the affected area and allowed to set for greater than 40 minutes. 2.0 cc of 1% buffered lidocaine was used to anesthetize the RIGHT brow laceration. The wound was cleansed and prepped in the typical sterile fashion utilizing normal saline and Betadine. The wound was sterilely draped. Once proper anesthetization was established, the wound was further examined and demonstrated a full-thickness laceration without extension to the deep structures. The wound was copiously irrigated with normal saline and Betadine. The wound was closed using 2 simple interrupted 6-0 Vicryl sutures and 14 simple, 6-0 nylon sutures with the wound edges being well approximated. Patient tolerated the procedure well. No complications were met. The wound was cleansed and dressed with a Bacitracin dressing. ED Course Patient was seen and evaluated by myself. CT studies were performed. Imaging results above. Imaging results were reviewed with the patient and family who acknowledges understanding. Laceration repair was performed as described above. Patient and family were educated on worrisome symptoms for return visit to the emergency department. Patient discharged home in good condition. Medical Decision Given the patient's presentation and stated complaints, I did elect to perform the above-mentioned workup. The patient presents today with a laceration to the RIGHT brow after sustaining a mechanical fall. The patient has no focal neurological deficits at this point. Laceration was repaired without issue. Patient tolerated procedure well. No cough occasions were met. She will follow -up with her primary care provider in 7 days for suture removal. She'll return for changing or worsening symptoms. Patient discharged home in good condition. In the evaluation and treatment of this patient, the following differential diagnoses were considered: Concussion, Contrecoup Injury, Brain Tumor, Depression, Encephalitis, Hypothyroidism, Meningitis, CVA, TIA, Migraine, Cluster Headache, Intracranial Abnormality, Intracranial Hemorrhage, Subdural Hematoma, Subarachnoid Hemorrhage, Hydrocephalus. Impression Primary Impression: Facial laceration Additional Impression: Fall from other slipping, tripping, or stumbling Departure Information Dispostion Home / Self-Care Condition GOOD Referrals Marek Pittman M.D. (PCP) Patient Instructions ED Laceration Face Sutr Tape , [facility] Additional Instructions You have received 14 sutures on your RIGHT Brow. These sutures are NOT dissolvable and WILL need to be removed by a health care provider in 7 days. You can return to the Emergency Department or contact your Primary Care Provider to have the sutures removed. Proper wound care is essential for adequate wound healing and infection prevention. You can shower and clean the wound with soap and water. Do not scour over the wound, pat dry with a towel. Do not submerse the wound (i.e. bathe or dish wash) until the sutures have been removed. You can use an antibiotic ointment with a dressing over the wound for the next 3-4 days. After this time you may leave the wound dry and open to the air. If crust develops over the wound you can use a Q-tip to apply a 1:1 peroxide:water solution to clean the wound. Look for signs of infection of the wound including: increased pain, swelling, foul discharge, streaking, or increased temperature. If any of these are noticed you should return to the Emergency Department for further assessment and treatment. As with any laceration you may have received nerve damage to the surrounding tissues. This damage may or may not be permanent. You should keep the area covered with sunscreen for the first 6 months to 1 year when at risk for exposure to help minimize scarring. You can also use scar reducing creams or Vitamin E oil to help minimize scarring. For pain control, you can use the following qcry-wap-tcetouw medicines (if >12 yo): - Regular strength (325mg/tab) Tylenol (acetaminophen) 2 tabs every 4-6 hours as needed. Do not exceed 12 tablets in a 24 hour period. Avoid taking more than 4 grams (4000 mg) of Tylenol per day. This includes any other sources of acetaminophen you may take on a regular basis. - Regular strength (200 mg/tab) Advil (ibuprofen) 1-2 tabs every 4-6 hours as needed. Do not exceed a dose of 3200 mg per day. Return to the emergency department if your symptoms worsen despite treatment course outlined above. Problem Qualifiers Primary Impression: Facial laceration Encounter type: initial encounter Qualified Codes: S01.81XA - Laceration without foreign body of other part of head, initial encounter
[2017-03-02 07:12] VITALS: BP 104/65; PULSE 77; O2SAT 99
--- NOTE | 2017-03-02 07:14 | DIAGNOSTIC IMAGING REPORT ---
HEAD CT NONCONTRAST CT DOSE: 1529.85 mGy.cm HISTORY: Fall. Head injury TECHNIQUE: Multiaxial CT images of the head were performed without the use of intravenous contrast. Automated exposure control was utilized for this study. Comparison: Head CT 02/13/2017. Findings: . No mass, hematoma, midline shift, or acute infarct. Mild mucosal thickening within the sphenoid sinuses. The mastoid air cells are clear. Right supraorbital soft tissue laceration. Old left cerebellar and right MCA territory infarcts. Impression: Right supraorbital soft tissue laceration. Old infarcts. No acute intracranial abnormality. Electronically signed by: Huan Carney M.D. 03/02/2017 7:12 AM Dictated Date/Time: 03/02/2017 7:09 AM
--- NOTE | 2017-03-02 07:23 | DIAGNOSTIC IMAGING REPORT ---
LUMBAR SPINE CT CT DOSE: HISTORY: Trauma injury s/p fall - h/o laminectomy TECHNIQUE: Multiaxial CT images of the lumbar spine were performed and reformatted in the sagittal and coronal plane without the use of contrast. COMPARISON: Reconstructed lumbar spine images dated 02/15/2017 FINDINGS: Stable postoperative changes consistent with posterior laminectomy and fusion from L4 through S1. Mild compression deformities. Endplate L2. Posterior elements are intact. No evidence for significant retropulsion of any component of the L2 vertebral body. All remaining vertebral bodies are unremarkable. IMPRESSION: Mild compression deformity superior endplate L2. Stable postoperative changes low lumbar spine. Electronically signed by: Tyler Herbert M.D. 03/02/2017 7:21 AM Dictated Date/Time: 03/02/2017 7:18 AM
--- NOTE | 2017-03-02 07:25 | DIAGNOSTIC IMAGING REPORT ---
CERVICAL SPINE CT CT DOSE: HISTORY: Trauma neck pain s/p fall TECHNIQUE: Multiaxial CT images of the cervical spine were performed and reformatted in the sagittal and coronal plane without the use of contrast. COMPARISON: None. FINDINGS: No fractures. No subluxation. Prevertebral soft tissues and the C1-C2 interval are intact. No pneumothorax. IMPRESSION: No fractures within the cervical spine. Moderate degenerative disc change C6-C7 Electronically signed by: Tyler Herbert M.D. 03/02/2017 7:23 AM Dictated Date/Time: 03/02/2017 7:23 AM
[2017-08-06] MEDS ORDERED: ATOR-24 PO (02:53)
[2017-08-06] MEDS ORDERED: DESM1TAB16 PO (02:53)
[2017-08-06] MEDS ORDERED: LISI-725 PO (08:15)
[2017-08-06] MEDS ORDERED: LACO100T PO (10:39)
[2017-08-06] MEDS ORDERED: ASPI81TA28 PO (13:56)
== END 2017-03-02 07:12 | disposition home or self-care (01) ==
LOC: C.EDB 03:41 → C.EDA 07:12
DX: S01.81XA Laceration without foreign body of other part of head, initial encounter (principal); W19.XXXA Unspecified fall, initial encounter; E78.5 Hyperlipidemia, unspecified; I10 Essential (primary) hypertension; R56.9 Unspecified convulsions; Z82.49 Family history of ischemic heart disease and other diseases of the circulatory system

== ENCOUNTER → 2017-03-06 | Outpatient (CLI) | payer BC ==
[~2017-03-06] MED LIST changes: +ASPI81TA28 PO; +ATOR-24 PO; +DESM1TAB16 PO; +KPP/1000 PO; +LACO100T PO; +LEVE100S IV; +LISI-725 PO; +METO25TA56 PO; +POTA10CA28 PO; +RGLI10 IV; +[UNRECOGNIZED DRUG - CODE] IV
--- NOTE | 2017-03-06 12:22 | DIAGNOSTIC IMAGING REPORT ---
KUB CLINICAL HISTORY: N20.0 [id number] COMPARISON STUDY: 02/15/2017 FINDINGS: There is an indwelling left-sided nephroureteral stent. There is no pathologic bowel dilatation. There are postsurgical changes present within the lumbar spine. The renal shadows are partially obscured by overlying bowel gas and fecal material. No calculi are visualized. IMPRESSION: 1. No urinary tract calculi are visualized on conventional radiographic imaging 2. Interval placement of a left-sided nephroureteral stent 3. No evidence of pathologic bowel dilatation Electronically signed by: Jaspreet Gilliam M.D. 03/06/2017 12:20 PM Dictated Date/Time: 03/06/2017 12:19 PM
== END | disposition home or self-care (01) ==
LOC: C.RAD 11:46
PROVIDERS: ATTEND Urology
DX: N20.0 Calculus of kidney (principal)

== ENCOUNTER → 2017-04-06 | Outpatient (CLI) | payer BC ==
[~2017-04-06] MED LIST changes: -AMOX500T PO; -PHEN-775 PO
[2017-04-06 12:15] LABS: BASO % 0.3 %; BASO ABS # 0.03 K/uL (0-0.2); COMPLETE YES; EOS % 1.3 %; HEMATOCRIT 36.7 % (37-47); IG% 0.3 %; LYMPH % 26.3 %; LYMPH ABS # 2.37 K/uL (1.2-3.4); MEAN CELL VOLUME 91.3 fL (80-100); MEAN CORPUSCULAR HEMOGLOBIN 28.6 pg (25-34); MEAN CORPUSCULAR HGB CONC 31.3 g/dl (32-36); MEAN PLATELET VOLUME 8.7 fL (7.4-10.4); MONO % 7.1 %; NEUT % 64.7 %; PLATELET COUNT 378 K/uL (130-400); RED BLOOD COUNT 4.02 M/uL (4.2-5.4)
[2017-04-06 12:19] LABS: MANUAL MICROSCOPIC REQUIRED? NO; REVIEW REQ? YES; URINE APPEARANCE TURBID (CLEAR); URINE BILIRUBIN NEG (NEG); URINE COLOR YELLOW; URINE EPITHELIAL CELL AUTO >30 /lpf (0-5); URINE NITRITE POS (NEG); URINE PH 7.5 (4.5-7.5); URINE SPECIFIC GRAVITY 1.013 (1.000-1.030); UROBILINOGEN NEG (NEG)
[2017-04-06 12:40] LABS: BLOOD UREA NITROGEN 11 mg/dl (7-18); BUN/CREATININE RATIO 15.5 (10-20); CALCIUM 9.3 mg/dl (8.5-10.1); CARBON DIOXIDE 25 mmol/L (21-32); CHLORIDE 105 mmol/L (98-107); CHOLESTEROL 160 mg/dl (0-200); GLUCOSE 112 mg/dl (70-99); POTASSIUM 3.9 mmol/L (3.5-5.1); SODIUM 139 mmol/L (136-145)
[2017-04-06 12:44] LABS: ESTIMATED AVERAGE GLUCOSE 123 mg/dl; HA1C FLAG Normal (Normal)
[2017-04-06 12:56] LABS: CHOLESTEROL/HDL RATIO 3.2; FERRITIN 189.7 ng/ml (8.0-388.0); HDL CHOLESTEROL 50 mg/dl; LDL CHOLESTEROL CALCULATED 59 mg/dl; TOTAL IRON BINDING CAPACITY 304 mcg/dl (250-450); TRIGLYCERIDES 256 mg/dl (0-150); VERY LOW DENSITY LIPOPROT CALC 51 mg/dl
== END | disposition home or self-care (01) ==
LOC: C.LABBFT 07:32
PROVIDERS: ATTEND Physician Assistant
DX: R33.9 Retention of urine, unspecified (principal); N20.0 Calculus of kidney; D64.9 Anemia, unspecified; E23.2 Diabetes insipidus; M54.30 Sciatica, unspecified side

== ENCOUNTER → 2017-04-10 | Outpatient (CLI) | payer BC ==
[2017-04-10 15:12] LABS: URINE APPEARANCE CLEAR (CLEAR); URINE BILIRUBIN NEG (NEG); URINE COLOR YELLOW; URINE EPITHELIAL CELL AUTO >30 /lpf (0-5); URINE NITRITE POS (NEG); URINE SPECIFIC GRAVITY 1.012 (1.000-1.030); UROBILINOGEN NEG (NEG)
[2017-04-10 15:14] LABS: MANUAL MICROSCOPIC REQUIRED? NO; REVIEW REQ? YES
== END | disposition home or self-care (01) ==
LOC: C.LAB1850 13:09
PROVIDERS: ATTEND Physician Assistant
DX: R39.9 Unspecified symptoms and signs involving the genitourinary system (principal)

== ENCOUNTER → 2017-05-08 | Outpatient (CLI) | payer BC ==
[2017-05-08 17:55] LABS: BLOOD UREA NITROGEN 10 mg/dl (7-18); BUN/CREATININE RATIO 13.5 (10-20); CALCIUM 9.6 mg/dl (8.5-10.1); CARBON DIOXIDE 24 mmol/L (21-32); CHLORIDE 102 mmol/L (98-107); CREATININE 0.76 mg/dl (0.60-1.20); GLUCOSE 91 mg/dl (70-99); POTASSIUM 3.6 mmol/L (3.5-5.1); SODIUM 136 mmol/L (136-145)
== END | disposition home or self-care (01) ==
LOC: C.LABBFT 12:19
PROVIDERS: ATTEND Physician Assistant
DX: E87.0 Hyperosmolality and hypernatremia (principal); N83.209 Unspecified ovarian cyst, unspecified side

== ENCOUNTER → 2017-05-10 | Outpatient (CLI) | payer BC ==
--- NOTE | 2017-05-10 13:39 | MAMMOGRAPHY REPORT ---
BILATERAL DIGITAL SCREENING MAMMOGRAM WITH CAD: 05/10/2017 CLINICAL HISTORY: Routine screening. Patient has no complaints. TECHNIQUE: Current study was also evaluated with a Computer Aided Detection (CAD) system. Bilateral CC and MLO views were obtained. COMPARISON: Comparison is made to exams dated: 04/14/2015 mammogram, 05/08/2016 mammogram, 04/08/2014 m ammogram, 04/07/2013 mammogram, 03/26/2012 mammogram, and 03/22/2011 mammogram - [facility] ter. BREAST COMPOSITION: There are scattered areas of fibroglandular density in both breasts. FINDINGS: No suspicious masses, calcifications, or areas of architectural distortion are noted in ei ther breast. There has been no significant interval change compared to prior exams. Bilateral benign -appearing calcifications are not significantly changed compared to prior exams. IMPRESSION: ACR BI-RADS CATEGORY 2: BENIGN There is no mammographic evidence of malignancy. A 1 year screening mammogram is recommended. The pa tient will receive written notification of the results. Approximately 10% of breast cancers are not detected with mammography. A negative mammographic report should not delay biopsy if a clinically suggestive mass is present. Patsy Concepcion M.D. /:05/10/2017 12:27:48 Attending Technologist: Amie PALM(Gretchen)(Melissa)(BD), [facility] [employer] Manager: Briseyda Zuniga, [facility] letter sent: Normal 1/2 BI-RADS Code: ACR BI-RADS Category 2: Benign
== END | disposition home or self-care (01) ==
LOC: C.MAMM 09:00
PROVIDERS: ATTEND Obstetrics & Gynecology
DX: Z12.31 Encounter for screening mammogram for malignant neoplasm of breast (principal)

== ENCOUNTER → 2017-05-24 | Outpatient (CLI) | payer BC ==
[2017-05-24 16:30] LABS: URINE APPEARANCE CLEAR (CLEAR); URINE BILIRUBIN NEG (NEG); URINE COLOR YELLOW; URINE NITRITE NEG (NEG); URINE PH 7.5 (4.5-7.5); URINE SPECIFIC GRAVITY 1.021 (1.000-1.030); UROBILINOGEN NEG (NEG); ZZUR CULT IF INDIC CLEAN CATCH YES
[2017-05-24 16:57] LABS: MANUAL MICROSCOPIC REQUIRED? NO; REVIEW REQ? YES
== END | disposition home or self-care (01) ==
LOC: C.LABBFT 12:34
PROVIDERS: ATTEND Physician Assistant
DX: R35.0 Frequency of micturition (principal)

== ENCOUNTER → 2017-06-04 | Outpatient (CLI) | payer BC | END | disposition home or self-care (01) | LOC: C.LAB1850 14:25 | PROVIDERS: ATTEND Obstetrics & Gynecology | DX: N83.209 Unspecified ovarian cyst, unspecified side (principal) ==

== ENCOUNTER → 2017-06-11 | Outpatient (CLI) | payer BC ==
[2017-06-11 09:38] LABS: BASO % 0.2 %; BASO ABS # 0.02 K/uL (0-0.2); COMPLETE YES; EOS % 1.1 %; HEMATOCRIT 38.8 % (37-47); IG% 0.2 %; LYMPH % 28.4 %; LYMPH ABS # 2.29 K/uL (1.2-3.4); MEAN CELL VOLUME 91.3 fL (80-100); MEAN CORPUSCULAR HEMOGLOBIN 30.4 pg (25-34); MEAN CORPUSCULAR HGB CONC 33.2 g/dl (32-36); MEAN PLATELET VOLUME 9.1 fL (7.4-10.4); MONO % 8.1 %; PLATELET COUNT 302 K/uL (130-400); RED BLOOD COUNT 4.25 M/uL (4.2-5.4); WHITE BLOOD COUNT 8.05 K/uL (4.8-10.8)
[2017-06-11 09:46] LABS: BLOOD UREA NITROGEN 16 mg/dl (7-18); BUN/CREATININE RATIO 20.3 (10-20); CALCIUM 10.3 mg/dl (8.5-10.1); CARBON DIOXIDE 27 mmol/L (21-32); CHLORIDE 103 mmol/L (98-107); CREATININE 0.77 mg/dl (0.60-1.20); GLUCOSE 96 mg/dl (70-99); POTASSIUM 4.1 mmol/L (3.5-5.1); SODIUM 138 mmol/L (136-145)
== END | disposition home or self-care (01) ==
LOC: C.LAB 08:24
PROVIDERS: ATTEND Urology
DX: N20.0 Calculus of kidney (principal); E23.2 Diabetes insipidus

== ENCOUNTER 2017-06-19 12:32 | Emergency (ER) | payer BC ==
[~2017-06-19] VITALS: Ht 167.6 cm; Wt 63.5 kg
[~2017-06-19 12:32] MED LIST changes: -ASPI81TA28 PO; -ATOR-24 PO; -DESM1TAB16 PO; -KPP/1000 PO; -LACO100T PO; -LEVE100S IV; -LISI-725 PO; -METO25TA56 PO; -POTA10CA28 PO; -RGLI10 IV; -[UNRECOGNIZED DRUG - CODE] IV
[2017-06-19 12:37] VITALS: TEMP 36.6; Ht 167.6 cm; Wt 63.5 kg
[2017-06-19] MEDS ORDERED: SODIUM CHLORIDE 0.9% 1000ML 1,000 ML IV STA (12:52)
[2017-06-19] MEDS ORDERED: SODIUM CHLORIDE 0.9% 1000ML 1,000 ML IV ONE (12:52)
--- NOTE | 2017-06-19 12:58 | EMERGENCY ROOM VISIT NOTE ---
History Report prepared by Glenna: Evans Andrews Under the Supervision of: Dr. Weston Gonzalez M.D. First contact with patient: 12:41 Chief Complaint: ABDOMINAL PAIN Stated Complaint: STOMACH AND BACK PAIN Nursing Triage Summary: triage note: pt reports lower abd pain and back pain since yesterday. pt denies any nausea, vomitting, diarrhea. pt reports "i think i am constipated i think my last bm was sunday, i have problems with constipation i am a stool payan." History of Present Illness The patient is a 67 year old female who presents to the Emergency Room with complaints of intermittent bilateral lower abdominal pain for the past couple of days. She currently rates her discomfort as a 9/10 in severity. The patient states that nothing makes the pain better or worse. She states that she has some back pain and feels constipated, and her last bowel movement was four days ago. The patient has a history of strokes after a surgery which she was in an inpatient facility for. The patient denies any urinary symptoms, hematochezia, fever, chills, nausea, vomiting, cough, weakness, numbness, chest pain, or recent seizures. She states that she feels like she is retaining urine, and she has not had a catheter recently. The patient states that her last bowel movement was four days ago, and she usually only has one 1-2 times per week, though she states that she has been eating well. The patient states that she is currently going through speech therapy, she takes aspirin, and she has kidney problems. The patient additionally states that she has had an appendectomy and a hysterectomy. Source of History: patient Onset: a couple days ago Position: abdomen (lower) Symptom Intensity: 9/10 Timing: intermittent Associated Symptoms: No fevers, No chills, No cough, No chest pain, No nausea, No vomiting, No hematochezia, No urinary symptoms, No weakness, No numbness Review of Systems See HPI for pertinent positives & negatives. A total of 10 systems reviewed and were otherwise negative. Past Medical & Surgical Medical Problems: (1) Hyperlipidemia (2) Hypertension (3) Nephrolithiasis (4) Seizure Surgical Problems: (1) H/O: hysterectomy (2) History of appendectomy Old medical records were reviewed. Nurse's notes were reviewed and I agree with. Family History FH: arthritis FH: emphysema Heart disease Stroke Social History Smoking Status: Never Smoker Alcohol Use: none Drug Use: none Marital Status: Occupation Status: unemployed Current/Historical Medications Scheduled Aspirin (Aspirin Ec), 81 MG PO DAILY Atorvastatin (Lipitor), 40 MG PO QPM Desmopressin Acetate (Ddavp), 0.2 MG PO TIDM Lacosamide (Vimpat), 200 MG PO BID Levetiracetam (Keppra), 4 TAB PO BID Lisinopril (Zestril), 20 MG PO QAM Allergies Coded Allergies: Amlodipine (Unverified Allergy, Unknown, leg swelling, red, and itchy, 06/19) Clarithromycin (Verified Allergy, Unknown, UNKNOWN, 03/02/17) Codeine (Verified Allergy, Unknown, UNKNOWN, 03/02/17) Doxycycline (Verified Allergy, Unknown, UNKNOWN, 03/02/17) Oxycodone (Verified Adverse Reaction, Unknown, UPSET STOMACH, 03/02/17) Physical Exam Vital Signs Date Time Temp Pulse Resp B/P (MAP) Pulse Ox O2 Delivery O2 Flow Rate FiO2 06/19/17 15:58 73 16 115/57 98 06/19/17 14:52 68 16 122/56 98 06/19/17 12:37 36.6 112 18 132/66 93 Room Air Physical Exam General: Non-ill appearing older female in no acute distress. HEENT: Normal cephalic atraumatic. Pupils are equal round and reactive to light. Extraocular movements are intact. Oropharynx is pink with moist mucous membranes. No swelling of the mouth lips or tongue. Neck: Supple with a midline trachea. No meningeal signs or stiffness, no JVD or bruits. No Stridor. Chest: Clear to auscultation bilaterally. No wheezes or rhonchi. No increased work of breathing. Heart: regular rate and rhythm. Abdomen: Minimal abdominal tenderness. Soft, nondistended without rebound guarding or rigidity. Extremities: No cyanosis clubbing or edema. No calf tenderness or assymetry Spine/Back. Non tender to palpation. No CVA tenderness Skin: Good turgor without rashes. Neurologic exam: Cranial nerves two through 12 are intact. Motor and sensation are intact and symmetrical throughout. Medical Decision & Procedures ER Provider Diagnostic Interpretation: Radiology results as stated below per my review and radiologist interpretation: CT SCAN OF THE ABDOMEN AND PELVIS WITHOUT CONTRAST CLINICAL HISTORY: Lower abdominal pain COMPARISON STUDY: 02/15/2017 TECHNIQUE: CT scan of the abdomen and pelvis was performed from the lung bases to the proximal femurs. Images are reviewed in the axial, sagittal, and coronal planes. IV contrast was not administered for this examination. A dose lowering technique was utilized adhering to the principles of ALARA. CT DOSE: 727.07 mGycm FINDINGS: Lower chest: There are right basilar airspace opacities, likely atelectatic. Liver: The unenhanced liver is normal in size, contour, and attenuation. There is no intrahepatic biliary ductal dilatation. Gallbladder: Unremarkable. Spleen: Normal in size and attenuation. Pancreas: Unremarkable. Adrenal glands: There is a stable 14 mm left adrenal myelolipoma Kidneys: There is persistent left-sided hydroureter. No ureteral calculi are currently visualized. There is a nonspecific 4 mm right renal calcific density. There is a probable hyperdense 9 mm upper pole right renal cyst. Bowel: There are no transition zones indicate bowel obstruction. There are no findings to indicate acute diverticulitis. By history the appendix is surgically absent. Peritoneum: There is no intraperitoneal free air or abdominal ascites. Vasculature: The abdominal aorta is normal in course and caliber. Adenopathy: None. Pelvic viscera: The uterus appears surgically absent. The right ovarian complex appears enlarged. This represents either clustered ovarian cysts or a right-sided hydrosalpinx. Skeletal structures: There are postsurgical changes present within the lumbar spine. There is a mild superior endplate L2 compression deformity. IMPRESSION: 1. No evidence of bowel obstruction. No evidence of free air 2. Mild left-sided hydroureter, diminished in diameter when compared the prior study. The previous identified left ureteral calculi are no longer visualized 3. No evidence of acute diverticulitis 4. Clustered right ovarian cysts versus hydrosalpinx Electronically signed by: Jaspreet Gilliam M.D. 06/19/2017 1:43 PM Dictated Date/Time: 06/19/2017 1:35 PM Laboratory Results 06/19/17 13:07 Red Blood Count 4.26, Mean Corpuscular Volume 89.7, Mean Corpuscular Hemoglobin 29.1, Mean Corpuscular Hemoglobin Concent 32.5, Mean Platelet Volume 8.8, Neutrophils (%) (Auto) 64.2, Lymphocytes (%) (Auto) 25.5, Monocytes (%) (Auto) 9.4, Eosinophils (%) (Auto) 0.6, Basophils (%) (Auto) 0.1, Neutrophils # (Auto) 6.18, Lymphocytes # (Auto) 2.46, Monocytes # (Auto) 0.91, Eosinophils # (Auto) 0.06, Basophils # (Auto) 0.01 06/19/17 13:07 Test 06/19/17 13:07 White Blood Count 9.64 K/uL (4.8-10.8) Red Blood Count 4.26 M/uL (4.2-5.4) Hemoglobin 12.4 g/dL (12.0-16.0) Hematocrit 38.2 % (37-47) Mean Corpuscular Volume 89.7 fL (80-100) Mean Corpuscular Hemoglobin 29.1 pg (25-34) Mean Corpuscular Hemoglobin Concent 32.5 g/dl (32-36) Platelet Count 292 K/uL (130-400) Mean Platelet Volume 8.8 fL (7.4-10.4) Neutrophils (%) (Auto) 64.2 % Lymphocytes (%) (Auto) 25.5 % Monocytes (%) (Auto) 9.4 % Eosinophils (%) (Auto) 0.6 % Basophils (%) (Auto) 0.1 % Neutrophils # (Auto) 6.18 K/uL (1.4-6.5) Lymphocytes # (Auto) 2.46 K/uL (1.2-3.4) Monocytes # (Auto) 0.91 K/uL (0.11-0.59) Eosinophils # (Auto) 0.06 K/uL (0-0.5) Basophils # (Auto) 0.01 K/uL (0-0.2) RDW Standard Deviation 43.1 fL (36.4-46.3) RDW Coefficient of Variation 13.2 % (11.5-14.5) Immature Granulocyte % (Auto) 0.2 % Immature Granulocyte # (Auto) 0.02 K/uL (0.00-0.02) Urine Color YELLOW Urine Appearance CLEAR (CLEAR) Urine pH 7.0 (4.5-7.5) Urine Specific [place] 1.010 (1.000-1.030) Urine Protein NEG (NEG) Urine Glucose (UA) NEG (NEG) Urine Ketones NEG (NEG) Urine Occult Blood NEG (NEG) Urine Nitrite NEG (NEG) Urine Bilirubin NEG (NEG) Urine Urobilinogen NEG (NEG) Urine Leukocyte Esterase MODERATE (NEG) Urine WBC (Auto) 1-5 /hpf (0-5) Urine RBC (Auto) 0-4 /hpf (0-4) Urine Hyaline Casts (Auto) 0 /lpf (0-5) Urine Epithelial Cells (Auto) 10-20 /lpf (0-5) Urine Bacteria (Auto) NEG (NEG) Anion Gap 8.0 mmol/L (3-11) Est Creatinine Clear Calc Drug Dose 65.4 ml/min Estimated GFR () 92.0 Estimated GFR (Non- 79.3 BUN/Creatinine Ratio 18.1 (10-20) Calcium Level 9.6 mg/dl (8.5-10.1) Total Bilirubin 0.3 mg/dl (0.2-1) Direct Bilirubin < 0.1 mg/dl (0-0.2) Aspartate Amino Transf (AST/SGOT) 15 U/L (15-37) Alanine Aminotransferase (ALT/SGPT) 30 U/L (12-78) Alkaline Phosphatase 121 U/L (45-117) Total Protein 7.6 gm/dl (6.4-8.2) Albumin 4.0 gm/dl (3.4-5.0) Lipase 145 U/L (73-393) Laboratory studies as stated above per my review. Medications Administered Medications (Trade) Dose Ordered Sig/[place] Route Start Time Stop Time Status Last Admin Dose Admin Sodium Chloride 1,000 ml @ 999 mls/hr Q1H1M STAT IV 06/19/17 12:52 06/19/17 13:52 DC 06/19/17 13:11 999 MLS/HR ED Course 1241: Past medical records reviewed. The patient was evaluated in room C6, and a complete history and physical examination were performed. 1252: Sodium Chloride 1000 ml @ 150 mls/hr IV, Sodium Chloride 1000 ml @ 999 mls /hr IV 1424: Soap Suds Enema [place] 1429: I reevaluated the patient, and she was resting getting ready for an enema. 1542: I reevaluated the patient, and she is feeling much better. She had a large bowel movement after the enema. I discussed the results and treatment plan with her. She verbalized agreement of the treatment plan. The patient was discharged home. Medical Decision Differentials include, but are not limited to; constipation, bowel obstruction, infection, diverticulitis, and UTI This patient comes in as described above. She was placed in room C6. She is here for treatment and evaluation of lower abdominal pain and constipation. She has no evidence to suggest cauda equina syndrome. She has no numbness or weakness. IV access established blood work was obtained. She has no white count or fever to suggest infection . She has no acute electrolyte or metabolic abnormality. Her urinalysis is suboptimal but I do not think she has UTI. Urine culture is pending. CAT scan of her abdomen was unremarkable. We did do a soapsuds enema and she had a large bowel movement feels better and has no more pain and wants to to go home. I will discharge her home. She should return if: worsening of symptoms, fever or chills, increasing pain or problems, numbness weakness, any new problems or concerns. She was happy the plan and discharged to home. Medication Reconcilliation Current Medication List: was personally reviewed by me Blood Pressure Screening Patient's blood pressure: Normal blood pressure Impression Primary Impression: Lower abdominal pain Additional Impression: Constipation Scribe Attestation The scribe's documentation has been prepared under my direction and personally reviewed by me in its entirety. I confirm that the note above accurately reflects all work, treatment, procedures, and medical decision making performed by me. Departure Information Dispostion Home / Self-Care Forms HOME CARE DOCUMENTATION FORM, IMPORTANT VISIT INFORMATION Patient Instructions My [facility] Additional Instructions Rest. Drink plenty of fluids. Mild diet. Use a stool softener such as Colace if needed Return if: Increasing pain, fever or chills, worsening of symptoms, numbness or weakness, change in bowel or bladder function, any new problems or concerns Follow up with your doctor this week for recheck Problem Qualifiers
[2017-06-19 13:29] LABS: BASO % 0.1 %; BASO ABS # 0.01 K/uL (0-0.2); COMPLETE YES; EOS % 0.6 %; HEMATOCRIT 38.2 % (37-47); IG% 0.2 %; LYMPH % 25.5 %; LYMPH ABS # 2.46 K/uL (1.2-3.4); MEAN CELL VOLUME 89.7 fL (80-100); MEAN CORPUSCULAR HEMOGLOBIN 29.1 pg (25-34); MEAN CORPUSCULAR HGB CONC 32.5 g/dl (32-36); MEAN PLATELET VOLUME 8.8 fL (7.4-10.4); MONO % 9.4 %; NEUT % 64.2 %; PLATELET COUNT 292 K/uL (130-400); RED BLOOD COUNT 4.26 M/uL (4.2-5.4); WHITE BLOOD COUNT 9.64 K/uL (4.8-10.8)
[2017-06-19 13:31] LABS: URINE APPEARANCE CLEAR (CLEAR); URINE BILIRUBIN NEG (NEG); URINE COLOR YELLOW; URINE NITRITE NEG (NEG); UROBILINOGEN NEG (NEG)
[2017-06-19 13:33] LABS: MANUAL MICROSCOPIC REQUIRED? NO; REVIEW REQ? NO
--- NOTE | 2017-06-19 13:44 | DIAGNOSTIC IMAGING REPORT ---
CT SCAN OF THE ABDOMEN AND PELVIS WITHOUT CONTRAST CLINICAL HISTORY: Lower abdominal pain COMPARISON STUDY: 02/15/2017 TECHNIQUE: CT scan of the abdomen and pelvis was performed from the lung bases to the proximal femurs. Images are reviewed in the axial, sagittal, and coronal planes. IV contrast was not administered for this examination. A dose lowering technique was utilized adhering to the principles of ALARA. CT DOSE: 727.07 mGycm FINDINGS: Lower chest: There are right basilar airspace opacities, likely atelectatic. Liver: The unenhanced liver is normal in size, contour, and attenuation. There is no intrahepatic biliary ductal dilatation. Gallbladder: Unremarkable. Spleen: Normal in size and attenuation. Pancreas: Unremarkable. Adrenal glands: There is a stable 14 mm left adrenal myelolipoma Kidneys: There is persistent left-sided hydroureter. No ureteral calculi are currently visualized. There is a nonspecific 4 mm right renal calcific density. There is a probable hyperdense 9 mm upper pole right renal cyst. Bowel: There are no transition zones indicate bowel obstruction. There are no findings to indicate acute diverticulitis. By history the appendix is surgically absent. Peritoneum: There is no intraperitoneal free air or abdominal ascites. Vasculature: The abdominal aorta is normal in course and caliber. Adenopathy: None. Pelvic viscera: The uterus appears surgically absent. The right ovarian complex appears enlarged. This represents either clustered ovarian cysts or a right-sided hydrosalpinx. Skeletal structures: There are postsurgical changes present within the lumbar spine. There is a mild superior endplate L2 compression deformity. IMPRESSION: 1. No evidence of bowel obstruction. No evidence of free air 2. Mild left-sided hydroureter, diminished in diameter when compared the prior study. The previous identified left ureteral calculi are no longer visualized 3. No evidence of acute diverticulitis 4. Clustered right ovarian cysts versus hydrosalpinx Electronically signed by: Jaspreet Gilliam M.D. 06/19/2017 1:43 PM Dictated Date/Time: 06/19/2017 1:35 PM
[2017-06-19 13:48] LABS: ALT/SGPT 30 U/L (12-78); BLOOD UREA NITROGEN 14 mg/dl (7-18); BUN/CREATININE RATIO 18.1 (10-20); CALCIUM 9.6 mg/dl (8.5-10.1); CARBON DIOXIDE 27 mmol/L (21-32); CHLORIDE 98 mmol/L (98-107); CREATININE 0.77 mg/dl (0.60-1.20); GLUCOSE 100 mg/dl (70-99); POTASSIUM 3.2 mmol/L (3.5-5.1); SODIUM 133 mmol/L (136-145)
[2017-06-19 13:50] LABS: ALKALINE PHOSPHATASE 121 U/L (45-117); AST/SGOT 15 U/L (15-37)
[2017-06-19] MEDS ORDERED: SOAP SUDS ENEMA PR STA (14:24)
[2017-06-19 15:58] VITALS: BP 115/57; PULSE 73; O2SAT 98
[2017-08-06] MEDS ORDERED: ATOR-24 PO (02:53)
[2017-08-06] MEDS ORDERED: DESM1TAB16 PO (02:53)
[2017-08-06] MEDS ORDERED: LISI-725 PO (08:15)
[2017-08-06] MEDS ORDERED: LACO100T PO (10:39)
[2017-08-06] MEDS ORDERED: ASPI81TA28 PO (13:56)
== END 2017-06-19 15:58 | disposition home or self-care (01) ==
LOC: C.EDB 12:33 → C.EDC 15:58
DX: R10.30 Lower abdominal pain, unspecified (principal); K59.00 Constipation, unspecified; I10 Essential (primary) hypertension; G40.909 Epilepsy, unspecified, not intractable, without status epilepticus; Z90.711 Acquired absence of uterus with remaining cervical stump; Z79.899 Other long term (current) drug therapy

== ENCOUNTER → 2017-06-27 | Outpatient (CLI) | payer BC ==
[~2017-06-27] MED LIST changes: -ACET-1256 PO; -AMLO-110 PO; +ASPI81TA28 PO; +ATOR-24 PO; +DESM1TAB16 PO; -FERR1TAB13 PO; -FLM4 PO; +KPP/1000 PO; +LACO100T PO; -LCTX PO; +LEVE100S IV; +LISI-725 PO; -MAGN400T6 PO; -METO25TA3 PO; +METO25TA56 PO; -ONDA4TAB10 SL; +OPTIRAY 300 IV PRN; -OXYC-57 PO; +POTA10CA28 PO; -PRLSR20 PO; -PROB1CAP32 PO; +RGLI10 IV; -TOPI100T20 PO; -TOPI50TA16 PO; +[UNRECOGNIZED DRUG - CODE] IV
--- NOTE | 2017-06-27 14:44 | DIAGNOSTIC IMAGING REPORT ---
IVP CLINICAL HISTORY: Nephrolithiasis. COMPARISON STUDY: CT of the abdomen and pelvis June 19, 2017. FINDINGS: Med Admin image demonstrates pelvic calcifications which were shown to represent phleboliths on prior head CT. No urinary calculi are identified. Postoperative findings within the lumbosacral spine are incidentally noted. Both nephrograms are symmetric. There is no hydronephrosis. No upper tract filling defects are identified. There is mild dilatation of the left ureter which is similar to CT of June 19, 2017. This remains dilated to the level of the ureterovesical junction. Significant post void residual was noted. IMPRESSION: 1. No urinary calculi identified. 2. No hydronephrosis. Persistent mild left hydroureter which is similar to exam of June 19, 2017. 3. Significant post void residual within the bladder. Electronically signed by: Davian Belcher M.D. 06/27/2017 2:42 PM Dictated Date/Time: 06/27/2017 2:32 PM
== END | disposition home or self-care (01) ==
LOC: C.RAD 12:26
PROVIDERS: ATTEND Urology
DX: N20.0 Calculus of kidney (principal)

== ENCOUNTER → 2017-07-31 | Outpatient (CLI) | payer BC ==
[~2017-07-31] MED LIST changes: -OPTIRAY 300 IV PRN
== END | disposition home or self-care (01) ==
LOC: C.LABSPEC 11:15
PROVIDERS: ATTEND Nurse Practitioner Family
DX: R33.9 Retention of urine, unspecified (principal)

== ENCOUNTER 2017-08-06 20:18 | Inpatient (IN) | payer OTHER, BC ==
[~2017-08-06] VITALS: Ht 167.6 cm; Wt 65.8 kg
[~2017-08-06 20:18] MED LIST changes: -KPP/1000 PO; -LEVE100S IV; -METO25TA56 PO; -POTA10CA28 PO; -RGLI10 IV; -[UNRECOGNIZED DRUG - CODE] IV
[2017-08-06] MEDS ORDERED: SODIUM CHLORIDE 0.9% 1000ML 1,000 ML IV STA (20:58)
[2017-08-06 21:34] LABS: BASO % 0.1 %; BASO ABS # 0.01 K/uL (0-0.2); COMPLETE YES; EOS % 1.1 %; HEMATOCRIT 36.5 % (37-47); IG% 0.4 %; LYMPH % 29.9 %; LYMPH ABS # 2.16 K/uL (1.2-3.4); MEAN CELL VOLUME 89.2 fL (80-100); MEAN CORPUSCULAR HEMOGLOBIN 29.8 pg (25-34); MEAN CORPUSCULAR HGB CONC 33.4 g/dl (32-36); MEAN PLATELET VOLUME 8.1 fL (7.4-10.4); MONO % 10.4 %; NEUT % 58.1 %; PLATELET COUNT 257 K/uL (130-400); RED BLOOD COUNT 4.09 M/uL (4.2-5.4); WHITE BLOOD COUNT 7.23 K/uL (4.8-10.8)
[2017-08-06 21:44] LABS: PROTHROMBIN TIME (PATIENT) 10.5 SECONDS (9.0-12.0)
--- NOTE | 2017-08-06 21:45 | EMERGENCY ROOM VISIT NOTE ---
History Report prepared by Glenna: Arian Mazariegos Under the Supervision of: Dr. Mary Camp D.O. First contact with patient: 20:35 Chief Complaint: URINARY SYMPTOMS Stated Complaint: UTI, UNABLE TO STAND,WALK, VOMITTING Nursing Triage Summary: see triage note History of Present Illness The patient is a 67 year old female who presents to the Emergency Room with complaints of worsening weakness that began today. The patient is accompanied by her who states that she was here six weeks ago and diagnosed with a UTI. He states that she has been taking Bactrim, including one dose two days ago , two doses yesterday, and two doses today. The patient's states that she vomited on the way to the ED and vomited two days ago. He admits that she has had three UTIs since March. Her states that her previous medication was not Bactrim and she still vomited that. He states that she has been experiencing a productive cough with white sputum. The patient's states that the patient has been lethargic and dehydrated today. He states that he normally changes her catheter and her levels are usually 250. He reports that her level this morning was 900. The patient's reports that she has been acting her self lately. He states that she has been more confused and unresponsive today than usual. He reports that she usually uses a step stool to get in the truck, but states that she was unresponsive and would not get into the truck. Her states that later, she went to get out of the truck and was off balance and unable to walk. The patient's reports that he helped her to the living room and she collapsed. He states that she slept for an hour and a half and was still experiencing weakness. The patient's reports that she has a history of a stroke and a seizure, which caused her left sided deficits. He states that she goes to physical therapy for her stroke. The patient's also reports that the patient has a history of an IVP, due to a stone stuck in her ureter, and pneumonia. He states that her bowel movements used to be every couple days, but reports that she has a bowel movement every 5- 6 days. Her states that her appetite has been normal. The patient denies pain, nausea, and a UTI in her kidneys. Source of History: patient, spouse/significant other Onset: today Position: other (weakness) Quality: other (off balance, unable to walk) Timing: worsening Modifying Factors (Relieving): rest Associated Symptoms: + cough, + vomiting, + fatigue, No neck pain, No chest pain, No nausea, No abdominal pain, No back pain Review of Systems See HPI for pertinent positives & negatives. A total of 10 systems reviewed and were otherwise negative. Past Medical & Surgical Medical Problems: (1) Altered mental status (2) Hyperlipidemia (3) Hypertension (4) Metabolic encephalopathy (5) Nausea & vomiting (6) Nephrolithiasis (7) Seizure (8) Urinary tract infection Surgical Problems: (1) H/O: hysterectomy (2) History of appendectomy Family History FH: arthritis FH: emphysema Heart disease Stroke Social History Smoking Status: Never Smoker Alcohol Use: none Drug Use: none Marital Status: Occupation Status: unemployed Current/Historical Medications Scheduled Aspirin (Aspirin Ec), 81 MG PO DAILY Atorvastatin (Lipitor), 40 MG PO QPM Desmopressin Acetate (Ddavp), 0.2 MG PO Q8 Lacosamide (Vimpat), 400 MG PO BID Levetiracetam (Keppra), 2,000 MG PO BID Lisinopril (Zestril), 20 MG PO QAM Metoprolol Tartrate (Lopressor) (Lopressor), 25 MG PO BID Allergies Coded Allergies: Amlodipine (Unverified Allergy, Unknown, leg swelling, red, and itchy, 06/19) Clarithromycin (Verified Allergy, Unknown, UNKNOWN, 03/02/17) Codeine (Verified Allergy, Unknown, UNKNOWN, 03/02/17) Doxycycline (Verified Allergy, Unknown, UNKNOWN, 03/02/17) Oxycodone (Verified Adverse Reaction, Unknown, UPSET STOMACH, 03/02/17) Physical Exam Vital Signs Date Time Temp Pulse Resp B/P (MAP) Pulse Ox O2 Delivery O2 Flow Rate FiO2 08/06/17 23:41 62 18 144/71 96 Room Air 08/06/17 20:23 36.5 54 20 149/73 98 Room Air Physical Exam GENERAL: alert, well appearing, well nourished, no distress, non-toxic. EYE EXAM: normal conjunctiva, PERRL and EOM's grossly intact OROPHARYNX: no exudate, no erythema, lips, buccal mucosa, and tongue normal and mucous membranes are moist NECK: supple, no nuchal rigidity, no adenopathy, non-tender LUNGS: Clear to auscultation. Normal chest wall mechanics, Coarse breath sounds. Frequently coughing. HEART: no murmurs, S1 normal and S2 normal ABDOMEN: abdomen soft, non-tender, normo-active bowel sounds, no masses, no rebound or guarding. BACK: Back is symmetrical on inspection and there is no deformity, no midline tenderness, no CVA tenderness. SKIN: no rashes and no bruising UPPER EXTREMITIES: upper extremities are grossly normal. Pulses intact LOWER EXTREMITIES: No pitting edema. Pulses intact. NEURO EXAM: Normal sensorium, cranial nerves II-XII grossly intact, normal speech, no gross weakness of arms, no gross weakness of legs. No drift. Finger to nose intact. Gross sensation intact. No facial droop. Medical Decision & Procedures ER Provider Diagnostic Interpretation: Radiology results have been interpreted by the radiologist and reviewed by me. TWO VIEW CHEST CLINICAL HISTORY: Cough. FINDINGS: AP and lateral chest radiographs are compared to study dated 02/05/2017 and correlated with chest CT dated 01/10/2017. The AP view is degraded by patient rotation. The cardiomediastinal silhouette is unremarkable. Bibasilar airspace consolidation is identified. No large pleural effusion or pneumothorax is seen. The skeletal structures are osteopenic. The bony thorax appears intact. IMPRESSION: There is bibasilar airspace consolidation. This could present atelectasis versus pneumonia. Clinical correlation will be required and radiographic follow-up to resolution is recommended. Electronically signed by: Julio Mojica M.D. 08/06/2017 10:09 PM Dictated Date/Time: 08/06/2017 10:[address] SCAN OF THE ABDOMEN AND PELVIS WITHOUT IV CONTRAST CLINICAL HISTORY: Vomiting. Urinary tract infection. COMPARISON STUDY: Prior abdominal CT scans, most recently dated 06/19/2017. TECHNIQUE: CT scan of the abdomen and pelvis is performed from the lung bases to the proximal femora. Images are reviewed in the axial, sagittal, and coronal planes. IV contrast was not administered as per the referring clinician. Note that the examination was performed in suboptimal fashion without oral and IV contrast. Automated dose control exposure was utilized. The examination is degraded by motion artifact as well as by streak artifact from the patient's arms which could not be elevated above the abdomen. CT DOSE: 797.87 mGy.cm FINDINGS: Lung bases: The heart is normal in size and without pericardial effusion. There is a trace right pleural effusion and bibasilar atelectasis. Liver: The unenhanced liver is normal in size, contour, and attenuation. There is no intrahepatic biliary ductal dilatation. 11 mm cyst is again noted in the inferior right lobe. Gallbladder: Unremarkable. Spleen: Normal in size and attenuation. Pancreas: Atrophic and grossly unremarkable. Adrenal glands: A 1.7 cm fat-containing lesion in the left adrenal gland is typical in appearance for a myelolipoma. The right adrenal gland is unremarkable. Kidneys: The unenhanced kidneys are atrophic and without hydronephrosis. No renal calculi are identified. There is no evidence of contour deforming mass lesion. Subcentimeter hyperdense foci in the right kidney likely represent complex/ hemorrhagic cysts. Abdominal vasculature: The abdominal aorta is normal in course and caliber noting mild to moderate atherosclerotic calcification. Bowel: There is no bowel obstruction. The appendix is not identified and reported surgically absent. Peritoneum: There is no intraperitoneal free air or abdominal ascites. There is a small fat-containing umbilical hernia. Lymphadenopathy: None. Pelvic viscera: There is a tiny focus of gas in the bladder lumen, likely related to instrumentation. The bladder is otherwise normal in appearance. The uterus is surgically absent. Right-sided ovarian cystic foci are unchanged and measure up to 2.3 cm. phleboliths are noted in the pelvis. Skeletal structures: The skeletal structures are osteopenic. No lytic or blastic lesions are seen. There is a mild compression deformity of L2, unchanged from previous. There is moderate lumbosacral spondylosis with postoperative changes from L4 -S1 spinal fusion. IMPRESSION: 1. Significantly streak and motion compromised examination. The examination is also degraded by lack of oral and IV contrast. 2. There are no acute infectious or inflammatory findings in the abdomen or pelvis. 3. A punctate focus of gas within the bladder lumen is likely related to instrumentation. Correlation with urinalysis will be required. 4. Additional findings as above. Electronically signed by: Julio Mojica M.D. 08/06/2017 10:52 PM Dictated Date/Time: 08/06/2017 10:45 PM Laboratory Results Test 08/06/17 21:20 08/06/17 21:45 Prothrombin Time 10.5 SECONDS (9.0-12.0) Prothromb Time International Ratio 1.0 (0.9-1.1) Osmolality 277 mOsm/kg (280-300) Magnesium Level 2.0 mg/dl (1.8-2.4) Total Bilirubin 0.2 mg/dl (0.2-1) Aspartate Amino Transf (AST/SGOT) 17 U/L (15-37) Alanine Aminotransferase (ALT/SGPT) 29 U/L (12-78) Alkaline Phosphatase 123 U/L (45-117) Troponin I < 0.015 ng/ml (0-0.045) Pro-B-Type Natriuretic Peptide 428 pg/ml (0-900) Total Protein 7.1 gm/dl (6.4-8.2) Albumin 3.9 gm/dl (3.4-5.0) Globulin 3.2 gm/dl (2.5-4.0) Albumin/Globulin Ratio 1.2 (0.9-2) Urine Color YELLOW Urine Appearance CLEAR (CLEAR) Urine pH 6.5 (4.5-7.5) Urine Specific [place] 1.017 (1.000-1.030) Urine Protein NEG (NEG) Urine Glucose (UA) NEG (NEG) Urine Ketones NEG (NEG) Urine Occult Blood NEG (NEG) Urine Nitrite NEG (NEG) Urine Bilirubin NEG (NEG) Urine Urobilinogen NEG (NEG) Urine Leukocyte Esterase NEG (NEG) Laboratory results per my review. Medications Administered Medications (Trade) Dose Ordered Sig/[place] Route Start Time Stop Time Status Last Admin Dose Admin Sodium Chloride 1,000 ml @ 999 mls/hr Q1H1M STAT IV 08/06/17 20:58 08/06/17 21:58 DC 08/06/17 21:47 999 MLS/HR Ondansetron HCl (Zofran Inj) 4 mg NOW STAT IV 08/06/17 21:49 08/06/17 21:51 DC 08/06/17 22:06 4 MG Ceftriaxone Sodium (Rocephin Inj) 1 gm NOW STAT IV 08/06/17 22:51 08/07/17 12:24 DC 08/06/17 23:24 1 GM Ondansetron HCl (Zofran Inj) 4 mg NOW STAT IV 08/06/17 23:23 08/06/17 23:24 DC 08/06/17 23:38 4 MG ECG Indication: vomiting Rate (beats per minute): 55 Rhythm: sinus bradycardia Findings: no acute ischemic change, other (Baseline artifact. Normal axis and intervals.) ED Course 2046: The patient was evaluated in room C02B. A complete history and physical exam was performed. 2057: Ordered Sodium Chloride 1000 ml @ 999 mls/hr IV. 2148: Ordered Zofran Injection 4 mg IV. 2234: I reevaluated the patient and updated her on her results. She is going to CT. 2250: Ordered Rocephin Injection 1 gram IV. 6: I reevaluated the patient and updated her and her on the results. The patient is still nauseous and does not feel well. Her is not comfortable with her going home. Medical Decision The differntial diagnosis includes etiologies such as: UTI, pyelonephritis, bacteremia, dehydration, renal failure, electrolyte abnormality, adverse drug reaction, pneumonia, and aspiration. No clear failure of outpt tx, culture lama sensitive. Possible sx secondary to adr of bactrim. No other acute GI/ pathology found. No change in chronic deficits related to prior CVA. No evidence of bacteremia/sepsis. concerned about vomiting and dehydration. Doubt other vascular etiology. Doubt new cva. No evidence of aspiration. Hyponatremia mild, likely from poor po intake. No other acute renal/electrolyte abnormality. Medication Reconcilliation Current Medication List: was personally reviewed by me Blood Pressure Screening Patient's blood pressure: Elevated blood pressure Blood pressure disposition: Elevated BP felt to be situational Consults Time Called: 2335 Consulting Physician: Dr. Pena Returned Call: [phone] Discussed with covering resident Dr. Martinez, working with [facility] hospitalist. Impression Primary Impression: Nausea & vomiting Additional Impressions: Generalized weakness Hyponatremia Scribe Attestation The scribe's documentation has been prepared under my direction and personally reviewed by me in its entirety. I confirm that the note above accurately reflects all work, treatment, procedures, and medical decision making performed by me. Departure Information Dispostion Being Evaluated By Hospitalist Referrals Marek Pittman M.D. (PCP) Patient Instructions My [facility] Problem Qualifiers Primary Impression: Nausea & vomiting Vomiting type: unspecified Vomiting Intractability: unspecified Qualified Codes: R11.2 - Nausea with vomiting, unspecified
[2017-08-06] MEDS ORDERED: ONDANSETRON INJ 2 MG/ML 2 ML VIAL IV STA ×2 (21:49→23:23)
[2017-08-06 21:52] LABS: ALT/SGPT 29 U/L (12-78); BLOOD UREA NITROGEN 14 mg/dl (7-18); BUN/CREATININE RATIO 14.7 (10-20); CALCIUM 9.8 mg/dl (8.5-10.1); CARBON DIOXIDE 28 mmol/L (21-32); CHLORIDE 97 mmol/L (98-107); CREATININE 0.94 mg/dl (0.60-1.20); GLUCOSE 104 mg/dl (70-99); POTASSIUM 4.5 mmol/L (3.5-5.1); SODIUM 130 mmol/L (136-145)
[2017-08-06 21:57] LABS: ALB/GLOB RATIO 1.2 (0.9-2); ALKALINE PHOSPHATASE 123 U/L (45-117); AST/SGOT 17 U/L (15-37)
--- NOTE | 2017-08-06 22:10 | DIAGNOSTIC IMAGING REPORT ---
TWO VIEW CHEST CLINICAL HISTORY: Cough. FINDINGS: AP and lateral chest radiographs are compared to study dated 02/05/2017 and correlated with chest CT dated 01/10/2017. The AP view is degraded by patient rotation. The cardiomediastinal silhouette is unremarkable. Bibasilar airspace consolidation is identified. No large pleural effusion or pneumothorax is seen. The skeletal structures are osteopenic. The bony thorax appears intact. IMPRESSION: There is bibasilar airspace consolidation. This could present atelectasis versus pneumonia. Clinical correlation will be required and radiographic follow-up to resolution is recommended. Electronically signed by: Julio Mojica M.D. 08/06/2017 10:09 PM Dictated Date/Time: 08/06/2017 10:07 PM
[2017-08-06 22:24] LABS: URINE APPEARANCE CLEAR (CLEAR); URINE BILIRUBIN NEG (NEG); URINE COLOR YELLOW; URINE NITRITE NEG (NEG); URINE PH 6.5 (4.5-7.5); URINE SPECIFIC GRAVITY 1.017 (1.000-1.030); UROBILINOGEN NEG (NEG)
[2017-08-06 22:25] LABS: MANUAL MICROSCOPIC REQUIRED? NO; REVIEW REQ? NO
[2017-08-06] MEDS ORDERED: KPP/1000 PO (22:40)
[2017-08-06] MEDS ORDERED: METO25TA56 PO (22:40)
[2017-08-06] MEDS ORDERED: CEFTRIAXONE SOD INJ 1 GM ADDVIAL IV STA (22:51)
--- NOTE | 2017-08-06 22:54 | DIAGNOSTIC IMAGING REPORT ---
CT SCAN OF THE ABDOMEN AND PELVIS WITHOUT IV CONTRAST CLINICAL HISTORY: Vomiting. Urinary tract infection. COMPARISON STUDY: Prior abdominal CT scans, most recently dated 06/19/2017. TECHNIQUE: CT scan of the abdomen and pelvis is performed from the lung bases to the proximal femora. Images are reviewed in the axial, sagittal, and coronal planes. IV contrast was not administered as per the referring clinician. Note that the examination was performed in suboptimal fashion without oral and IV contrast. Automated dose control exposure was utilized. The examination is degraded by motion artifact as well as by streak artifact from the patient's arms which could not be elevated above the abdomen. CT DOSE: 797.87 mGy.cm FINDINGS: Lung bases: The heart is normal in size and without pericardial effusion. There is a trace right pleural effusion and bibasilar atelectasis. Liver: The unenhanced liver is normal in size, contour, and attenuation. There is no intrahepatic biliary ductal dilatation. 11 mm cyst is again noted in the inferior right lobe. Gallbladder: Unremarkable. Spleen: Normal in size and attenuation. Pancreas: Atrophic and grossly unremarkable. Adrenal glands: A 1.7 cm fat-containing lesion in the left adrenal gland is typical in appearance for a myelolipoma. The right adrenal gland is unremarkable. Kidneys: The unenhanced kidneys are atrophic and without hydronephrosis. No renal calculi are identified. There is no evidence of contour deforming mass lesion. Subcentimeter hyperdense foci in the right kidney likely represent complex/ hemorrhagic cysts. Abdominal vasculature: The abdominal aorta is normal in course and caliber noting mild to moderate atherosclerotic calcification. Bowel: There is no bowel obstruction. The appendix is not identified and reported surgically absent. Peritoneum: There is no intraperitoneal free air or abdominal ascites. There is a small fat-containing umbilical hernia. Lymphadenopathy: None. Pelvic viscera: There is a tiny focus of gas in the bladder lumen, likely related to instrumentation. The bladder is otherwise normal in appearance. The uterus is surgically absent. Right-sided ovarian cystic foci are unchanged and measure up to 2.3 cm. phleboliths are noted in the pelvis. Skeletal structures: The skeletal structures are osteopenic. No lytic or blastic lesions are seen. There is a mild compression deformity of L2, unchanged from previous. There is moderate lumbosacral spondylosis with postoperative changes from L4 -S1 spinal fusion. IMPRESSION: 1. Significantly streak and motion compromised examination. The examination is also degraded by lack of oral and IV contrast. 2. There are no acute infectious or inflammatory findings in the abdomen or pelvis. 3. A punctate focus of gas within the bladder lumen is likely related to instrumentation. Correlation with urinalysis will be required. 4. Additional findings as above. Electronically signed by: Julio Mojica M.D. 08/06/2017 10:52 PM Dictated Date/Time: 08/06/2017 10:45 PM
[2017-08-07] VITALS (9 sets, daily range): BP systolic 103–152; BP diastolic 54–71; PULSE 52–89; TEMP 36.3–36.9; O2SAT 90–96; Ht 167.6 cm; Wt 65.8 kg
[2017-08-07] MEDS ORDERED: ONDANSETRON INJ 2 MG/ML 2 ML VIAL IV PRN (00:30)
[2017-08-07] MEDS ORDERED: ACETAMINOPHEN 325 MG TAB PO PRN (00:30)
[2017-08-07] MEDS ORDERED: POLYETHYLENE (MIRALAX) 17 GM PACK PO PRN (00:30)
[2017-08-07] MEDS ORDERED: ALUMINUM/MAGNESIUM/SIMETH (MAALOX MAX) 30 ML UDC PO PRN (00:30)
[2017-08-07] MEDS ORDERED: MAGNESIUM HYDROXIDE SUSP 30 ML UDC PO PRN (00:30)
--- NOTE | 2017-08-07 00:35 | History and Physical ---
History & Physical Date & Time of Service: Aug 07, 2017 at 00:30 Chief Complaint: Uti, Unable To Stand,Walk, Vomitting Primary Care Physician: Marek Pittman M.D. 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 She was started on Bactrim for a UTI on Sunday (cultures show it is pansensitive). Earlier today, her reports when she woke up she was "out of it" and was not communicating as well. He struggled to get her into the car for physical therapy. At PT, she cooperated with activities but did not do as many as usual. When he got her out of the car to get back home, her legs gave way and she fell to the floor. She did not hit her head or lose consciousness. He was concerned so brought her to the ED. En route, she vomited once. In the ED, she was laying flat so had lots of congestion, which she could not swallow, and that made her gag and throw up. She has not thrown up since. She does say a few words, but mainly smiles and stares out the door. She denied any pain. She reports she hopes she feels better now. Her does not feel comfortable taking her home. Past Medical/Surgical History Medical Problems: (1) Hyperlipidemia Status: Chronic (2) Hypertension Status: Chronic (3) Seizure Status: Resolved Surgical Problems: (1) H/O: hysterectomy Status: Resolved (2) History of appendectomy Status: Resolved Family History FH: arthritis FH: emphysema Heart disease Stroke Social History Smoking Status: Never Smoker Smokeless Tobacco Use: No Alcohol Use: none Drug Use: none Marital Status: Housing status: lives with family Occupational Status: unemployed Immunizations History of Influenza Vaccine: Unknown History of Tetanus Vaccine?: Unknown History of Pneumococcal: Unknown History of Hepatitis B Vaccine: Unknown Multi-Drug Resistant Organisms History of MDRO: No Allergies Coded Allergies: Amlodipine (Unverified Allergy, Unknown, leg swelling, red, and itchy, 06/19) Clarithromycin (Verified Allergy, Unknown, UNKNOWN, 03/02/17) Codeine (Verified Allergy, Unknown, UNKNOWN, 03/02/17) Doxycycline (Verified Allergy, Unknown, UNKNOWN, 03/02/17) Oxycodone (Verified Adverse Reaction, Unknown, UPSET STOMACH, 03/02/17) Home Medications Scheduled Aspirin (Aspirin Ec), 81 MG PO DAILY Atorvastatin (Lipitor), 40 MG PO QPM Desmopressin Acetate (Ddavp), 0.2 MG PO Q8 Lacosamide (Vimpat), 400 MG PO BID Levetiracetam (Keppra), 2,000 MG PO BID Lisinopril (Zestril), 20 MG PO QAM Metoprolol Tartrate (Lopressor) (Lopressor), 25 MG PO BID Review of Systems See HPI for pertinent positives & negatives. A total of 10 systems reviewed and were otherwise negative. Physical Exam Vital Signs Date Time Temp Pulse Resp B/P (MAP) Pulse Ox O2 Delivery O2 Flow Rate FiO2 08/06/17 23:41 62 18 144/71 96 Room Air 08/06/17 20:23 36.5 54 20 149/73 98 Room Air General Appearance: WD/WN, no apparent distress, + thin Head: normocephalic, atraumatic Eyes: normal inspection, PERRL ENT: hearing grossly normal Neck: supple, no JVD Respiratory/Chest: lungs clear (slight crackles at bases, rest clear), normal breath sounds, no respiratory distress Cardiovascular: regular rate, rhythm, no murmur, normal peripheral pulses Abdomen/GI: non tender, soft Back: no CVA tenderness, no muscle spasm Extremities/Musculoskelatal: no pedal edema Neurologic/Psych: alert, normal mood/affect, normal reflexes, oriented x 3 Skin: no rash Diagnostics Laboratory Results Results Past 24 Hours Test 08/06/17 21:20 08/06/17 21:45 Range/Units White Blood Count 7.23 4.8-10.8 K/uL Red Blood Count 4.09 4.2-5.4 M/uL Hemoglobin 12.2 12.0-16.0 g/dL Hematocrit 36.5 37-47 % Mean Corpuscular Volume 89.2 80-100 fL Mean Corpuscular Hemoglobin 29.8 25-34 pg Mean Corpuscular Hemoglobin Concent 33.4 32-36 g/dl Platelet Count 257 130-400 K/uL Mean Platelet Volume 8.1 7.4-10.4 fL Neutrophils (%) (Auto) 58.1 % Lymphocytes (%) (Auto) 29.9 % Monocytes (%) (Auto) 10.4 % Eosinophils (%) (Auto) 1.1 % Basophils (%) (Auto) 0.1 % Neutrophils # (Auto) 4.20 1.4-6.5 K/uL Lymphocytes # (Auto) 2.16 1.2-3.4 K/uL Monocytes # (Auto) 0.75 0.11-0.59 K/uL Eosinophils # (Auto) 0.08 0-0.5 K/uL Basophils # (Auto) 0.01 0-0.2 K/uL RDW Standard Deviation 43.0 36.4-46.3 fL RDW Coefficient of Variation 13.2 11.5-14.5 % Immature Granulocyte % (Auto) 0.4 % Immature Granulocyte # (Auto) 0.03 0.00-0.02 K/uL Prothrombin Time 10.5 9.0-12.0 SECONDS Prothromb Time International Ratio 1.0 0.9-1.1 Sodium Level 130 136-145 mmol/L Potassium Level 4.5 3.5-5.1 mmol/L Chloride Level 97 98-107 mmol/L Carbon Dioxide Level 28 21-32 mmol/L Anion Gap 5.0 3-11 mmol/L Blood Urea Nitrogen 14 7-18 mg/dl Creatinine 0.94 0.60-1.20 mg/dl Est Creatinine Clear Calc Drug Dose 53.6 ml/min Estimated GFR () 72.2 Estimated GFR (Non- 62.3 BUN/Creatinine Ratio 14.7 10-20 Random Glucose 104 70-99 mg/dl Calcium Level 9.8 8.5-10.1 mg/dl Magnesium Level 2.0 1.8-2.4 mg/dl Total Bilirubin 0.2 0.2-1 mg/dl Aspartate Amino Transf (AST/SGOT) 17 15-37 U/L Alanine Aminotransferase (ALT/SGPT) 29 12-78 U/L Alkaline Phosphatase 123 45-117 U/L Troponin I < 0.015 0-0.045 ng/ml Pro-B-Type Natriuretic Peptide 428 0-900 pg/ml Total Protein 7.1 6.4-8.2 gm/dl Albumin 3.9 3.4-5.0 gm/dl Globulin 3.2 2.5-4.0 gm/dl Albumin/Globulin Ratio 1.2 0.9-2 Urine Color YELLOW Urine Appearance CLEAR CLEAR Urine pH 6.5 4.5-7.5 Urine Specific [place] 1.017 1.000-1.030 Urine Protein NEG NEG Urine Glucose (UA) NEG NEG Urine Ketones NEG NEG Urine Occult Blood NEG NEG Urine Nitrite NEG NEG Urine Bilirubin NEG NEG Urine Urobilinogen NEG NEG Urine Leukocyte Esterase NEG NEG Diagnostic Radiology FINDINGS: Lung bases: The heart is normal in size and without pericardial effusion. There is a trace right pleural effusion and bibasilar atelectasis. Liver: The unenhanced liver is normal in size, contour, and attenuation. There is no intrahepatic biliary ductal dilatation. 11 mm cyst is again noted in the inferior right lobe. Gallbladder: Unremarkable. Spleen: Normal in size and attenuation. Pancreas: Atrophic and grossly unremarkable. Adrenal glands: A 1.7 cm fat-containing lesion in the left adrenal gland is typical in appearance for a myelolipoma. The right adrenal gland is unremarkable. Kidneys: The unenhanced kidneys are atrophic and without hydronephrosis. No renal calculi are identified. There is no evidence of contour deforming mass lesion. Subcentimeter hyperdense foci in the right kidney likely represent complex/ hemorrhagic cysts. Abdominal vasculature: The abdominal aorta is normal in course and caliber noting mild to moderate atherosclerotic calcification. Bowel: There is no bowel obstruction. The appendix is not identified and reported surgically absent. Peritoneum: There is no intraperitoneal free air or abdominal ascites. There is a small fat-containing umbilical hernia. Lymphadenopathy: None. Pelvic viscera: There is a tiny focus of gas in the bladder lumen, likely related to instrumentation. The bladder is otherwise normal in appearance. The uterus is surgically absent. Right-sided ovarian cystic foci are unchanged and measure up to 2.3 cm. phleboliths are noted in the pelvis. Skeletal structures: The skeletal structures are osteopenic. No lytic or blastic lesions are seen. There is a mild compression deformity of L2, unchanged from previous. There is moderate lumbosacral spondylosis with postoperative changes from L4 -S1 spinal fusion. IMPRESSION: 1. Significantly streak and motion compromised examination. The examination is also degraded by lack of oral and IV contrast. 2. There are no acute infectious or inflammatory findings in the abdomen or pelvis. 3. A punctate focus of gas within the bladder lumen is likely related to instrumentation. Correlation with urinalysis will be required. 4. Additional findings as above. CXR normal Impression Assessment and Plan 67 yo F, recurrent UTIs, on correct outpt therapy but worsening fatigue / ambulation. Found to have hyponatremia despite DDAVP Hyponatremia - Takes DDAVP q8h - will continue next dose in AM - Serum and urine osmolalities ordered UTI - Continue Bactrim therapy Seizure disorder - Continue Keppra at home dose Ambulatory disfunction - PT / OT evals - ?May benefit from home health HTN - Continue home metoprolol & Lisinopril Hx of CVA - Continue Aspirin Code status: Full Dispo: Tele VTE: Heparin Attending Addendum: I have physically seen and examined this patient, have directed the resident's medical activities, and agree with the H&P as noted above with the following exceptions as noted. The patient is awake, alert and oriented 3, overall slow to respond to questions, well-developed and well-nourished, normocephalic and atraumatic, lying in bed and in no acute distress. HEENT--PERRL, EOMI, mucous membranes and oropharynx dry. Neck--supple, no JVD or bruits, thyroid normal, trachea midline, no adenopathy. Heart--normal S1 and S2, no extra beats, no murmurs, rubs or gallops. Lungs--decreased breath sounds at the bases bilaterally, no respiratory distress , no accessory muscle use. Abdomen--normal bowel sounds and soft, nontender and nondistended, no hernias or masses, no organomegaly. Extremities--no cyanosis, clubbing or edema. There are good distal pulses b/l. Dermatologic--normal skin turgor, normal color, warm and dry, no abnormal lymph nodes, no rash. Neurologic--cranial nerves II through XII grossly intact. Rheumatologic--normal range of motion, nontender, muscles and joints. Psychiatric--flat affect. Assessment and Plan: Hyponatremia--sodium is 130 upon admission. Hold DDAVP tonight, will be resumed in the a.m. Repeat BMP and magnesium levels in the a.m. Pulmonary-- Chest x-ray, examination, and clinical presentation suggests early pneumonia. Place on duonebs, guaifenesin extended release, and ceftriaxone 1 g IV daily Hypertension--continue metoprolol tartrate 25 mg by mouth twice a day, lisinopril 20 mg by mouth every morning and aspirin 81 mg by mouth daily. Seizure disorder-- continue Vimpat 400 mg by mouth twice a day and Keppra 2000 mg by mouth twice a day. Hyperlipidemia--continue atorvastatin 40 mg by mouth every afternoon. Right ovarian cyst 2.3 cm-- Stable compared to CT of 06/19/2017. Abnormal in this age group. Order a CA 125. Order a pelvic ultrasound. Left adrenal myolipoma 1.7 cm-stable on CT. Documented and follow repeat imaging. Right lobe Liver cyst--documented and follow with repeat imaging. L4/S1 spinal fusion / L2 compression deformity--no active symptoms. Level of Care Telemetry Advanced Directives Existing Advance Directive: No Existing Living Will: No Existing Power of Mechanical Maintenance Supervisor: No VTE Prophylaxis VTE Risk Assessment Done? Y/N: Yes Risk Level: Moderate Given or contraindicated: SCD's Social Service Consult None Apply Resident Tracking Resident Involvement: Resident Care Provided Care Provided: Adult Hospital Medicine
[2017-08-07] MEDS ORDERED: IV FLUIDS COMPLETED PRN (04:30)
[2017-08-07] MEDS: DESMOPRESSIN ACETATE 0.1 MG TAB PO SCH ×3 (06:26→21:45)
[2017-08-07 08:15] LABS: BASO % 0.1 %; BASO ABS # 0.01 K/uL (0-0.2); COMPLETE YES; EOS % 1.3 %; HEMATOCRIT 34.2 % (37-47); IG% 0.4 %; LYMPH % 28.3 %; MEAN CELL VOLUME 88.6 fL (80-100); MEAN CORPUSCULAR HEMOGLOBIN 30.3 pg (25-34); MEAN CORPUSCULAR HGB CONC 34.2 g/dl (32-36); MEAN PLATELET VOLUME 8.4 fL (7.4-10.4); MONO % 10.1 %; NEUT % 59.8 %; PLATELET COUNT 244 K/uL (130-400); RED BLOOD COUNT 3.86 M/uL (4.2-5.4); WHITE BLOOD COUNT 7.41 K/uL (4.8-10.8)
[2017-08-07] MEDS: METOPROLOL TARTRATE 25 MG TAB PO SCH ×2 (08:26→21:43)
[2017-08-07] MEDS: HEPARIN SOD 5000 UNIT/0.5 ML CARP SQ SCH ×2 (08:28→21:47)
[2017-08-07] MEDS: ASPIRIN 81 MG ECTAB PO SCH (08:28)
[2017-08-07] MEDS: LACOSAMIDE 50 MG TAB PO SCH ×2 (08:29→21:44)
[2017-08-07] MEDS: LISINOPRIL 20 MG TAB PO SCH (08:30)
[2017-08-07 08:50] LABS: BUN/CREATININE RATIO 13.5 (10-20); CALCIUM 9.9 mg/dl (8.5-10.1); CREATININE 0.8 mg/dl (0.60-1.20); POTASSIUM 4.3 mmol/L (3.5-5.1)
[2017-08-07] MEDS ORDERED: LEVETIRACETAM 500 MG TAB PO SCH ×2 (09:00→21:00)
[2017-08-07] MEDS ORDERED: LACOSAMIDE 50 MG TAB PO SCH (09:00)
[2017-08-07] MEDS ORDERED: NURSING VERBAL MED ORDER ONE (10:00)
--- NOTE | 2017-08-07 10:01 | Hospitalist Progress Note ---
Hospitalist Progress Note Date of Service Aug 07, 2017. (Amarilis Rooney PA-C) Subjective Pt evaluation today including: conversation w/ patient, conversation w/ family , physical exam, chart review, lab review, review of studies Pain: None PO Intake: Fair Voiding: no voiding problems 9:30 :The patient was seen and examined this morning. Pt reports doing well today, she feels 50% better than yesterday. Pt reports she has been participating in PT/OT 3x per week since her stroke 1 year ago. She denies any acute pain. Pt was just seen and was able to tolerate PO medications at bedside , and has eaten a few bites of toast/applesauce/fruit from breakfast. She is complaining of incontinence and that she has not had a BM since last Sunday. Reassessment at 10:45 and the pt is seen with her . She has been nauseous and vomitted thick clear with brown streaked mucous. She is not as responsive and takes loud verbal stimulation to awaken her. Her speech is minimal. Constitutional: + fatigue, No fever, No chills, No sweats Eyes: No redness, No diplopia ENT: + trouble swallowing, No nasal symptoms Respiratory: + cough, No sputum, No wheezing, No shortness of breath, No dyspnea on exertion Cardiovascular: No chest pain, No palpitations Abdomen: + constipation (last BM was on 08/03), No pain, No nausea, No vomiting, No diarrhea Female : + incontinence, No dysuria, No urinary frequency Neurologic: + weakness (old since stroke, no changes), No numbness/tingling Psychiatric: No depression symptoms, No anxiety Heme: No see HPI Skin: No rash, No itch (Amarilis Rooney PA-C) Objective Vital Signs Date Time Temp Pulse Resp B/P (MAP) Pulse Ox O2 Delivery O2 Flow Rate FiO2 08/07/17 08:25 57 112/63 (79) 08/07/17 07:27 36.4 60 20 114/67 (83) 96 Room Air 08/07/17 04:00 36.4 52 18 114/54 (74) 90 Room Air 08/07/17 04:00 Room Air 08/07/17 02:35 Room Air 08/07/17 01:44 69 124/71 96 Room Air 08/07/17 01:35 36.4 56 16 152/59 (90) 93 Room Air 08/07/17 01:00 36.5 62 18 144/71 96 08/06/17 23:41 62 18 144/71 96 Room Air 08/06/17 20:23 36.5 54 20 149/73 98 Room Air (Amarilis Rooney PA-C) Physical Exam General Appearance: WD/WN, no apparent distress, + pertinent finding (slow speaking, no slurred speech. 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 + delayed release of pulpwood dealer with left hand) Skin: normal color, warm/dry (Amarilis Rooney, [place]) Laboratory Results Last 24 Hours Test 08/06/17 21:20 08/06/17 21:45 08/07/17 08:00 White Blood Count 7.23 K/uL 7.41 K/uL Red Blood Count 4.09 M/uL 3.86 M/uL Hemoglobin 12.2 g/dL 11.7 g/dL Hematocrit 36.5 % 34.2 % Mean Corpuscular Volume 89.2 fL 88.6 fL Mean Corpuscular Hemoglobin 29.8 pg 30.3 pg Mean Corpuscular Hemoglobin Concent 33.4 g/dl 34.2 g/dl Platelet Count 257 K/uL 244 K/uL Mean Platelet Volume 8.1 fL 8.4 fL Neutrophils (%) (Auto) 58.1 % 59.8 % Lymphocytes (%) (Auto) 29.9 % 28.3 % Monocytes (%) (Auto) 10.4 % 10.1 % Eosinophils (%) (Auto) 1.1 % 1.3 % Basophils (%) (Auto) 0.1 % 0.1 % Neutrophils # (Auto) 4.20 K/uL 4.42 K/uL Lymphocytes # (Auto) 2.16 K/uL 2.10 K/uL Monocytes # (Auto) 0.75 K/uL 0.75 K/uL Eosinophils # (Auto) 0.08 K/uL 0.10 K/uL Basophils # (Auto) 0.01 K/uL 0.01 K/uL RDW Standard Deviation 43.0 fL 42.5 fL RDW Coefficient of Variation 13.2 % 13.2 % Immature Granulocyte % (Auto) 0.4 % 0.4 % Immature Granulocyte # (Auto) 0.03 K/uL 0.03 K/uL Prothrombin Time 10.5 SECONDS Prothromb Time International Ratio 1.0 Sodium Level 130 mmol/L 133 mmol/L Potassium Level 4.5 mmol/L 4.3 mmol/L Chloride Level 97 mmol/L 98 mmol/L Carbon Dioxide Level 28 mmol/L 27 mmol/L Anion Gap 5.0 mmol/L 8.0 mmol/L Blood Urea Nitrogen 14 mg/dl 11 mg/dl Creatinine 0.94 mg/dl 0.80 mg/dl Est Creatinine Clear Calc Drug Dose 53.6 ml/min 63.0 ml/min Estimated GFR () 72.2 87.8 Estimated GFR (Non- 62.3 75.8 BUN/Creatinine Ratio 14.7 13.5 Random Glucose 104 mg/dl 90 mg/dl Osmolality 277 mOsm/kg Calcium Level 9.8 mg/dl 9.9 mg/dl Magnesium Level 2.0 mg/dl Total Bilirubin 0.2 mg/dl Aspartate Amino Transf (AST/SGOT) 17 U/L Alanine Aminotransferase (ALT/SGPT) 29 U/L Alkaline Phosphatase 123 U/L Troponin I < 0.015 ng/ml Pro-B-Type Natriuretic Peptide 428 pg/ml Total Protein 7.1 gm/dl Albumin 3.9 gm/dl Globulin 3.2 gm/dl Albumin/Globulin Ratio 1.2 Urine Color YELLOW Urine Appearance CLEAR Urine pH 6.5 Urine Specific [place] 1.017 Urine Protein NEG Urine Glucose (UA) NEG Urine Ketones NEG Urine Occult Blood NEG Urine Nitrite NEG Urine Bilirubin NEG Urine Urobilinogen NEG Urine Leukocyte Esterase NEG (Amarilis Rooney PA-C) Assessment and Plan 67 yo F with PMHx of stroke, HTN, SIADH AMS - Will check CT head to assess for changes with mental status since it is waxing and waning - she sustained a fall 10 days ago, with head injury (Left temporal region), from sitting on toilet, this was unwitnessed. She did have CT of the head completed which showed no acute findings at that time. - Urine is clear. Pt had been nauseous and vomitting over the weekend due to what sounds like intolerance to Bactrim for UTI. reports needs to straight cath her 2x daily at home regularly. Currently pt is incontinent per nursing. Will order bladder scans Q4H. Pulmonary- - Chest x-ray, examination, and clinical presentation suggests early pneumonia - pt with cough, but no sputum production and on room air. Breath sounds clear. HR is stable. - Pt is sitting up at 90 degrees to prevent aspiration. Her vomitus appears like thick secretions. Will order sputum culture. - Ordered guaifenesin extended release, flutter, may consider vibration vest if mucinex doesn't improve - ceftriaxone 1 g IV daily day # 2 SIADH - Resumed desmopressin - Na+ improved to 133 this morning, watch to make sure does not increase too quickly. - Follow BMP Hypertension - Will continue metoprolol tartrate 25 mg BID, lisinopril 20 mg daily, aspirin 81 mg daily Seizure disorder- -continue Vimpat 400 mg by mouth twice a day and Keppra 2000 mg QAM and 1500 mg QPM Hyperlipidemia- -continue atorvastatin 40 mg by mouth every afternoon. Right ovarian cyst 2.3 cm-- - Checking pelvic ultrasound, Stable compared to CT of 06/19/2017. - Abnormal in this age group. 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 Documented and follow repeat imaging. Right lobe Liver cyst--documented and follow with repeat imaging. L4/S1 spinal fusion / L2 compression deformity--no active symptoms. DVT ppx: heparin subq CODE STATUS: FULL CODE Disposition: From home and lives with who was updated at bedside. (Amarilis Rooney PA-C) RAE Physician Supervision Note: I interviewed and examined the patient. Discussed with Amarilis Rooney PAC and agree with findings and plan as documented in the note. Any exceptions or clarifications are listed here: None This patient is arousable to voice but falls asleep easily does not follow commands appears in mild distress was found to have urinary retention to 1 L prior to my visit. Because of her her obtunded state she's had a CT scan of her head which shows possible normal pressure hydrocephalus, however she does not meet criteria by having urinary incontinence for a slowly progressive declineand Depakote level was low. A urine culture is pending if this is unremarkable will have neurological consultation Vital signs are stable she's protecting her airway and maintain oxygen sats baseline neurological she responds to pain she does not follow commands reflexes are present and overtly brisk heart is regular lungs are clear without wheezes Encephalopathy cautiously metabolic from urinary tract infection present on admission her initial UA was unremarkable but urinary retention is present she was initiated on Zosyn for fear of pneumonia however x-ray changes are minor and she's has no symptoms of productive cough. We'll maintain her Zosyn therapy await culture results and consider neurology consultation if no improvement Documented By: Danial Kilpatrick (Danial Kilpatrick M.D.)
--- NOTE | 2017-08-07 11:43 | DIAGNOSTIC IMAGING REPORT ---
CT HEAD WITHOUT CONTRAST (CT) CLINICAL HISTORY: Acute change in mental status COMPARISON STUDY: 03/02/2017 TECHNIQUE: Axial CT of the brain is performed from the vertex to the skull base. IV contrast was not administered for this examination. A dose lowering technique was utilized adhering to the principles of ALARA. CT DOSE: 729.78 mGycm FINDINGS: No intra or extra-axial mass lesions are visualized. There is no CT evidence of acute cortical infarction. There is no evidence of midline shift. There is no acute hemorrhage. No calvarial fractures are visualized. There is mild periventricular hypodensity. There is an old right frontal cortical infarct.. There is an old left cerebellar infarct. There is dilatation of the lateral third and fourth ventricles. Normal pressure hydrocephalus must be considered. Clinical correlation this regard is advocated. There is a small right maxillary sinus air-fluid level. IMPRESSION: 1. Ventricular dilatation, out of proportion to atrophy. Normal pressure hydrocephalus must be considered. Clinical correlation in this regard is advocated. 2. Old right frontal and left cerebellar infarcts Electronically signed by: Jaspreet Gilliam M.D. 08/07/2017 11:41 AM Dictated Date/Time: 08/07/2017 11:37 AM
[2017-08-07] MEDS ORDERED: PIPERACILL/TAZOBAC CONSULT ACTIVE PRN (12:45)
[2017-08-07] MEDS ORDERED: PIPERACILL/TAZOBAC IV 4.5 GM in DEXTROSE 5% 100ML 100 ML IV ONE (13:00)
--- NOTE | 2017-08-07 13:50 | DIAGNOSTIC IMAGING REPORT ---
PELVIC ULTRASOUND CLINICAL HISTORY: Right ovarian cyst. COMPARISON STUDY: CT of the abdomen and pelvis August 06, 2017 and January 19, 2017. TECHNIQUE: Transabdominal sonography of the pelvis was performed. Transvaginal imaging was deferred in this patient. FINDINGS: The uterus is surgically absent. The left ovary was not visualized. The right ovary measures 4.2 x 2.3 x 1.8 cm. There are clustered cysts versus septated cystic lesions within the right ovary. A possible septated lesion measures 2.3 cm. Color flow is identified within the right ovary. No free fluid was identified. IMPRESSION: 1. Clustered cysts versus a 2.3 cm septated cystic lesion within the right ovary. The findings are indeterminate and a follow-up pelvic ultrasound in 6 months to ensure stability is recommended. 2. Nonvisualization of the left ovary. 3. Status post hysterectomy. Electronically signed by: Davian Belcher M.D. 08/07/2017 1:49 PM Dictated Date/Time: 08/07/2017 1:45 PM
[2017-08-07] MEDS: PIPERACILL/TAZOBAC IV 3.375 GM in DEXTROSE 5% 100ML 100 ML IV SCH (19:25)
[2017-08-07] MEDS ORDERED: ATORVASTATIN 20 MG TAB PO SCH (21:00)
[2017-08-07] MEDS: GUAIFENESIN 600 MG TABCR PO SCH (21:45)
[2017-08-08] VITALS (12 sets, daily range): BP systolic 94–189; BP diastolic 55–91; PULSE 57–120; TEMP 36–37.1; O2SAT 95–99
[2017-08-08] MEDS: PIPERACILL/TAZOBAC IV 3.375 GM in DEXTROSE 5% 100ML 100 ML IV SCH ×3 (03:02→19:45)
[2017-08-08 05:47] LABS: BASO % 0.3 %; BASO ABS # 0.02 K/uL (0-0.2); COMPLETE YES; EOS % 2.1 %; HEMATOCRIT 31.2 % (37-47); IG% 0.3 %; LYMPH % 31.5 %; LYMPH ABS # 2.09 K/uL (1.2-3.4); MEAN CELL VOLUME 88.9 fL (80-100); MEAN CORPUSCULAR HEMOGLOBIN 30.2 pg (25-34); MEAN PLATELET VOLUME 8.1 fL (7.4-10.4); MONO % 9.9 %; NEUT % 55.9 %; PLATELET COUNT 218 K/uL (130-400); RED BLOOD COUNT 3.51 M/uL (4.2-5.4); WHITE BLOOD COUNT 6.64 K/uL (4.8-10.8)
[2017-08-08] MEDS: DESMOPRESSIN ACETATE 0.1 MG TAB PO SCH (06:00)
[2017-08-08 06:17] LABS: BUN/CREATININE RATIO 15.1 (10-20); CALCIUM 9.7 mg/dl (8.5-10.1); CREATININE 0.87 mg/dl (0.60-1.20); POTASSIUM 3.9 mmol/L (3.5-5.1)
[2017-08-08] MEDS: GUAIFENESIN 600 MG TABCR PO SCH (08:43)
[2017-08-08] MEDS: LACOSAMIDE 50 MG TAB PO SCH (08:44)
[2017-08-08] MEDS: HEPARIN SOD 5000 UNIT/0.5 ML CARP SQ SCH ×2 (08:55→20:31)
[2017-08-08] MEDS ORDERED: LEVETIRACETAM IV 2,000 MG in DEXTROSE 5% 250ML 250 ML IV SCH (09:00)
[2017-08-08] MEDS ORDERED: LEVETIRACETAM 500 MG TAB PO SCH (09:00)
[2017-08-08] MEDS: ASPIRIN 81 MG ECTAB PO SCH (09:11)
[2017-08-08] MEDS: LISINOPRIL 20 MG TAB PO SCH (09:11)
[2017-08-08] MEDS: METOPROLOL TARTRATE 25 MG TAB PO SCH ×2 (09:11→19:56)
[2017-08-08] MEDS: ONDANSETRON INJ 8 MG in DEXTROSE 5% 50ML 50 ML IV PRN (10:08)
[2017-08-08] MEDS ORDERED: PROMETHAZINE HCL INJ 25 MG in SODIUM CHLORIDE 0.9% 50ML 50 ML IV STA (10:32)
[2017-08-08] MEDS ORDERED: NURSING VERBAL MED ORDER ONE (10:45)
[2017-08-08] MEDS ORDERED: PROMETHAZINE HCL INJ 12.5 MG in SODIUM CHLORIDE 0.9% 50ML 50 ML IV PRN (10:45)
[2017-08-08] MEDS ORDERED: ACETAMINOPHEN IV 650 MG in EMPTY BAG 0 ML IV PRN (10:45)
[2017-08-08] MEDS ORDERED: PROMETHAZINE HCL INJ 25 MG in SODIUM CHLORIDE 0.9% 50ML 50 ML IV ONE (10:45)
--- NOTE | 2017-08-08 11:05 | Hospitalist Progress Note ---
Hospitalist Progress Note Date of Service Aug 08, 2017. (Amarilis Rooney PA-C) Subjective Pt evaluation today including: conversation w/ patient, conversation w/ family , physical exam, chart review, lab review, review of studies The patient was seen and examined this morning. Pt was seen at bedside with her . She is actively vomiting thick secretions and appears uncomfortable. The patient was able to take her medications morning along with small amount of breakfast but has been nauseous since then. This is very similar to what happened yesterday. She denies any other acute complaints other than feeling extremely nauseous and just ill overall. No fevers, sweats, chills. She has thick sputum production and increased in quantity since starting mucinex per her . Additional Comments: Constitutional: No fever, sweats or chills Eyes: No diplopia, no worsening or blurred vision ENT: normal hearing, no trouble swallowing Respiratory: + cough, thick sputum production and increased in quantity since starting mucinex, no dyspnea at rest or on exertion Cardiovascular: No chest pain, tightness or palpitations Abdomen: No pain, nausea, vomiting, diarrhea or constipation Musculoskeletal: No joint pain, calf pain, swelling (Amarilis Rooney PA-C) Objective Vital Signs Date Time Temp Pulse Resp B/P (MAP) Pulse Ox O2 Delivery O2 Flow Rate FiO2 08/08/17 09:56 36.5 74 18 145/73 (97) 95 Room Air 08/08/17 09:39 36.4 120 18 179/74 (109) 95 Room Air 08/08/17 08:00 Room Air 08/08/17 07:16 36.7 64 18 100/61 (74) 96 08/08/17 04:04 36.0 63 18 128/75 (92) 98 Room Air 08/08/17 04:00 96 Room Air 08/08/17 00:03 36.7 57 18 94/55 (68) 96 Room Air 08/08/17 00:00 96 Room Air 08/07/17 20:03 96 Room Air 08/07/17 19:18 36.9 89 20 103/62 (76) 96 Room Air 08/07/17 16:00 Room Air 08/07/17 15:26 36.3 82 16 121/68 (85) 92 Room Air 08/07/17 12:00 Room Air 08/07/17 11:25 96 Room Air 08/07/17 11:07 36.8 63 20 120/71 (87) 96 Room Air (Amarilis Rooney PA-C) Physical Exam General Appearance: WD/WN, + moderate distress Eyes: PERRL, EOMI ENT: hearing grossly normal, pharynx normal Neck: supple, no JVD Respiratory/Chest: lungs clear, normal breath sounds, no accessory muscle use Cardiovascular: no murmur, + tachycardia (regular rhythm) Abdomen: normal bowel sounds, non tender, soft Extremities: non-tender, no pedal edema, no calf tenderness Neurologic/Psychiatric: alert (Amarilis Rooney PA-C) Laboratory Results Last 24 Hours Test 08/07/17 11:05 08/07/17 14:55 08/08/17 05:28 Valproic Acid (Depakene) Level 5 mcg/ml Urine Osmolality 458 mOms/kg White Blood Count 6.64 K/uL Red Blood Count 3.51 M/uL Hemoglobin 10.6 g/dL Hematocrit 31.2 % Mean Corpuscular Volume 88.9 fL Mean Corpuscular Hemoglobin 30.2 pg Mean Corpuscular Hemoglobin Concent 34.0 g/dl Platelet Count 218 K/uL Mean Platelet Volume 8.1 fL Neutrophils (%) (Auto) 55.9 % Lymphocytes (%) (Auto) 31.5 % Monocytes (%) (Auto) 9.9 % Eosinophils (%) (Auto) 2.1 % Basophils (%) (Auto) 0.3 % Neutrophils # (Auto) 3.71 K/uL Lymphocytes # (Auto) 2.09 K/uL Monocytes # (Auto) 0.66 K/uL Eosinophils # (Auto) 0.14 K/uL Basophils # (Auto) 0.02 K/uL RDW Standard Deviation 43.4 fL RDW Coefficient of Variation 13.4 % Immature Granulocyte % (Auto) 0.3 % Immature Granulocyte # (Auto) 0.02 K/uL Sodium Level 128 mmol/L Potassium Level 3.9 mmol/L Chloride Level 95 mmol/L Carbon Dioxide Level 28 mmol/L Anion Gap 5.0 mmol/L Blood Urea Nitrogen 13 mg/dl Creatinine 0.87 mg/dl Est Creatinine Clear Calc Drug Dose 57.9 ml/min Estimated GFR () 79.3 Estimated GFR (Non- 68.5 BUN/Creatinine Ratio 15.1 Random Glucose 86 mg/dl Calcium Level 9.7 mg/dl (Amarilis Rooney, PEPE) Assessment and Plan 67 yo F with PMHx of stroke, HTN, SIADH - Pt had episode of minimal responsiveness around 11:20 am after I had initially seen her. She was able to open her eyes after speaking with her and withdrew to a sternal rub. Neurology consulted and I spoke with Dr. Garcia as the pt follows with [facility] as an outpatient, they will see the patient this afternoon. Checked 12 lead EKG which showed sinus tachycardia with old RBBB. No signs of ischemia. O2 via NC ordered. Ordered second IV site placement. Stat CT head to repeat. She was withdrawing to pain and had moments of clenching her fists and bringing them toward her chest, and bending over at the waist to her right. Lasted approximately 2 minutes. She was able to open her eyes on command after a few moments. No post ictal phase. I ordered Ativan 1.0 mg for seizure with subtherapeutic levels of keppra and have transferred the pt to PCU for closer monitoring. AMS Normal Pressure Hydrocephalus? Subclinical seizure activity? - Mental status since it is waxing and waning - she sustained a fall 10 days ago, with head injury (Left temporal region), from sitting on toilet, this was unwitnessed. She did have CT of the head completed which showed no acute findings at that time. - CT head repeated 08/07 IMPRESSION: 1. Ventricular dilatation, out of proportion to atrophy. Normal pressure hydrocephalus must be considered. Clinical correlation in this regard is advocated. 2. Old right frontal and left cerebellar infarcts - Will consult neurology to assess for subclinical seizure activity with subtherapeutic keppra levels. - Have changed seizure meds to IV for now with multiple days of nausea and vomiting Urinary Retention - Initial UA was clear, but checking culture. - Continue bladder scans Q4H and straight cath for urine > 450 mL - Checking UA and Urine culture for possible UTI. Continue zosyn for now. Pulmonary- - Chest x-ray, examination, and clinical presentation suggests early pneumonia - sputum production has increased with mucinex overnight and she is becoming more nauseous, vomiting these thick secretions. - Pt is sitting up at 90 degrees to prevent aspiration. Her vomitus appears like thick secretions again today. Will order sputum culture. - Change to NPO and convert all meds to IV. - Hold guaifenesin extended release. Continue flutter, may consider vibration vest if mucinex doesn't improve - Now on zosyn, day #2, had 2 days of ceftriaxone prior to this. SIADH - Resumed desmopressin - Na+ 128 this morning - converted desmopressin to IV. - Follow BMP Hypertension - Will convert to IV meds. Continue metoprolol tartrate 25 mg BI, hold lisinopril 20 mg daily, continue aspirin 81 mg daily suppository. Seizure disorder- -continue Vimpat 400 mg IV BID and Keppra 2000 mg QAM and 1500 mg QPM IV Hyperlipidemia- -Hold atorvastatin 40 mg PO for now. Right ovarian cyst 2.3 cm-- - Checking pelvic ultrasound, Stable compared to CT of 06/19/2017. - Abnormal in this age group. 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 Documented and follow repeat imaging. Right lobe Liver cyst--documented and follow with repeat imaging. L4/S1 spinal fusion / L2 compression deformity--no active symptoms. DVT ppx: heparin subq CODE STATUS: FULL CODE Disposition: From home and lives with who was updated at [facility], transfer to PCU for closer monitoring. (Amarilis Rooney, PEPE) PA Physician Supervision Note: I interviewed and examined the patient. Discussed with Amarilis Rooney PAC and agree with findings and plan as documented in the note. Any exceptions or clarifications are listed here: None This patient is extremely vent today where she became nauseous and vomited and became unresponsive. Patient was vomiting mucus in the liquid gastric secretions. When she became unresponsive and it was unclear of the reason why she does have a history of seizures and due to start this recent gastrointestinal illness has not been her antiepileptic medications and her medicines of proven to have low levels. We subsequently have performed a chest x-ray repeat CT of her head and consulted neurology which has ordered an EEG if converted her medications to intravenous form Despite being unresponsive her vitals are stable including hypoxia this is not present however she does have gurgling respirations consistent with some fluid above her vocal cords. She is in no respiratory distress however her car exam is regular lungs have decreased breath of the bases with some mild crackles at the right with concern for aspiration Acute encephalopathy with concern for seizures, vomiting with concern for possible laceration plan the patient was given Ativan 1 mg EEG will be undertaken by neurology with consideration of increasing or at least keeping her antiepileptic doses persistent bleeding therapeutic Possible aspiration pneumonia concerned that this may have been present on admission her antibiotics were changed to Zosyn therapy This patient kept him nothing by mouth at this time Documented By: Danial Kilpatrick (Danial Kilpatrick M.D.)
[2017-08-08] MEDS: LACOSAMIDE IV SCH ×2 (11:41→20:22)
[2017-08-08] MEDS: SODIUM CHLORIDE 0.9% IV SCH ×2 (11:41→20:22)
[2017-08-08] MEDS ORDERED: LORAZEPAM INJ 1 MG in SYRINGE 0.5 ML IV ONE (11:45)
[2017-08-08] MEDS: DESMOPRESSIN ACETATE INJ 1 MCG in SODIUM CHLORIDE 0.9% 50ML 50 ML IV SCH ×2 (12:19→19:43)
--- NOTE | 2017-08-08 12:25 | DIAGNOSTIC IMAGING REPORT ---
SINGLE VIEW CHEST CLINICAL HISTORY: Aspiration. Nausea and vomiting. FINDINGS: An AP, portable, upright chest radiograph is compared to study dated 08/06/2017. The examination is degraded by portable technique and patient rotation. The heart is top normal for projection. Chronic interstitial thickening is unchanged. Right basilar airspace opacities are most completely resolved and there are only faint residual left basilar airspace opacities as compared to 08/06/2017. No large pleural effusion or pneumothorax is seen. The skeletal structures are osteopenic. The bony thorax is grossly intact. IMPRESSION: 1. There are only faint residual left basilar airspace opacity as compared to 08/06/2017. This could present a resolving pneumonitis versus improved atelectasis. 2. Airspace opacities previously seen at the right lung base have resolved. Electronically signed by: Julio Mojica M.D. 08/08/2017 12:24 PM Dictated Date/Time: 08/08/2017 12:21 PM
--- NOTE | 2017-08-08 13:50 | DIAGNOSTIC IMAGING REPORT ---
HEAD WITHOUT CONTRAST (CT) CT DOSE: 537.48 mGy.cm HISTORY: Mental status change seizure activity, altered mental status TECHNIQUE: Multiaxial CT images of the head were performed without the use of intravenous contrast. A dose lowering technique was utilized adhering to the principles of ALARA. Comparison: 08/07/2017 Findings: The paranasal sinuses and mastoid air cells are clear. Old left cerebellar infarct unchanged. Old right frontal infarct also unchanged. Unchanging ventricular prominence again raise the possibility of normal pressure hydrocephalus. No acute intracranial hemorrhage. No midline shift. Impression: 1. Unchanged exam from the prior study. 2. Old left cerebellar and right frontal infarct. 3. Stable unchanging ventricular prominence The above report was generated using voice recognition software. It may contain grammatical, syntax or spelling errors. Electronically signed by: Tyler Herbert M.D. 08/08/2017 1:49 PM Dictated Date/Time: 08/08/2017 1:45 PM
--- NOTE | 2017-08-08 16:39 | Neurology Consultation ---
Neurology Consultation Date of Consultation: Aug 08, 2017. Attending Physician: Danial Kilpatrick M.D. Primary Care Physician: Marek Pittman M.D. Reason for Consultation: seizure NPH History of Present Illness Source: patient, hospital records Adia is a 67 year old female with seizure disorder which developed after a stroke, SIADH for which she is on desmopressin, and frequent UTIs who presents with altered mental status. She was started on Bactrim for a UTI on Sunday ( cultures show it is pansensitive). Earlier today, her reports when she woke up she was "out of it" and was not communicating as well. He struggled to get her into the car for physical therapy. At PT, she cooperated with activities but did not do as many as usual. When he got her out of the car to get back home, her legs gave way and she fell to the floor. She did not hit her head or lose consciousness. He was concerned so brought her to the ED. En route , she vomited once. In the ED, she was laying flat so had lots of congestion, which she could not swallow, and that made her gag and throw up. She has not thrown up since. She had another seizure and was transferred to 207 for further observation. An EEG was being done in the room. She has been seen in our office for seizure disorder and was being weaned off of Keppra to Vimpat due to behavior issues and mood problems on the Keppra. She is currently laying in the bed on her right side and not opening her eye to command. Past Medical/Surgical History Medical Problems: (1) Altered mental status Status: Acute (2) Constipation Status: Acute (3) Facial laceration Status: Acute (4) Fall from other slipping, tripping, or stumbling Status: Acute (5) Generalized weakness Status: Acute (6) Hypokalemia Status: Acute (7) Lower abdominal pain Status: Acute (8) Nausea & vomiting Status: Acute (9) Pneumonia Status: Acute (10) Pneumonia Status: Acute (11) UTI (urinary tract infection) Status: Acute (12) UTI (urinary tract infection) Status: Acute Social History Smokeless Tobacco Use: No Alcohol Use: none Drug Use: none Marital Status: Occupation Status: unemployed Allergies Coded Allergies: Amlodipine (Unverified Allergy, Unknown, leg swelling, red, and itchy, 06/19) Clarithromycin (Verified Allergy, Unknown, UNKNOWN, 03/02/17) Codeine (Verified Allergy, Unknown, UNKNOWN, 03/02/17) Doxycycline (Verified Allergy, Unknown, UNKNOWN, 03/02/17) Oxycodone (Verified Adverse Reaction, Unknown, UPSET STOMACH, 03/02/17) Current Inpatient Medications Current Inpatient Medications Medications (Trade) Dose Ordered Sig/[place] Route Start Time Stop Time Status Last Admin Dose Admin Heparin Sodium (Porcine) (Heparin Sq 5000 Unit/0.5ml) 5,000 unit Q12 SQ 08/07/17 09:00 09/06/17 08:59 08/08/17 08:55 5,000 UNIT Al Hydrox/Mg Hydrox/Simethicone (Maalox Max Susp) 15 ml Q4H PRN PO 08/07/17 00:30 09/06/17 00:29 Magnesium Hydroxide (Milk Of Magnesia Susp) 30 ml Q12H PRN PO 08/07/17 00:30 09/06/17 00:29 Polyethylene (Miralax Powder Packet) 17 gm DAILY PRN PO 08/07/17 00:30 09/06/17 00:29 Aspirin (Ecotrin Tab) 81 mg DAILY PO 08/07/17 09:00 09/06/17 08:59 Future Hold 08/08/17 09:11 81 MG Atorvastatin Calcium (Lipitor Tab) 40 mg QPM PO 08/07/17 21:00 09/06/17 20:59 Future Hold Lisinopril (Zestril Tab) 20 mg QAM PO 08/07/17 09:00 09/06/17 08:59 Future Hold 08/08/17 09:11 20 MG Metoprolol Tartrate (Lopressor Tab) 25 mg BID PO 08/07/17 09:00 09/06/17 08:59 08/08/17 09:11 25 MG Miscellaneous (Iv Fluids Completed) 1 ea PRN PRN N/A 08/07/17 04:30 08/07/18 04:29 Ondansetron HCl 8 mg/Dextrose 54 ml @ 200 mls/hr Q6H PRN IV 08/07/17 10:00 09/06/17 09:59 08/08/17 10:08 200 MLS/HR Piperacillin Sod/ Tazobactam Sod (Consult) 1 ea UD PRN N/A 08/07/17 12:45 09/06/17 12:44 Piperacillin Sod/ Tazobactam Sod 3.375 gm/Dextrose 115 ml @ 28.75 mls/ hr Q8H IV 08/07/17 19:30 08/14/17 11:59 08/08/17 11:58 28.75 MLS/HR Levetiracetam 1500 mg/Dextrose 115 ml @ 440 mls/hr QPM IV 08/08/17 21:00 09/07/17 20:59 Levetiracetam 2000 mg/Dextrose 270 ml @ 999 mls/hr QAM IV 08/09/17 09:00 09/08/17 08:59 Lacosamide 400 mg/ Sodium Chloride 90 ml @ 180 mls/hr Q12 IV 08/08/17 11:00 09/07/17 10:59 08/08/17 11:41 180 MLS/HR Promethazine HCl 12.5 mg/Sodium Chloride 50.5 ml @ 204 mls/hr Q6H PRN IV 08/08/17 10:45 09/07/17 10:44 Acetaminophen 650 mg/Empty Bag 65 ml @ 260 mls/hr Q6H PRN IV 08/08/17 10:45 09/07/17 10:44 Desmopressin Acetate 1 mcg/ Sodium Chloride 50.25 ml @ 100 mls/hr Q8H IV 08/08/17 12:00 09/07/17 11:59 08/08/17 12:19 100 MLS/HR Metoprolol Tartrate (Lopressor Iv) 5 mg Q4 PRN IV 08/08/17 10:45 09/07/17 10:44 Aspirin (Aspirin Supp) 300 mg DAILY DC 08/09/17 09:00 09/08/17 08:59 Physical Exam Vital Signs (Past 24 Hrs): Date Time Temp Pulse Resp B/P (MAP) Pulse Ox O2 Delivery O2 Flow Rate FiO2 08/08/17 12:00 Room Air 08/08/17 11:26 36.6 63 20 153/76 (101) 99 99 08/08/17 09:56 36.5 74 18 145/73 (97) 95 Room Air 08/08/17 09:39 36.4 120 18 179/74 (109) 95 Room Air 08/08/17 08:00 Room Air 08/08/17 07:16 36.7 64 18 100/61 (74) 96 08/08/17 04:04 36.0 63 18 128/75 (92) 98 Room Air 08/08/17 04:00 96 Room Air 08/08/17 00:03 36.7 57 18 94/55 (68) 96 Room Air 08/08/17 00:00 96 Room Air 08/07/17 20:03 96 Room Air 08/07/17 19:18 36.9 89 20 103/62 (76) 96 Room Air Gen: somnolent lungs CTA CV RRR moves arms and legs with stimulation appears to be trying to open her eyes but does not holds eye closed when trying to open them Laboratory Results Past 24 Hours: 08/08/17 05:28 Red Blood Count 3.51, Mean Corpuscular Volume 88.9, Mean Corpuscular Hemoglobin 30.2, Mean Corpuscular Hemoglobin Concent 34.0, Mean Platelet Volume 8.1, Neutrophils (%) (Auto) 55.9, Lymphocytes (%) (Auto) 31.5, Monocytes (%) (Auto) 9.9, Eosinophils (%) (Auto) 2.1, Basophils (%) (Auto) 0.3, Neutrophils # (Auto) 3.71, Lymphocytes # (Auto) 2.09, Monocytes # (Auto) 0.66, Eosinophils # (Auto) 0.14, Basophils # (Auto) 0.02 08/08/17 05:28 Test 08/08/17 05:28 White Blood Count 6.64 K/uL (4.8-10.8) Red Blood Count 3.51 M/uL (4.2-5.4) Hemoglobin 10.6 g/dL (12.0-16.0) Hematocrit 31.2 % (37-47) Mean Corpuscular Volume 88.9 fL (80-100) Mean Corpuscular Hemoglobin 30.2 pg (25-34) Mean Corpuscular Hemoglobin Concent 34.0 g/dl (32-36) Platelet Count 218 K/uL (130-400) Mean Platelet Volume 8.1 fL (7.4-10.4) Neutrophils (%) (Auto) 55.9 % Lymphocytes (%) (Auto) 31.5 % Monocytes (%) (Auto) 9.9 % Eosinophils (%) (Auto) 2.1 % Basophils (%) (Auto) 0.3 % Neutrophils # (Auto) 3.71 K/uL (1.4-6.5) Lymphocytes # (Auto) 2.09 K/uL (1.2-3.4) Monocytes # (Auto) 0.66 K/uL (0.11-0.59) Eosinophils # (Auto) 0.14 K/uL (0-0.5) Basophils # (Auto) 0.02 K/uL (0-0.2) RDW Standard Deviation 43.4 fL (36.4-46.3) RDW Coefficient of Variation 13.4 % (11.5-14.5) Immature Granulocyte % (Auto) 0.3 % Immature Granulocyte # (Auto) 0.02 K/uL (0.00-0.02) Anion Gap 5.0 mmol/L (3-11) Est Creatinine Clear Calc Drug Dose 57.9 ml/min Estimated GFR () 79.3 Estimated GFR (Non- 68.5 BUN/Creatinine Ratio 15.1 (10-20) Calcium Level 9.7 mg/dl (8.5-10.1) Imaging CT head- Unchanged exam from the prior study. Old left cerebellar and right frontal infarct. Stable unchanging ventricular prominence Impression 67 year old female history of seizure disorder Plan 1. continue Keppra 2000mg am and 1500 mg pm for now 2. continue Vimpat 400 mg am 400 mg pm for now 3. valproic acid level mistaken drawn patient was not on 5L 4. will order a Keppra level 5. likely septic picture with MS change 6. seizure precautions 7. continue to treat metabolic issues that are reversible 8. CT head- stable ventriculomegaly compared to 05/2017 in [facility] system 9. will continue to follow I have seen and discussed above patient with Dr Christopher Garcia, neurology Reviewed patient seen and discussed with Iris Victoria and the patient' s This is likely a waxing and waning toxic encephalopathy secondary to an infectious process the Keppra level is actually a depakote level and is low due to the simple fact that she is not on this as an anticonvulsant and her electrolytes are oujt of balance contributing further to her delerium. would continue the iv vimpat and keppra check keppra level ( will be delayed for about a week ) check eeg to evaluate for nonconvulsive status and ignore the ct which is stable from opd studies and is not nph Christopher Garcia MD
[2017-08-08] MEDS: METOPROLOL TARTRATE 1 MG/ML VIAL IV PRN (20:05)
[2017-08-08] MEDS: LEVETIRACETAM IV 1,500 MG in DEXTROSE 5% 100ML 100 ML IV SCH (20:27)
[2017-08-09] VITALS (9 sets, daily range): BP systolic 140–190; BP diastolic 68–99; PULSE 63–96; TEMP 36.3–37.1; O2SAT 91–100
[2017-08-09] MEDS: DESMOPRESSIN ACETATE INJ 1 MCG in SODIUM CHLORIDE 0.9% 50ML 50 ML IV SCH ×3 (04:00→19:58)
[2017-08-09] MEDS: PIPERACILL/TAZOBAC IV 3.375 GM in DEXTROSE 5% 100ML 100 ML IV SCH ×3 (05:46→19:57)
[2017-08-09 08:20] LABS: BASO % 0.2 %; BASO ABS # 0.01 K/uL (0-0.2); COMPLETE YES; EOS % 0.8 %; IG% 0.3 %; LYMPH % 16.9 %; LYMPH ABS # 1.11 K/uL (1.2-3.4); MEAN CORPUSCULAR HEMOGLOBIN 29.9 pg (25-34); MEAN CORPUSCULAR HGB CONC 34.4 g/dl (32-36); MEAN PLATELET VOLUME 8.2 fL (7.4-10.4); MONO % 6.6 %; NEUT % 75.2 %; PLATELET COUNT 252 K/uL (130-400); RED BLOOD COUNT 3.91 M/uL (4.2-5.4); WHITE BLOOD COUNT 6.56 K/uL (4.8-10.8)
--- NOTE | 2017-08-09 08:44 | Hospitalist Progress Note ---
Hospitalist Progress Note Date of Service Aug 09, 2017. (Amarilis Rooney PA-C) Subjective Pt evaluation today including: conversation w/ patient, physical exam, chart review, lab review, review of studies The patient was seen and examined this morning. Pt reports feeling better but still nauseated. She is able to converse with me and remembers her being here yesterday. She does not feel much better than yesterday. She is able to tell me shes in [facility] and also recognizes me but she thought it was 1976. Constitutional: No fever, No chills, No sweats ENT: No nasal symptoms, No trouble swallowing Respiratory: + cough, + sputum, No wheezing, No shortness of breath, No dyspnea on exertion Cardiovascular: No chest pain, No palpitations Abdomen: + nausea, No pain, No vomiting, No diarrhea, No constipation Musculoskeletal: No joint pain, No muscle pain, No swelling (Amarilis Rooney PA-C) Objective Vital Signs Date Time Temp Pulse Resp B/P (MAP) Pulse Ox O2 Delivery O2 Flow Rate FiO2 08/09/17 06:57 36.8 72 14 148/99 (115) 97 Room Air 08/09/17 04:52 Room Air 08/09/17 04:50 36.3 87 18 170/77 (108) 91 Room Air 08/09/17 00:42 Room Air 08/08/17 23:03 36.0 91 19 162/87 (112) 95 Room Air 08/08/17 20:08 152/83 (106) 08/08/17 20:06 37.1 96 22 189/91 (123) 95 Room Air 08/08/17 20:05 91 189/93 08/08/17 20:00 Room Air 08/08/17 16:00 Room Air 08/08/17 16:00 36.2 85 124/76 (92) 96 Room Air 08/08/17 12:00 Room Air 08/08/17 11:26 36.6 63 20 153/76 (101) 99 99 08/08/17 09:56 36.5 74 18 145/73 (97) 95 Room Air 08/08/17 09:39 36.4 120 18 179/74 (109) 95 Room Air (FilipAmarilis figueredo PA-C) Physical Exam Notes: General Appearance: WD/WN, NAD Eyes: PERRL, EOMI ENT: hearing grossly normal, pharynx normal Neck: supple, no JVD Respiratory/Chest: lungs clear but diminished at bases, no accessory muscle use Cardiovascular: no murmur, NSR Abdomen: normal bowel sounds, non tender, soft Extremities: non-tender, no pedal edema, no calf tenderness Neurologic/Psychiatric: alert, awake and talking to me, oriented to place but not date or year. She recognizes me appropriately as I am to one of her neighbors children. (Amarilis Rooney PA-C) Laboratory Results Last 24 Hours Test 08/08/17 17:43 08/09/17 08:06 White Blood Count 6.56 K/uL Red Blood Count 3.91 M/uL Hemoglobin 11.7 g/dL Hematocrit 34.0 % Mean Corpuscular Volume 87.0 fL Mean Corpuscular Hemoglobin 29.9 pg Mean Corpuscular Hemoglobin Concent 34.4 g/dl Platelet Count 252 K/uL Mean Platelet Volume 8.2 fL Neutrophils (%) (Auto) 75.2 % Lymphocytes (%) (Auto) 16.9 % Monocytes (%) (Auto) 6.6 % Eosinophils (%) (Auto) 0.8 % Basophils (%) (Auto) 0.2 % Neutrophils # (Auto) 4.94 K/uL Lymphocytes # (Auto) 1.11 K/uL Monocytes # (Auto) 0.43 K/uL Eosinophils # (Auto) 0.05 K/uL Basophils # (Auto) 0.01 K/uL RDW Standard Deviation 40.9 fL RDW Coefficient of Variation 12.7 % Immature Granulocyte % (Auto) 0.3 % Immature Granulocyte # (Auto) 0.02 K/uL (Amarilis Rooney PA-C) Assessment and Plan 67 yo F with PMHx of stroke, HTN, SIADH AMS Subclinical seizure activity? - Mental status since it is waxing and waning - she sustained a fall 10 days ago, with head injury (Left temporal region), from sitting on toilet, this was unwitnessed. She did have CT of the head completed which showed no acute findings at that time. - CT head on 08/06 and 08/07 showing ventriculomegaly and old right frontal and left cerebellar infarcts - this is stable per neurology with comparison to prior studies. No need for treatment at this time. - EEG ordered, await results. - Appreciate recs. - Follow keppra and vimpat levels - Continue IV seizure meds for now with multiple days of nausea and vomiting Urinary Retention - Initial UA was clear, urine culture in process with NGTD - Continue bladder scans Q4H and straight cath for urine > 450 mL - Checking UA and Urine culture for possible UTI. Continue zosyn for now. Pulmonary- - CXR showing questionable pneumonia - Still with thick secretions again today. Follow sputum culture. Aspiration precautions. - Change to NPO and convert all meds to IV. - Hold guaifenesin extended release. Continue flutter, may consider vibration vest if mucinex doesn't improve - Now on zosyn, day #3, had 2 days of ceftriaxone prior to this. SIADH - Resumed desmopressin - Na+ 126 this morning - converted desmopressin to IV. Fluid restrict and check urine osmo. - Follow BMP Hypertension - Will convert to IV meds. Continue metoprolol tartrate 25 mg BI, hold lisinopril 20 mg daily, continue aspirin 300 mg daily suppository. Seizure disorder- -continue Vimpat 400 mg IV BID and Keppra 2000 mg QAM and 1500 mg QPM IV Hyperlipidemia- -Hold atorvastatin 40 mg PO for now. Right ovarian cyst 2.3 cm-- - Checking pelvic ultrasound, Stable compared to CT of 06/19/2017. - Should have outpatient pelvic US in 6 months for follow up. - Abnormal in this age group. 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 Documented and follow repeat imaging. Right lobe Liver cyst--documented and follow with repeat imaging. L4/S1 spinal fusion / L2 compression deformity--no active symptoms. DVT ppx: heparin subq CODE STATUS: FULL CODE Disposition: From home and lives with , continue PCU for closer monitoring. (Amarilis Rooney PA-C) RAE Physician Supervision Note: I interviewed and examined the patient. Discussed with Amarilis Rooney PAC and agree with findings and plan as documented in the note. Any exceptions or clarifications are listed here: None Patient is a waxing and waning mental status seemingly better the morning worsening afternoon they're some consideration whether this could be due to her Keppra dose neurology is following and they may plan on gentle being to see as her EEG did not support any persistent epilepsy focus considerations for metabolic encephalopathy are likely based on a pulmonary source if any although the patient initially had some vomiting and coughing has had none since and likewise no fevers. She is continuing on Zosyn therapy urinalysis was unremarkable Her vital signs showed no fever neurologically she varies from being awake and interactive with responsiveness to less responsiveness in the afternoon her cardiac exam is regular lungs have some basilar crackles from poor / decreased effort her abdomen is normoactive bowel sounds and soft Encephalopathy of undetermined significance the patient a previous brain injury surrounding this CSF leak, the patient has abnormal CT scan which is consistent imaging with possible normal pressure hydrocephalus however she has had urinary retention during her stay Neurology is helping to determine if he should reduce or change her antiepileptic medications we'll continue treating her possible metabolic encephalopathy due to infection with Zosyn and provide supportive care with concern for aspiration risk Documented By: Danial Kilpatrick (Danial Kilpatrick M.D.)
[2017-08-09 08:53] LABS: BUN/CREATININE RATIO 13.8 (10-20); CALCIUM 9.6 mg/dl (8.5-10.1); CREATININE 0.66 mg/dl (0.60-1.20); POTASSIUM 3.9 mmol/L (3.5-5.1)
[2017-08-09] MEDS: LEVETIRACETAM IV 2,000 MG in DEXTROSE 5% 250ML 250 ML IV SCH (11:07)
[2017-08-09] MEDS: LACOSAMIDE IV SCH ×2 (11:08→20:52)
[2017-08-09] MEDS: SODIUM CHLORIDE 0.9% IV SCH ×2 (11:08→20:52)
[2017-08-09] MEDS: METOPROLOL TARTRATE 25 MG TAB PO SCH ×2 (11:08→19:58)
[2017-08-09] MEDS: ASPIRIN 300 MG SUPP PR SCH (11:09)
[2017-08-09] MEDS: HEPARIN SOD 5000 UNIT/0.5 ML CARP SQ SCH ×2 (11:10→20:00)
--- NOTE | 2017-08-09 15:21 | Neurology Progress Notes ---
Neurology Progress Note Date of Service Aug 09, 2017. 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 She was started on Bactrim for a UTI on Sunday ( cultures show it is pansensitive). Earlier today, her reports when she woke up she was "out of it" and was not communicating as well. He struggled to get her into the car for physical therapy. At PT, she cooperated with activities but did not do as many as usual. When he got her out of the car to get back home, her legs gave way and she fell to the floor. She did not hit her head or lose consciousness. He was concerned so brought her to the ED. En route , she vomited once. In the ED, she was laying flat so had lots of congestion, which she could not swallow, and that made her gag and throw up. She has not thrown up since. She had another seizure and was transferred to 207 for further observation. An EEG was being done in the room. She has been seen in our office for seizure disorder and was being weaned off of Keppra to Vimpat due to behavior issues and mood problems on the Keppra. She is currently laying in the bed on her right side and not opening her eye to command. Today her is bedside and states she was sitting up this am taking to the hospitalist. She is more alert today but not back to baseline Objective Date Time Temp Pulse Resp B/P (MAP) Pulse Ox O2 Delivery O2 Flow Rate FiO2 08/09/17 13:10 Room Air 08/09/17 12:00 Room Air 08/09/17 10:16 36.6 72 15 140/82 (101) 97 Room Air 08/09/17 08:00 Room Air 08/09/17 06:57 36.8 72 14 148/99 (115) 97 Room Air 08/09/17 04:52 Room Air 08/09/17 04:50 36.3 87 18 170/77 (108) 91 Room Air 08/09/17 00:42 Room Air 08/08/17 23:03 36.0 91 19 162/87 (112) 95 Room Air 08/08/17 20:08 152/83 (106) 08/08/17 20:06 37.1 96 22 189/91 (123) 95 Room Air 08/08/17 20:05 91 189/93 08/08/17 20:00 Room Air 08/08/17 16:00 Room Air 08/08/17 16:00 36.2 85 124/76 (92) 96 Room Air Last 24 Hours Test 08/08/17 17:43 08/09/17 08:06 08/09/17 08:54 White Blood Count 6.56 K/uL Red Blood Count 3.91 M/uL Hemoglobin 11.7 g/dL Hematocrit 34.0 % Mean Corpuscular Volume 87.0 fL Mean Corpuscular Hemoglobin 29.9 pg Mean Corpuscular Hemoglobin Concent 34.4 g/dl Platelet Count 252 K/uL Mean Platelet Volume 8.2 fL Neutrophils (%) (Auto) 75.2 % Lymphocytes (%) (Auto) 16.9 % Monocytes (%) (Auto) 6.6 % Eosinophils (%) (Auto) 0.8 % Basophils (%) (Auto) 0.2 % Neutrophils # (Auto) 4.94 K/uL Lymphocytes # (Auto) 1.11 K/uL Monocytes # (Auto) 0.43 K/uL Eosinophils # (Auto) 0.05 K/uL Basophils # (Auto) 0.01 K/uL RDW Standard Deviation 40.9 fL RDW Coefficient of Variation 12.7 % Immature Granulocyte % (Auto) 0.3 % Immature Granulocyte # (Auto) 0.02 K/uL Sodium Level 126 mmol/L Potassium Level 3.9 mmol/L Chloride Level 90 mmol/L Carbon Dioxide Level 29 mmol/L Anion Gap 7.0 mmol/L Blood Urea Nitrogen 9 mg/dl Creatinine 0.66 mg/dl Est Creatinine Clear Calc Drug Dose 76.3 ml/min Estimated GFR () 105.2 Estimated GFR (Non- 90.8 BUN/Creatinine Ratio 13.8 Random Glucose 103 mg/dl Calcium Level 9.6 mg/dl Ammonia 18.0 umol/L Imaging: EEG - consistent with encephalopathy no seizure activity Exam: Gen: somnolent but arousal with voice opens her eyes with command squeezes with bilateral hands lungs course breath sounds currently having hiccups CV RRR moves legs spontaneously and with stimulation Current Inpatient Medications Medications (Trade) Dose Ordered Sig/[place] Route Start Time Stop Time Status Last Admin Dose Admin Heparin Sodium (Porcine) (Heparin Sq 5000 Unit/0.5ml) 5,000 unit Q12 SQ 08/07/17 09:00 09/06/17 08:59 08/09/17 11:10 5,000 UNIT Al Hydrox/Mg Hydrox/Simethicone (Maalox Max Susp) 15 ml Q4H PRN PO 08/07/17 00:30 09/06/17 00:29 Magnesium Hydroxide (Milk Of Magnesia Susp) 30 ml Q12H PRN PO 08/07/17 00:30 09/06/17 00:29 Polyethylene (Miralax Powder Packet) 17 gm DAILY PRN PO 08/07/17 00:30 09/06/17 00:29 Aspirin (Ecotrin Tab) 81 mg DAILY PO 08/07/17 09:00 09/06/17 08:59 Future Hold 08/08/17 09:11 81 MG Atorvastatin Calcium (Lipitor Tab) 40 mg QPM PO 08/07/17 21:00 09/06/17 20:59 Future Hold Lisinopril (Zestril Tab) 20 mg QAM PO 08/07/17 09:00 09/06/17 08:59 Future Hold 08/08/17 09:11 20 MG Metoprolol Tartrate (Lopressor Tab) 25 mg BID PO 08/07/17 09:00 09/06/17 08:59 08/08/17 09:11 25 MG Miscellaneous (Iv Fluids Completed) 1 ea PRN PRN N/A 08/07/17 04:30 08/07/18 04:29 Ondansetron HCl 8 mg/Dextrose 54 ml @ 200 mls/hr Q6H PRN IV 08/07/17 10:00 09/06/17 09:59 08/08/17 10:08 200 MLS/HR Piperacillin Sod/ Tazobactam Sod (Consult) 1 ea UD PRN N/A 08/07/17 12:45 09/06/17 12:44 Piperacillin Sod/ Tazobactam Sod 3.375 gm/Dextrose 115 ml @ 28.75 mls/ hr Q8H IV 08/07/17 19:30 08/14/17 11:59 08/09/17 12:25 28.75 MLS/HR Levetiracetam 1500 mg/Dextrose 115 ml @ 440 mls/hr QPM IV 08/08/17 21:00 09/07/17 20:59 08/08/17 20:27 440 MLS/HR Levetiracetam 2000 mg/Dextrose 270 ml @ 999 mls/hr QAM IV 08/09/17 09:00 09/08/17 08:59 08/09/17 11:07 999 MLS/HR Lacosamide 400 mg/ Sodium Chloride 90 ml @ 180 mls/hr Q12 IV 08/08/17 11:00 09/07/17 10:59 08/09/17 11:08 180 MLS/HR Promethazine HCl 12.5 mg/Sodium Chloride 50.5 ml @ 204 mls/hr Q6H PRN IV 08/08/17 10:45 09/07/17 10:44 Acetaminophen 650 mg/Empty Bag 65 ml @ 260 mls/hr Q6H PRN IV 08/08/17 10:45 09/07/17 10:44 Desmopressin Acetate 1 mcg/ Sodium Chloride 50.25 ml @ 100 mls/hr Q8H IV 08/08/17 12:00 09/07/17 11:59 08/09/17 12:25 100 MLS/HR Metoprolol Tartrate (Lopressor Iv) 5 mg Q4 PRN IV 08/08/17 10:45 09/07/17 10:44 08/08/17 20:05 5 MG Aspirin (Aspirin Supp) 300 mg DAILY [place] 08/09/17 09:00 09/08/17 08:59 08/09/17 11:09 300 MG Impression 67 year old female history of seizure disorder Plan 1. continue Keppra 2000mg am and 1500 mg pm for now 2. continue Vimpat 400 mg am 400 mg pm for now 3. valproic acid level mistaken drawn patient was not on 5L 4. Keppra level pending 5. likely septic picture with MS change 6. seizure precautions 7. continue to treat metabolic issues that are reversible 8. CT head- stable ventriculomegaly compared to 05/2017 in [facility] system 9. will continue to follow I have seen and discussed above patient with Dr Christopher Garcia, neurology Above reviewed The patient continues to fluctuate mentally better in am and worse again this pm attributes some of this to the keppra and a gradual withdrawal is planned with further reducitons due sunday when she will be on service for consultations exam show the old hemiparesis and lethargy and the eeg is only mildy slow but unfortunately artefact impaired NO seizures seen and no evidence for nonconvulsive status seen we will follow and hopefully she will be able to convert to oral anticonvulsants soon Christopher Garcia MD
[2017-08-09] MEDS: METOPROLOL TARTRATE 1 MG/ML VIAL IV PRN (19:58)
[2017-08-09] MEDS: LEVETIRACETAM IV 1,500 MG in DEXTROSE 5% 100ML 100 ML IV SCH (19:58)
--- NOTE | 2017-08-09 23:08 | DIAGNOSTIC IMAGING REPORT ---
HEAD WITHOUT CONTRAST (CT) CLINICAL HISTORY: 67 years-old Female presenting with change in mental status. TECHNIQUE: Multidetector CT imaging of the head was performed without the use of intravenous contrast. IV contrast: None. A dose lowering technique was used consistent with the principles of ALARA (as low as reasonably achievable). COMPARISON: 08/08/2017. CT DOSE (mGy.cm): The estimated cumulative dose is 614.27 mGy.cm. FINDINGS: [employer] topogram: Unremarkable. Ventricular dilatation out of proportion with sulci. The ventricular system is dilated diffusely including the fourth ventricle. Stable appearance of the chronic left cerebellar and right frontal infarcts. Periventricular white matter hypoattenuation, unchanged since the two most recent examinations but new since February 2017. No midline shift. No hemorrhage or acute territorial infarct. No extra-axial fluid collection. Paranasal sinuses and mastoid air cells clear. Calvarium intact. IMPRESSION: 1. Findings consistent with communicating hydrocephalus. Periventricular hypoattenuation suggestive of transependymal flow of CSF. This finding is unchanged since 08/07/2017 and new or progressive since 03/02/2017. 2. Old infarcts in the right frontal and left cerebellar regions. Electronically signed by: Samy Levi M.D. 08/09/2017 11:06 PM Dictated Date/Time: 08/09/2017 11:00 PM
--- NOTE | 2017-08-09 23:15 | DIAGNOSTIC IMAGING REPORT ---
CHEST ONE VIEW PORTABLE CLINICAL HISTORY: 67 years-old Female presenting with hypoxia. TECHNIQUE: Portable semiupright AP view of the chest was obtained. COMPARISON: 08/08/2017. FINDINGS: Cardiomediastinal silhouette normal. Bandlike opacity in the right lung base new from prior. No large effusion or pneumothorax. Prominent skin folds project over the upper thorax. Osseous structures normal. Upper abdomen normal. IMPRESSION: 1. Right basilar opacity likely atelectasis. 2. Prominent skin folds over the upper thorax. No pneumothorax. Electronically signed by: Samy Levi M.D. 08/09/2017 11:13 PM Dictated Date/Time: 08/09/2017 11:12 PM
[2017-08-09] MEDS ORDERED: LORAZEPAM 2 MG/ML 1 ML VIAL IV STA (23:20)
[2017-08-09 23:35] LABS: ISTAT ARTERIAL BLOOD GAS HCO3 24 meq/L (19-24); ISTAT ARTERIAL BLOOD GAS PCO2 34 mmHg (35-46); ISTAT ARTERIAL BLOOD GAS PO2 73 mmHg (80-95); ISTAT ARTERIAL BLOOD GAS pH 7.45 (7.35-7.45); ISTAT CARBON DIOXIDE 25 mEq/l (24-31); ISTAT HEMATOCRIT 35 % (37-47); ISTAT HEMOGLOBIN 11.9 g/dl (12.0-16.0); ISTAT SODIUM 120 mEq/L (135-144)
[2017-08-09 23:40] LABS: BASO % 0.1 %; BASO ABS # 0.01 K/uL (0-0.2); EOS % 0.8 %; HEMATOCRIT 34.2 % (37-47); IG% 0.2 %; LYMPH % 16.5 %; LYMPH ABS # 1.86 K/uL (1.2-3.4); MEAN CELL VOLUME 84.9 fL (80-100); MEAN CORPUSCULAR HEMOGLOBIN 30.3 pg (25-34); MEAN PLATELET VOLUME 8.5 fL (7.4-10.4); MONO % 8.5 %; NEUT % 73.9 %; PLATELET COUNT 247 K/uL (130-400); RED BLOOD COUNT 4.03 M/uL (4.2-5.4); WHITE BLOOD COUNT 11.24 K/uL (4.8-10.8)
[2017-08-09 23:41] LABS: COMPLETE YES; MEAN CORPUSCULAR HGB CONC 35.7 g/dl (32-36)
[2017-08-09 23:58] LABS: BUN/CREATININE RATIO 10.9 (10-20); CALCIUM 9.7 mg/dl (8.5-10.1); CREATININE 0.68 mg/dl (0.60-1.20); MAGNESIUM 1.6 mg/dl (1.8-2.4); POTASSIUM 3.2 mmol/L (3.5-5.1)
[2017-08-10] VITALS (11 sets, daily range): BP systolic 99–155; BP diastolic 42–97; PULSE 56–89; TEMP 36.1–36.7; O2SAT 94–100
[2017-08-10] MEDS: ONDANSETRON INJ 8 MG in DEXTROSE 5% 50ML 50 ML IV PRN (00:08)
[2017-08-10] MEDS ORDERED: ALBUT/IPRATROP 3MG/0.5MG NEB 3 ML VIAL INH ONE (00:36)
[2017-08-10] MEDS: MAGNESIUM SULFATE 1GM / D5W 1 GM in PREMIXED IN D5W 100 ML IV SCH ×2 (01:09→02:09)
[2017-08-10] MEDS: ALBUT/IPRATROP 3MG/0.5MG NEB 3 ML VIAL INH SCH ×5 (03:29→23:07)
[2017-08-10] MEDS: PIPERACILL/TAZOBAC IV 3.375 GM in DEXTROSE 5% 100ML 100 ML IV SCH ×3 (04:08→20:15)
[2017-08-10] MEDS ORDERED: SODIUM CHLORIDE 0.9% 1000ML 500 ML IV STA (04:29)
[2017-08-10] MEDS ORDERED: NURSING VERBAL MED ORDER ONE (04:30)
--- NOTE | 2017-08-10 07:38 | ELECTROENCEPHALOGRAPH REPORT ---
CLINICAL DIAGNOSIS: Altered mental status. REQUESTING PHYSICIAN: Iris Zhang PA-C and myself. ELECTROENCEPHALOGRAM DIAGNOSIS: Mildly diffusely abnormal EEG during wakefulness. DESCRIPTION OF TRACING: This EEG was done as a bedside recording with simultaneous video analysis of patient movement and behavior. Photic stimulation was performed. Hyperventilation was not. Drowsiness and light sleep are not clearly recorded. The patient is described as dull and lethargic and is poorly responsive to stimuli. Video analysis confirms this and does show some muscle movement artifacts which are unfortunately reflected in the recording. The background rhythm may well be in the alpha range, was obscured by a lot of myogenous artifacts. When not obscured, it does appear to be about 8-9 Hz in maximum frequency and about 20 microvolts of maximum amplitude. Polymorphic mid to lower frequency modest voltage theta activity intermixed with some waveforms in the delta range is seen over all head regions with some bifrontal delta activity occurring in an asynchronous nonrhythmic fashion. Beta activity is difficult to assess because of the overlying muscle movement artifacts. Photic stimulation provoked some minimal driving response with a photoparoxysmal component. Drowsiness is probably present through the recording, but again it is difficult to assess in light of the overlying movement artifacts. INTERPRETATION: This EEG is somewhat technically limited due to myogenous artifacts and reveals at most a mild to moderate generalized nonfocal encephalopathy without potentially epileptogenic features. The latter is important in that the patient does have an underlying history of seizures and one of the differential diagnoses was that of a nonconvulsive status epilepticus to explain her current condition. This pattern is not present. The picture again is nonspecific, but could correlate with a toxic or metabolic encephalopathy, which is the apparent working clinical diagnosis here anyway.
[2017-08-10] MEDS ORDERED: DESMOPRESSIN ACETATE INJ 2 MCG in SODIUM CHLORIDE 0.9% 50ML 50 ML IV SCH (08:00)
[2017-08-10 08:30] LABS: BASO % 0.1 %; BASO ABS # 0.01 K/uL (0-0.2); COMPLETE YES; EOS % 0.5 %; IG% 0.2 %; LYMPH % 17.1 %; LYMPH ABS # 1.47 K/uL (1.2-3.4); MEAN CORPUSCULAR HEMOGLOBIN 30.7 pg (25-34); MEAN CORPUSCULAR HGB CONC 36.6 g/dl (32-36); MEAN PLATELET VOLUME 7.9 fL (7.4-10.4); MONO % 6.3 %; NEUT % 75.8 %; PLATELET COUNT 224 K/uL (130-400); RED BLOOD COUNT 3.81 M/uL (4.2-5.4); WHITE BLOOD COUNT 8.59 K/uL (4.8-10.8)
[2017-08-10] MEDS: HEPARIN SOD 5000 UNIT/0.5 ML CARP SQ SCH ×2 (08:51→21:44)
[2017-08-10] MEDS: ASPIRIN 300 MG SUPP PR SCH (08:57)
[2017-08-10] MEDS: METOPROLOL TARTRATE 25 MG TAB PO SCH (09:00)
[2017-08-10 09:11] LABS: BUN/CREATININE RATIO 9.4 (10-20); CALCIUM 9.3 mg/dl (8.5-10.1); CREATININE 0.62 mg/dl (0.60-1.20)
[2017-08-10] MEDS: LACOSAMIDE IV SCH ×2 (10:04→22:20)
[2017-08-10] MEDS: SODIUM CHLORIDE 0.9% IV SCH ×2 (10:04→22:20)
[2017-08-10] MEDS: LEVETIRACETAM IV 2,000 MG in DEXTROSE 5% 250ML 250 ML IV SCH (10:46)
--- NOTE | 2017-08-10 14:56 | Neurology Progress Notes ---
Neurology Progress Note Date of Service Aug 10, 2017. 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 She was started on Bactrim for a UTI on Sunday ( cultures show it is pansensitive). Earlier today, her reports when she woke up she was "out of it" and was not communicating as well. He struggled to get her into the car for physical therapy. At PT, she cooperated with activities but did not do as many as usual. When he got her out of the car to get back home, her legs gave way and she fell to the floor. She did not hit her head or lose consciousness. He was concerned so brought her to the ED. En route , she vomited once. In the ED, she was laying flat so had lots of congestion, which she could not swallow, and that made her gag and throw up. She has not thrown up since. She had another seizure and was transferred to 207 for further observation. An EEG was being done in the room. She has been seen in our office for seizure disorder and was being weaned off of Keppra to Vimpat due to behavior issues and mood problems on the Keppra. She is currently laying in the bed on her right side and not opening her eye to command. Objective Date Time Temp Pulse Resp B/P (MAP) Pulse Ox O2 Delivery O2 Flow Rate FiO2 08/10/17 11:41 36.5 83 20 155/69 (97) 97 Room Air 08/10/17 11:21 80 16 95 Room Air 08/10/17 07:59 36.1 65 18 150/53 (85) 100 Room Air 08/10/17 06:57 66 16 96 Room Air 08/10/17 05:22 141/85 (103) 08/10/17 04:20 Room Air 08/10/17 04:01 36.1 59 16 99/42 (61) 97 Room Air 08/10/17 03:29 56 16 95 Room Air 08/10/17 01:10 69 18 98 Nasal Cannula 4.0 08/10/17 00:10 Nasal Cannula 4.0 08/09/17 23:58 36.4 67 18 164/81 (108) 100 Nasal Cannula 4.0 08/09/17 22:38 83 22 190/87 (121) 94 Nasal Cannula 4.0 08/09/17 22:27 63 20 145/76 (99) 91 Room Air 08/09/17 20:53 67 168/92 (117) 08/09/17 20:00 Room Air 08/09/17 19:58 84 179/94 08/09/17 19:37 36.6 96 16 178/78 (111) 96 Room Air 08/09/17 16:00 Room Air 08/09/17 15:22 37.1 67 18 149/68 (95) 95 Room Air Last 24 Hours Test 08/09/17 16:45 08/09/17 22:46 08/09/17 23:20 08/09/17 23:26 Urine Random Sodium 89 mEq/L Bedside Glucose 122 mg/dl White Blood Count 11.24 K/uL Red Blood Count 4.03 M/uL Hemoglobin 12.2 g/dL Hematocrit 34.2 % Mean Corpuscular Volume 84.9 fL Mean Corpuscular Hemoglobin 30.3 pg Mean Corpuscular Hemoglobin Concent 35.7 g/dl Platelet Count 247 K/uL Mean Platelet Volume 8.5 fL Neutrophils (%) (Auto) 73.9 % Lymphocytes (%) (Auto) 16.5 % Monocytes (%) (Auto) 8.5 % Eosinophils (%) (Auto) 0.8 % Basophils (%) (Auto) 0.1 % Neutrophils # (Auto) 8.30 K/uL Lymphocytes # (Auto) 1.86 K/uL Monocytes # (Auto) 0.96 K/uL Eosinophils # (Auto) 0.09 K/uL Basophils # (Auto) 0.01 K/uL RDW Standard Deviation 38.9 fL RDW Coefficient of Variation 12.6 % Immature Granulocyte % (Auto) 0.2 % Immature Granulocyte # (Auto) 0.02 K/uL Sodium Level 123 mmol/L Potassium Level 3.2 mmol/L Chloride Level 88 mmol/L Carbon Dioxide Level 25 mmol/L Anion Gap 10.0 mmol/L Blood Urea Nitrogen 7 mg/dl Creatinine 0.68 mg/dl Est Creatinine Clear Calc Drug Dose 74.1 ml/min Estimated GFR () 104.2 Estimated GFR (Non- 89.9 BUN/Creatinine Ratio 10.9 Random Glucose 121 mg/dl Osmolality 257 mOsm/kg Calcium Level 9.7 mg/dl Magnesium Level 1.6 mg/dl Total Bilirubin 0.7 mg/dl Aspartate Amino Transf (AST/SGOT) 17 U/L Alanine Aminotransferase (ALT/SGPT) 22 U/L Alkaline Phosphatase 115 U/L Total Protein 7.4 gm/dl Albumin 3.7 gm/dl Globulin 3.7 gm/dl Albumin/Globulin Ratio 1.0 Bedside Hemoglobin 11.9 g/dl Bedside Hematocrit 35 % Bedside Blood Gas pH (LAB) 7.45 Bedside Blood Gas pCO2 (LAB) 34 mmHg Bedside Blood Gas pO2 (LAB) 73 mmHg Bedside Blood Gas HCO3 (LAB) 24 meq/L Bedside Blood Gas Total CO2 25 mEq/l Bedside Blood Gas Base Excess (LAB) 0.0 meq/L Bedside Blood Gas O2 Saturation 95.0 % Bedside Sodium 120 mEq/L Bedside Potassium 3.2 mEq/L Test 08/10/17 08:19 White Blood Count 8.59 K/uL Red Blood Count 3.81 M/uL Hemoglobin 11.7 g/dL Hematocrit 32.0 % Mean Corpuscular Volume 84.0 fL Mean Corpuscular Hemoglobin 30.7 pg Mean Corpuscular Hemoglobin Concent 36.6 g/dl Platelet Count 224 K/uL Mean Platelet Volume 7.9 fL Neutrophils (%) (Auto) 75.8 % Lymphocytes (%) (Auto) 17.1 % Monocytes (%) (Auto) 6.3 % Eosinophils (%) (Auto) 0.5 % Basophils (%) (Auto) 0.1 % Neutrophils # (Auto) 6.51 K/uL Lymphocytes # (Auto) 1.47 K/uL Monocytes # (Auto) 0.54 K/uL Eosinophils # (Auto) 0.04 K/uL Basophils # (Auto) 0.01 K/uL RDW Standard Deviation 39.1 fL RDW Coefficient of Variation 12.8 % Immature Granulocyte % (Auto) 0.2 % Immature Granulocyte # (Auto) 0.02 K/uL Sodium Level 124 mmol/L Potassium Level 3.0 mmol/L Chloride Level 88 mmol/L Carbon Dioxide Level 25 mmol/L Anion Gap 11.0 mmol/L Blood Urea Nitrogen 6 mg/dl Creatinine 0.62 mg/dl Est Creatinine Clear Calc Drug Dose 81.3 ml/min Estimated GFR () 107.4 Estimated GFR (Non- 92.7 BUN/Creatinine Ratio 9.4 Random Glucose 128 mg/dl Calcium Level 9.3 mg/dl Imaging: no new imaging Exam: Gen: NAD, somnolent lungs CTA CV RRR moves with stimulation reflexes 2/4 throughout Current Inpatient Medications Medications (Trade) Dose Ordered Sig/[place] Route Start Time Stop Time Status Last Admin Dose Admin Heparin Sodium (Porcine) (Heparin Sq 5000 Unit/0.5ml) 5,000 unit Q12 SQ 08/07/17 09:00 09/06/17 08:59 08/10/17 08:51 5,000 UNIT Al Hydrox/Mg Hydrox/Simethicone (Maalox Max Susp) 15 ml Q4H PRN PO 08/07/17 00:30 09/06/17 00:29 Magnesium Hydroxide (Milk Of Magnesia Susp) 30 ml Q12H PRN PO 08/07/17 00:30 09/06/17 00:29 Polyethylene (Miralax Powder Packet) 17 gm DAILY PRN PO 08/07/17 00:30 09/06/17 00:29 Aspirin (Ecotrin Tab) 81 mg DAILY PO 08/07/17 09:00 09/06/17 08:59 Future Hold 08/08/17 09:11 81 MG Atorvastatin Calcium (Lipitor Tab) 40 mg QPM PO 08/07/17 21:00 09/06/17 20:59 Future Hold Lisinopril (Zestril Tab) 20 mg QAM PO 08/07/17 09:00 09/06/17 08:59 Future Hold 08/08/17 09:11 20 MG Metoprolol Tartrate (Lopressor Tab) 25 mg BID PO 08/07/17 09:00 09/06/17 08:59 08/08/17 09:11 25 MG Miscellaneous (Iv Fluids Completed) 1 ea PRN PRN N/A 08/07/17 04:30 08/07/18 04:29 Ondansetron HCl 8 mg/Dextrose 54 ml @ 200 mls/hr Q6H PRN IV 08/07/17 10:00 09/06/17 09:59 08/10/17 00:08 200 MLS/HR Piperacillin Sod/ Tazobactam Sod (Consult) 1 ea UD PRN N/A 08/07/17 12:45 09/06/17 12:44 Piperacillin Sod/ Tazobactam Sod 3.375 gm/Dextrose 115 ml @ 28.75 mls/ hr Q8H IV 08/07/17 19:30 08/14/17 11:59 08/10/17 04:08 28.75 MLS/HR Levetiracetam 1500 mg/Dextrose 115 ml @ 440 mls/hr QPM IV 08/08/17 21:00 09/07/17 20:59 08/09/17 19:58 440 MLS/HR Lacosamide 400 mg/ Sodium Chloride 90 ml @ 180 mls/hr Q12 IV 08/08/17 11:00 09/07/17 10:59 08/10/17 10:04 180 MLS/HR Promethazine HCl 12.5 mg/Sodium Chloride 50.5 ml @ 204 mls/hr Q6H PRN IV 08/08/17 10:45 09/07/17 10:44 Acetaminophen 650 mg/Empty Bag 65 ml @ 260 mls/hr Q6H PRN IV 08/08/17 10:45 09/07/17 10:44 Metoprolol Tartrate (Lopressor Iv) 5 mg Q4 PRN IV 08/08/17 10:45 09/07/17 10:44 08/09/17 19:58 5 MG Aspirin (Aspirin Supp) 300 mg DAILY FL 08/09/17 09:00 09/08/17 08:59 08/10/17 08:57 300 MG Albuterol/ Ipratropium (Duoneb) 3 ml Q4R INH 08/10/17 04:00 09/09/17 03:59 08/10/17 11:21 3 ML Desmopressin Acetate 2 mcg/ Sodium Chloride 50.5 ml @ 100 mls/hr Q12H IV 08/10/17 08:00 09/07/17 07:59 08/10/17 08:49 100 MLS/HR Levetiracetam 1500 mg/Dextrose 265 ml @ 999 mls/hr QAM IV 08/11/17 09:00 09/08/17 08:59 UNV Impression 67 year old female history of seizure disorder Plan 1. continue Keppra 1500 mg am and 1500 mg pm reduced morning dose for tomorrow from 2000 mg to 1500 mg reduce at rate of 500 mg weekly until off Keppra 2. continue Vimpat 400 mg am 400 mg pm for now 3. valproic acid level mistaken drawn patient was not on 5L 4. Keppra level pending 5. likely septic picture with MS change 6. seizure precautions 7. continue to treat metabolic issues that are reversible 8. CT head- stable ventriculomegaly compared to 05/2017 in [facility] system 9. will continue to follow I have seen and discussed above patient with Dr Christopher Garcia, neurology Pataient seen and agree with the above asssessment and plan I t is not clear as to how muchy of the current lethargy may be due to aed toxicity and we are beginning to withdrqw the keppra slowly and will continue to follow Christopher Garcia MD
--- NOTE | 2017-08-10 15:19 | Nephrology Consultation ---
Nephrology Consultation Date & Providers Date of Consultation: Aug 10, 2017. Primary Care Provider: Marek Pittman M.D. Referring Provider: Reason for Consultation Evaluation and management for hyponatremia History of Present Illness Adia is a 59-year-old female with complicated past medical history including hypertension, diabetes, history of hyper cholesterolemia, seizure disorder and previous diagnosis of central diabetes insipidus admitted to the hospital with altered mental status and questionable sepsis and nephrology consult was requested to manage hyponatremia. EMR were reviewed in detail during visit. Josse Cheek was admitted to the hospital on 08/06/2017 with change in mental status, possible sepsis of of unknown source and questionable seizure. EEG was unremarkable. No fever, leukocytosis. She is on zosyn for possible UTI. On admission her serum sodium was 130-133, she was initially continued on her home dose of desmopressin 2 microgram 3 times a day. Over last 2 days Desmopressin was on hold, her serum sodium overnight dropped. To 120 she has been much less responsive and lethargic since yesterday. EEG was unremarkable for any active seizure activity, she was continued on her antiseizure medications. Her p.o. intake has been poor, urine output has been 1-1.5 liters, has been positive. Blood pressure has been well controlled. Has normal renal function, potassium was low. She was otherwise well untill a yaer ago with past medical history including hypertension, hypercholesterolemia, [id number] diabetes mellitus all of which were well controlled. Over last 1 year her overall health condition deteriorated significantly. She had history of chronic back pain and sciatica, history of spinal stenosis at L2 through 3 and L3 2-0 L4. She was treated outpatient with physical therapy and epidural steroid without much improvement and finally on 10/07/1016 she underwent elective decompression L4-L5 with an instrumented fusion at [facility] by Dr. Kennedy. She developed postoperative seizure and remained in status epilepticus and treated with antiseizure medications which she still continues. MRI at that time showed abnormality in the right middle frontal gyrus and she was transferred to [facility] where she had repeat MRI showing evidence of intracranial hypotension and significant spinal CHF Leak. She had a had a prolonged hospitalization at [facility], had lumbar drain placed and had tracheostomy and PEG tube which eventually removed. During hospitalization she also developed pneumonia, thrombophlebitis at PICC line site and developed new WEIGHT SHIFTER changes. She underwent JAN and found to have PFO and which was thought to cause paradoxical emboli to her brain. In January 2017 she was admitted at [facility] with pneumonia and UTI. During that admission she was found to be hypernatremic with significantly high urine output and polydipsia. Prior to that she was following with Dr. Pittman as her PCP for many years and had yearly labs checked twice and her sodium was always low normal. Considering multiple CVS complications over last few months and seizure disorder there was concern of central DI, ADH was checked and found to be low normal at 1.8. She was started on Desmopressin and she was continued on 2 micrograms 3 times a day. Her urine output improved and her serum sodium has been staying in normal range. She has been lethergic over last 4 days with change in mental status, EEG unremarkable. Since yesterday she became more lethergic. was not able to wake her up or get any history from her, no family was at bedside but she looked comfortable. Allergies Coded Allergies: Amlodipine (Unverified Allergy, Unknown, leg swelling, red, and itchy, 06/19) Clarithromycin (Verified Allergy, Unknown, UNKNOWN, 03/02/17) Codeine (Verified Allergy, Unknown, UNKNOWN, 03/02/17) Doxycycline (Verified Allergy, Unknown, UNKNOWN, 03/02/17) Oxycodone (Verified Adverse Reaction, Unknown, UPSET STOMACH, 03/02/17) Inpatient Medications Current Inpatient Medications Medications (Trade) Dose Ordered Sig/[place] Route Start Time Stop Time Status Last Admin Dose Admin Heparin Sodium (Porcine) (Heparin Sq 5000 Unit/0.5ml) 5,000 unit Q12 SQ 08/07/17 09:00 09/06/17 08:59 08/10/17 08:51 5,000 UNIT Al Hydrox/Mg Hydrox/Simethicone (Maalox Max Susp) 15 ml Q4H PRN PO 08/07/17 00:30 09/06/17 00:29 Magnesium Hydroxide (Milk Of Magnesia Susp) 30 ml Q12H PRN PO 08/07/17 00:30 09/06/17 00:29 Polyethylene (Miralax Powder Packet) 17 gm DAILY PRN PO 08/07/17 00:30 09/06/17 00:29 Aspirin (Ecotrin Tab) 81 mg DAILY PO 08/07/17 09:00 09/06/17 08:59 Future Hold 08/08/17 09:11 81 MG Atorvastatin Calcium (Lipitor Tab) 40 mg QPM PO 08/07/17 21:00 09/06/17 20:59 Future Hold Lisinopril (Zestril Tab) 20 mg QAM PO 08/07/17 09:00 09/06/17 08:59 Future Hold 08/08/17 09:11 20 MG Metoprolol Tartrate (Lopressor Tab) 25 mg BID PO 08/07/17 09:00 09/06/17 08:59 08/08/17 09:11 25 MG Miscellaneous (Iv Fluids Completed) 1 ea PRN PRN N/A 08/07/17 04:30 08/07/18 04:29 Ondansetron HCl 8 mg/Dextrose 54 ml @ 200 mls/hr Q6H PRN IV 08/07/17 10:00 09/06/17 09:59 08/10/17 00:08 200 MLS/HR Piperacillin Sod/ Tazobactam Sod (Consult) 1 ea UD PRN N/A 08/07/17 12:45 09/06/17 12:44 Piperacillin Sod/ Tazobactam Sod 3.375 gm/Dextrose 115 ml @ 28.75 mls/ hr Q8H IV 08/07/17 19:30 08/14/17 11:59 08/10/17 04:08 28.75 MLS/HR Levetiracetam 1500 mg/Dextrose 115 ml @ 440 mls/hr QPM IV 08/08/17 21:00 09/07/17 20:59 08/09/17 19:58 440 MLS/HR Levetiracetam 2000 mg/Dextrose 270 ml @ 999 mls/hr QAM IV 08/09/17 09:00 09/08/17 08:59 08/10/17 10:46 999 MLS/HR Lacosamide 400 mg/ Sodium Chloride 90 ml @ 180 mls/hr Q12 IV 08/08/17 11:00 09/07/17 10:59 08/10/17 10:04 180 MLS/HR Promethazine HCl 12.5 mg/Sodium Chloride 50.5 ml @ 204 mls/hr Q6H PRN IV 08/08/17 10:45 09/07/17 10:44 Acetaminophen 650 mg/Empty Bag 65 ml @ 260 mls/hr Q6H PRN IV 08/08/17 10:45 09/07/17 10:44 Metoprolol Tartrate (Lopressor Iv) 5 mg Q4 PRN IV 08/08/17 10:45 09/07/17 10:44 08/09/17 19:58 5 MG Aspirin (Aspirin Supp) 300 mg DAILY [place] 08/09/17 09:00 09/08/17 08:59 08/10/17 08:57 300 MG Albuterol/ Ipratropium (Duoneb) 3 ml Q4R INH 08/10/17 04:00 09/09/17 03:59 08/10/17 11:21 3 ML Desmopressin Acetate 2 mcg/ Sodium Chloride 50.5 ml @ 100 mls/hr Q12H IV 08/10/17 08:00 09/07/17 07:59 08/10/17 08:49 100 MLS/HR Family History FH: arthritis FH: emphysema Heart disease Stroke Social History Smoking Status: Never Smoker Smokeless Tobacco Use: No Alcohol Use: none Drug Use: none Marital Status: Housing Status: lives with family Occupation: unemployed Review of Systems A complete review of systems was not possible. Physical Exam Date Time Temp Pulse Resp B/P (MAP) Pulse Ox O2 Delivery O2 Flow Rate FiO2 08/10/17 11:41 36.5 83 20 155/69 (97) 97 Room Air 08/10/17 11:21 80 16 95 Room Air 08/10/17 07:59 36.1 65 18 150/53 (85) 100 Room Air 08/10/17 06:57 66 16 96 Room Air 08/10/17 05:22 141/85 (103) 08/10/17 04:20 Room Air 08/10/17 04:01 36.1 59 16 99/42 (61) 97 Room Air 08/10/17 03:29 56 16 95 Room Air 08/10/17 01:10 69 18 98 Nasal Cannula 4.0 08/10/17 00:10 Nasal Cannula 4.0 08/09/17 23:58 36.4 67 18 164/81 (108) 100 Nasal Cannula 4.0 08/09/17 22:38 83 22 190/87 (121) 94 Nasal Cannula 4.0 08/09/17 22:27 63 20 145/76 (99) 91 Room Air 08/09/17 20:53 67 168/92 (117) 08/09/17 20:00 Room Air 08/09/17 19:58 84 179/94 08/09/17 19:37 36.6 96 16 178/78 (111) 96 Room Air 08/09/17 16:00 Room Air 08/09/17 15:22 37.1 67 18 149/68 (95) 95 Room Air General Appearance: no apparent distress, + pertinent finding (somnolent, drowsy, could not wake up ro communicate) Head: normocephalic, atraumatic Eyes: normal inspection ENT: normal ENT inspection Neck: supple, no JVD Respiratory/Chest: lungs clear Cardiovascular: regular rate, rhythm Abdomen/GI: normal bowel sounds, non tender, soft Extremities/Musculoskelatal: no pedal edema Neurologic/Psych: + pertinent finding (could not be done) Skin: normal color, warm/dry, no rash Laboratory Results Last 24 Hours Test 08/09/17 16:45 08/09/17 22:46 08/09/17 23:20 08/09/17 23:26 Urine Random Sodium 89 mEq/L Bedside Glucose 122 mg/dl White Blood Count 11.24 K/uL Red Blood Count 4.03 M/uL Hemoglobin 12.2 g/dL Hematocrit 34.2 % Mean Corpuscular Volume 84.9 fL Mean Corpuscular Hemoglobin 30.3 pg Mean Corpuscular Hemoglobin Concent 35.7 g/dl Platelet Count 247 K/uL Mean Platelet Volume 8.5 fL Neutrophils (%) (Auto) 73.9 % Lymphocytes (%) (Auto) 16.5 % Monocytes (%) (Auto) 8.5 % Eosinophils (%) (Auto) 0.8 % Basophils (%) (Auto) 0.1 % Neutrophils # (Auto) 8.30 K/uL Lymphocytes # (Auto) 1.86 K/uL Monocytes # (Auto) 0.96 K/uL Eosinophils # (Auto) 0.09 K/uL Basophils # (Auto) 0.01 K/uL RDW Standard Deviation 38.9 fL RDW Coefficient of Variation 12.6 % Immature Granulocyte % (Auto) 0.2 % Immature Granulocyte # (Auto) 0.02 K/uL Sodium Level 123 mmol/L Potassium Level 3.2 mmol/L Chloride Level 88 mmol/L Carbon Dioxide Level 25 mmol/L Anion Gap 10.0 mmol/L Blood Urea Nitrogen 7 mg/dl Creatinine 0.68 mg/dl Est Creatinine Clear Calc Drug Dose 74.1 ml/min Estimated GFR () 104.2 Estimated GFR (Non- 89.9 BUN/Creatinine Ratio 10.9 Random Glucose 121 mg/dl Osmolality 257 mOsm/kg Calcium Level 9.7 mg/dl Magnesium Level 1.6 mg/dl Total Bilirubin 0.7 mg/dl Aspartate Amino Transf (AST/SGOT) 17 U/L Alanine Aminotransferase (ALT/SGPT) 22 U/L Alkaline Phosphatase 115 U/L Total Protein 7.4 gm/dl Albumin 3.7 gm/dl Globulin 3.7 gm/dl Albumin/Globulin Ratio 1.0 Bedside Hemoglobin 11.9 g/dl Bedside Hematocrit 35 % Bedside Blood Gas pH (LAB) 7.45 Bedside Blood Gas pCO2 (LAB) 34 mmHg Bedside Blood Gas pO2 (LAB) 73 mmHg Bedside Blood Gas HCO3 (LAB) 24 meq/L Bedside Blood Gas Total CO2 25 mEq/l Bedside Blood Gas Base Excess (LAB) 0.0 meq/L Bedside Blood Gas O2 Saturation 95.0 % Bedside Sodium 120 mEq/L Bedside Potassium 3.2 mEq/L Test 08/10/17 08:19 White Blood Count 8.59 K/uL Red Blood Count 3.81 M/uL Hemoglobin 11.7 g/dL Hematocrit 32.0 % Mean Corpuscular Volume 84.0 fL Mean Corpuscular Hemoglobin 30.7 pg Mean Corpuscular Hemoglobin Concent 36.6 g/dl Platelet Count 224 K/uL Mean Platelet Volume 7.9 fL Neutrophils (%) (Auto) 75.8 % Lymphocytes (%) (Auto) 17.1 % Monocytes (%) (Auto) 6.3 % Eosinophils (%) (Auto) 0.5 % Basophils (%) (Auto) 0.1 % Neutrophils # (Auto) 6.51 K/uL Lymphocytes # (Auto) 1.47 K/uL Monocytes # (Auto) 0.54 K/uL Eosinophils # (Auto) 0.04 K/uL Basophils # (Auto) 0.01 K/uL RDW Standard Deviation 39.1 fL RDW Coefficient of Variation 12.8 % Immature Granulocyte % (Auto) 0.2 % Immature Granulocyte # (Auto) 0.02 K/uL Sodium Level 124 mmol/L Potassium Level 3.0 mmol/L Chloride Level 88 mmol/L Carbon Dioxide Level 25 mmol/L Anion Gap 11.0 mmol/L Blood Urea Nitrogen 6 mg/dl Creatinine 0.62 mg/dl Est Creatinine Clear Calc Drug Dose 81.3 ml/min Estimated GFR () 107.4 Estimated GFR (Non- 92.7 BUN/Creatinine Ratio 9.4 Random Glucose 128 mg/dl Calcium Level 9.3 mg/dl Impression (1) Hyponatremia (2) Hypertension (3) Altered mental status (4) Urinary tract infection (5) Encephalopathy 67 y o F with complicated PMH , h/o seizure disorder, 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 UTI, subclinical seizure, others. On zosyn. EEG negative, continued on antiseizure meds. Admitted with AMS when Na was 130-133 S Na has been low since admission, initially continued on desmopressin, which ahs been on hold for 2 days and resumed today. S Na has been dropping despite off of desmopressin which was resumed this am but Na still low at 124. Her UO last 2 days around 1 L. 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 Recommendations --Will continue to hold desmopressin, Check na q 6H and adjust the dose accordingly --check urine osm --replace KCL Will follow
[2017-08-10] MEDS: POTASSIUM CHLR 10 MEQ / WTR 10 MEQ in PREMIXED WATER 100 ML IV SCH ×4 (15:36→21:31)
[2017-08-10 17:37] LABS: BUN/CREATININE RATIO 9.7 (10-20); CALCIUM 8.9 mg/dl (8.5-10.1); CREATININE 0.57 mg/dl (0.60-1.20)
[2017-08-10 17:39] LABS: POTASSIUM 3.7 mmol/L (3.5-5.1)
--- NOTE | 2017-08-10 18:55 | Progress Note ---
Subjective Date of Service: Aug 10, 2017. Problem List Medical Problems: (1) Altered mental status Status: Acute (2) Constipation Status: Acute (3) Facial laceration Status: Acute (4) Fall from other slipping, tripping, or stumbling Status: Acute (5) Generalized weakness Status: Acute (6) Hypokalemia Status: Acute (7) Lower abdominal pain Status: Acute (8) Nausea & vomiting Status: Acute (9) Pneumonia Status: Acute (10) Pneumonia Status: Acute (11) UTI (urinary tract infection) Status: Acute (12) UTI (urinary tract infection) Status: Acute Objective Vital Signs Date Time Temp Pulse Resp B/P (MAP) Pulse Ox O2 Delivery O2 Flow Rate FiO2 08/10/17 16:10 Room Air 08/10/17 15:38 36.7 79 16 143/90 (107) 99 Room Air 08/10/17 12:10 Room Air 08/10/17 11:41 36.5 83 20 155/69 (97) 97 Room Air 08/10/17 11:21 80 16 95 Room Air 08/10/17 08:30 Room Air 08/10/17 07:59 36.1 65 18 150/53 (85) 100 Room Air 08/10/17 06:57 66 16 96 Room Air 08/10/17 05:22 141/85 (103) 08/10/17 04:20 Room Air 08/10/17 04:01 36.1 59 16 99/42 (61) 97 Room Air 08/10/17 03:29 56 16 95 Room Air 08/10/17 01:10 69 18 98 Nasal Cannula 4.0 08/10/17 00:10 Nasal Cannula 4.0 08/09/17 23:58 36.4 67 18 164/81 (108) 100 Nasal Cannula 4.0 08/09/17 22:38 83 22 190/87 (121) 94 Nasal Cannula 4.0 08/09/17 22:27 63 20 145/76 (99) 91 Room Air 08/09/17 20:53 67 168/92 (117) 08/09/17 20:00 Room Air 08/09/17 19:58 84 179/94 08/09/17 19:37 36.6 96 16 178/78 (111) 96 Room Air Laboratory Results Last 24 Hours Test 08/09/17 22:46 08/09/17 23:20 08/09/17 23:26 08/10/17 08:19 Bedside Glucose 122 mg/dl White Blood Count 11.24 K/uL 8.59 K/uL Red Blood Count 4.03 M/uL 3.81 M/uL Hemoglobin 12.2 g/dL 11.7 g/dL Hematocrit 34.2 % 32.0 % Mean Corpuscular Volume 84.9 fL 84.0 fL Mean Corpuscular Hemoglobin 30.3 pg 30.7 pg Mean Corpuscular Hemoglobin Concent 35.7 g/dl 36.6 g/dl Platelet Count 247 K/uL 224 K/uL Mean Platelet Volume 8.5 fL 7.9 fL Neutrophils (%) (Auto) 73.9 % 75.8 % Lymphocytes (%) (Auto) 16.5 % 17.1 % Monocytes (%) (Auto) 8.5 % 6.3 % Eosinophils (%) (Auto) 0.8 % 0.5 % Basophils (%) (Auto) 0.1 % 0.1 % Neutrophils # (Auto) 8.30 K/uL 6.51 K/uL Lymphocytes # (Auto) 1.86 K/uL 1.47 K/uL Monocytes # (Auto) 0.96 K/uL 0.54 K/uL Eosinophils # (Auto) 0.09 K/uL 0.04 K/uL Basophils # (Auto) 0.01 K/uL 0.01 K/uL RDW Standard Deviation 38.9 fL 39.1 fL RDW Coefficient of Variation 12.6 % 12.8 % Immature Granulocyte % (Auto) 0.2 % 0.2 % Immature Granulocyte # (Auto) 0.02 K/uL 0.02 K/uL Sodium Level 123 mmol/L 124 mmol/L Potassium Level 3.2 mmol/L 3.0 mmol/L Chloride Level 88 mmol/L 88 mmol/L Carbon Dioxide Level 25 mmol/L 25 mmol/L Anion Gap 10.0 mmol/L 11.0 mmol/L Blood Urea Nitrogen 7 mg/dl 6 mg/dl Creatinine 0.68 mg/dl 0.62 mg/dl Est Creatinine Clear Calc Drug Dose 74.1 ml/min 81.3 ml/min Estimated GFR () 104.2 107.4 Estimated GFR (Non- 89.9 92.7 BUN/Creatinine Ratio 10.9 9.4 Random Glucose 121 mg/dl 128 mg/dl Osmolality 257 mOsm/kg Calcium Level 9.7 mg/dl 9.3 mg/dl Magnesium Level 1.6 mg/dl Total Bilirubin 0.7 mg/dl Aspartate Amino Transf (AST/SGOT) 17 U/L Alanine Aminotransferase (ALT/SGPT) 22 U/L Alkaline Phosphatase 115 U/L Total Protein 7.4 gm/dl Albumin 3.7 gm/dl Globulin 3.7 gm/dl Albumin/Globulin Ratio 1.0 Bedside Hemoglobin 11.9 g/dl Bedside Hematocrit 35 % Bedside Blood Gas pH (LAB) 7.45 Bedside Blood Gas pCO2 (LAB) 34 mmHg Bedside Blood Gas pO2 (LAB) 73 mmHg Bedside Blood Gas HCO3 (LAB) 24 meq/L Bedside Blood Gas Total CO2 25 mEq/l Bedside Blood Gas Base Excess (LAB) 0.0 meq/L Bedside Blood Gas O2 Saturation 95.0 % Bedside Sodium 120 mEq/L Bedside Potassium 3.2 mEq/L Test 08/10/17 16:37 Sodium Level 125 mmol/L Potassium Level 3.7 mmol/L Chloride Level 89 mmol/L Carbon Dioxide Level 26 mmol/L Anion Gap 10.0 mmol/L Blood Urea Nitrogen 6 mg/dl Creatinine 0.57 mg/dl Est Creatinine Clear Calc Drug Dose 88.4 ml/min Estimated GFR () 110.4 Estimated GFR (Non- 95.3 BUN/Creatinine Ratio 9.7 Random Glucose 117 mg/dl Calcium Level 8.9 mg/dl Assessment and Plan 67 yo Fnow with progressive encephalopathy with PMHx of stroke, HTN, SIADH encephalopathy of unclear etiology Subclinical seizure activity?, EEG does not support, hyponatremia is similar to past as typically takes desmopression she sustained a fall 10 days ago, with head injury (Left temporal region), from sitting on toilet, this was unwitnessed. CT of the head completed which showed no acute findings at that time. - CT head on 08/06 and 08/07 showing ventriculomegaly and old right frontal and left cerebellar infarcts - this is stable per neurology with comparison to prior studies. 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 Pulmonary- questionable aspiration pneumonia zosyn, started 08/07 SIADH- Resumed desmopressin Hypertension . , hold lisinopril 20 mg daily, continue aspirin 300 mg daily suppository. Seizure disorder- Vimpat 400 mg IV BID and Keppra 2000 mg QAM and 1500 mg QPM IV Right ovarian cyst 2.3 cm-- pelvic ultrasound, Stable compared to CT of 2016. - Should have outpatient pelvic US in 6 months for follow up. - CA 125 in process Right lobe Liver cyst--documented and follow with repeat imaging. L4/S1 spinal fusion / L2 compression deformity--no active symptoms. DVT ppx: heparin subq CODE STATUS: FULL CODE
--- NOTE | 2017-08-10 19:25 | DIAGNOSTIC IMAGING REPORT ---
ORBITS FOR MRI HISTORY: Pre-MRI pre-MRI screening. COMPARISON: None. FINDINGS: There are no radiopaque foreign bodies identified within the orbits. IMPRESSION: No radiopaque foreign bodies identified within the orbits. The above report was generated using voice recognition software. It may contain grammatical, syntax or spelling errors. Electronically signed by: Tyler Herbert M.D. 08/10/2017 7:24 PM Dictated Date/Time: 08/10/2017 7:23 PM
--- NOTE | 2017-08-10 20:07 | DIAGNOSTIC IMAGING REPORT ---
BRAIN WITHOUT CONTRAST HISTORY: Mental status change persistent lethargic state question in past of NPH TECHNIQUE: Multiplanar multisequence MRI of the brain was performed without the use of contrast. COMPARISON STUDY: CT study 08/09/2017 FINDINGS: There are no areas of restricted diffusion to suggest acute infarction. The midline structures are intact. The paranasal sinuses are clear. The mastoid air cells are clear. The ventricles and sulci are within normal limits for age. There is no mass, hematoma, midline shift. The major vascular flow-voids at the skull base are well maintained. Ventricular system is moderately prominent. 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 No acute or interval process. IMPRESSION: 1. No acute intracranial abnormality. 2. Old infarcts present described 3. No evidence for an acute ischemic process. 4. Stable communicating hydrocephalus. The above report was generated using voice recognition software. It may contain grammatical, syntax or spelling errors. Electronically signed by: Tyler Herbert M.D. 08/10/2017 8:06 PM Dictated Date/Time: 08/10/2017 8:03 PM
[2017-08-10 21:02] LABS: BUN/CREATININE RATIO 9.3 (10-20); CALCIUM 9.2 mg/dl (8.5-10.1); CREATININE 0.58 mg/dl (0.60-1.20); PHOSPHORUS 2.3 mg/dl (2.5-4.9); POTASSIUM 3.5 mmol/L (3.5-5.1)
[2017-08-10] MEDS: ENALAPRILAT IV 1.25 MG in DEXTROSE 5% 25ML 25 ML IV SCH (21:40)
[2017-08-10] MEDS: LEVETIRACETAM IV 1,500 MG in DEXTROSE 5% 100ML 100 ML IV SCH (21:51)
[2017-08-10] MEDS ORDERED: SODIUM CHLORIDE 3% 500 ML BAG IV SCH (23:15)
[2017-08-10] MEDS ORDERED: SODIUM CHLORIDE 3% IV STA (23:24)
[2017-08-11] VITALS (14 sets, daily range): BP systolic 115–161; BP diastolic 58–79; PULSE 69–123; TEMP 36.6–37.6; O2SAT 93–98
[2017-08-11] MEDS ORDERED: SODIUM CHLORIDE 3% IV SCH (01:30)
[2017-08-11] MEDS ORDERED: STERILE WATER IV SCH (01:30)
[2017-08-11] MEDS: ALBUT/IPRATROP 3MG/0.5MG NEB 3 ML VIAL INH SCH ×6 (03:22→23:14)
[2017-08-11] MEDS: PIPERACILL/TAZOBAC IV 3.375 GM in DEXTROSE 5% 100ML 100 ML IV SCH ×3 (03:45→20:30)
[2017-08-11 07:35] LABS: BASO % 0.1 %; BASO ABS # 0.01 K/uL (0-0.2); COMPLETE YES; EOS % 1.2 %; HEMATOCRIT 31.5 % (37-47); IG% 0.3 %; LYMPH % 22.9 %; LYMPH ABS # 1.56 K/uL (1.2-3.4); MEAN CELL VOLUME 86.3 fL (80-100); MEAN CORPUSCULAR HEMOGLOBIN 30.1 pg (25-34); MEAN CORPUSCULAR HGB CONC 34.9 g/dl (32-36); MEAN PLATELET VOLUME 7.6 fL (7.4-10.4); MONO % 8.5 %; PLATELET COUNT 208 K/uL (130-400); RED BLOOD COUNT 3.65 M/uL (4.2-5.4); WHITE BLOOD COUNT 6.82 K/uL (4.8-10.8)
[2017-08-11 08:11] LABS: BUN/CREATININE RATIO 6.8 (10-20); CALCIUM 9.5 mg/dl (8.5-10.1); CREATININE 0.6 mg/dl (0.60-1.20); POTASSIUM 3.6 mmol/L (3.5-5.1)
[2017-08-11 08:14] LABS: ALB/GLOB RATIO 1.1 (0.9-2)
--- NOTE | 2017-08-11 08:14 | Hospitalist Progress Note ---
Hospitalist Progress Note Date of Service Aug 11, 2017. (Amarilis Rooney PA-C) Subjective Pt evaluation today including: conversation w/ patient, conversation w/ family , physical exam, chart review, review of studies Pain: None PO Intake: NPO Voiding: esparza catheter in place The patient was seen and examined this morning. Pt was unable to initial Black hold a conversation with me, and would not answer my questions. Her Sebastián is at bedside, so discussion was primarily held with him. All his questions and her concerns were addressed. At the end of my visit with the patient and she was able to answer questions including where she was, birthday and followed commands. Additional Comments: Constitutional: No fever, sweats or chills Eyes: No diplopia, no worsening or blurred vision ENT: normal hearing, no trouble swallowing Respiratory: No cough, sputum, dyspnea at rest or on exertion Cardiovascular: No chest pain, tightness or palpitations Abdomen: + nausea, No vomiting, diarrhea, + received suppository for constipation prior to my visit Musculoskeletal: No joint pain, calf pain, swelling Neurologic: No weakness, numbness/tingling, or balance problems (Amarilis Rooney, PEPE) Objective Vital Signs Date Time Temp Pulse Resp B/P (MAP) Pulse Ox O2 Delivery O2 Flow Rate FiO2 08/11/17 04:06 37.0 93 18 155/74 (101) 96 Room Air 08/11/17 04:00 Room Air 08/11/17 03:22 88 16 98 Room Air 08/11/17 00:06 36.7 92 20 138/69 (92) 96 Room Air 08/11/17 00:00 Room Air 08/10/17 23:07 89 16 94 Room Air 08/10/17 20:04 36.7 84 20 150/97 (114) 96 Room Air 08/10/17 20:00 Room Air 08/10/17 16:10 Room Air 08/10/17 15:38 36.7 79 16 143/90 (107) 99 Room Air 08/10/17 12:10 Room Air 08/10/17 11:41 36.5 83 20 155/69 (97) 97 Room Air 08/10/17 11:21 80 16 95 Room Air 08/10/17 08:30 Room Air (Amarilis Rooney PA-C) Physical Exam Notes: General Appearance: WD/WN, NAD, +occasionally fidgets with her hands at gown and sheets in the bed Eyes: PERRL, EOMI ENT: hearing grossly normal, pharynx normal, MMM Neck: supple, no JVD Respiratory/Chest: + on room air, lungs clear, no accessory muscle use, Cardiovascular: no murmur, NSR Abdomen: hypoactive bowel sounds, non tender, soft Extremities: non-tender, no pedal edema, no calf tenderness Neurologic/Psychiatric: alert, awake, oriented to place, initially is not oriented to date or year. (Amarilis Rooney PA-C) Laboratory Results Last 24 Hours Test 08/10/17 08:19 08/10/17 16:37 08/10/17 18:50 08/10/17 20:12 White Blood Count 8.59 K/uL Red Blood Count 3.81 M/uL Hemoglobin 11.7 g/dL Hematocrit 32.0 % Mean Corpuscular Volume 84.0 fL Mean Corpuscular Hemoglobin 30.7 pg Mean Corpuscular Hemoglobin Concent 36.6 g/dl Platelet Count 224 K/uL Mean Platelet Volume 7.9 fL Neutrophils (%) (Auto) 75.8 % Lymphocytes (%) (Auto) 17.1 % Monocytes (%) (Auto) 6.3 % Eosinophils (%) (Auto) 0.5 % Basophils (%) (Auto) 0.1 % Neutrophils # (Auto) 6.51 K/uL Lymphocytes # (Auto) 1.47 K/uL Monocytes # (Auto) 0.54 K/uL Eosinophils # (Auto) 0.04 K/uL Basophils # (Auto) 0.01 K/uL RDW Standard Deviation 39.1 fL RDW Coefficient of Variation 12.8 % Immature Granulocyte % (Auto) 0.2 % Immature Granulocyte # (Auto) 0.02 K/uL Sodium Level 124 mmol/L 125 mmol/L 123 mmol/L Potassium Level 3.0 mmol/L 3.7 mmol/L 3.5 mmol/L Chloride Level 88 mmol/L 89 mmol/L 88 mmol/L Carbon Dioxide Level 25 mmol/L 26 mmol/L 24 mmol/L Anion Gap 11.0 mmol/L 10.0 mmol/L 11.0 mmol/L Blood Urea Nitrogen 6 mg/dl 6 mg/dl 5 mg/dl Creatinine 0.62 mg/dl 0.57 mg/dl 0.58 mg/dl Est Creatinine Clear Calc Drug Dose 81.3 ml/min 88.4 ml/min 86.9 ml/min Estimated GFR () 107.4 110.4 109.8 Estimated GFR (Non- 92.7 95.3 94.7 BUN/Creatinine Ratio 9.4 9.7 9.3 Random Glucose 128 mg/dl 117 mg/dl 87 mg/dl Calcium Level 9.3 mg/dl 8.9 mg/dl 9.2 mg/dl Urine Osmolality 449 mOms/kg Phosphorus Level 2.3 mg/dl Albumin 3.4 gm/dl Test 08/11/17 07:23 White Blood Count 6.82 K/uL Red Blood Count 3.65 M/uL Hemoglobin 11.0 g/dL Hematocrit 31.5 % Mean Corpuscular Volume 86.3 fL Mean Corpuscular Hemoglobin 30.1 pg Mean Corpuscular Hemoglobin Concent 34.9 g/dl Platelet Count 208 K/uL Mean Platelet Volume 7.6 fL Neutrophils (%) (Auto) 67.0 % Lymphocytes (%) (Auto) 22.9 % Monocytes (%) (Auto) 8.5 % Eosinophils (%) (Auto) 1.2 % Basophils (%) (Auto) 0.1 % Neutrophils # (Auto) 4.57 K/uL Lymphocytes # (Auto) 1.56 K/uL Monocytes # (Auto) 0.58 K/uL Eosinophils # (Auto) 0.08 K/uL Basophils # (Auto) 0.01 K/uL RDW Standard Deviation 41.0 fL RDW Coefficient of Variation 12.9 % Immature Granulocyte % (Auto) 0.3 % Immature Granulocyte # (Auto) 0.02 K/uL (Amarilis Rooney PA-C) Assessment and Plan 67 yo F with PMHx of stroke, HTN, SIADH AMS, encephalopathy Subclinical seizure activity? - Mental status since it is waxing and waning -s/p with head injury (Left temporal region), from sitting on toilet, this was unwitnessed. She did have CT of the head completed which showed no acute findings at that time. Repeat CT head on 08/06 and 08/07 showing ventriculomegaly and old right frontal and left cerebellar infarcts - this is stable per neurology with comparison to prior studies. No need for treatment at this time. - Keppra to start being titrated off per neurology: Current regimen on 1500 mg BID, and will continue to titrate down at 500 mg per week until off. - initial keppra level still in process. Continue vimpat as dosed. - continue antiemetics prn - All meds are switched to IV or rectal, no po meds. Urinary Retention - Initial UA was clear, urine culture in process with NGTD - Continue bladder scans Q4H and straight cath for urine > 450 mL - UCx without growth Pulmonary- - CXR showing questionable pneumonia - Sputum culture was never collected, - Continue Aspiration precautions, NPO and convert all meds to IV, Flutter and incentive spirometry - Zosyn, day #5, had 2 days of ceftriaxone prior to this. - Afebrile, no leukocytosis. Etiology of encephalopathy is still unclear. SIADH - Cont desmopressin IV - NA+ 128 today, slightly improved after started on hypertonic saline per neurology overnight. Continue fluid restriction. Hypertension - Cont IV meds. Holding metoprolol tartrate 25 mg BID, continue IV lopressor 5 mg prn. - Started enalapril 1.25 mg IV Q12H, Holding lisinopril 20 mg PO daily - continue aspirin 300 mg daily suppository. Seizure disorder- -continue Vimpat 400 mg IV BID and Keppra 1500 mg BID IV as above - titrating keppra off. Hyperlipidemia- -Hold atorvastatin 40 mg PO for now. Right ovarian cyst 2.3 cm- - Checking pelvic ultrasound, Stable compared to CT of 06/19/2017. - Should have outpatient pelvic US in 6 months for follow up. 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 Documented and follow repeat imaging. Right lobe Liver cyst--documented and follow with repeat imaging. L4/S1 spinal fusion / L2 compression deformity--no active symptoms. DVT ppx: heparin subq CODE STATUS: FULL CODE Disposition: From home and lives with , continue PCU, if does well may able to transfer off tele tomorrow. (Amarilis Rooney PA-C) RAE Physician Supervision Note: I interviewed and examined the patient. Discussed with Amarilis Rooney PAC and agree with findings and plan as documented in the note. Any exceptions or clarifications are listed here: None This patient is more awake recognize his name her is relieved still the direct cause of her mental status changes unknown. She did have hyponatremia likely from slightly X issues with desmopressin and she is being tapered off of her morning Keppra dose. He is concurrently being treated for possible aspiration. 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
[2017-08-11] MEDS: HEPARIN SOD 5000 UNIT/0.5 ML CARP SQ SCH ×2 (08:36→22:59)
[2017-08-11] MEDS: LEVETIRACETAM IV SCH (08:56)
[2017-08-11] MEDS: DEXTROSE 5% IV SCH (08:56)
[2017-08-11] MEDS: ENALAPRILAT IV 1.25 MG in DEXTROSE 5% 25ML 25 ML IV SCH ×2 (09:04→21:58)
[2017-08-11] MEDS: SODIUM CHLORIDE 0.9% IV SCH ×2 (09:04→22:57)
[2017-08-11] MEDS: LACOSAMIDE IV SCH ×2 (09:04→22:57)
[2017-08-11] MEDS: ASPIRIN 300 MG SUPP PR SCH (09:07)
--- NOTE | 2017-08-11 12:34 | Nephrology Progress Note ---
Nephrology Progress Note Date of Service Aug 11, 2017. Chief Complaint Dysnatremia Ralph Cheek was seen and evaluated in her hospital room this morning. She remains encephalopathic and not answering questions appropriately. Mental status continues to wax and wane per report. I discussed the plan of care with Dr. Kilpatrick and Dr. Mays. Serum sodium has improved after holding DDAVP and providing IV hypertonic saline overnight. Urine output remains brisk. Review of Systems A complete review of systems was performed but complicated by degree of encephalopathy. Pertinent positives are noted above. All other systems are negative. Vital Signs Last 8 Hrs Date Time Temp Pulse Resp B/P (MAP) Pulse Ox O2 Delivery O2 Flow Rate FiO2 08/11/17 12:02 37.5 69 15 124/60 (81) 98 Room Air 08/11/17 11:26 75 16 93 Room Air 08/11/17 08:08 37.6 85 16 115/58 (77) 93 Room Air 08/11/17 08:00 96 Room Air Last Recorded Weight Weight (Kilograms): 62.600 Physical Exam General Appearance: no apparent distress, + thin Head: normocephalic, atraumatic Eyes: normal inspection, sclerae normal ENT: normal ENT inspection, pharynx normal Neck: supple, no JVD Respiratory/Chest: lungs clear, no respiratory distress, no accessory muscle use Cardiovascular: regular rate, rhythm, no gallop Abdomen/GI: non tender, soft Genitourinary - Female: + pertinent finding (Hunter draining pale yellow urine) Extremities/Musculoskelatal: normal inspection, no pedal edema Neurologic/Psych: + disoriented Family History FH: arthritis FH: emphysema Heart disease Stroke Social History Smokeless Tobacco Use: No Alcohol Use: none Drug Use: none Marital Status: Housing Status: lives with family Occupation: unemployed Laboratory Results Past 24 Hours 08/11/17 07:23 Red Blood Count 3.65, Mean Corpuscular Volume 86.3, Mean Corpuscular Hemoglobin 30.1, Mean Corpuscular Hemoglobin Concent 34.9, Mean Platelet Volume 7.6, Neutrophils (%) (Auto) 67.0, Lymphocytes (%) (Auto) 22.9, Monocytes (%) (Auto) 8.5, Eosinophils (%) (Auto) 1.2, Basophils (%) (Auto) 0.1, Neutrophils # (Auto) 4.57, Lymphocytes # (Auto) 1.56, Monocytes # (Auto) 0.58, Eosinophils # (Auto) 0.08, Basophils # (Auto) 0.01 08/10/17 16:37 08/10/17 20:12 08/11/17 07:23 Test 08/10/17 16:37 08/10/17 18:50 08/10/17 20:12 08/11/17 07:23 Anion Gap 10.0 mmol/L (3-11) 11.0 mmol/L (3-11) 9.0 mmol/L (3-11) Est Creatinine Clear Calc Drug Dose 88.4 ml/min 86.9 ml/min 84.0 ml/min Estimated GFR () 110.4 109.8 108.5 Estimated GFR (Non- 95.3 94.7 93.7 BUN/Creatinine Ratio 9.7 (10-20) 9.3 (10-20) 6.8 (10-20) Calcium Level 8.9 mg/dl (8.5-10.1) 9.2 mg/dl (8.5-10.1) 9.5 mg/dl (8.5-10.1) Urine Osmolality 449 mOms/kg (500-800) Phosphorus Level 2.3 mg/dl (2.5-4.9) Albumin 3.4 gm/dl (3.4-5.0) 3.5 gm/dl (3.4-5.0) White Blood Count 6.82 K/uL (4.8-10.8) Red Blood Count 3.65 M/uL (4.2-5.4) Hemoglobin 11.0 g/dL (12.0-16.0) Hematocrit 31.5 % (37-47) Mean Corpuscular Volume 86.3 fL (80-100) Mean Corpuscular Hemoglobin 30.1 pg (25-34) Mean Corpuscular Hemoglobin Concent 34.9 g/dl (32-36) Platelet Count 208 K/uL (130-400) Mean Platelet Volume 7.6 fL (7.4-10.4) Neutrophils (%) (Auto) 67.0 % Lymphocytes (%) (Auto) 22.9 % Monocytes (%) (Auto) 8.5 % Eosinophils (%) (Auto) 1.2 % Basophils (%) (Auto) 0.1 % Neutrophils # (Auto) 4.57 K/uL (1.4-6.5) Lymphocytes # (Auto) 1.56 K/uL (1.2-3.4) Monocytes # (Auto) 0.58 K/uL (0.11-0.59) Eosinophils # (Auto) 0.08 K/uL (0-0.5) Basophils # (Auto) 0.01 K/uL (0-0.2) RDW Standard Deviation 41.0 fL (36.4-46.3) RDW Coefficient of Variation 12.9 % (11.5-14.5) Immature Granulocyte % (Auto) 0.3 % Immature Granulocyte # (Auto) 0.02 K/uL (0.00-0.02) Total Bilirubin 0.5 mg/dl (0.2-1) Aspartate Amino Transf (AST/SGOT) 12 U/L (15-37) Alanine Aminotransferase (ALT/SGPT) 19 U/L (12-78) Alkaline Phosphatase 96 U/L (45-117) Total Protein 6.6 gm/dl (6.4-8.2) Globulin 3.1 gm/dl (2.5-4.0) Albumin/Globulin Ratio 1.1 (0.9-2) Test 08/11/17 11:16 Allergies Coded Allergies: Amlodipine (Unverified Allergy, Unknown, leg swelling, red, and itchy, 06/19) Clarithromycin (Verified Allergy, Unknown, UNKNOWN, 03/02/17) Codeine (Verified Allergy, Unknown, UNKNOWN, 03/02/17) Doxycycline (Verified Allergy, Unknown, UNKNOWN, 03/02/17) Oxycodone (Verified Adverse Reaction, Unknown, UPSET STOMACH, 03/02/17) Medications Current Inpatient Medications Medications (Trade) Dose Ordered Sig/[place] Route Start Time Stop Time Status Last Admin Dose Admin Heparin Sodium (Porcine) (Heparin Sq 5000 Unit/0.5ml) 5,000 unit Q12 SQ 08/07/17 09:00 09/06/17 08:59 08/11/17 08:36 5,000 UNIT Al Hydrox/Mg Hydrox/Simethicone (Maalox Max Susp) 15 ml Q4H PRN PO 08/07/17 00:30 09/06/17 00:29 Magnesium Hydroxide (Milk Of Magnesia Susp) 30 ml Q12H PRN PO 08/07/17 00:30 09/06/17 00:29 Polyethylene (Miralax Powder Packet) 17 gm DAILY PRN PO 08/07/17 00:30 09/06/17 00:29 Aspirin (Ecotrin Tab) 81 mg DAILY PO 08/07/17 09:00 09/06/17 08:59 Future Hold 08/08/17 09:11 81 MG Atorvastatin Calcium (Lipitor Tab) 40 mg QPM PO 08/07/17 21:00 09/06/17 20:59 Future Hold Lisinopril (Zestril Tab) 20 mg QAM PO 08/07/17 09:00 09/06/17 08:59 Future Hold 08/08/17 09:11 20 MG Metoprolol Tartrate (Lopressor Tab) 25 mg BID PO 08/07/17 09:00 09/06/17 08:59 Future Hold 08/08/17 09:11 25 MG Miscellaneous (Iv Fluids Completed) 1 ea PRN PRN N/A 08/07/17 04:30 08/07/18 04:29 Ondansetron HCl 8 mg/Dextrose 54 ml @ 200 mls/hr Q6H PRN IV 08/07/17 10:00 09/06/17 09:59 08/10/17 00:08 200 MLS/HR Piperacillin Sod/ Tazobactam Sod (Consult) 1 ea UD PRN N/A 08/07/17 12:45 09/06/17 12:44 Piperacillin Sod/ Tazobactam Sod 3.375 gm/Dextrose 115 ml @ 28.75 mls/ hr Q8H IV 08/07/17 19:30 08/14/17 11:59 08/11/17 03:45 28.75 MLS/HR Levetiracetam 1500 mg/Dextrose 115 ml @ 440 mls/hr QPM IV 08/08/17 21:00 09/07/17 20:59 08/10/17 21:51 440 MLS/HR Lacosamide 400 mg/ Sodium Chloride 90 ml @ 180 mls/hr Q12 IV 08/08/17 11:00 09/07/17 10:59 08/11/17 09:04 180 MLS/HR Promethazine HCl 12.5 mg/Sodium Chloride 50.5 ml @ 204 mls/hr Q6H PRN IV 08/08/17 10:45 09/07/17 10:44 Acetaminophen 650 mg/Empty Bag 65 ml @ 260 mls/hr Q6H PRN IV 08/08/17 10:45 09/07/17 10:44 Metoprolol Tartrate (Lopressor Iv) 5 mg Q4 PRN IV 08/08/17 10:45 09/07/17 10:44 08/09/17 19:58 5 MG Aspirin (Aspirin Supp) 300 mg DAILY [place] 08/09/17 09:00 09/08/17 08:59 08/11/17 09:07 300 MG Albuterol/ Ipratropium (Duoneb) 3 ml Q4R INH 08/10/17 04:00 09/09/17 03:59 08/11/17 11:24 3 ML Levetiracetam 1500 mg/Dextrose 265 ml @ 999 mls/hr QAM IV 08/11/17 09:00 09/08/17 08:59 08/11/17 08:56 999 MLS/HR Enalaprilat 1.25 mg/Dextrose 26 ml @ 100 mls/hr Q12 IV 08/10/17 21:00 09/09/17 20:59 08/11/17 09:04 100 MLS/HR Impression (1) Hyponatremia (2) Hypertension (3) Altered mental status (4) Urinary tract infection (5) Encephalopathy (6) Primary central diabetes insipidus Adia Singletary is a 67-year-old female admitted to [facility] with mental status changes. Medical history is notable for complications of a CSF leak following laminectomy in September of 2016. Neurologic complications including ischemic infarcts as well as a seizure disorder and central DI. Adia developed hyponatremia during hospitalization associated with DDAVP. The medication has been held. Serum sodium responded to treatment with hypertonic saline. Unfortunately, encephalopathy persists. Neurologic evaluation has not revealed the exact etiology. At this time, the patient is not taking PO. She is making a large volume of visibly dilute urine. I expect her serum sodium to continue to rise. Current rate of correction has been appropriate. Serum sodium will be repeated at this time. I do not think her dysnatremia accounts for her neurologic findings. Additional work-up including consideration of a 24 hour EEG is suggested. Recommendations -- Document I/O's -- Repeat serum sodium and monitor at least twice daily -- Start IVF after review of repeat serum sodium -- Monitor urine osmolality as needed -- Hold DDAVP -- Serial neurologic exams and r/o seizures
--- NOTE | 2017-08-11 15:03 | PROGRESS NOTE ---
DATE: 08/11/2017 DATE: 08/11/2017 I saw Adia this afternoon, she was lethargic. I could get her to respond a little better than yesterday. She had her left hemiparesis with some head and eye deviation to the right consistent with her old infarct. I really could not get her to move much. The nurses confirm that as of this morning, she was awake, chatting with her family and her confirmed this, but as usual around noon time she begins to sleep, cannot be aroused or arousal is very difficult and then she awakens at variable times at night. Last night apparently she awakened and was quite conversant with the nursing staff for about an hour and then went back to sleep. We are in the process of gradually weaning her from the Keppra. It looks as though she is still requiring it to be given intravenously as her periods of lucidity are not apparently accompanied by her ability to take oral medications. At this point, we simply dropped the Keppra by 500 mg. We are continuing the Vimpat. Dr. Escobedo will be assuming our service on Sunday and she knows the patient well. Iris Zhang and Dr. Escobedo will be making rounds again on Sunday and perhaps establishing a program more rapidly reducing the Keppra. Nothing resembling seizure activity has been seen and there is nothing new on the scans other than the expected evolution of the right MCA distribution infarction with more retraction of the ventricle and an EEG is technically limited but did not show anything that resembled ongoing potentially epileptogenic activity or nonconvulsive status epilepticus. Addendum: Dr Kilpatrick contacted me this evening and is concerned about an episode of eye deviation to the right and diminished responsiveness but this is what I have been seeing on most of my visits we discussed the situation and to clear things if we can we are going to try to set up a continuous eeg monitoring while the patient is in the unit and Dr Chinchilla will have to be contacted to set this up if it is available [facility]
--- NOTE | 2017-08-11 18:16 | Progress Note ---
Subjective Date of Service: Aug 11, 2017. Subjective was called to see patient as was tachycardic and although awake was not following with her eyes and speaking in one word answers, ECG revealed was sinus tachy with 1 degree AVB. Family is at bedside. Pt is protecting airway and no choking or gurgling. Neurology is paged Problem List Medical Problems: (1) Altered mental status Status: Acute (2) Constipation Status: Acute (3) Facial laceration Status: Acute (4) Fall from other slipping, tripping, or stumbling Status: Acute (5) Generalized weakness Status: Acute (6) Hypokalemia Status: Acute (7) Lower abdominal pain Status: Acute (8) Nausea & vomiting Status: Acute (9) Pneumonia Status: Acute (10) Pneumonia Status: Acute (11) UTI (urinary tract infection) Status: Acute (12) UTI (urinary tract infection) Status: Acute Review of Systems Constitutional: + weakness, + fatigue, + problem reported (level of response prevents full ros), No fever, No chills Eyes: + problem reported Objective Vital Signs Date Time Temp Pulse Resp B/P (MAP) Pulse Ox O2 Delivery O2 Flow Rate FiO2 08/11/17 17:32 36.6 123 20 153/74 (100) 94 Room Air 08/11/17 15:48 36.9 88 18 140/73 (95) 97 Room Air 08/11/17 15:17 97 16 98 Room Air 08/11/17 12:02 37.5 69 15 124/60 (81) 98 Room Air 08/11/17 11:26 75 16 93 Room Air 08/11/17 08:08 37.6 85 16 115/58 (77) 93 Room Air 08/11/17 08:00 96 Room Air 08/11/17 04:06 37.0 93 18 155/74 (101) 96 Room Air 08/11/17 04:00 Room Air 08/11/17 03:22 88 16 98 Room Air 08/11/17 00:06 36.7 92 20 138/69 (92) 96 Room Air 08/11/17 00:00 Room Air 08/10/17 23:07 89 16 94 Room Air 08/10/17 20:04 36.7 84 20 150/97 (114) 96 Room Air 08/10/17 20:00 Room Air Physical Exam General Appearance: WD/WN, + mild distress Eyes: + pertinent finding (eyes are deviated to the right, does redirect but will not look left needs to turn head to move to left, no headache) Respiratory/Chest: chest non-tender, lungs clear, normal breath sounds Cardiovascular: no murmur, + tachycardia Abdomen: normal bowel sounds, non tender, soft Laboratory Results Last 24 Hours Test 08/10/17 18:50 08/10/17 20:12 08/11/17 07:23 08/11/17 11:16 Urine Osmolality 449 mOms/kg Sodium Level 123 mmol/L 128 mmol/L Potassium Level 3.5 mmol/L 3.6 mmol/L Chloride Level 88 mmol/L 94 mmol/L Carbon Dioxide Level 24 mmol/L 25 mmol/L Anion Gap 11.0 mmol/L 9.0 mmol/L Blood Urea Nitrogen 5 mg/dl 4 mg/dl Creatinine 0.58 mg/dl 0.60 mg/dl Est Creatinine Clear Calc Drug Dose 86.9 ml/min 84.0 ml/min Estimated GFR () 109.8 108.5 Estimated GFR (Non- 94.7 93.7 BUN/Creatinine Ratio 9.3 6.8 Random Glucose 87 mg/dl 99 mg/dl Calcium Level 9.2 mg/dl 9.5 mg/dl Phosphorus Level 2.3 mg/dl Albumin 3.4 gm/dl 3.5 gm/dl White Blood Count 6.82 K/uL Red Blood Count 3.65 M/uL Hemoglobin 11.0 g/dL Hematocrit 31.5 % Mean Corpuscular Volume 86.3 fL Mean Corpuscular Hemoglobin 30.1 pg Mean Corpuscular Hemoglobin Concent 34.9 g/dl Platelet Count 208 K/uL Mean Platelet Volume 7.6 fL Neutrophils (%) (Auto) 67.0 % Lymphocytes (%) (Auto) 22.9 % Monocytes (%) (Auto) 8.5 % Eosinophils (%) (Auto) 1.2 % Basophils (%) (Auto) 0.1 % Neutrophils # (Auto) 4.57 K/uL Lymphocytes # (Auto) 1.56 K/uL Monocytes # (Auto) 0.58 K/uL Eosinophils # (Auto) 0.08 K/uL Basophils # (Auto) 0.01 K/uL RDW Standard Deviation 41.0 fL RDW Coefficient of Variation 12.9 % Immature Granulocyte % (Auto) 0.3 % Immature Granulocyte # (Auto) 0.02 K/uL Total Bilirubin 0.5 mg/dl Aspartate Amino Transf (AST/SGOT) 12 U/L Alanine Aminotransferase (ALT/SGPT) 19 U/L Alkaline Phosphatase 96 U/L Total Protein 6.6 gm/dl Globulin 3.1 gm/dl Albumin/Globulin Ratio 1.1 Procalcitonin 0.06 ng/ml Test 08/11/17 12:47 08/11/17 16:50 Sodium Level 132 mmol/L 133 mmol/L Assessment and Plan 67 F here with altered mental status discussion of metabolic encephalopathy but no defined significant infection, fever or wbc elevation, check pro calcitonin it was very low has been discussion of normal pressure hydrocephalus, but not with classic symptoms, also discussion of seizure but no defining EEG parameters, also entertained elevated antiepileptic meds as seems was ok in am and depressed mental status after am keppra so keppra dose reduced. todays activity seems more like a partial seizure will have a call out to neurology to discuss anti epileptic meds and discussion if benefit from LP or 24 hour EEG
[2017-08-11] MEDS: LEVETIRACETAM IV 1,500 MG in DEXTROSE 5% 100ML 100 ML IV SCH (20:59)
[2017-08-11 21:03] LABS: BUN/CREATININE RATIO 5.8 (10-20); CALCIUM 9.6 mg/dl (8.5-10.1); CREATININE 0.64 mg/dl (0.60-1.20); PHOSPHORUS 2.5 mg/dl (2.5-4.9); POTASSIUM 3.1 mmol/L (3.5-5.1)
[2017-08-12] VITALS (17 sets, daily range): BP systolic 125–172; BP diastolic 56–77; PULSE 76–115; TEMP 36.3–36.8; O2SAT 93–100
[2017-08-12] MEDS: POTASSIUM CHLR 10 MEQ / WTR 10 MEQ in PREMIXED WATER 100 ML IV SCH ×4 (02:25→12:53)
[2017-08-12] MEDS: ALBUT/IPRATROP 3MG/0.5MG NEB 3 ML VIAL INH SCH ×5 (03:23→20:24)
[2017-08-12] MEDS: PIPERACILL/TAZOBAC IV 3.375 GM in DEXTROSE 5% 100ML 100 ML IV SCH ×3 (03:53→19:31)
--- NOTE | 2017-08-12 07:59 | Hospitalist Progress Note ---
Hospitalist Progress Note Date of Service Aug 12, 2017. (Amarilis Rooney PA-C) Subjective Pt evaluation today including: conversation w/ patient, conversation w/ family , physical exam, chart review, lab review, review of studies Pain: None PO Intake: NPO Voiding: esparza catheter in place The patient was seen and examined this morning. Pt states "I think I'm ok". Her and daughter (Lidya) are present. Overnight events included some fine tremor and questionable seizure activity per nursing, however not able to provide specific details. Discussion was help with family regarding 24 hour EEG today, and will plan to move to ICU for this. Additional Comments: ROS is not obtained obtainable due to patient's mental status, fatigue, somnolence. (Amarilis Rooney PA-C) Objective Vital Signs Date Time Temp Pulse Resp B/P (MAP) Pulse Ox O2 Delivery O2 Flow Rate FiO2 08/12/17 07:37 36.3 94 18 149/61 (90) 100 Room Air 08/12/17 07:19 76 16 95 Room Air 08/12/17 04:00 Room Air 08/12/17 03:45 36.8 108 19 172/77 (108) 96 Room Air 08/12/17 03:25 86 16 96 Room Air 08/12/17 00:00 Room Air 08/11/17 23:16 88 16 95 Room Air 08/11/17 23:12 36.7 90 19 161/79 (106) 95 Room Air 08/11/17 20:00 Room Air 08/11/17 19:47 36.6 102 18 128/65 (86) 96 Room Air 08/11/17 19:19 101 16 93 Room Air 08/11/17 17:32 36.6 123 20 153/74 (100) 94 Room Air 08/11/17 16:00 Room Air 08/11/17 15:48 36.9 88 18 140/73 (95) 97 Room Air 08/11/17 15:17 97 16 98 Room Air 08/11/17 12:02 37.5 69 15 124/60 (81) 98 Room Air 08/11/17 12:00 Room Air 08/11/17 11:26 75 16 93 Room Air 08/11/17 08:08 37.6 85 16 115/58 (77) 93 Room Air 08/11/17 08:00 96 Room Air (Amarilis Rooney PA-C) Physical Exam Notes: General Appearance: WD/WN, NAD, +occasionally fidgets with her hands at gown and sheets in the bed Eyes: PERRL, EOMI + partially responsive with opening eyes on command ENT: hearing grossly normal, pharynx normal, MMM Neck: supple, no JVD Respiratory/Chest: + on room air, lungs clear, no accessory muscle use, Cardiovascular: no murmur (+tachycardic, NRS) Abdomen: hypoactive bowel sounds, non tender, soft Extremities: non-tender, no pedal edema, no calf tenderness Neurologic/Psychiatric: awake, unable to tell me shes in a hospital, unable to identify date and year, + takes deep breaths on command (Amarilis Rooney PA-C) Laboratory Results Last 24 Hours Test 08/11/17 11:16 08/11/17 12:47 08/11/17 16:50 08/11/17 17:30 Procalcitonin 0.06 ng/ml Sodium Level 132 mmol/L 133 mmol/L Bedside Glucose 114 mg/dl Test 08/11/17 20:03 08/11/17 22:00 08/12/17 07:36 Sodium Level 134 mmol/L Potassium Level 3.1 mmol/L Chloride Level 99 mmol/L Carbon Dioxide Level 24 mmol/L Anion Gap 11.0 mmol/L Blood Urea Nitrogen 4 mg/dl Creatinine 0.64 mg/dl Est Creatinine Clear Calc Drug Dose 78.8 ml/min Estimated GFR () 106.3 Estimated GFR (Non- 91.7 BUN/Creatinine Ratio 5.8 Random Glucose 98 mg/dl Calcium Level 9.6 mg/dl Phosphorus Level 2.5 mg/dl Albumin 3.5 gm/dl Urine Osmolality 343 mOms/kg (Amarilis Rooney PA-C) Assessment and Plan 67 yo F with PMHx of stroke, HTN, SIADH, L4/S1 spinal fusion / L2 compression deformity who underwent surgery in Sep 2016 and subsequently suffered large CSF leak causing seizure disorder. She has been actively treated with antiepileptics since that time. She presented on 08/07 for AMS, nausea, vomiting to the ER. AMS, encephalopathy Subclinical seizure activity? - [place] consulted with episode of worsening AMS and unresponsiveness to verbal of physical stimuli at ~ 10:30am after initial visit early this morning with family at bedside. Pt is unable to speak to me, eyes are wide open with + nystagmus, and she has a left sided gaze. - Will plan for 24 hour EEG which will need complete in ICU today - discussed with Dr. Muro. - Mental status waxing and waning -s/p with head injury (Left temporal region) , from sitting on toilet, this was unwitnessed ~ 10 days prior to admit. CT of the head completed which showed no acute findings at that time. Repeat CT head on 08/06 and 08/07 showing ventriculomegaly and old right frontal and left cerebellar infarcts - this is stable per neurology with comparison to prior studies. - Keppra to start being titrated off per neurology: Current regimen on 1500 mg BID, and will continue to titrate down at 500 mg per week until off. - initial keppra level still in process. Continue vimpat as dosed. - Overnight Tmax = 37.6, recultured urine since esparza cath in place - Considering LP? - All meds are switched to IV or rectal, no po meds. Urinary Retention - Initial UA was clear, urine culture from 08/07 clear. Recultured urine with indwelling esparza in place - Follow - Continue bladder scans Q4H and straight cath for urine > 450 mL - UCx without growth Pulmonary- - CXR showing questionable pneumonia- Continue Aspiration precautions, NPO and convert all meds to IV, Flutter and incentive spirometry - Zosyn, day #6, had 2 days of ceftriaxone prior to this. - Afebrile, no leukocytosis. Appears this is more neurologically related than infectious at this time. SIADH - Cont desmopressin IV - NA+ 134 - Nephrology on board and monitoring fast BMP, slightly improved after started on hypertonic saline per neurology overnight. Continue fluid restriction. Hypokalemia - Replace as needed. Hypertension - Cont IV meds. Holding metoprolol tartrate 25 mg BID, continue IV lopressor 5 mg prn. - Started enalapril 1.25 mg IV Q12H, Holding lisinopril 20 mg PO daily - continue aspirin 300 mg daily suppository. Seizure disorder- -continue Vimpat 400 mg IV BID and Keppra 1500 mg BID IV as above - titrating keppra off. Hyperlipidemia- -Hold atorvastatin 40 mg PO for now. Right ovarian cyst 2.3 cm- - Checking pelvic ultrasound, Stable compared to CT of 06/19/2017. - Should have outpatient pelvic US in 6 months for follow up. 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 Documented and follow repeat imaging. Right lobe Liver cyst--documented and follow with repeat imaging. L4/S1 spinal fusion / L2 compression deformity--no active symptoms. DVT ppx: heparin subq CODE STATUS: FULL CODE Disposition: From home and lives with , transfer to ICU for 24 hr EEG, accordion tuner consulted (Amarilis Rooney, PEPE) PA Physician Supervision Note: I interviewed and examined the patient. Discussed with Amarilis Rooney PAC and agree with findings and plan as documented in the note. Any exceptions or clarifications are listed here: None This patient is awake but altered with mental state having her eyes deviated to the 1 to 2 o'clock position and having marked nystagmus after discussion with neurology 24-hour EEG will be undertaken and she is transferred to the ICU to accomplish that after discussion with the ICU Dr. this may be Keppra toxicity but will await for the 24-hour EEG and daughter at bedside and updated Vital signs are stable she is not hypoxic despite having some difficulty clearing secretions Her heart is tachycardic regular her lungs are with coarse upper airway breath sounds neurologically she has her eyes open she's not responding to command she has having some purposeful movements although not to command Transferred ICU for 24 hour EEG monitoring attempted tapering Her dose will be a with the oversight of neurology additional Keppra level sent supportive care at this time continuing antibiotics aspirin and pulmonary support Documented By: Danial Kilpatrick (Danial Kilpatrick M.D.)
[2017-08-12 08:05] LABS: BASO % 0.2 %; BASO ABS # 0.02 K/uL (0-0.2); COMPLETE YES; EOS % 0.6 %; HEMATOCRIT 31.6 % (37-47); IG% 0.3 %; LYMPH % 15.4 %; LYMPH ABS # 1.47 K/uL (1.2-3.4); MEAN CELL VOLUME 87.5 fL (80-100); MEAN CORPUSCULAR HEMOGLOBIN 30.2 pg (25-34); MEAN CORPUSCULAR HGB CONC 34.5 g/dl (32-36); MEAN PLATELET VOLUME 7.9 fL (7.4-10.4); NEUT % 76.5 %; PLATELET COUNT 226 K/uL (130-400); RED BLOOD COUNT 3.61 M/uL (4.2-5.4); WHITE BLOOD COUNT 9.56 K/uL (4.8-10.8)
[2017-08-12 08:36] LABS: BUN/CREATININE RATIO 7.7 (10-20); CALCIUM 9.7 mg/dl (8.5-10.1); CREATININE 0.6 mg/dl (0.60-1.20)
[2017-08-12 08:55] LABS: POTASSIUM 3.3 mmol/L (3.5-5.1)
[2017-08-12] MEDS: SODIUM CHLORIDE 0.9% IV SCH ×2 (09:08→22:05)
[2017-08-12] MEDS: LACOSAMIDE IV SCH ×2 (09:08→22:05)
[2017-08-12] MEDS: HEPARIN SOD 5000 UNIT/0.5 ML CARP SQ SCH ×2 (09:10→21:23)
[2017-08-12] MEDS: ASPIRIN 300 MG SUPP PR SCH (09:15)
[2017-08-12] MEDS: DEXTROSE 5% IV SCH (10:05)
[2017-08-12] MEDS: LEVETIRACETAM IV SCH (10:05)
--- NOTE | 2017-08-12 10:44 | Nephrology Progress Note ---
Nephrology Progress Note Date of Service Aug 12, 2017. Chief Complaint Dysnatremia Subjective Adia is awake but does not respond appropriately to stimuli. Hemodynamics stable. Hunter draining clear yellow urine. UOP 2.7 L in past 24 hours. Mental status continues to wax and wane. Adia has been unable to take anything by mouth. She is not making purposeful movement. Review of Systems A complete review of systems was performed. Pertinent positives are noted above. All other systems are negative. Vital Signs Last 8 Hrs Date Time Temp Pulse Resp B/P (MAP) Pulse Ox O2 Delivery O2 Flow Rate FiO2 08/12/17 07:37 36.3 94 18 149/61 (90) 100 Room Air 08/12/17 07:19 76 16 95 Room Air 08/12/17 04:00 Room Air 08/12/17 03:45 36.8 108 19 172/77 (108) 96 Room Air 08/12/17 03:25 86 16 96 Room Air Last Recorded Weight Weight (Kilograms): 63.000 Physical Exam General Appearance: no apparent distress, + thin Head: normocephalic, atraumatic Eyes: sclerae normal, + pertinent finding (staring with eyes diverted upward and toward the right) Neck: supple, no JVD Respiratory/Chest: lungs clear, no respiratory distress, no accessory muscle use, + pertinent finding (patient having difficulty managing secretions) Cardiovascular: no gallop, no murmur, + tachycardia Abdomen/GI: non tender, soft Genitourinary - Female: + pertinent finding (Hunter draining clear yellow urine) Extremities/Musculoskelatal: normal inspection, no pedal edema Neurologic/Psych: + pertinent finding (Awake, increased rigidity, no purposeful movement, eyes open and diverted upward toward the right) Family History FH: arthritis FH: emphysema Heart disease Stroke Social History Smokeless Tobacco Use: No Alcohol Use: none Drug Use: none Marital Status: Housing Status: lives with family Occupation: unemployed Laboratory Results Past 24 Hours 08/12/17 07:36 Red Blood Count 3.61, Mean Corpuscular Volume 87.5, Mean Corpuscular Hemoglobin 30.2, Mean Corpuscular Hemoglobin Concent 34.5, Mean Platelet Volume 7.9, Neutrophils (%) (Auto) 76.5, Lymphocytes (%) (Auto) 15.4, Monocytes (%) (Auto) 7.0, Eosinophils (%) (Auto) 0.6, Basophils (%) (Auto) 0.2, Neutrophils # (Auto) 7.31, Lymphocytes # (Auto) 1.47, Monocytes # (Auto) 0.67, Eosinophils # (Auto) 0.06, Basophils # (Auto) 0.02 08/11/17 12:47 08/11/17 16:50 08/11/17 20:03 08/12/17 07:36 Test 08/11/17 11:16 08/11/17 17:30 08/11/17 20:03 08/11/17 22:00 Procalcitonin 0.06 ng/ml (0-0.5) Bedside Glucose 114 mg/dl (70-90) Anion Gap 11.0 mmol/L (3-11) Est Creatinine Clear Calc Drug Dose 78.8 ml/min Estimated GFR () 106.3 Estimated GFR (Non- 91.7 BUN/Creatinine Ratio 5.8 (10-20) Calcium Level 9.6 mg/dl (8.5-10.1) Phosphorus Level 2.5 mg/dl (2.5-4.9) Albumin 3.5 gm/dl (3.4-5.0) Urine Osmolality 343 mOms/kg (500-800) Test 08/12/17 07:36 White Blood Count 9.56 K/uL (4.8-10.8) Red Blood Count 3.61 M/uL (4.2-5.4) Hemoglobin 10.9 g/dL (12.0-16.0) Hematocrit 31.6 % (37-47) Mean Corpuscular Volume 87.5 fL (80-100) Mean Corpuscular Hemoglobin 30.2 pg (25-34) Mean Corpuscular Hemoglobin Concent 34.5 g/dl (32-36) Platelet Count 226 K/uL (130-400) Mean Platelet Volume 7.9 fL (7.4-10.4) Neutrophils (%) (Auto) 76.5 % Lymphocytes (%) (Auto) 15.4 % Monocytes (%) (Auto) 7.0 % Eosinophils (%) (Auto) 0.6 % Basophils (%) (Auto) 0.2 % Neutrophils # (Auto) 7.31 K/uL (1.4-6.5) Lymphocytes # (Auto) 1.47 K/uL (1.2-3.4) Monocytes # (Auto) 0.67 K/uL (0.11-0.59) Eosinophils # (Auto) 0.06 K/uL (0-0.5) Basophils # (Auto) 0.02 K/uL (0-0.2) RDW Standard Deviation 43.3 fL (36.4-46.3) RDW Coefficient of Variation 13.4 % (11.5-14.5) Immature Granulocyte % (Auto) 0.3 % Immature Granulocyte # (Auto) 0.03 K/uL (0.00-0.02) Anion Gap 9.0 mmol/L (3-11) Est Creatinine Clear Calc Drug Dose 84.0 ml/min Estimated GFR () 108.5 Estimated GFR (Non- 93.7 BUN/Creatinine Ratio 7.7 (10-20) Calcium Level 9.7 mg/dl (8.5-10.1) Allergies Coded Allergies: Amlodipine (Unverified Allergy, Unknown, leg swelling, red, and itchy, 06/19) Clarithromycin (Verified Allergy, Unknown, UNKNOWN, 03/02/17) Codeine (Verified Allergy, Unknown, UNKNOWN, 03/02/17) Doxycycline (Verified Allergy, Unknown, UNKNOWN, 03/02/17) Oxycodone (Verified Adverse Reaction, Unknown, UPSET STOMACH, 03/02/17) Medications Current Inpatient Medications Medications (Trade) Dose Ordered Sig/[place] Route Start Time Stop Time Status Last Admin Dose Admin Heparin Sodium (Porcine) (Heparin Sq 5000 Unit/0.5ml) 5,000 unit Q12 SQ 08/07/17 09:00 09/06/17 08:59 08/12/17 09:10 5,000 UNIT Al Hydrox/Mg Hydrox/Simethicone (Maalox Max Susp) 15 ml Q4H PRN PO 08/07/17 00:30 09/06/17 00:29 Magnesium Hydroxide (Milk Of Magnesia Susp) 30 ml Q12H PRN PO 08/07/17 00:30 09/06/17 00:29 Polyethylene (Miralax Powder Packet) 17 gm DAILY PRN PO 08/07/17 00:30 09/06/17 00:29 Aspirin (Ecotrin Tab) 81 mg DAILY PO 08/07/17 09:00 09/06/17 08:59 Future Hold 08/08/17 09:11 81 MG Atorvastatin Calcium (Lipitor Tab) 40 mg QPM PO 08/07/17 21:00 09/06/17 20:59 Future Hold Lisinopril (Zestril Tab) 20 mg QAM PO 08/07/17 09:00 09/06/17 08:59 Future Hold 08/08/17 09:11 20 MG Metoprolol Tartrate (Lopressor Tab) 25 mg BID PO 08/07/17 09:00 09/06/17 08:59 Future Hold 08/08/17 09:11 25 MG Miscellaneous (Iv Fluids Completed) 1 ea PRN PRN N/A 08/07/17 04:30 08/07/18 04:29 Ondansetron HCl 8 mg/Dextrose 54 ml @ 200 mls/hr Q6H PRN IV 08/07/17 10:00 09/06/17 09:59 08/10/17 00:08 200 MLS/HR Piperacillin Sod/ Tazobactam Sod (Consult) 1 ea UD PRN N/A 08/07/17 12:45 09/06/17 12:44 Piperacillin Sod/ Tazobactam Sod 3.375 gm/Dextrose 115 ml @ 28.75 mls/ hr Q8H IV 08/07/17 19:30 08/14/17 11:59 08/12/17 03:53 28.75 MLS/HR Levetiracetam 1500 mg/Dextrose 115 ml @ 440 mls/hr QPM IV 08/08/17 21:00 09/07/17 20:59 08/11/17 20:59 440 MLS/HR Lacosamide 400 mg/ Sodium Chloride 90 ml @ 180 mls/hr Q12 IV 08/08/17 11:00 09/07/17 10:59 08/12/17 09:08 180 MLS/HR Promethazine HCl 12.5 mg/Sodium Chloride 50.5 ml @ 204 mls/hr Q6H PRN IV 08/08/17 10:45 09/07/17 10:44 Acetaminophen 650 mg/Empty Bag 65 ml @ 260 mls/hr Q6H PRN IV 08/08/17 10:45 09/07/17 10:44 08/11/17 21:26 260 MLS/HR Metoprolol Tartrate (Lopressor Iv) 5 mg Q4 PRN IV 08/08/17 10:45 09/07/17 10:44 08/09/17 19:58 5 MG Aspirin (Aspirin Supp) 300 mg DAILY VT 08/09/17 09:00 09/08/17 08:59 08/12/17 09:15 300 MG Albuterol/ Ipratropium (Duoneb) 3 ml Q4R INH 08/10/17 04:00 09/09/17 03:59 08/12/17 07:19 3 ML Levetiracetam 1500 mg/Dextrose 265 ml @ 999 mls/hr QAM IV 08/11/17 09:00 09/08/17 08:59 08/12/17 10:05 999 MLS/HR Enalaprilat 1.25 mg/Dextrose 26 ml @ 100 mls/hr Q8 IV 08/12/17 10:00 09/09/17 09:59 Potassium Chloride 10 meq/ Prmx 100 ml @ 100 mls/hr Q1H IV 08/12/17 10:30 08/12/17 12:29 Impression (1) Hyponatremia (2) Hypertension (3) Altered mental status (4) Urinary tract infection (5) Encephalopathy (6) Primary central diabetes insipidus Adia Singletary is a 67-year-old female admitted to [facility] with mental status changes. Medical history is notable for complications of a CSF leak following laminectomy in September of 2016. Neurologic complications including ischemic infarcts as well as a seizure disorder and central DI. Nephrology was consulted to assist with the management of hyponatremia. Dysnatremia associated with DDAVP. The medication has been held. Serum sodium responded to treatment with hypertonic saline. Unfortunately, encephalopathy persists. Etiology remains unclear. Case was discussed with Dr. Kilpatrick this morning. Plan is to transfer to first floor ICU for 24 hour EEG. Urine osmolality is 340. Urine output has slowed. Sodium stable. Recommendations -- Document I/O's -- Monitor metabolic profile twice daily -- Patient will require IVF or nutrition -- At this time, I would suggest consideration for parental nutrition. Nursing has expressed concerns about patient's ability to tolerate NGT. -- Monitor urine osmolality as needed -- Hold DDAVP
[2017-08-12] MEDS: ENALAPRILAT IV 1.25 MG in DEXTROSE 5% 25ML 25 ML IV SCH ×3 (11:05→21:10)
--- NOTE | 2017-08-12 12:41 | Critical Care Consultation ---
Critical Care Consultation Date of Consultation: Aug 12, 2017. Attending Physician: Danial Kilpatrick M.D. Reason for Consultation: altered mental status. History of Present Illness dear Dr. Kilpatrick: Thank you for your kind referral of Mrs. Bolton to ICU service. 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 where she required trach tube placement, and finally her seizure was controlled with propofol . she was discharged on Keppra 2 gm bid and Vimpat . she continued on Lisinopril and Lopressor for BP control. the pt made it to home from rehab in January of 2017 and she was able to feed herself and carry a conversation, she did have recurrent UTI's where her mental status was altered each time. on this admission, she was presented with UTI, treated with bactrim as out pt and found to be very weak and vomited several times, resulted in in possible aspiration as well. she was admitted and continued on keppra for SZ control. the pt mental status did not improve, she was seen by Dr. Garcia from neurology and her Keppra dose was reduced to 3.5 gm then to 3 gm total daily. EEG was done and not revealing an epileptiform activity. Ammonia level was normal and renal function, LFTs were normal, Keppra level still pending. today, she was noted to have aphasia, with lateral gaze to the right, with strong cough reflex but unresponsive, she was sent to the ICU for EEG montage . In the ICU, the pt was able to answer questions with yes and no, very weak, good cough reflex, unable to obtain ROS, info obtained from the family ( excellent informants). no episode of vomiting reported recently, no urinary retention lately, no diarrhea, no fever, chills, no sob or chest pain, secretions pooling noted. but able to guard her airways. sustained generalized weakness and obvious nystagmus noted to left lateral gaze, she does not follow fine skill commands. aphasic and non verbal on my exam. Family History FH: arthritis FH: emphysema Heart disease Stroke Social History Smoking Status: Never Smoker Smokeless Tobacco Use: No Alcohol Use: none Drug Use: none Marital Status: Occupation Status: unemployed Allergies Coded Allergies: Amlodipine (Unverified Allergy, Unknown, leg swelling, red, and itchy, 06/19) Clarithromycin (Verified Allergy, Unknown, UNKNOWN, 03/02/17) Codeine (Verified Allergy, Unknown, UNKNOWN, 03/02/17) Doxycycline (Verified Allergy, Unknown, UNKNOWN, 03/02/17) Oxycodone (Verified Adverse Reaction, Unknown, UPSET STOMACH, 03/02/17) Home Medications Scheduled Aspirin (Aspirin Ec), 81 MG PO DAILY Atorvastatin (Lipitor), 40 MG PO QPM Desmopressin Acetate (Ddavp), 0.2 MG PO Q8 Lacosamide (Vimpat), 400 MG PO BID Levetiracetam (Keppra), 2,000 MG PO BID Lisinopril (Zestril), 20 MG PO QAM Metoprolol Tartrate (Lopressor) (Lopressor), 25 MG PO BID Current Inpatient Medications Current Inpatient Medications Medications (Trade) Dose Ordered Sig/[place] Route Start Time Stop Time Status Last Admin Dose Admin Heparin Sodium (Porcine) (Heparin Sq 5000 Unit/0.5ml) 5,000 unit Q12 SQ 08/07/17 09:00 09/06/17 08:59 08/12/17 09:10 5,000 UNIT Al Hydrox/Mg Hydrox/Simethicone (Maalox Max Susp) 15 ml Q4H PRN PO 08/07/17 00:30 09/06/17 00:29 Magnesium Hydroxide (Milk Of Magnesia Susp) 30 ml Q12H PRN PO 08/07/17 00:30 09/06/17 00:29 Polyethylene (Miralax Powder Packet) 17 gm DAILY PRN PO 08/07/17 00:30 09/06/17 00:29 Aspirin (Ecotrin Tab) 81 mg DAILY PO 08/07/17 09:00 09/06/17 08:59 Future Hold 08/08/17 09:11 81 MG Atorvastatin Calcium (Lipitor Tab) 40 mg QPM PO 08/07/17 21:00 09/06/17 20:59 Future Hold Lisinopril (Zestril Tab) 20 mg QAM PO 08/07/17 09:00 09/06/17 08:59 Future Hold 08/08/17 09:11 20 MG Metoprolol Tartrate (Lopressor Tab) 25 mg BID PO 08/07/17 09:00 09/06/17 08:59 Future Hold 08/08/17 09:11 25 MG Miscellaneous (Iv Fluids Completed) 1 ea PRN PRN N/A 08/07/17 04:30 08/07/18 04:29 Ondansetron HCl 8 mg/Dextrose 54 ml @ 200 mls/hr Q6H PRN IV 08/07/17 10:00 09/06/17 09:59 08/10/17 00:08 200 MLS/HR Piperacillin Sod/ Tazobactam Sod (Consult) 1 ea UD PRN N/A 08/07/17 12:45 09/06/17 12:44 Piperacillin Sod/ Tazobactam Sod 3.375 gm/Dextrose 115 ml @ 28.75 mls/ hr Q8H IV 08/07/17 19:30 08/14/17 11:59 08/12/17 03:53 28.75 MLS/HR Levetiracetam 1500 mg/Dextrose 115 ml @ 440 mls/hr QPM IV 08/08/17 21:00 09/07/17 20:59 08/11/17 20:59 440 MLS/HR Lacosamide 400 mg/ Sodium Chloride 90 ml @ 180 mls/hr Q12 IV 08/08/17 11:00 09/07/17 10:59 08/12/17 09:08 180 MLS/HR Promethazine HCl 12.5 mg/Sodium Chloride 50.5 ml @ 204 mls/hr Q6H PRN IV 08/08/17 10:45 09/07/17 10:44 Acetaminophen 650 mg/Empty Bag 65 ml @ 260 mls/hr Q6H PRN IV 08/08/17 10:45 09/07/17 10:44 08/11/17 21:26 260 MLS/HR Metoprolol Tartrate (Lopressor Iv) 5 mg Q4 PRN IV 08/08/17 10:45 09/07/17 10:44 08/09/17 19:58 5 MG Aspirin (Aspirin Supp) 300 mg DAILY DC 08/09/17 09:00 09/08/17 08:59 08/12/17 09:15 300 MG Albuterol/ Ipratropium (Duoneb) 3 ml Q4R INH 08/10/17 04:00 09/09/17 03:59 08/12/17 11:18 3 ML Levetiracetam 1500 mg/Dextrose 265 ml @ 999 mls/hr QAM IV 08/11/17 09:00 09/08/17 08:59 08/12/17 10:05 999 MLS/HR Enalaprilat 1.25 mg/Dextrose 26 ml @ 100 mls/hr Q8 IV 08/12/17 10:00 09/09/17 09:59 08/12/17 11:05 100 MLS/HR Potassium Chloride 10 meq/ Prmx 100 ml @ 100 mls/hr Q1H IV 08/12/17 10:30 08/12/17 12:29 08/12/17 10:55 100 MLS/HR Review of Systems Constitutional: No fever, No chills, No sweats, No weight loss, No weakness, No fatigue, No problem reported Eyes: + problem reported ENT: No hearing loss, No unusual epistaxis, No nasal symptoms, No sore throat, No tinnitus, No dental problems, No trouble swallowing, No problem reported Respiratory: + cough, + sputum, + problem reported Cardiovascular: No chest pain, No orthopnea, No PND, No edema, No claudication , No palpitations, No problem reported Abdomen: No pain, No nausea, No vomiting, No diarrhea, No constipation, No GI bleeding, No problem reported Musculoskeletal: No joint pain, No muscle pain, No swelling, No calf pain, No problem reported Neurologic: + weakness, + balance problems, + problem reported Psychiatric: + depression symptoms, + problem reported Endocrine: + fatigue Hematologic / Lymphatic: No abnormal bleeding/bruising, No clotting problems, No swollen lymph nodes, No night sweats, No problem reported Integumentary: No rash, No itch, No new/changing skin lesions, No color change , No bleeding, No problem reported Allergic / Immunologic: No environmental allergies, No seasonal allergies, No pet sensitivities, No food allergies, No hives, No frequent infections, No poor healing, No prolonged convalescence, No problem reported Physical Exam Date Time Temp Pulse Resp B/P (MAP) Pulse Ox O2 Delivery O2 Flow Rate FiO2 08/12/17 11:15 115 16 96 Room Air 08/12/17 10:47 36.6 94 18 95 08/12/17 07:37 36.3 94 18 149/61 (90) 100 Room Air 08/12/17 07:19 76 16 95 Room Air 08/12/17 04:00 Room Air 08/12/17 03:45 36.8 108 19 172/77 (108) 96 Room Air 08/12/17 03:25 86 16 96 Room Air 08/12/17 00:00 Room Air 08/11/17 23:16 88 16 95 Room Air 08/11/17 23:12 36.7 90 19 161/79 (106) 95 Room Air 08/11/17 20:00 Room Air 08/11/17 19:47 36.6 102 18 128/65 (86) 96 Room Air 08/11/17 19:19 101 16 93 Room Air 08/11/17 17:32 36.6 123 20 153/74 (100) 94 Room Air 08/11/17 16:00 Room Air 08/11/17 15:48 36.9 88 18 140/73 (95) 97 Room Air 08/11/17 15:17 97 16 98 Room Air VSS, BP slightly elevated, sat 93% on RA. S1S2 RRR, lungs clear, abdomen is benign. cce negative. previous tracheostomy tube site. neuro exam with nystagmus with rapid phase to the left, did not participate in the rest of her cranial nerves exam. pupils midsize reacting, no facial droop. able to hand nurse sane with right > left 5/5 / 4/5 respectively. withdraw to painful stimuli on the right but not on the left, Babinski with positive response on the right but not on the left. patellar reflexes are 2+ on the left and the right. no tremor or seizure activity noted. difficult to assess sensational loss or gait balance. General Appearance: WD/WN Head: normocephalic Eyes: PERRLA, sclerae normal, conjunctivae normal, other ENT: normal mouth exam Neck: trachea midline, supple, no thyromegaly, other Respiratory: breath sounds normal, clear to auscultation Cardiovasular: regular rate/rhythm, normal S1S2, no M/G/R Abdomen: non tender, normal bowel sounds, no rebound Upper Extremities: no edema Lower Extremities: no edema Pulses: radial (R) (2+), radial (L) (2+), dorsalis pedis (R) (2+), dorsalis pedis (L) (2+) Neuro: alert, decreased LOC, lethargic, global weakness, speech abnormal Reflexes: patellar (R) (2+), patellar (L) (4+), achilles (R) (2+), achilles (L ) (4+) Babinski Testing: right (downgoing), left (equivocal) Psychiatric: flat affect Laboratory Results Last 24 Hours Test 08/11/17 12:47 08/11/17 16:50 08/11/17 17:30 08/11/17 20:03 Sodium Level 132 mmol/L 133 mmol/L 134 mmol/L Bedside Glucose 114 mg/dl Potassium Level 3.1 mmol/L Chloride Level 99 mmol/L Carbon Dioxide Level 24 mmol/L Anion Gap 11.0 mmol/L Blood Urea Nitrogen 4 mg/dl Creatinine 0.64 mg/dl Est Creatinine Clear Calc Drug Dose 78.8 ml/min Estimated GFR () 106.3 Estimated GFR (Non- 91.7 BUN/Creatinine Ratio 5.8 Random Glucose 98 mg/dl Calcium Level 9.6 mg/dl Phosphorus Level 2.5 mg/dl Albumin 3.5 gm/dl Test 08/11/17 22:00 08/12/17 07:36 08/12/17 11:55 Urine Osmolality 343 mOms/kg White Blood Count 9.56 K/uL Red Blood Count 3.61 M/uL Hemoglobin 10.9 g/dL Hematocrit 31.6 % Mean Corpuscular Volume 87.5 fL Mean Corpuscular Hemoglobin 30.2 pg Mean Corpuscular Hemoglobin Concent 34.5 g/dl Platelet Count 226 K/uL Mean Platelet Volume 7.9 fL Neutrophils (%) (Auto) 76.5 % Lymphocytes (%) (Auto) 15.4 % Monocytes (%) (Auto) 7.0 % Eosinophils (%) (Auto) 0.6 % Basophils (%) (Auto) 0.2 % Neutrophils # (Auto) 7.31 K/uL Lymphocytes # (Auto) 1.47 K/uL Monocytes # (Auto) 0.67 K/uL Eosinophils # (Auto) 0.06 K/uL Basophils # (Auto) 0.02 K/uL RDW Standard Deviation 43.3 fL RDW Coefficient of Variation 13.4 % Immature Granulocyte % (Auto) 0.3 % Immature Granulocyte # (Auto) 0.03 K/uL Sodium Level 134 mmol/L Potassium Level 3.3 mmol/L Chloride Level 101 mmol/L Carbon Dioxide Level 24 mmol/L Anion Gap 9.0 mmol/L Blood Urea Nitrogen 5 mg/dl Creatinine 0.60 mg/dl Est Creatinine Clear Calc Drug Dose 84.0 ml/min Estimated GFR () 108.5 Estimated GFR (Non- 93.7 BUN/Creatinine Ratio 7.7 Random Glucose 102 mg/dl Calcium Level 9.7 mg/dl Diagnostic Results [facility], Neurology Assessment & Plan 1- as above a complexed hx with spinal surgery, complicated by CSF leak , right frontal CVA, seizure activity treated with Keppra, presented with altered mental status, now with new findings including aphasia, somnolence, no convulsion , Nystagmus, able to control her airways, transferred to the ICU for further EEG monitoring. it appeared to be metabolic encephalopathy ( I am suspecting Keppra ) than status epilepticus. however, I agree with EEG monitoring to eval for break thru seizure activity . 2- right frontal CVA, etiology is UK. 3- HTN. 4- aspiration pneumonitis. 5- UTI. Plan: 1- obtain Keppra level. already one level is pending. compare the trend. 2- continue Zosyn. 3- may need NGT for meds and feeding. 4- DVT prophylaxis. 5- antiepileptic therapy per neurology appreciate the input. ? alternative therapy, ? Depakote. 6- bladder scan in case of decreased urine output, she has a hx of urinary retention. 7- BP control. 8- full code., 9- no skin issues. 10- EEG montage per neurology. 11- oxygen. discussed in details with the afmily and with Dr. Kilpatrick. appreciate his input.
--- NOTE | 2017-08-12 14:51 | PROGRESS NOTE ---
DATE: 08/12/2017 SUBJECTIVE: Adia has been moved down to the ICU where she can have continuous EEG monitoring and that has been set up, I believe since this morning. Currently, she is actually more awake than I have ever seen her. She is lying in bed. She has a left hemiparesis, slight head and eye deviation is preferentially to the right. She will follow commands. She will squeeze my hand on the right, and very weak on the left. She will move her eyes to the left. There does appear to be a slight field cut and neglect to visual threat on the left. I could not get her to speak or anything verbally, but according to family members and nursing staff, she has been able to communicate in the past, particularly in the integrity specialist hours. She is still on the Keppra 1500 IV twice a day and the Vimpat 400 mg twice a day. The levels of course are going to be quite some time coming back. Her renal function appears to be normal and from what I can glean from the EEG today, always she has some generalized slowing and a lot of high amplitude fast activity which may be beta. We will see what Dr. Muro has to say about the recording and specifically whether or not her episodes of nonconvulsive status epilepticus. 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 Iris Escobedo. I suspect we will be tapering off the Keppra more rapidly if indeed the EEG does not show evidence for ongoing seizure activity as an explanation for her episodic lethargy. The history suggests that much of this correlates with the keppra therapy and vimpat may also be playing a role Alternative aeds have been suggested but for now unless she is having clinical seizures tapering off to a single aed in this case the vimpat may be the best plan. [place]
[2017-08-12] MEDS: ATROPINE SULFATE 1% OP SOLN 5 ML BTL PO PRN (15:09)
[2017-08-12 18:03] LABS: BUN/CREATININE RATIO 6.2 (10-20); CALCIUM 9.6 mg/dl (8.5-10.1); CREATININE 0.61 mg/dl (0.60-1.20); POTASSIUM 3.3 mmol/L (3.5-5.1)
[2017-08-12 18:04] LABS: PHOSPHORUS 2.1 mg/dl (2.5-4.9)
[2017-08-12] MEDS ORDERED: NURSING VERBAL MED ORDER ONE (18:45)
[2017-08-12] MEDS ORDERED: POTASSIUM PHOSPHATE INJ 15 MMOL in SODIUM CHLORIDE 0.9% 250ML 250 ML IV ONE (19:00)
[2017-08-12] MEDS: LEVETIRACETAM IV 1,500 MG in DEXTROSE 5% 100ML 100 ML IV SCH ×2 (21:10→21:30)
[2017-08-12] MEDS: ONDANSETRON INJ 8 MG in DEXTROSE 5% 50ML 50 ML IV PRN (21:13)
[2017-08-13] VITALS (24 sets, daily range): BP systolic 85–179; BP diastolic 41–88; PULSE 58–118; TEMP 36.5–37; O2SAT 87–99
[2017-08-13] MEDS: PIPERACILL/TAZOBAC IV 3.375 GM in DEXTROSE 5% 100ML 100 ML IV SCH ×4 (02:19→19:58)
[2017-08-13] MEDS: ALBUT/IPRATROP 3MG/0.5MG NEB 3 ML VIAL INH SCH ×7 (03:55→23:08)
[2017-08-13] MEDS: ENALAPRILAT IV 1.25 MG in DEXTROSE 5% 25ML 25 ML IV SCH ×3 (05:24→20:53)
[2017-08-13 06:28] LABS: BUN/CREATININE RATIO 5.5 (10-20); CALCIUM 9.4 mg/dl (8.5-10.1); CREATININE 0.6 mg/dl (0.60-1.20); MAGNESIUM 1.9 mg/dl (1.8-2.4); POTASSIUM 3.2 mmol/L (3.5-5.1)
[2017-08-13 06:29] LABS: PHOSPHORUS 3.4 mg/dl (2.5-4.9)
[2017-08-13] MEDS: ICU ELECTROLYTE REPLACEMENT PROTOCOL PRN ×2 (07:00→14:17)
[2017-08-13] MEDS ORDERED: NURSING ICU ELECTROLYTE ORDER ONE (07:15)
[2017-08-13] MEDS ORDERED: MAGNESIUM SULFATE 1GM / D5W 1 GM in PREMIXED IN D5W 100 ML IV ONE (07:30)
[2017-08-13] MEDS: POTASSIUM CHLR 10MEQ / WTR IV SCH ×4 (07:31→10:42)
[2017-08-13] MEDS ORDERED: POTASSIUM CHLR 20 MEQ / WTR 20 MEQ in PREMIXED WATER 100 ML IV STA (07:55)
--- NOTE | 2017-08-13 09:47 | Hospitalist Progress Note ---
Hospitalist Progress Note Date of Service Aug 13, 2017. (Amarilis Rooney PA-C) Subjective Pt evaluation today including: physical exam, chart review, lab review, review of studies Pain: Abdominal PO Intake: NPO Voiding: esparza catheter in place The patient was seen and examined this morning in ICU, EEG monitoring in place. Pt participates in minimal discussion with 1-3 word answers appropriately when questioned. When asked how she's feeling she reports "Not too good." She also stated "my stomach hurts", and then further provides location detail of "everywhere". She is unable to answer orientation questions. Other ROS unobtainable. (Amarilis Rooney PA-C) Objective Vital Signs Date Time Temp Pulse Resp B/P (MAP) Pulse Ox O2 Delivery O2 Flow Rate FiO2 08/13/17 08:01 37.0 76 19 147/76 (99) 95 Room Air 08/13/17 08:00 Room Air 08/13/17 07:01 61 22 105/46 (65) 97 Room Air 08/13/17 06:01 64 27 137/55 (82) 96 Room Air 08/13/17 05:01 61 17 117/54 (75) 95 Room Air 08/13/17 04:01 36.6 90 14 167/59 (95) 97 Room Air 08/13/17 04:00 Room Air 08/13/17 03:49 58 16 97/42 (60) 96 Room Air 08/13/17 03:01 63 20 85/41 (56) 93 Room Air 08/13/17 02:02 65 15 98/42 (60) 93 Room Air 08/13/17 02:01 17 92/41 (58) 93 Room Air 08/13/17 01:01 81 22 138/65 (89) 92 Room Air 08/13/17 00:01 36.7 99 23 179/74 (109) 96 Room Air 08/13/17 00:01 Room Air 08/12/17 23:03 90 21 165/75 (105) 94 Room Air 08/12/17 22:01 84 15 130/58 (82) 94 Room Air 08/12/17 22:01 84 15 130/58 (82) 94 08/12/17 21:01 101 18 161/70 (100) 94 Room Air 08/12/17 20:46 36.6 08/12/17 20:24 83 15 97 Room Air 08/12/17 20:01 88 17 147/69 (95) 94 Room Air 08/12/17 20:00 Room Air 08/12/17 19:01 96 19 162/69 (100) 93 Room Air 08/12/17 18:00 87 19 137/64 (88) 94 Room Air 08/12/17 16:00 Room Air 08/12/17 16:00 87 19 125/56 (79) 96 Room Air 08/12/17 14:30 104 16 97 Room Air 08/12/17 12:00 36.8 94 16 141/67 (91) 95 Room Air 08/12/17 12:00 95 Room Air 08/12/17 11:15 115 16 96 Room Air 08/12/17 10:47 36.6 94 18 95 (Amarilis Rooney PA-C) Physical Exam Notes: General Appearance: WD/WN, +obtunded, +occasionally fidgets with her hands at EEG wires Eyes: PER partially reactive to light, +right sided gaze. ENT: hearing grossly normal, + thick oral secretions Neck: supple, no JVD Respiratory/Chest: + on room air with adequate O2 sats, diminished breath sounds at bases, +cough, no sputum production, no accessory muscle use Cardiovascular: no murmur, NSR Abdomen: hypoactive bowel sounds, non tender, soft Extremities: non-tender, no pedal edema, no calf tenderness Neurologic/Psychiatric: awakens to verbal stimuli, participates in minor discussion as per HPI, + weakened palmar grasp in left compared to right. Releases right hand on command, but continues to grasp left. + no movement of LLE on command. Not oriented. (Amarilis Rooney PA-C) Laboratory Results Last 24 Hours Test 08/12/17 12:05 08/12/17 17:32 08/12/17 21:45 08/13/17 05:42 Sodium Level 134 mmol/L 138 mmol/L Potassium Level 3.3 mmol/L 3.2 mmol/L Chloride Level 100 mmol/L 103 mmol/L Carbon Dioxide Level 25 mmol/L 24 mmol/L Anion Gap 9.0 mmol/L 11.0 mmol/L Blood Urea Nitrogen 4 mg/dl 3 mg/dl Creatinine 0.61 mg/dl 0.60 mg/dl Est Creatinine Clear Calc Drug Dose 82.6 ml/min 84.0 ml/min Estimated GFR () 108.0 108.5 Estimated GFR (Non- 93.1 93.7 BUN/Creatinine Ratio 6.2 5.5 Random Glucose 109 mg/dl 91 mg/dl Calcium Level 9.6 mg/dl 9.4 mg/dl Phosphorus Level 2.1 mg/dl 3.4 mg/dl Albumin 3.3 gm/dl Bedside Glucose 142 mg/dl Magnesium Level 1.9 mg/dl (Amarilis Rooney, PEPE) Assessment and Plan 67 yo F with PMHx of stroke, HTN, SIADH, L4/S1 spinal fusion / L2 compression deformity who underwent surgery in Sep 2016 and subsequently suffered large CSF leak causing seizure disorder. She has been actively treated with antiepileptics since that time. She presented on 08/07 for AMS, nausea, vomiting to the ER. AMS, encephalopathy Subclinical seizure activity? - ICU for 24 hour EEG monitoring until Dr. Goel makes recommendations per Dr. Zhang. - Mental status waxing and waning -s/p with head injury (Left temporal region) , from sitting on toilet, this was unwitnessed ~ 10 days prior to admit. CT of the head completed which showed no acute findings at that time. Repeat CT head on 08/06 and 08/07 showing ventriculomegaly and old right frontal and left cerebellar infarcts - this is stable per neurology with comparison to prior studies. MRI on 08/10 without acute cranial abnormalities - Keppra level 08/08 = 47.8, so this was actually therapeutic and not toxic considering high dosages. Will await to see if continue to taper off more rapidly per neuro. - await neuro recs by Dr. Barrera today. : Current regimen on 1500 mg BID, and will continue to titrate down at 500 mg per week until off. Continue vimpat as dosed. - Considering LP? - NPO x 4 d, will hold discussion of coreflow placement with ICU attending and family today - All meds are switched to IV or rectal, no po meds Urinary Retention - Urine culture x 2 negative so does not appear to be infectious. Cont indwelling esparza cath. - UOs fair Pulmonary- - CXR showing questionable pneumonia- Continue Aspiration precautions, NPO and convert all meds to IV, Flutter and incentive spirometry - Bin, day #7, had 2 days of ceftriaxone prior to this. - Finish today. - Afebrile, no leukocytosis. Appears this is more neurologically related than infectious at this time. SIADH - Holding desmopressin IV - NA+ 138 - would expect improvement with neurological status if this was solely related to hyponatremia - Nephrology on board and monitoring BMP, fluids per nephrology- had 1 day of hypertonic fluids Hypokalemia - Replace as needed. Hypertension - Cont IV meds. Holding metoprolol tartrate 25 mg BID, continue IV lopressor 5 mg prn. - Started enalapril 1.25 mg IV Q12H, Holding lisinopril 20 mg PO daily - continue aspirin 300 mg daily suppository. Seizure disorder- -continue Vimpat 400 mg IV BID and Keppra 1500 mg BID IV as above - titrating keppra off. Hyperlipidemia- -Hold atorvastatin 40 mg PO for now. Right ovarian cyst 2.3 cm- - Checking pelvic ultrasound, Stable compared to CT of 06/19/2017. - Should have outpatient pelvic US in 6 months for follow up. 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 Documented and follow repeat imaging. Right lobe Liver cyst--documented and follow with repeat imaging. L4/S1 spinal fusion / L2 compression deformity--no active symptoms. DVT ppx: heparin subq CODE STATUS: FULL CODE Disposition: From home and lives with , transfer to ICU for 24 hr EEG, senior web engineer consulted (Amarilis Rooney, PEPE) Attending Attestation: Pt seen/examined, chart reviewed, care plan d/w RAE Rooney. I agree w/ the gold components of her documentation. According to staff and other providers who have seen the patient previously her mental status improved modestly during the day today. Was essentially obtunded/lethargic this AM; by the time of my visit about 4pm in the afternoon her eyes were open, she could answer questions, but she was not oriented to time or place. Did not complain of headache during my visit. VSS no fever gen - chronically ill appearing, awake, NAD eyes - no nystagmus mouth - MMM neck - no JVD heart - RRR lungs - CTA b/l abd - soft ext - left sided hemiplegia A/P: encephalopathy - presumed toxic from keppra. cannot r/o metabolic causes from infection (possible aspiration pneumonia, recent UTI) as well as hyponatremia. appreciate neuro consultation. no LP at this time. 24 hour EEG negative for seizures. keppra adjustment per neurology Na is stable. continue abx for presumed aspiration pneumonia. d/c ICU status - move to tele recheck labs in [place]. Bora DAILY MD (Marek Daily MD)
[2017-08-13] MEDS: HEPARIN SOD 5000 UNIT/0.5 ML CARP SQ SCH ×2 (09:52→20:58)
--- NOTE | 2017-08-13 11:00 | Critical Care Progress Note ---
Critical Care Progress Note Date of Service Aug 13, 2017. ICU Day ICU Day Number: [address] Quan Subjective Patient is a 67-year-old female who was transferred to the ICU last evening secondary to continued altered mental status and the need for continuous 24 hour EEG monitoring per neurology. The patient had an uneventful evening. She continues to remain obtunded. She responds to painful stimuli alone. Unable to contribute to history of present illness. Objective VITAL SIGNS - Vital signs and nursing notes were reviewed. GENERAL - 67-year-old female appearing her stated age who is in no acute distress. Obtunded. Withdraws to painful stimuli. SKIN - Without rashes. HEAD - NC/AT. MOUTH/OROPHARYNX - Without perioral cyanosis. Moderate oral secretions appreciated. NECK - Neck with FROM. Supple to palpation. No lymphadenopathy noted. No nuchal rigidity. LUNGS - Chest wall symmetric without accessory muscle use, intercostals retractions, or central cyanosis. Distant breath sounds B/L. No wheezes, rales, or rhonchi appreciated. CARDIAC - RRR with S1/S2. No murmur, rubs, or gallops appreciated. ABDOMEN - Abdominal contour flat without pulsations or visible masses. BS normoactive all four quadrants. No tenderness, palpable masses, hepatosplenomegaly, or ascites noted. EXTREMITIES - No clubbing or peripheral cyanosis. No pretibial edema present. NEUROLOGIC - Obtunded. Unable to fully assess secondary to patient's current state. PSYCH - Unable to access. Current SOFA Score SOFA Score Response (Comments) Value Platelets (x10) > 150 0 Bilirubin (mg/dL) < 1.2 0 T[place]anie Coma Score 6 - 9 3 Level of Hypotension No Hypotension 0 Creatinine (mg/dL) < 1.2 0 Total 3 Assessment & Plan Reason Critically Ill: 67-year-old female with altered mental status and acute encephalopathy versus seizure disorder requiring continuous 24-hour EEG monitoring. Hyponatremia. Neuro - * RASS: -4 * Altered Mental Status - Decreased Level of Consciousness - ?Seizure versus Encephalopathy? * 24 hour continuous EEG monitoring currently per Neurology. * Continue to titrate down Keppra dosing - ?encephalopathic from toxicity - repeat Keppra level pending. * ?Vimpat Dosing of 400 mg BID? * Appreciate Neurology Guidance Cardiac - * History of Hypertension: * Home Rx: Metoprolol/Lisinopril * Changed to IV Metoprolol PRN and IV Enalapril * Monitor on Telemetry. * EKGs Daily. * QTc - 451ms Respiratory - * Possible Aspiration Pneumonia on Presentation. * Currently completing Zosyn day 7 of 7. * CXR shows improvement. * Monitor pulse oximetry. * DuoNebs. * Pulmonary toilet as mentation allows. GI - * No PO intake for ~4 days. * Will discuss feeding tube w/ tube feeds. * Will hold until discussed with Neuro in the setting of active EEG monitoring. RENAL/LYTES - * Hyponatremia - initially on DDAVP in outpatient setting - d/c at this point. * Nephro following * Improved today. * Will add Normosol @ 75 mL/hr maintenance. * Monitor Lytes - replace appropriately. - * Hunter Catheter in place. * Strict I&Os. ENDO - * No h/o DM - monitor BSGs per protocol. * No h/o thyroid Dx. 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 HEME - * Stable H&H. * Continue to monitor. ID - * Outpatient UTI. * Completed Bactrim - unremarkable UA and Cultures this visit. * ?Aspiration Pneumonia. * Completing Zosyn. * CXR improving. LINES/IV ACCESS - * PIVs intact. * Hunter Catheter in place. DVT PROPHYLAXIS - * Heparin 5,000 U q12 * SCDs Thank you for this consultation allow us to be part of this patient's care. Please refer to my attending physician's documentation for any further recommendations. I have personally evaluated and examined this patient. I agree with assessment and plan of Katja Eaton PA-C. Discussed the case with neurology. Patient becoming more responsive today. Discussed with regarding placement of soft NG tube to facilitate feeding. Patient still altered point that would not be able to independently take food. deferring decision for placement at this time will encourage placement tomorrow if patient still unable to take by mouth. No evidence on EEG for status epilepticus. Stable for downgrade out of ICU Consults & Procedures Consultants: Neurology - [facility] - [facility] [place] Hospitalist - [facility] [place] Procedures: 24 hour continuous EEG monitoring Data Medications: Current Inpatient Medications Medications (Trade) Dose Ordered Sig/[place] Route Start Time Stop Time Status Last Admin Dose Admin Heparin Sodium (Porcine) (Heparin Sq 5000 Unit/0.5ml) 5,000 unit Q12 SQ 08/07/17 09:00 09/06/17 08:59 08/13/17 09:52 5,000 UNIT Al Hydrox/Mg Hydrox/Simethicone (Maalox Max Susp) 15 ml Q4H PRN PO 08/07/17 00:30 09/06/17 00:29 Magnesium Hydroxide (Milk Of Magnesia Susp) 30 ml Q12H PRN PO 08/07/17 00:30 09/06/17 00:29 Polyethylene (Miralax Powder Packet) 17 gm DAILY PRN PO 08/07/17 00:30 09/06/17 00:29 Aspirin (Ecotrin Tab) 81 mg DAILY PO 08/07/17 09:00 09/06/17 08:59 Future Hold 08/08/17 09:11 81 MG Atorvastatin Calcium (Lipitor Tab) 40 mg QPM PO 08/07/17 21:00 09/06/17 20:59 Future Hold Lisinopril (Zestril Tab) 20 mg QAM PO 08/07/17 09:00 09/06/17 08:59 Future Hold 08/08/17 09:11 20 MG Metoprolol Tartrate (Lopressor Tab) 25 mg BID PO 08/07/17 09:00 09/06/17 08:59 Future Hold 08/08/17 09:11 25 MG Miscellaneous (Iv Fluids Completed) 1 ea PRN PRN N/A 08/07/17 04:30 08/07/18 04:29 Ondansetron HCl 8 mg/Dextrose 54 ml @ 200 mls/hr Q6H PRN IV 08/07/17 10:00 09/06/17 09:59 08/12/17 21:13 200 MLS/HR Piperacillin Sod/ Tazobactam Sod (Consult) 1 ea UD PRN N/A 08/07/17 12:45 09/06/17 12:44 Lacosamide 400 mg/ Sodium Chloride 90 ml @ 180 mls/hr Q12 IV 08/08/17 11:00 09/07/17 10:59 08/12/17 22:05 180 MLS/HR Promethazine HCl 12.5 mg/Sodium Chloride 50.5 ml @ 204 mls/hr Q6H PRN IV 08/08/17 10:45 09/07/17 10:44 Acetaminophen 650 mg/Empty Bag 65 ml @ 260 mls/hr Q6H PRN IV 08/08/17 10:45 09/07/17 10:44 08/11/17 21:26 260 MLS/HR Metoprolol Tartrate (Lopressor Iv) 5 mg Q4 PRN IV 08/08/17 10:45 09/07/17 10:44 08/09/17 19:58 5 MG Aspirin (Aspirin Supp) 300 mg DAILY [place] 08/09/17 09:00 09/08/17 08:59 08/12/17 09:15 300 MG Albuterol/ Ipratropium (Duoneb) 3 ml Q4R INH 08/10/17 04:00 09/09/17 03:59 08/12/17 20:24 3 ML Levetiracetam 1500 mg/Dextrose 265 ml @ 999 mls/hr QAM IV 08/11/17 09:00 09/08/17 08:59 08/12/17 10:05 999 MLS/HR Enalaprilat 1.25 mg/Dextrose 26 ml @ 100 mls/hr Q8 IV 08/12/17 10:00 09/09/17 09:59 08/13/17 05:24 100 MLS/HR Atropine Sulfate (Atropine Sulfate 1% Oph Soln) 4 drops Q1H PRN PO 08/12/17 13:00 09/11/17 12:59 08/12/17 15:09 4 DROPS Miscellaneous Information ( Icu Electrolyte Replacement Protocol) 1 ea per protocol PRN N/A 08/12/17 18:45 08/19/17 18:44 Levetiracetam 1500 mg/Dextrose 115 ml @ 440 mls/hr DAILY@2130 IV 08/12/17 21:30 09/11/17 21:29 Piperacillin Sod/ Tazobactam Sod 3.375 gm/Dextrose 115 ml @ 200 mls/hr Q6H IV 08/13/17 02:00 08/14/17 23:59 08/13/17 07:31 200 MLS/HR Potassium Chloride 10 meq/ Prmx 100 ml @ 100 mls/hr Q1H IV 08/13/17 07:30 08/13/17 11:29 9/25/17 09:51 100 MLS/HR Parenteral Electrolyte Solution 1,000 ml @ 75 mls/hr [id number] IV 08/13/17 10:00 09/12/17 09:59 Vital Signs: Date Time Temp Pulse Resp B/P (MAP) Pulse Ox O2 Delivery O2 Flow Rate FiO2 08/13/17 08:01 37.0 76 19 147/76 (99) 95 Room Air 08/13/17 08:00 Room Air 08/13/17 07:01 61 22 105/46 (65) 97 Room Air 08/13/17 06:01 64 27 137/55 (82) 96 Room Air 08/13/17 05:01 61 17 117/54 (75) 95 Room Air 08/13/17 04:01 36.6 90 14 167/59 (95) 97 Room Air 08/13/17 04:00 Room Air 08/13/17 03:49 58 16 97/42 (60) 96 Room Air 08/13/17 03:01 63 20 85/41 (56) 93 Room Air 08/13/17 02:02 65 15 98/42 (60) 93 Room Air 08/13/17 02:01 17 92/41 (58) 93 Room Air 08/13/17 01:01 81 22 138/65 (89) 92 Room Air 08/13/17 00:01 36.7 99 23 179/74 (109) 96 Room Air 08/13/17 00:01 Room Air 08/12/17 23:03 90 21 165/75 (105) 94 Room Air 08/12/17 22:01 84 15 130/58 (82) 94 Room Air 08/12/17 22:01 84 15 130/58 (82) 94 08/12/17 21:01 101 18 161/70 (100) 94 Room Air 08/12/17 20:46 36.6 08/12/17 20:24 83 15 97 Room Air 08/12/17 20:01 88 17 147/69 (95) 94 Room Air 08/12/17 20:00 Room Air 08/12/17 19:01 96 19 162/69 (100) 93 Room Air 08/12/17 18:00 87 19 137/64 (88) 94 Room Air 08/12/17 16:00 Room Air 08/12/17 16:00 87 19 125/56 (79) 96 Room Air 08/12/17 14:30 104 16 97 Room Air 08/12/17 12:00 36.8 94 16 141/67 (91) 95 Room Air 08/12/17 12:00 95 Room Air 08/12/17 11:15 115 16 96 Room Air 08/12/17 10:47 36.6 94 18 95 Laboratory Results: Last 24 Hours Test 08/12/17 12:05 08/12/17 17:32 08/12/17 21:45 08/13/17 05:42 Sodium Level 134 mmol/L 138 mmol/L Potassium Level 3.3 mmol/L 3.2 mmol/L Chloride Level 100 mmol/L 103 mmol/L Carbon Dioxide Level 25 mmol/L 24 mmol/L Anion Gap 9.0 mmol/L 11.0 mmol/L Blood Urea Nitrogen 4 mg/dl 3 mg/dl Creatinine 0.61 mg/dl 0.60 mg/dl Est Creatinine Clear Calc Drug Dose 82.6 ml/min 84.0 ml/min Estimated GFR () 108.0 108.5 Estimated GFR (Non- 93.1 93.7 BUN/Creatinine Ratio 6.2 5.5 Random Glucose 109 mg/dl 91 mg/dl Calcium Level 9.6 mg/dl 9.4 mg/dl Phosphorus Level 2.1 mg/dl 3.4 mg/dl Albumin 3.3 gm/dl Bedside Glucose 142 mg/dl Magnesium Level 1.9 mg/dl
[2017-08-13] MEDS: ASPIRIN 300 MG SUPP PR SCH (11:24)
[2017-08-13] MEDS: NORMOSOL R 1,000 ML IV SCH (11:37)
--- NOTE | 2017-08-13 12:42 | EEG Procedure Note ---
EEG Procedure Note Date of Service Aug 12, 2017. Start / End Times Start Time: 08/12/2017 at 12:46 PM End Time: 08/13/2017 at 12:[address] Kilpatrick / Dr. Garcia History This is a 67-year-old female with epilepsy who presents with a acute altered mental status and episodes of reported eye deviation. Continuous EEG to rule out subclinical seizures. Home Medication List Scheduled Aspirin (Aspirin Ec), 81 MG PO DAILY Atorvastatin (Lipitor), 40 MG PO QPM Desmopressin Acetate (Ddavp), 0.2 MG PO Q8 Lacosamide (Vimpat), 400 MG PO BID Levetiracetam (Keppra), 2,000 MG PO BID Lisinopril (Zestril), 20 MG PO QAM Metoprolol Tartrate (Lopressor) (Lopressor), 25 MG PO BID Inpatient Medication List Current Inpatient Medications Medications (Trade) Dose Ordered Sig/[place] Route Start Time Stop Time Status Last Admin Dose Admin Heparin Sodium (Porcine) (Heparin Sq 5000 Unit/0.5ml) 5,000 unit Q12 SQ 08/07/17 09:00 09/06/17 08:59 08/13/17 09:52 5,000 UNIT Al Hydrox/Mg Hydrox/Simethicone (Maalox Max Susp) 15 ml Q4H PRN PO 08/07/17 00:30 09/06/17 00:29 Magnesium Hydroxide (Milk Of Magnesia Susp) 30 ml Q12H PRN PO 08/07/17 00:30 09/06/17 00:29 Polyethylene (Miralax Powder Packet) 17 gm DAILY PRN PO 08/07/17 00:30 09/06/17 00:29 Aspirin (Ecotrin Tab) 81 mg DAILY PO 08/07/17 09:00 09/06/17 08:59 Future Hold 08/08/17 09:11 81 MG Atorvastatin Calcium (Lipitor Tab) 40 mg QPM PO 08/07/17 21:00 09/06/17 20:59 Future Hold Lisinopril (Zestril Tab) 20 mg QAM PO 08/07/17 09:00 09/06/17 08:59 Future Hold 08/08/17 09:11 20 MG Metoprolol Tartrate (Lopressor Tab) 25 mg BID PO 08/07/17 09:00 09/06/17 08:59 Future Hold 08/08/17 09:11 25 MG Miscellaneous (Iv Fluids Completed) 1 ea PRN PRN N/A 08/07/17 04:30 08/07/18 04:29 Ondansetron HCl 8 mg/Dextrose 54 ml @ 200 mls/hr Q6H PRN IV 08/07/17 10:00 09/06/17 09:59 08/12/17 21:13 200 MLS/HR Piperacillin Sod/ Tazobactam Sod (Consult) 1 ea UD PRN N/A 08/07/17 12:45 09/06/17 12:44 Lacosamide 400 mg/ Sodium Chloride 90 ml @ 180 mls/hr Q12 IV 08/08/17 11:00 09/07/17 10:59 08/12/17 22:05 180 MLS/HR Promethazine HCl 12.5 mg/Sodium Chloride 50.5 ml @ 204 mls/hr Q6H PRN IV 08/08/17 10:45 09/07/17 10:44 Acetaminophen 650 mg/Empty Bag 65 ml @ 260 mls/hr Q6H PRN IV 08/08/17 10:45 09/07/17 10:44 08/11/17 21:26 260 MLS/HR Metoprolol Tartrate (Lopressor Iv) 5 mg Q4 PRN IV 08/08/17 10:45 09/07/17 10:44 08/09/17 19:58 5 MG Aspirin (Aspirin Supp) 300 mg DAILY [place] 08/09/17 09:00 09/08/17 08:59 08/13/17 11:24 300 MG Albuterol/ Ipratropium (Duoneb) 3 ml Q4R INH 08/10/17 04:00 09/09/17 03:59 08/12/17 20:24 3 ML Levetiracetam 1500 mg/Dextrose 265 ml @ 999 mls/hr QAM IV 08/11/17 09:00 09/08/17 08:59 08/12/17 10:05 999 MLS/HR Enalaprilat 1.25 mg/Dextrose 26 ml @ 100 mls/hr Q8 IV 08/12/17 10:00 09/09/17 09:59 08/13/17 05:24 100 MLS/HR Atropine Sulfate (Atropine Sulfate 1% Oph Soln) 4 drops Q1H PRN PO 08/12/17 13:00 09/11/17 12:59 08/12/17 15:09 4 DROPS Miscellaneous Information ( Icu Electrolyte Replacement Protocol) 1 ea per protocol PRN N/A 08/12/17 18:45 08/19/17 18:44 Levetiracetam 1500 mg/Dextrose 115 ml @ 440 mls/hr DAILY@2130 IV 08/12/17 21:30 09/11/17 21:29 Piperacillin Sod/ Tazobactam Sod 3.375 gm/Dextrose 115 ml @ 200 mls/hr Q6H IV 08/13/17 02:00 08/14/17 23:59 08/13/17 07:31 200 MLS/HR Parenteral Electrolyte Solution 1,000 ml @ 75 mls/hr [id number] IV 08/13/17 10:00 09/12/17 09:59 08/13/17 11:37 75 MLS/HR Metoclopramide HCl (Reglan Inj) 10 mg Q6H PRN IV 08/13/17 11:00 09/12/17 10:59 Description This is a 21 electrode video EEG with a single channel dedicated to limited EKG recorded on NAT. The electrodes were placed in accordance with the International 10-20 system. Post processing with an event detection algorithm is applied to the continuous data collection for the purpose of identifying abnormal epochs. These detections are reviewed and all candidate seizures are processed for further analysis. Data is reviewed in its raw format and patient events are processed, edited and stored. At the start of this recording the patient was in reported altered mental status. Background was poorly organized with no well formed anterior to posterior gradient. Background was composed of symmetric moderate amplitude predominantly 2-4 Hz delta activity with intermixed theta and alpha frequencies. There did appear to be state changes and variability to the background but no sleep transients were seen. No abnormal clinical presentations on video noted. Interpretation This is an abnormal continuous video EEG due to moderate background disorganization and slowing. There was no electrographic seizures or epileptiform discharges. Clinical Correlation This EEG indicates moderate encephalopathy of nonspecific etiology.
[2017-08-13 13:32] LABS: BUN/CREATININE RATIO 4.3 (10-20); CALCIUM 9.7 mg/dl (8.5-10.1); CREATININE 0.63 mg/dl (0.60-1.20)
--- NOTE | 2017-08-13 14:33 | Neurology Progress Notes ---
Neurology Progress Note Date of Service Aug 13, 2017. 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 She was started on Bactrim for a UTI on Sunday ( cultures show it is pansensitive). Earlier today, her reports when she woke up she was "out of it" and was not communicating as well. He struggled to get her into the car for physical therapy. At PT, she cooperated with activities but did not do as many as usual. When he got her out of the car to get back home, her legs gave way and she fell to the floor. She did not hit her head or lose consciousness. He was concerned so brought her to the ED. En route , she vomited once. In the ED, she was laying flat so had lots of congestion, which she could not swallow, and that made her gag and throw up. She has not thrown up since. She had another seizure and was transferred to 207 for further observation. An EEG was being done in the room. She has been seen in our office for seizure disorder and was being weaned off of Keppra to Vimpat due to behavior issues and mood problems on the Keppra. She is on continuous monitor. She wake and responding to questions. states she is having pain in her lower back. Objective Date Time Temp Pulse Resp B/P (MAP) Pulse Ox O2 Delivery O2 Flow Rate FiO2 08/13/17 12:00 Room Air 08/13/17 11:01 72 25 135/57 (83) 95 Room Air 08/13/17 10:01 69 16 138/65 (89) 97 Room Air 08/13/17 09:01 73 25 138/66 (90) 95 Room Air 08/13/17 08:01 37.0 76 19 147/76 (99) 95 Room Air 08/13/17 08:00 Room Air 08/13/17 08:00 Room Air 08/13/17 07:01 61 22 105/46 (65) 97 Room Air 08/13/17 06:01 64 27 137/55 (82) 96 Room Air 08/13/17 05:01 61 17 117/54 (75) 95 Room Air 08/13/17 04:01 36.6 90 14 167/59 (95) 97 Room Air 08/13/17 04:00 Room Air 08/13/17 03:49 58 16 97/42 (60) 96 Room Air 08/13/17 03:01 63 20 85/41 (56) 93 Room Air 08/13/17 02:02 65 15 98/42 (60) 93 Room Air 08/13/17 02:01 17 92/41 (58) 93 Room Air 08/13/17 01:01 81 22 138/65 (89) 92 Room Air 08/13/17 00:01 36.7 99 23 179/74 (109) 96 Room Air 08/13/17 00:01 Room Air 08/12/17 23:03 90 21 165/75 (105) 94 Room Air 08/12/17 22:01 84 15 130/58 (82) 94 Room Air 08/12/17 22:01 84 15 130/58 (82) 94 08/12/17 21:01 101 18 161/70 (100) 94 Room Air 08/12/17 20:46 36.6 08/12/17 20:24 83 15 97 Room Air 08/12/17 20:01 88 17 147/69 (95) 94 Room Air 08/12/17 20:00 Room Air 08/12/17 19:01 96 19 162/69 (100) 93 Room Air 08/12/17 18:00 87 19 137/64 (88) 94 Room Air 08/12/17 16:00 Room Air 08/12/17 16:00 87 19 125/56 (79) 96 Room Air 08/12/17 14:30 104 16 97 Room Air Last 24 Hours Test 08/12/17 17:32 08/12/17 21:45 08/13/17 05:42 08/13/17 12:58 Sodium Level 134 mmol/L 138 mmol/L 136 mmol/L Potassium Level 3.3 mmol/L 3.2 mmol/L 4.0 mmol/L Chloride Level 100 mmol/L 103 mmol/L 103 mmol/L Carbon Dioxide Level 25 mmol/L 24 mmol/L 23 mmol/L Anion Gap 9.0 mmol/L 11.0 mmol/L 10.0 mmol/L Blood Urea Nitrogen 4 mg/dl 3 mg/dl 3 mg/dl Creatinine 0.61 mg/dl 0.60 mg/dl 0.63 mg/dl Est Creatinine Clear Calc Drug Dose 82.6 ml/min 84.0 ml/min 80.0 ml/min Estimated GFR () 108.0 108.5 106.8 Estimated GFR (Non- 93.1 93.7 92.2 BUN/Creatinine Ratio 6.2 5.5 4.3 Random Glucose 109 mg/dl 91 mg/dl 91 mg/dl Calcium Level 9.6 mg/dl 9.4 mg/dl 9.7 mg/dl Phosphorus Level 2.1 mg/dl 3.4 mg/dl Albumin 3.3 gm/dl Bedside Glucose 142 mg/dl Magnesium Level 1.9 mg/dl Imaging: MRI brain without-: There are no areas of restricted diffusion to suggest acute infarction. The midline structures are intact. The paranasal sinuses are clear. The mastoid air cells are clear. The ventricles and sulci are within normal limits for age. There is no mass, hematoma, midline shift. The major vascular flow-voids at the skull base are well maintained. Ventricular system is moderately prominent. 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 No acute or interval process. continuous EEG- This EEG indicates moderate encephalopathy of nonspecific etiology. Exam: Physical Exam: Constitutional: appearance nourished Ears, Nose, Mouth and Throat: mucous membranes moist, no injection and skin normal, eyes normal Cardiovascular: normal S-1 and S-2 and regular rate and rhythm Respiratory: clear to auscultation (CTA) and no rales, rhonchi or wheeze Musculoskeletal: no peripheral edema and good distal pulses Skin: no stigmata of neurocutaneous disease noted and normal and intact Eyes: extraocular muscles intact (EOMI) and pupils equal, round and reactive to light (PERRL) NEUROLOGIC EXAMINATION: Mental status: Alert and interactive Oriented to person husbands name, daughters name Cranial Nerves asymmetry with smile left sided droop Reflexes: Deep tendon reflexes were symmetrical and graded 2/5. Sensory: no sensory deficits to light touch cool touch Gait/Stance: Posture lying in bed on right side Strength: hand wage conciliator biceps triceps right 5/5, left 3/5, moves lower legs spontaneously Current Inpatient Medications Medications (Trade) Dose Ordered Sig/[place] Route Start Time Stop Time Status Last Admin Dose Admin Heparin Sodium (Porcine) (Heparin Sq 5000 Unit/0.5ml) 5,000 unit Q12 SQ 08/07/17 09:00 09/06/17 08:59 08/13/17 09:52 5,000 UNIT Al Hydrox/Mg Hydrox/Simethicone (Maalox Max Susp) 15 ml Q4H PRN PO 08/07/17 00:30 09/06/17 00:29 Magnesium Hydroxide (Milk Of Magnesia Susp) 30 ml Q12H PRN PO 08/07/17 00:30 09/06/17 00:29 Polyethylene (Miralax Powder Packet) 17 gm DAILY PRN PO 08/07/17 00:30 09/06/17 00:29 Aspirin (Ecotrin Tab) 81 mg DAILY PO 08/07/17 09:00 09/06/17 08:59 Future Hold 08/08/17 09:11 81 MG Atorvastatin Calcium (Lipitor Tab) 40 mg QPM PO 08/07/17 21:00 09/06/17 20:59 Future Hold Lisinopril (Zestril Tab) 20 mg QAM PO 08/07/17 09:00 09/06/17 08:59 Future Hold 08/08/17 09:11 20 MG Metoprolol Tartrate (Lopressor Tab) 25 mg BID PO 08/07/17 09:00 09/06/17 08:59 Future Hold 08/08/17 09:11 25 MG Miscellaneous (Iv Fluids Completed) 1 ea PRN PRN N/A 08/07/17 04:30 08/07/18 04:29 Ondansetron HCl 8 mg/Dextrose 54 ml @ 200 mls/hr Q6H PRN IV 08/07/17 10:00 09/06/17 09:59 08/12/17 21:13 200 MLS/HR Piperacillin Sod/ Tazobactam Sod (Consult) 1 ea UD PRN N/A 08/07/17 12:45 09/06/17 12:44 Lacosamide 400 mg/ Sodium Chloride 90 ml @ 180 mls/hr Q12 IV 08/08/17 11:00 09/07/17 10:59 08/12/17 22:05 180 MLS/HR Promethazine HCl 12.5 mg/Sodium Chloride 50.5 ml @ 204 mls/hr Q6H PRN IV 08/08/17 10:45 09/07/17 10:44 Acetaminophen 650 mg/Empty Bag 65 ml @ 260 mls/hr Q6H PRN IV 08/08/17 10:45 09/07/17 10:44 08/11/17 21:26 260 MLS/HR Metoprolol Tartrate (Lopressor Iv) 5 mg Q4 PRN IV 08/08/17 10:45 09/07/17 10:44 08/09/17 19:58 5 MG Aspirin (Aspirin Supp) 300 mg DAILY [place] 08/09/17 09:00 09/08/17 08:59 08/13/17 11:24 300 MG Albuterol/ Ipratropium (Duoneb) 3 ml Q4R INH 08/10/17 04:00 09/09/17 03:59 08/12/17 20:24 3 ML Levetiracetam 1500 mg/Dextrose 265 ml @ 999 mls/hr QAM IV 08/11/17 09:00 09/08/17 08:59 08/12/17 10:05 999 MLS/HR Enalaprilat 1.25 mg/Dextrose 26 ml @ 100 mls/hr Q8 IV 08/12/17 10:00 09/09/17 09:59 08/13/17 13:43 100 MLS/HR Atropine Sulfate (Atropine Sulfate 1% Oph Soln) 4 drops Q1H PRN PO 08/12/17 13:00 09/11/17 12:59 08/12/17 15:09 4 DROPS Miscellaneous Information ( Icu Electrolyte Replacement Protocol) 1 ea per protocol PRN N/A 08/12/17 18:45 08/19/17 18:44 08/13/17 14:17 1 EA Levetiracetam 1500 mg/Dextrose 115 ml @ 440 mls/hr DAILY@2130 IV 08/12/17 21:30 09/11/17 21:29 Piperacillin Sod/ Tazobactam Sod 3.375 gm/Dextrose 115 ml @ 200 mls/hr Q6H IV 08/13/17 02:00 08/14/17 23:59 08/13/17 13:42 200 MLS/HR Parenteral Electrolyte Solution 1,000 ml @ 75 mls/hr [id number] IV 08/13/17 10:00 09/12/17 09:59 08/13/17 11:37 75 MLS/HR Metoclopramide HCl (Reglan Inj) 10 mg Q6H PRN IV 08/13/17 11:00 09/12/17 10:59 Impression 67 year old female history of seizure disorder Plan 1. continue Keppra 1500 mg am and 1500 mg pm reduced morning dose for tomorrow from 2000 mg to 1500 mg reduce at rate of 500 mg weekly until off Keppra 2. continue Vimpat 400 mg am 400 mg pm for now will discuss dosing 3. valproic acid level mistaken drawn patient was not on 5L 4. Keppra level 08/08- 47.8 5. does not appear to have a current infection 6. seizure precautions 7. continue to treat metabolic issues that are reversible 8. CT head- stable ventriculomegaly compared to 05/2017 in [facility] system- MRI with no structural issues or new strokes 9. once evaluated further recommendations to follow I have seen and discussed above patient with Dr Iris Escobedo, neurology Pt seen and examined, Pt is known to me. Pt was on high doses on triple anticonvulsants when she was hospitalized with hemorrhagic strokes as she was in status epilepticus. Doses confirmed with . Topamax was tapered and keppra in process of the same. Pt MRI no new event and continuous EEG monitoring did not show sz. Pt is mildly sleepy, tends to lie in bed to right. No obligatory gaze preference, nml vis paula, left hemiparesis. Neck supple. Imp infectious pseudo-worsening of neurologic symptoms related to UTI/pneumonic process. Pt is improving. I will continue to taper keppra which may be contributing to some mood changes. I have been following EEGs serially with anticonvulsant withdrawal. Will follow with you, KAVIN Escobedo MD
[2017-08-13] MEDS: DEXTROSE 5% IV SCH (16:22)
[2017-08-13] MEDS: LEVETIRACETAM IV SCH (16:22)
[2017-08-13] MEDS: SODIUM CHLORIDE 0.9% IV SCH ×2 (16:45→21:48)
[2017-08-13] MEDS: LACOSAMIDE IV SCH ×2 (16:45→21:48)
[2017-08-13] MEDS ORDERED: BISACODYL 10 MG SUPP PR STA (17:16)
--- NOTE | 2017-08-13 17:16 | EEG Procedure Note ---
EEG Procedure Note Date of Service Aug 13, 2017. Start / End Times Start Time: 08/13/2017 at 12:29 PM End Time: 08/13/2017 at 16:[address] Kilpatrick / Dr. Garcia History This is a 67-year-old female with epilepsy who presents with a acute altered mental status and episodes of reported eye deviation. Continuous EEG to rule out subclinical seizures. Home Medication List Scheduled Aspirin (Aspirin Ec), 81 MG PO DAILY Atorvastatin (Lipitor), 40 MG PO QPM Desmopressin Acetate (Ddavp), 0.2 MG PO Q8 Lacosamide (Vimpat), 400 MG PO BID Levetiracetam (Keppra), 2,000 MG PO BID Lisinopril (Zestril), 20 MG PO QAM Metoprolol Tartrate (Lopressor) (Lopressor), 25 MG PO BID Inpatient Medication List Current Inpatient Medications Medications (Trade) Dose Ordered Sig/[place] Route Start Time Stop Time Status Last Admin Dose Admin Heparin Sodium (Porcine) (Heparin Sq 5000 Unit/0.5ml) 5,000 unit Q12 SQ 08/07/17 09:00 09/06/17 08:59 08/13/17 09:52 5,000 UNIT Al Hydrox/Mg Hydrox/Simethicone (Maalox Max Susp) 15 ml Q4H PRN PO 08/07/17 00:30 09/06/17 00:29 Magnesium Hydroxide (Milk Of Magnesia Susp) 30 ml Q12H PRN PO 08/07/17 00:30 09/06/17 00:29 Polyethylene (Miralax Powder Packet) 17 gm DAILY PRN PO 08/07/17 00:30 09/06/17 00:29 Aspirin (Ecotrin Tab) 81 mg DAILY PO 08/07/17 09:00 09/06/17 08:59 Future Hold 08/08/17 09:11 81 MG Atorvastatin Calcium (Lipitor Tab) 40 mg QPM PO 08/07/17 21:00 09/06/17 20:59 Future Hold Lisinopril (Zestril Tab) 20 mg QAM PO 08/07/17 09:00 09/06/17 08:59 Future Hold 08/08/17 09:11 20 MG Metoprolol Tartrate (Lopressor Tab) 25 mg BID PO 08/07/17 09:00 09/06/17 08:59 Future Hold 08/08/17 09:11 25 MG Miscellaneous (Iv Fluids Completed) 1 ea PRN PRN N/A 08/07/17 04:30 08/07/18 04:29 Ondansetron HCl 8 mg/Dextrose 54 ml @ 200 mls/hr Q6H PRN IV 08/07/17 10:00 09/06/17 09:59 08/12/17 21:13 200 MLS/HR Piperacillin Sod/ Tazobactam Sod (Consult) 1 ea UD PRN N/A 08/07/17 12:45 09/06/17 12:44 Lacosamide 400 mg/ Sodium Chloride 90 ml @ 180 mls/hr Q12 IV 08/08/17 11:00 09/07/17 10:59 08/13/17 16:45 180 MLS/HR Promethazine HCl 12.5 mg/Sodium Chloride 50.5 ml @ 204 mls/hr Q6H PRN IV 08/08/17 10:45 09/07/17 10:44 Acetaminophen 650 mg/Empty Bag 65 ml @ 260 mls/hr Q6H PRN IV 08/08/17 10:45 09/07/17 10:44 08/11/17 21:26 260 MLS/HR Metoprolol Tartrate (Lopressor Iv) 5 mg Q4 PRN IV 08/08/17 10:45 09/07/17 10:44 08/09/17 19:58 5 MG Aspirin (Aspirin Supp) 300 mg DAILY MN 08/09/17 09:00 09/08/17 08:59 08/13/17 11:24 300 MG Albuterol/ Ipratropium (Duoneb) 3 ml Q4R INH 08/10/17 04:00 09/09/17 03:59 08/13/17 14:35 3 ML Levetiracetam 1500 mg/Dextrose 265 ml @ 999 mls/hr QAM IV 08/11/17 09:00 09/08/17 08:59 08/13/17 16:22 999 MLS/HR Enalaprilat 1.25 mg/Dextrose 26 ml @ 100 mls/hr Q8 IV 08/12/17 10:00 09/09/17 09:59 08/13/17 13:43 100 MLS/HR Atropine Sulfate (Atropine Sulfate 1% Oph Soln) 4 drops Q1H PRN PO 08/12/17 13:00 09/11/17 12:59 08/12/17 15:09 4 DROPS Miscellaneous Information ( Icu Electrolyte Replacement Protocol) 1 ea per protocol PRN N/A 08/12/17 18:45 08/19/17 18:44 08/13/17 14:17 1 EA Levetiracetam 1500 mg/Dextrose 115 ml @ 440 mls/hr DAILY@2130 IV 08/12/17 21:30 09/11/17 21:29 Piperacillin Sod/ Tazobactam Sod 3.375 gm/Dextrose 115 ml @ 200 mls/hr Q6H IV 08/13/17 02:00 08/14/17 23:59 08/13/17 13:42 200 MLS/HR Parenteral Electrolyte Solution 1,000 ml @ 75 mls/hr [id number] IV 08/13/17 10:00 09/12/17 09:59 08/13/17 11:37 75 MLS/HR Metoclopramide HCl (Reglan Inj) 10 mg Q6H PRN IV 08/13/17 11:00 09/12/17 10:59 Description This is a 21 electrode video EEG with a single channel dedicated to limited EKG recorded on [employer]. The electrodes were placed in accordance with the International 10-20 system. Post processing with an event detection algorithm is applied to the continuous data collection for the purpose of identifying abnormal epochs. These detections are reviewed and all candidate seizures are processed for further analysis. Data is reviewed in its raw format and patient events are processed, edited and stored. At the start of this recording the patient was in reported altered mental status. Background was poorly organized with no well formed anterior to posterior gradient. Background was composed of symmetric moderate amplitude predominantly 2-4 Hz delta activity with intermixed theta and alpha frequencies. There was variability to the background but no sleep transients were seen. Interpretation This is an abnormal continuous video EEG due to moderate background disorganization and slowing. There was no electrographic seizures or epileptiform discharges. Clinical Correlation This EEG indicates moderate encephalopathy of nonspecific etiology.
[2017-08-13] MEDS: METOCLOPRAMIDE HCL INJ 5 MG/ML 2 ML VIAL IV PRN (17:50)
[2017-08-13] MEDS ORDERED: NURSING VERBAL MED ORDER ONE (18:00)
[2017-08-13] MEDS: ATROPINE SULFATE 1% OP SOLN 5 ML BTL PO PRN (19:11)
[2017-08-13] MEDS: LEVETIRACETAM IV 1,500 MG in DEXTROSE 5% 100ML 100 ML IV SCH (21:48)
[2017-08-14] VITALS (11 sets, daily range): BP systolic 140–170; BP diastolic 67–73; PULSE 71–98; TEMP 36.4–36.8; O2SAT 92–100
[2017-08-14] MEDS: PIPERACILL/TAZOBAC IV 3.375 GM in DEXTROSE 5% 100ML 100 ML IV SCH ×4 (03:12→19:58)
[2017-08-14] MEDS: NORMOSOL R 1,000 ML IV SCH ×2 (03:12→13:15)
[2017-08-14] MEDS: ALBUT/IPRATROP 3MG/0.5MG NEB 3 ML VIAL INH SCH ×6 (03:17→23:04)
[2017-08-14] MEDS: ENALAPRILAT IV 1.25 MG in DEXTROSE 5% 25ML 25 ML IV SCH ×3 (06:40→20:55)
[2017-08-14 07:22] LABS: BUN/CREATININE RATIO 5.9 (10-20); CALCIUM 9.3 mg/dl (8.5-10.1); CREATININE 0.58 mg/dl (0.60-1.20); PHOSPHORUS 3.1 mg/dl (2.5-4.9); POTASSIUM 3.4 mmol/L (3.5-5.1)
[2017-08-14] MEDS: HEPARIN SOD 5000 UNIT/0.5 ML CARP SQ SCH ×2 (07:37→20:59)
[2017-08-14] MEDS: ASPIRIN 300 MG SUPP PR SCH (07:39)
[2017-08-14] MEDS: SODIUM CHLORIDE 0.9% IV SCH ×2 (08:29→20:59)
[2017-08-14] MEDS: LACOSAMIDE IV SCH ×2 (08:29→20:59)
[2017-08-14] MEDS: DEXTROSE 5% IV SCH (08:29)
[2017-08-14] MEDS: LEVETIRACETAM IV SCH (08:29)
[2017-08-14] MEDS ORDERED: POTASSIUM CHLR 20 MEQ / WTR 20 MEQ in PREMIXED WATER 100 ML IV STA (09:12)
--- NOTE | 2017-08-14 09:44 | Hospitalist Progress Note ---
Hospitalist Progress Note Date of Service Aug 14, 2017. (Amarilis Rooney PA-C) Subjective Pt evaluation today including: conversation w/ family, physical exam, chart review, lab review, review of studies PO Intake: NPO Voiding: esparza catheter in place The patient was seen and examined this morning. Her is present at bedside. Pt woke while I was present at bedside but is nonverbal. Discussion was held with Sebastián regarding nutrition and he is in agreement with tube feedings at this time. Additional Comments: ROS: Not obtainable. (Amarilis Rooney PA-C) Objective Vital Signs Date Time Temp Pulse Resp B/P (MAP) Pulse Ox O2 Delivery O2 Flow Rate FiO2 08/14/17 08:00 Room Air 08/14/17 07:11 36.4 98 17 170/70 (103) 100 08/14/17 06:59 77 20 92 Room Air 08/14/17 04:23 36.4 88 20 146/73 (97) 98 Room Air 08/14/17 04:00 Room Air 08/14/17 03:17 92 20 96 Room Air 08/13/17 23:59 Room Air 08/13/17 23:48 36.5 118 20 155/51 (85) 94 Room Air 08/13/17 23:09 111 14 94 Room Air 08/13/17 20:08 107 14 95 Room Air 08/13/17 20:00 Room Air 08/13/17 19:30 36.8 103 16 172/88 (116) 94 Room Air 08/13/17 18:51 36.9 98 15 96 08/13/17 16:01 36.9 98 15 164/82 (109) 96 Room Air 08/13/17 16:00 Room Air 08/13/17 14:35 69 18 96 Room Air 08/13/17 14:01 61 15 152/60 (90) 98 Room Air 08/13/17 13:02 81 16 165/65 (98) 99 Room Air 08/13/17 12:43 36.6 69 18 161/82 (108) 96 Room Air 08/13/17 12:00 Room Air 08/13/17 11:01 72 25 135/57 (83) 95 Room Air 08/13/17 10:01 69 16 138/65 (89) 97 Room Air (Amarilis Rooney PA-C) Physical Exam Notes: General Appearance: WD/WN, +obtunded Eyes: PER partially reactive to light, +right sided gaze. ENT: hearing grossly normal, + thick oral secretions suctioned at bedside Neck: supple, no JVD Respiratory/Chest: + on room air with adequate O2 sats, diminished breath sounds at bases, +cough, no accessory muscle use Cardiovascular: no murmur, NSR Abdomen: hypoactive bowel sounds, non tender, soft Extremities: non-tender, no pedal edema, no calf tenderness Neurologic/Psychiatric: awakens to verbal stimuli, nonverbal (Amarilis Rooney PA-C) Laboratory Results Last 24 Hours Test 08/13/17 12:58 08/14/17 05:19 Sodium Level 136 mmol/L 136 mmol/L Potassium Level 4.0 mmol/L 3.4 mmol/L Chloride Level 103 mmol/L 101 mmol/L Carbon Dioxide Level 23 mmol/L 26 mmol/L Anion Gap 10.0 mmol/L 9.0 mmol/L Blood Urea Nitrogen 3 mg/dl 3 mg/dl Creatinine 0.63 mg/dl 0.58 mg/dl Est Creatinine Clear Calc Drug Dose 80.0 ml/min 86.9 ml/min Estimated GFR () 106.8 109.8 Estimated GFR (Non- 92.2 94.7 BUN/Creatinine Ratio 4.3 5.9 Random Glucose 91 mg/dl 83 mg/dl Calcium Level 9.7 mg/dl 9.3 mg/dl Phosphorus Level 3.1 mg/dl Magnesium Level 2.0 mg/dl (Amarilis Rooney PA-C) Assessment and Plan 67 yo F with PMHx of stroke, HTN, SIADH, L4/S1 spinal fusion / L2 compression deformity who underwent surgery in Sep 2016 and subsequently suffered large CSF leak causing seizure disorder. She has been actively treated with antiepileptics since that time. She presented on 08/07 for AMS, nausea, vomiting to the ER. AMS, encephalopathy Subclinical seizure activity? - ICU for 24 hour EEG monitoring from 08/12-08/13 completed - eeg showing encephalopathy without specific findings. - Mental status waxing and waning -s/p with head injury (Left temporal region), from sitting on toilet, this was unwitnessed ~ 10 days prior to admit. CT of the head completed which showed no acute findings at that time. Repeat CT head on 08/06 and 08/07 showing ventriculomegaly and old right frontal and left cerebellar infarcts - this is stable per neurology with comparison to prior studies. MRI on 08/10 without acute cranial abnormalities - Keppra level 08/08 = 47.8, so this was actually therapeutic and not toxic considering high dosages - Neuro still considering keppra toxicity in differential. Will await to see if continue to taper off more rapidly per neuro : Current regimen on 1500 mg BID, and will continue to titrate down at 500 mg per week until off, decrease on (08/17) Continue vimpat as dosed. - No LP after discussion with neuro and labor delivery specialist. - NPO x 5 d, family in agreement with advancement of nutrition via tube feeds - will order cable installation technician consult and coresafe NGT, KUB to assess placement. Likely will start peptamen. - All meds are switched to IV or rectal, no po meds Urinary Retention - Urine culture x 2 negative so does not appear to be infectious. Cont indwelling esparza cath. - UOs fair Pulmonary- - CXR showing questionable pneumonia- Continue Aspiration precautions, NPO and convert all meds to IV, Flutter and incentive spirometry as able - Eugeniasyn, day #7, had 2 days of ceftriaxone prior to this. - Finished 08/14. - Afebrile, no leukocytosis. Appears this is more neurologically related than infectious at this time. SIADH - Holding desmopressin IV - NA+ 136 - would expect improvement with neurological status if this was solely related to hyponatremia - Nephrology on board and monitoring BMP, fluids per nephrology- had 1 day of hypertonic fluids on 08/12 Hypokalemia - ordered standing 20 meq IV daily with needs for replacement Hypertension - Cont IV meds. Holding metoprolol tartrate 25 mg BID, continue IV lopressor 5 mg prn. - Started enalapril 1.25 mg IV Q12H, Holding lisinopril 20 mg PO daily - continue aspirin 300 mg daily suppository. Seizure disorder- -continue Vimpat 400 mg IV BID and Keppra 1500 mg BID IV as above - titrating keppra off. Hyperlipidemia- -Hold atorvastatin 40 mg PO for now. Right ovarian cyst 2.3 cm- - Checking pelvic ultrasound, Stable compared to CT of 06/19/2017. - Should have outpatient pelvic US in 6 months for follow up. 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 Documented and follow repeat imaging. Right lobe Liver cyst--documented and follow with repeat imaging. L4/S1 spinal fusion / L2 compression deformity--no active symptoms. DVT ppx: heparin subq CODE STATUS: FULL CODE Disposition: From home and lives with , continue on tele for now (Amarilis Rooney PA-C) Attending Attestation: Pt seen/examined, chart reviewed, care plan d/w RAE Rooney. I agree w/ the gold components of her documentation. I saw the patient late in the day. Coresafe had been placed; she promptly pulled it out. During neurology's assessment they offered her water and she appeared to do ok with such. Speech reconsulted and they cleared her for diet. She did ok with dinner - eating 50% per staff. No other issues per staff other than picking at her skin and IV tubing. at bedside. VSS no fever gen - chronically ill appearing, awake, NAD, thinks she is at [facility] eyes - no nystagmus mouth - MMM neck - no JVD heart - RRR lungs - CTA b/l abd - soft ext - left sided hemiplegia and rightward gaze preference A/P: encephalopathy - presumed toxic from keppra. cannot r/o metabolic causes from infection (possible aspiration pneumonia, recent UTI) as well as hyponatremia. Overall improved fortunately. appreciate neuro consultation. 24 hour EEG negative for seizures. keppra adjustment per neurology with ultimate goal to wean it off. Na is stable for several days OFF the DDAVP. has completed full course of IV abx for aspiration pneumonia. agree with diet per speech and follow intake. recheck labs in am. patient is at high risk of pulling at tubes with right hand - thus, order for cloth mits placed for tonight, as needed. updated at bedside slow but steady progress over the last 2 days Bora DAILY MD (Marek Daily MD)
[2017-08-14] MEDS ORDERED: METOPROLOL TARTRATE 1 MG/ML VIAL IV. SCH (10:30)
[2017-08-14] MEDS: POTASSIUM CHLR 10MEQ / WTR IV SCH ×2 (10:30→11:26)
[2017-08-14] MEDS ORDERED: PEPTAMEN 1.5 CAL 1000ML BAG NG SCH (11:00)
[2017-08-14] MEDS ORDERED: BENZOCAINE/TETRACAIN/BUTAM CAN 200 APPLN/20 GM CAN EXT SCH (12:00)
[2017-08-14] MEDS ORDERED: IMPACT LIQ 1000 ML BAG NG PRN (12:15)
--- NOTE | 2017-08-14 13:49 | DIAGNOSTIC IMAGING REPORT ---
KUB HISTORY: core safe tube placed COMPARISON: None. FINDINGS: The bowel gas pattern is unremarkable. There are no dilated loops of small bowel to suggest an obstruction. No renal calculi. No ureteral calculi. No pneumoperitoneum or pneumatosis. Posterior fusion/decompression within the lower lumbar spine. Feeding tube terminates at the expected location of the gastric antrum. IMPRESSION: Feeding tube terminates at the expected location of the distal stomach/gastric antrum. Electronically signed by: Huan Carney M.D. 08/14/2017 1:48 PM Dictated Date/Time: 08/14/2017 1:46 PM
--- NOTE | 2017-08-14 13:55 | Neurology Progress Notes ---
Neurology Progress Note Date of Service Aug 14, 2017. 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 She was started on Bactrim for a UTI on Sunday ( cultures show it is pansensitive). Earlier today, her reports when she woke up she was "out of it" and was not communicating as well. He struggled to get her into the car for physical therapy. At PT, she cooperated with activities but did not do as many as usual. When he got her out of the car to get back home, her legs gave way and she fell to the floor. She did not hit her head or lose consciousness. He was concerned so brought her to the ED. En route , she vomited once. In the ED, she was laying flat so had lots of congestion, which she could not swallow, and that made her gag and throw up. She has not thrown up since. She had another seizure and was transferred to 207 for further observation. An EEG was being done in the room. She has been seen in our office for seizure disorder and was being weaned off of Keppra to Vimpat due to behavior issues and mood problems on the Keppra. She is now off continuous EEG monitoring and transferred out of ICU. She is responding to questions and following command. She now has a NGT in place and will start feedings once the xray is verified. Her is bedside and states she is about the same. Objective Date Time Temp Pulse Resp B/P (MAP) Pulse Ox O2 Delivery O2 Flow Rate FiO2 08/14/17 12:22 Room Air 08/14/17 11:37 36.4 76 16 148/73 (98) 97 Room Air 08/14/17 10:54 84 148/43 08/14/17 08:00 Room Air 08/14/17 07:11 36.4 98 17 170/70 (103) 100 08/14/17 06:59 77 20 92 Room Air 08/14/17 04:23 36.4 88 20 146/73 (97) 98 Room Air 08/14/17 04:00 Room Air 08/14/17 03:17 92 20 96 Room Air 08/13/17 23:59 Room Air 08/13/17 23:48 36.5 118 20 155/51 (85) 94 Room Air 08/13/17 23:09 111 14 94 Room Air 08/13/17 20:08 107 14 95 Room Air 08/13/17 20:00 Room Air 08/13/17 19:30 36.8 103 16 172/88 (116) 94 Room Air 08/13/17 18:51 36.9 98 15 96 08/13/17 16:01 36.9 98 15 164/82 (109) 96 Room Air 08/13/17 16:00 Room Air 08/13/17 14:35 69 18 96 Room Air 08/13/17 14:01 61 15 152/60 (90) 98 Room Air Last 24 Hours Test 08/14/17 05:19 Sodium Level 136 mmol/L Potassium Level 3.4 mmol/L Chloride Level 101 mmol/L Carbon Dioxide Level 26 mmol/L Anion Gap 9.0 mmol/L Blood Urea Nitrogen 3 mg/dl Creatinine 0.58 mg/dl Est Creatinine Clear Calc Drug Dose 86.9 ml/min Estimated GFR () 109.8 Estimated GFR (Non- 94.7 BUN/Creatinine Ratio 5.9 Random Glucose 83 mg/dl Calcium Level 9.3 mg/dl Phosphorus Level 3.1 mg/dl Magnesium Level 2.0 mg/dl Imaging: no new imaging Exam: Gen: alert NAD NGT tube in place lungs CTA CV RRR squeezes with right hand and lifts leg against gravity right real gaze preference left UE 3/4 hand section cutter, left leg lefts against gravity but can not maintain Current Inpatient Medications Medications (Trade) Dose Ordered Sig/[place] Route Start Time Stop Time Status Last Admin Dose Admin Heparin Sodium (Porcine) (Heparin Sq 5000 Unit/0.5ml) 5,000 unit Q12 SQ 08/07/17 09:00 09/06/17 08:59 08/14/17 07:37 5,000 UNIT Al Hydrox/Mg Hydrox/Simethicone (Maalox Max Susp) 15 ml Q4H PRN PO 08/07/17 00:30 09/06/17 00:29 Magnesium Hydroxide (Milk Of Magnesia Susp) 30 ml Q12H PRN PO 08/07/17 00:30 09/06/17 00:29 Polyethylene (Miralax Powder Packet) 17 gm DAILY PRN PO 08/07/17 00:30 09/06/17 00:29 Aspirin (Ecotrin Tab) 81 mg DAILY PO 08/07/17 09:00 09/06/17 08:59 Future Hold 08/08/17 09:11 81 MG Atorvastatin Calcium (Lipitor Tab) 40 mg QPM PO 08/07/17 21:00 09/06/17 20:59 Future Hold Lisinopril (Zestril Tab) 20 mg QAM PO 08/07/17 09:00 09/06/17 08:59 Future Hold 08/08/17 09:11 20 MG Metoprolol Tartrate (Lopressor Tab) 25 mg BID PO 08/07/17 09:00 09/06/17 08:59 Future Hold 08/08/17 09:11 25 MG Miscellaneous (Iv Fluids Completed) 1 ea PRN PRN N/A 08/07/17 04:30 08/07/18 04:29 Ondansetron HCl 8 mg/Dextrose 54 ml @ 200 mls/hr Q6H PRN IV 08/07/17 10:00 09/06/17 09:59 08/12/17 21:13 200 MLS/HR Lacosamide 400 mg/ Sodium Chloride 90 ml @ 180 mls/hr Q12 IV 08/08/17 11:00 09/07/17 10:59 08/14/17 08:29 180 MLS/HR Promethazine HCl 12.5 mg/Sodium Chloride 50.5 ml @ 204 mls/hr Q6H PRN IV 08/08/17 10:45 09/07/17 10:44 Acetaminophen 650 mg/Empty Bag 65 ml @ 260 mls/hr Q6H PRN IV 08/08/17 10:45 09/07/17 10:44 08/11/17 21:26 260 MLS/HR Aspirin (Aspirin Supp) 300 mg DAILY MN 08/09/17 09:00 09/08/17 08:59 08/14/17 07:39 300 MG Albuterol/ Ipratropium (Duoneb) 3 ml Q4R INH 08/10/17 04:00 09/09/17 03:59 08/14/17 06:59 3 ML Levetiracetam 1500 mg/Dextrose 265 ml @ 999 mls/hr QAM IV 08/11/17 09:00 09/08/17 08:59 08/14/17 08:29 999 MLS/HR Enalaprilat 1.25 mg/Dextrose 26 ml @ 100 mls/hr Q8 IV 08/12/17 10:00 09/09/17 09:59 08/14/17 13:15 100 MLS/HR Atropine Sulfate (Atropine Sulfate 1% Oph Soln) 4 drops Q1H PRN PO 08/12/17 13:00 09/11/17 12:59 08/13/17 19:11 4 DROPS Levetiracetam 1500 mg/Dextrose 115 ml @ 440 mls/hr DAILY@2130 IV 08/12/17 21:30 09/11/17 21:29 08/13/17 21:48 440 MLS/HR Piperacillin Sod/ Tazobactam Sod 3.375 gm/Dextrose 115 ml @ 200 mls/hr Q6H IV 08/13/17 02:00 08/14/17 23:59 08/14/17 13:14 200 MLS/HR Parenteral Electrolyte Solution 1,000 ml @ 75 mls/hr [id number] IV 08/13/17 10:00 09/12/17 09:59 08/14/17 13:15 75 MLS/HR Metoclopramide HCl (Reglan Inj) 10 mg Q6H PRN IV 08/13/17 11:00 09/12/17 10:59 08/13/17 17:50 10 MG Metoprolol Tartrate (Lopressor Iv) 5 mg Q6 IV. 08/14/17 10:30 09/13/17 10:29 08/14/17 10:54 5 MG Potassium Chloride 10 meq/ Prmx 100 ml @ 100 mls/hr DAILY@0800,0900 IV 08/15/17 08:00 09/14/17 07:59 Benzocaine/ Butamben/ Tetracaine HCl (Cetacaine Can) 1 appln UD EXT 08/14/17 12:00 08/14/17 16:00 Enteral Nutritional Formula (Impact 1.0 Jair) 1,000 ml UD PRN NG 08/14/17 12:15 09/13/17 12:14 Impression 67 year old female history of seizure disorder Plan 1. continue Keppra 1500 mg am and 1500 mg pm 08/08 reduced morning dose from 2000 mg to 1500 mg reduce at rate of 500 mg weekly until off Keppra 2. continue Vimpat 400 mg am 400 mg pm for now will discuss dosing 3. valproic acid level mistaken drawn patient was not on 5L 4. Keppra level 08/08- 47.8 5. does not appear to have a current infection 6. seizure precautions 7. continue to treat metabolic issues that are reversible 8. CT head- stable ventriculomegaly compared to 05/2017 in [facility] system- MRI with no structural issues or new strokes 9. feeding tube in place will further swallowing assessment once she is more awake. I have seen and discussed above patient with Dr Iris Escobedo, neurology Pt seen and examined. Awake, knows she is in hospital. Paucity of spontaneous speech. tends to R gaze pref and head to R but able to look past midline to left , dec L NLF, tongue appears bruised. LUE increased tone, greater than antigrav at biceps, triceps. LLE appears antigrav. Imp infectious exac of prior neurol deficits related to mult strokes with hemorrhagic transformation. Pt had presented at that time with status. Continuous EEG did not show sz on this admission. I do not know when tongue became bruised, but will monitor clinically for sz and will repeat EEG as outpt after off keppra At bedside appeared to manage small sips of water and applesauce. I have asked her nurse to have speech come see her this afternoon, as she had previously not been awake enough for formal speech eval/recommendations. Pt appears withdrawn and depressed. Consider psychiatry evaluation. KAVIN Escobedo MD
[2017-08-14] MEDS ORDERED: NURSING VERBAL MED ORDER ONE (14:15)
[2017-08-14] MEDS ORDERED: MILK AND MOLASSES ENEMA PR ONE (15:30)
[2017-08-14] MEDS: METOPROLOL TARTRATE 1 MG/ML VIAL IV. SCH ×2 (16:58→23:54)
[2017-08-14] MEDS: LEVETIRACETAM IV 1,500 MG in DEXTROSE 5% 100ML 100 ML IV SCH (20:54)
[2017-08-15] VITALS (11 sets, daily range): BP systolic 125–168; BP diastolic 69–87; PULSE 59–90; TEMP 36.5–37.1; O2SAT 93–97
[2017-08-15] MEDS: NORMOSOL R 1,000 ML IV SCH ×2 (02:38→17:23)
[2017-08-15] MEDS: ALBUT/IPRATROP 3MG/0.5MG NEB 3 ML VIAL INH SCH ×6 (03:34→23:13)
[2017-08-15 05:42] LABS: HEMATOCRIT 29.2 % (37-47); MEAN CELL VOLUME 90.1 fL (80-100); MEAN CORPUSCULAR HEMOGLOBIN 29.3 pg (25-34); MEAN CORPUSCULAR HGB CONC 32.5 g/dl (32-36); MEAN PLATELET VOLUME 8.1 fL (7.4-10.4); PLATELET COUNT 247 K/uL (130-400); RED BLOOD COUNT 3.24 M/uL (4.2-5.4); WHITE BLOOD COUNT 9.15 K/uL (4.8-10.8)
[2017-08-15] MEDS: METOPROLOL TARTRATE 1 MG/ML VIAL IV. SCH ×2 (05:45→10:56)
[2017-08-15 06:08] LABS: BUN/CREATININE RATIO 6.1 (10-20); CALCIUM 9.2 mg/dl (8.5-10.1); CREATININE 0.56 mg/dl (0.60-1.20); POTASSIUM 3.4 mmol/L (3.5-5.1)
[2017-08-15] MEDS: ENALAPRILAT IV 1.25 MG in DEXTROSE 5% 25ML 25 ML IV SCH (06:17)
[2017-08-15] MEDS: POTASSIUM CHLR 10MEQ / WTR IV SCH ×2 (07:39→08:42)
[2017-08-15] MEDS: ASPIRIN 300 MG SUPP PR SCH (07:40)
[2017-08-15] MEDS ORDERED: SOD PHOSPHATE/SOD BIPHOSPHATE ENEMA 132 ML BTL PR STA (07:58)
[2017-08-15] MEDS: LACOSAMIDE IV SCH ×2 (08:42→21:18)
[2017-08-15] MEDS: SODIUM CHLORIDE 0.9% IV SCH ×2 (08:42→21:18)
[2017-08-15] MEDS: HEPARIN SOD 5000 UNIT/0.5 ML CARP SQ SCH ×2 (08:44→21:31)
[2017-08-15] MEDS: DEXTROSE 5% IV SCH (08:54)
[2017-08-15] MEDS: LEVETIRACETAM IV SCH (08:54)
[2017-08-15] MEDS: POTASSIUM CHLORIDE 20 MEQ TABCR PO SCH ×3 (08:55→21:18)
[2017-08-15] MEDS ORDERED: POTASSIUM CHLR 20 MEQ / WTR 20 MEQ in PREMIXED WATER 100 ML IV SCH (09:00)
[2017-08-15] MEDS ORDERED: HydrALAZINE HCL 20 MG/ML VIAL IV. PRN (14:15)
--- NOTE | 2017-08-15 14:34 | Hospitalist Progress Note ---
Hospitalist Progress Note Date of Service Aug 15, 2017. (Leanne Mckee CRNP) Subjective Pt evaluation today including: conversation w/ patient, physical exam, chart review, lab review, review of studies, review of inpatient medication list Voiding: esparza catheter in place Ms. Osborne is awake, no apparent distress. She denies pain or discomfort but is otherwise disoriented and unable to converse intelligibly. Per nursing, she ate breakfast without incident, no apparent aspiration. Cardiovascular: No chest pain Abdomen: No pain All Other Systems: Reviewed and Negative (Leanne Mckee CRNP) Medications Medications (Trade) Dose Ordered Sig/[place] Route Start Time Stop Time Status Last Admin Dose Admin Metoprolol Tartrate (Lopressor Iv) 5 mg Q6 IV. 08/14/17 10:30 08/14/17 14:17 DC 08/14/17 10:54 5 MG Potassium Chloride 10 meq/ Prmx 100 ml @ 100 mls/hr Q1H IV 08/14/17 10:30 08/14/17 12:29 DC 08/14/17 11:26 100 MLS/HR Potassium Chloride 10 meq/ Prmx 100 ml @ 100 mls/hr DAILY@0800,0900 IV 08/15/17 08:00 09/14/17 07:59 08/15/17 08:42 100 MLS/HR Metoprolol Tartrate (Lopressor Iv) 5 mg Q6H IV. 08/14/17 17:00 09/13/17 16:59 08/15/17 05:45 5 MG Miscellaneous Medication (Milk And Molasses Enema) 1 ea 1530 ONCE WA 08/14/17 15:30 08/14/17 15:51 DC 08/14/17 19:58 1 EA Sodium Biphosphate/ Sodium Phosphate (Fleet Enema) 132 ml NOW STAT WA 08/15/17 07:58 08/15/17 08:18 DC 08/15/17 08:55 132 ML Potassium Chloride (Klor-Con Tab) 20 meq BIDM PO 08/15/17 08:30 09/14/17 08:29 08/15/17 08:55 20 MEQ (Leanne Mckee CRNP) Objective Vital Signs Date Time Temp Pulse Resp B/P (MAP) Pulse Ox O2 Delivery O2 Flow Rate FiO2 08/15/17 08:00 Room Air 08/15/17 07:54 36.8 74 20 147/79 (101) 96 Room Air 08/15/17 05:45 78 148/77 08/15/17 04:00 96 Room Air 08/15/17 03:35 69 14 95 Room Air 08/15/17 03:09 37.1 76 17 154/69 (97) 96 Room Air 08/15/17 01:28 66 16 125/72 (89) 95 Room Air 08/15/17 00:01 93 Room Air 08/14/17 23:54 91 162/78 08/14/17 23:10 36.6 71 18 162/72 (102) 93 Room Air 08/14/17 23:07 71 14 93 Room Air 08/14/17 20:00 Room Air 08/14/17 19:08 78 16 94 Room Air 08/14/17 19:08 36.8 75 17 166/67 (100) 94 Room Air 08/14/17 16:58 103 140/69 08/14/17 16:00 Room Air 08/14/17 15:37 36.8 76 18 140/69 (92) 95 08/14/17 15:31 96 20 94 Room Air 08/14/17 12:22 Room Air 08/14/17 11:37 36.4 76 16 148/73 (98) 97 Room Air 08/14/17 11:25 96 20 96 Room Air 08/14/17 10:54 84 148/43 (Leanne Mckee CRNP) Physical Exam Notes: General: no distress Eyes:left pupil fixed 4mm, right pupil PERLL Respiratory: chest non tender, clear to auscultation, normal breath sounds, no respiratory distress, no accessory muscle use Cardiac: regular rate and rhythm, no rub or gallop, no murmur, no edema, no jvd GI/: active bowel sounds, no abd pain or tenderness, soft, non distended Extremities: normal range of motion, normal strength, non tender Neuro/Psych: alert and oriented to self only stating that she is in [place] for her birthday, normal mood and affect, weakness left arm and unable to grasp my hand with left hand, only able or willing to follow a few commands Skin: normal color, dry (Leanne Mckee CRNP) Laboratory Results Last 24 Hours Test 08/15/17 05:07 White Blood Count 9.15 K/uL Red Blood Count 3.24 M/uL Hemoglobin 9.5 g/dL Hematocrit 29.2 % Mean Corpuscular Volume 90.1 fL Mean Corpuscular Hemoglobin 29.3 pg Mean Corpuscular Hemoglobin Concent 32.5 g/dl RDW Standard Deviation 45.9 fL RDW Coefficient of Variation 13.8 % Platelet Count 247 K/uL Mean Platelet Volume 8.1 fL Sodium Level 136 mmol/L Potassium Level 3.4 mmol/L Chloride Level 102 mmol/L Carbon Dioxide Level 25 mmol/L Anion Gap 9.0 mmol/L Blood Urea Nitrogen 3 mg/dl Creatinine 0.56 mg/dl Est Creatinine Clear Calc Drug Dose 90.0 ml/min Estimated GFR () 111.0 Estimated GFR (Non- 95.8 BUN/Creatinine Ratio 6.1 Random Glucose 81 mg/dl Calcium Level 9.2 mg/dl (Leanne Mckee CRNP) Assessment and Plan 67 yo F with PMHx of stroke, HTN, SIADH, L4/S1 spinal fusion / L2 compression deformity who underwent surgery in Sep 2016 and subsequently suffered large CSF leak causing seizure disorder. She has been actively treated with antiepileptics since that time. She presented on 08/07 for AMS, nausea, vomiting to the ER. AMS, encephalopathy Subclinical seizure activity? - ICU for 24 hour EEG monitoring from 08/12-08/13 completed - eeg showing encephalopathy without specific findings. - Mental status waxing and waning -s/p with head injury (Left temporal region), from sitting on toilet, this was unwitnessed ~ 10 days prior to admit. CT of the head completed which showed no acute findings at that time. Repeat CT head on 08/06 and 08/07 showing ventriculomegaly and old right frontal and left cerebellar infarcts - this is stable per neurology with comparison to prior studies. MRI on 08/10 without acute cranial abnormalities - Keppra level 08/08 = 47.8, so this was actually therapeutic and not toxic considering high dosages - Neuro still considering keppra toxicity in differential. Will await to see if continue to taper off more rapidly per neuro : Current regimen on 1500 mg BID, and will continue to titrate down at 500 mg per week until off, decrease on (08/17) Continue vimpat as dosed. - No LP after discussion with neuro and eyelet machine operator. -Resumed po intake and medications today Urinary Retention - Urine culture x 2 negative so does not appear to be infectious. Cont indwelling esparza cath. - UOs fair Constipation -Fleet's enema Pulmonary- - CXR showing questionable pneumonia- Continue Aspiration precautions, Flutter and incentive spirometry as able - Zosyn- Finished 08/14. - Afebrile, no leukocytosis. Appears this is more neurologically related than infectious at this time. SIADH - Holding desmopressin IV - NA+ 136 - would expect improvement with neurological status if this was solely related to hyponatremia - Nephrology on board and monitoring BMP, fluids per nephrology- had 1 day of hypertonic fluids on 08/12 Hypokalemia - ordered standing 20 meq IV daily with needs for replacement as well as 20 po BID, repeat BMP in the morning Hypertension - Restarted metoprolol tartrate 25 mg BID as well as lisinopril 20 mg PO daily - restarted po ASA 81 mg. Hyperlipidemia- -Hold atorvastatin 40 mg PO for now. Right ovarian cyst 2.3 cm- - Checking pelvic ultrasound, Stable compared to CT of 06/19/2017. - Should have outpatient pelvic US in 6 months for follow up. 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 Documented and follow repeat imaging. Right lobe Liver cyst--documented and follow with repeat imaging. L4/S1 spinal fusion / L2 compression deformity--no active symptoms. DVT prophylaxis: heparin subq CODE STATUS: FULL CODE Disposition: From home and lives with , transferred to medical floor (Leanne Mckee ., LEO) Attending Attestation: Pt seen/examined, chart reviewed, care plan d/w LEO Mckee. I agree w/ the gold components of her documentation. No major events today During my visit the patient thought she was in [facility] Staff report only ate 25% of dinner and had swallowing difficulties w/ such VSS no fever gen - chronically ill appearing, awake, NAD mouth - MMM neck - no JVD heart - RRR lungs - CTA b/l, mild rales bases abd - softext - left sided hemiplegia and rightward gaze preference A/P: encephalopathy - presumed toxic from keppra +/- metabolic from suspected aspiration pneumonia and recent UTI. Overall slow, gradual improvement last 2 days. appreciate neuro consultation. 24 hour EEG negative for seizures. keppra adjustment per neurology with ultimate goal to wean it off. Na is stable for several days OFF the DDAVP. has completed full course of IV abx for aspiration pneumonia. agree with diet per speech and follow intake. may need to have speech re-eval her on due to staff concerns. recheck labs in am. replace K. hopefully can d/c IVF soon. PT, OT evals pending dispo - home w ; SNF?? J CHALINO WALLER (Marek Daily MD)
--- NOTE | 2017-08-15 14:56 | Neurology Progress Notes ---
Neurology Progress Note Date of Service Aug 15, 2017. 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 She was started on Bactrim for a UTI on Sunday ( cultures show it is pansensitive). Earlier today, her reports when she woke up she was "out of it" and was not communicating as well. He struggled to get her into the car for physical therapy. At PT, she cooperated with activities but did not do as many as usual. When he got her out of the car to get back home, her legs gave way and she fell to the floor. She did not hit her head or lose consciousness. He was concerned so brought her to the ED. En route , she vomited once. In the ED, she was laying flat so had lots of congestion, which she could not swallow, and that made her gag and throw up. She has not thrown up since. She had another seizure and was transferred to 207 for further observation. An EEG was being done in the room. She has been seen in our office for seizure disorder and was being weaned off of Keppra to Vimpat due to behavior issues and mood problems on the Keppra. According to nursing she was advanced to feeding and ate about 75% of her lunch today. Her is not at bedside. She is sleeping when entering the room and wakes and opens eyes. She is laying on her back with no preference leaning to the right Objective Date Time Temp Pulse Resp B/P (MAP) Pulse Ox O2 Delivery O2 Flow Rate FiO2 08/15/17 14:38 36.5 59 16 97 4.0 08/15/17 12:00 Room Air 08/15/17 11:48 36.5 59 16 156/72 (100) 97 Room Air 08/15/17 10:56 78 08/15/17 10:25 76 94 08/15/17 08:00 Room Air 08/15/17 07:54 36.8 74 20 147/79 (101) 96 Room Air 08/15/17 05:45 78 148/77 08/15/17 04:00 96 Room Air 08/15/17 03:35 69 14 95 Room Air 08/15/17 03:09 37.1 76 17 154/69 (97) 96 Room Air 08/15/17 01:28 66 16 125/72 (89) 95 Room Air 08/15/17 00:01 93 Room Air 08/14/17 23:54 91 162/78 08/14/17 23:10 36.6 71 18 162/72 (102) 93 Room Air 08/14/17 23:07 71 14 93 Room Air 08/14/17 20:00 Room Air 08/14/17 19:08 78 16 94 Room Air 08/14/17 19:08 36.8 75 17 166/67 (100) 94 Room Air 08/14/17 16:58 103 140/69 08/14/17 16:00 Room Air 08/14/17 15:37 36.8 76 18 140/69 (92) 95 08/14/17 15:31 96 20 94 Room Air Last 24 Hours Test 08/15/17 05:07 White Blood Count 9.15 K/uL Red Blood Count 3.24 M/uL Hemoglobin 9.5 g/dL Hematocrit 29.2 % Mean Corpuscular Volume 90.1 fL Mean Corpuscular Hemoglobin 29.3 pg Mean Corpuscular Hemoglobin Concent 32.5 g/dl RDW Standard Deviation 45.9 fL RDW Coefficient of Variation 13.8 % Platelet Count 247 K/uL Mean Platelet Volume 8.1 fL Sodium Level 136 mmol/L Potassium Level 3.4 mmol/L Chloride Level 102 mmol/L Carbon Dioxide Level 25 mmol/L Anion Gap 9.0 mmol/L Blood Urea Nitrogen 3 mg/dl Creatinine 0.56 mg/dl Est Creatinine Clear Calc Drug Dose 90.0 ml/min Estimated GFR () 111.0 Estimated GFR (Non- 95.8 BUN/Creatinine Ratio 6.1 Random Glucose 81 mg/dl Calcium Level 9.2 mg/dl Imaging: no new imaging Exam: Gen: alert with voice command, she responds appropriately lungs CTA CV RRR moves all ext spontaneously, and with command left arm is antigravity, left leg unable to maintain against resistance Current Inpatient Medications Medications (Trade) Dose Ordered Sig/[place] Route Start Time Stop Time Status Last Admin Dose Admin Heparin Sodium (Porcine) (Heparin Sq 5000 Unit/0.5ml) 5,000 unit Q12 SQ 08/07/17 09:00 09/06/17 08:59 08/15/17 08:44 5,000 UNIT Al Hydrox/Mg Hydrox/Simethicone (Maalox Max Susp) 15 ml Q4H PRN PO 08/07/17 00:30 09/06/17 00:29 Magnesium Hydroxide (Milk Of Magnesia Susp) 30 ml Q12H PRN PO 08/07/17 00:30 09/06/17 00:29 Polyethylene (Miralax Powder Packet) 17 gm DAILY PRN PO 08/07/17 00:30 09/06/17 00:29 Aspirin (Ecotrin Tab) 81 mg DAILY PO 08/07/17 09:00 09/06/17 08:59 Future hold 08/08/17 09:11 81 MG Atorvastatin Calcium (Lipitor Tab) 40 mg QPM PO 08/07/17 21:00 09/06/17 20:59 Future Hold Miscellaneous (Iv Fluids Completed) 1 ea PRN PRN N/A 08/07/17 04:30 08/07/18 04:29 Ondansetron HCl 8 mg/Dextrose 54 ml @ 200 mls/hr Q6H PRN IV 08/07/17 10:00 09/06/17 09:59 08/12/17 21:13 200 MLS/HR Lacosamide 400 mg/ Sodium Chloride 90 ml @ 180 mls/hr Q12 IV 08/08/17 11:00 09/07/17 10:59 08/15/17 08:42 180 MLS/HR Promethazine HCl 12.5 mg/Sodium Chloride 50.5 ml @ 204 mls/hr Q6H PRN IV 08/08/17 10:45 09/07/17 10:44 Acetaminophen 650 mg/Empty Bag 65 ml @ 260 mls/hr Q6H PRN IV 08/08/17 10:45 09/07/17 10:44 08/11/17 21:26 260 MLS/HR Aspirin (Aspirin Supp) 300 mg DAILY IA 08/09/17 09:00 09/08/17 08:59 Future Hold 08/15/17 07:40 300 MG Albuterol/ Ipratropium (Duoneb) 3 ml Q4R INH 08/10/17 04:00 09/09/17 03:59 08/15/17 11:24 3 ML Levetiracetam 1500 mg/Dextrose 265 ml @ 999 mls/hr QAM IV 08/11/17 09:00 09/08/17 08:59 08/15/17 08:54 999 MLS/HR Atropine Sulfate (Atropine Sulfate 1% Oph Soln) 4 drops Q1H PRN PO 08/12/17 13:00 09/11/17 12:59 08/13/17 19:11 4 DROPS Levetiracetam 1500 mg/Dextrose 115 ml @ 440 mls/hr DAILY@2130 IV 08/12/17 21:30 09/11/17 21:29 08/14/17 20:54 440 MLS/HR Parenteral Electrolyte Solution 1,000 ml @ 75 mls/hr [id number] IV 08/13/17 10:00 09/12/17 09:59 08/15/17 02:38 75 MLS/HR Metoclopramide HCl (Reglan Inj) 10 mg Q6H PRN IV 08/13/17 11:00 09/12/17 10:59 08/13/17 17:50 10 MG Potassium Chloride 10 meq/ Prmx 100 ml @ 100 mls/hr DAILY@0800,0900 IV 08/15/17 08:00 09/14/17 07:59 08/15/17 08:42 100 MLS/HR Potassium Chloride (Klor-Con Tab) 20 meq BIDM PO 08/15/17 08:30 09/14/17 08:29 08/15/17 08:55 20 MEQ Lisinopril (Zestril Tab) 20 mg QAM PO 08/16/17 09:00 09/15/17 08:59 Metoprolol Tartrate (Lopressor Tab) 25 mg BID PO 08/15/17 21:00 09/14/17 20:59 Impression 67 year old female history of seizure disorder Plan 1. continue Keppra 1500 mg am and 1500 mg pm 08/08 reduced morning dose from 2000 mg to 1500 mg reduce at rate of 500 mg every two weeks until off Keppra 2. continue Vimpat 400 mg am 400 mg pm for now will discuss dosing 3. valproic acid level mistaken drawn patient was not on 5L 4. Keppra level 08/08- 47.8 5. does not appear to have a current infection 6. seizure precautions 7. continue to treat metabolic issues that are reversible 8. CT head- stable ventriculomegaly compared to 05/2017 in [facility] system- MRI with no structural issues or new strokes 9. currently taking oral intake will need continued encouragement and reminding she needs to eat and take meds orally to go home I have seen and discussed above patient with Dr Iris Escobedo, neurology PT more alert, disoriented to place. No gaze preference, LUE at approx 3/5. Imp mult infarct in setting of surgery. Hx status epilepticus. Hopsitalized for encephaloapthy related to infectious. No evidence of sublincial sz. Continue gradual taper of keppra. MD Johnathan
[2017-08-15] MEDS: METOCLOPRAMIDE HCL INJ 5 MG/ML 2 ML VIAL IV PRN (17:23)
[2017-08-15] MEDS: METOPROLOL TARTRATE 25 MG TAB PO SCH (21:19)
[2017-08-15] MEDS: LEVETIRACETAM IV 1,500 MG in DEXTROSE 5% 100ML 100 ML IV SCH (21:19)
[2017-08-16 00:28] VITALS: BP 146/62; PULSE 55; TEMP 36.2; O2SAT 96
[2017-08-16] MEDS: ALBUT/IPRATROP 3MG/0.5MG NEB 3 ML VIAL INH SCH ×6 (03:29→22:56)
[2017-08-16] MEDS: NORMOSOL R 1,000 ML IV SCH ×2 (05:54→17:12)
[2017-08-16 07:17] VITALS: BP 141/69; PULSE 63; TEMP 36.6; O2SAT 95
[2017-08-16] MEDS: METOPROLOL TARTRATE 25 MG TAB PO SCH ×2 (07:59→20:32)
[2017-08-16] MEDS: POTASSIUM CHLORIDE 20 MEQ TABCR PO SCH (07:59)
[2017-08-16] MEDS: LISINOPRIL 20 MG TAB PO SCH (08:00)
[2017-08-16] MEDS: DEXTROSE 5% IV SCH (08:16)
[2017-08-16] MEDS: LEVETIRACETAM IV SCH (08:16)
[2017-08-16] MEDS: HEPARIN SOD 5000 UNIT/0.5 ML CARP SQ SCH ×2 (08:16→20:45)
[2017-08-16] MEDS: METOCLOPRAMIDE HCL INJ 5 MG/ML 2 ML VIAL IV PRN (08:16)
[2017-08-16 09:10] LABS: BUN/CREATININE RATIO 5.4 (10-20); CALCIUM 9.9 mg/dl (8.5-10.1); CREATININE 0.54 mg/dl (0.60-1.20); POTASSIUM 3.1 mmol/L (3.5-5.1)
[2017-08-16] MEDS ORDERED: POTASSIUM CHLORIDE 10 MEQ TABCR PO ONE (09:19)
[2017-08-16] MEDS: SODIUM CHLORIDE 0.9% IV SCH ×2 (09:24→20:46)
[2017-08-16] MEDS: LACOSAMIDE IV SCH ×2 (09:24→20:46)
[2017-08-16] MEDS: POTASSIUM CHLR 10MEQ / WTR IV SCH ×2 (09:25→10:47)
[2017-08-16] MEDS: ONDANSETRON INJ 8 MG in DEXTROSE 5% 50ML 50 ML IV PRN (11:10)
--- NOTE | 2017-08-16 12:39 | Hospitalist Progress Note ---
Hospitalist Progress Note Date of Service Aug 16, 2017. (Leanne Mckee CRNP) Subjective Pt evaluation today including: conversation w/ patient, physical exam, chart review, lab review, review of inpatient medication list Voiding: esparza catheter in place Respiratory: No shortness of breath Cardiovascular: No chest pain Abdomen: + pain, + nausea, + vomiting All Other Systems: Reviewed and Negative (Leanne Mckee CRNP) Medications Medications (Trade) Dose Ordered Sig/[place] Route Start Time Stop Time Status Last Admin Dose Admin Lisinopril (Zestril Tab) 20 mg QAM PO 08/16/17 08:00 09/15/17 08:59 08/16/17 08:00 20 MG Metoprolol Tartrate (Lopressor Tab) 25 mg BID PO 08/15/17 20:00 09/14/17 20:59 08/16/17 07:59 25 MG Potassium Chloride (Klor-Con M10) 20 meq 0919 ONCE PO 08/16/17 09:19 08/16/17 09:31 DC 08/16/17 10:09 20 MEQ (Leanne Mckee CRNP) Objective Vital Signs Date Time Temp Pulse Resp B/P (MAP) Pulse Ox O2 Delivery O2 Flow Rate FiO2 08/16/17 08:00 Room Air 08/16/17 07:17 36.6 63 20 141/69 (93) 95 Room Air 08/16/17 00:28 36.2 55 18 146/62 (90) 96 Room Air 08/16/17 00:00 Room Air 08/15/17 20:30 90 154/73 (100) 08/15/17 15:19 Room Air 08/15/17 15:07 36.6 67 16 168/87 (114) 94 Room Air 08/15/17 14:38 36.5 59 16 97 4.0 (Leanne Mckee CRNP) Physical Exam Notes: General: no distress Eyes: normal inspection, PERLL Respiratory: chest non tender, clear to auscultation, normal breath sounds, no respiratory distress, no accessory muscle use Cardiac: regular rate and rhythm, no rub or gallop, no murmur, no edema, no jvd GI/: active bowel sounds, no abd pain or tenderness, soft, non distended Extremities: normal range of motion, normal strength, non tender Neuro/Psych: drowsy and oriented to self only, normal mood and affect Skin: normal color, dry (Leanne Mckee CRNP) Laboratory Results Last 24 Hours Test 08/16/17 08:21 Sodium Level 138 mmol/L Potassium Level 3.1 mmol/L Chloride Level 102 mmol/L Carbon Dioxide Level 26 mmol/L Anion Gap 10.0 mmol/L Blood Urea Nitrogen 3 mg/dl Creatinine 0.54 mg/dl Est Creatinine Clear Calc Drug Dose 93.3 ml/min Estimated GFR () 112.4 Estimated GFR (Non- 97.0 BUN/Creatinine Ratio 5.4 Random Glucose 90 mg/dl Calcium Level 9.9 mg/dl Magnesium Level 2.0 mg/dl (Leanne Mckee CRNP) Assessment and Plan 67 yo F with PMHx of stroke, HTN, SIADH, L4/S1 spinal fusion / L2 compression deformity who underwent surgery in Sep 2016 and subsequently suffered large CSF leak causing seizure disorder. She has been actively treated with antiepileptics since that time. She presented on 08/07 for AMS, nausea, vomiting to the ER. AMS, encephalopathy Subclinical seizure activity? - ICU for 24 hour EEG monitoring from 08/12-08/13 completed - eeg showing encephalopathy without specific findings. - Mental status waxing and waning -s/p with head injury (Left temporal region), from sitting on toilet, this was unwitnessed ~ 10 days prior to admit. CT of the head completed which showed no acute findings at that time. Repeat CT head on 08/06 and 08/07 showing ventriculomegaly and old right frontal and left cerebellar infarcts - this is stable per neurology with comparison to prior studies. MRI on 08/10 without acute cranial abnormalities - Keppra level 08/08 = 47.8, so this was actually therapeutic and not toxic considering high dosages - Neuro still considering keppra toxicity in differential. Will await to see if continue to taper off more rapidly per neuro : Current regimen on 1500 mg BID, and will continue to titrate down at 500 mg per week until off, decrease on (08/17) Continue vimpat as dosed. - No LP after discussion with neuro and pugger helper. -Resumed po intake and medications today Urinary Retention - Urine culture x 2 negative so does not appear to be infectious. Cont indwelling esparza cath. - UOs fair Constipation - repeat Fleet enema today. She has been somewhat nauseas today and is complaining of belly pain. She had only a small amount of bowel movement yesterday following Fleet enema so will repeat and see if it eases her belly pain. Pulmonary- - CXR showing questionable pneumonia- Continue Aspiration precautions, Flutter and incentive spirometry as able - Zosyn- Finished 08/14. - Afebrile, no leukocytosis. Appears this is more neurologically related than infectious at this time. SIADH - Holding desmopressin IV - NA+ 136 - would expect improvement with neurological status if this was solely related to hyponatremia - Nephrology on board and monitoring BMP, fluids per nephrology- had 1 day of hypertonic fluids on 08/12 Hypokalemia - ordered standing 20 meq bid daily as well as an additonal 20 po BID today, repeat BMP in the morning Hypertension - Restarted metoprolol tartrate 25 mg BID as well as lisinopril 20 mg PO daily - restarted po ASA 81 mg. Hyperlipidemia- -Hold atorvastatin 40 mg PO for now. Right ovarian cyst 2.3 cm- - Checking pelvic ultrasound, Stable compared to CT of 06/19/2017. - Should have outpatient pelvic US in 6 months for follow up. 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 Documented and follow repeat imaging. Right lobe Liver cyst--documented and follow with repeat imaging. L4/S1 spinal fusion / L2 compression deformity--no active symptoms. DVT prophylaxis: heparin subq CODE STATUS: FULL CODE Disposition: From home and lives with , transferred to medical floor (Leanne Mckee ., LEO) OFFENDER EMPLOYMENT SPECIALIST Physician Supervision Note: I interviewed and examined the patient. Discussed with Josephine Mckee OFFENDER EMPLOYMENT SPECIALIST and agree with findings and plan as documented in the note. Any exceptions or clarifications are listed here: None Patient is slightly improving her level of mentation over her orientation is not clear some schooling her etiology of her encephalopathy is unclear. She thinks she is in [place] she cannot describe any focal discomfort frequently fidgety and picking she does track around the room with her eyes still exhibiting some left-sided neglect Vitals are reviewed Heart is regular lungs have decreased breath sounds she occasionally has clearing of her throat with concern for aspiration Encephalopathy of undetermined significance neurology does not feel this is from seizures we've treated this for possible infectious source consideration of Keppra toxicity will discuss with family on 929 considerations would be transfer to tertiary care versus other invasive testing Documented By: Danial Kilpatrick (Danial Kilpatrick M.D.)
[2017-08-16] MEDS ORDERED: SOD PHOSPHATE/SOD BIPHOSPHATE ENEMA 132 ML BTL PR ONE (14:00)
--- NOTE | 2017-08-16 14:37 | Neurology Progress Notes ---
Neurology Progress Note Date of Service Aug 16, 2017. 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 She was started on Bactrim for a UTI on Sunday ( cultures show it is pansensitive). Earlier today, her reports when she woke up she was "out of it" and was not communicating as well. He struggled to get her into the car for physical therapy. At PT, she cooperated with activities but did not do as many as usual. When he got her out of the car to get back home, her legs gave way and she fell to the floor. She did not hit her head or lose consciousness. He was concerned so brought her to the ED. En route , she vomited once. In the ED, she was laying flat so had lots of congestion, which she could not swallow, and that made her gag and throw up. She has not thrown up since. She had another seizure and was transferred to 207 for further observation. An EEG was being done in the room. She has been seen in our office for seizure disorder and was being weaned off of Keppra to Vimpat due to behavior issues and mood problems on the Keppra. Adia states she is having some belly pain today. She did eat breakfast but couldn't eat lunch. According to nursing the primary team just ordered a fleet to help with bowel movement. Her is not at bedside. She is sleeping when entering the room and wakes and opens eyes. She is lying on her right side and states she is not comfortable. [facility] referral has been made for rehab. Objective Date Time Temp Pulse Resp B/P (MAP) Pulse Ox O2 Delivery O2 Flow Rate FiO2 08/16/17 08:00 Room Air 08/16/17 07:17 36.6 63 20 141/69 (93) 95 Room Air 08/16/17 00:28 36.2 55 18 146/62 (90) 96 Room Air 08/16/17 00:00 Room Air 08/15/17 20:30 90 154/73 (100) 08/15/17 15:19 Room Air 08/15/17 15:07 36.6 67 16 168/87 (114) 94 Room Air 08/15/17 14:38 36.5 59 16 97 4.0 Last 24 Hours Test 08/16/17 08:21 Sodium Level 138 mmol/L Potassium Level 3.1 mmol/L Chloride Level 102 mmol/L Carbon Dioxide Level 26 mmol/L Anion Gap 10.0 mmol/L Blood Urea Nitrogen 3 mg/dl Creatinine 0.54 mg/dl Est Creatinine Clear Calc Drug Dose 93.3 ml/min Estimated GFR () 112.4 Estimated GFR (Non- 97.0 BUN/Creatinine Ratio 5.4 Random Glucose 90 mg/dl Calcium Level 9.9 mg/dl Magnesium Level 2.0 mg/dl Imaging: no new images Exam: Physical Exam: Constitutional: appearance nourished, leaning to right with rightward gaze preference Ears, Nose, Mouth and Throat: mucous membranes moist, no injection and skin normal, eyes normal Cardiovascular: normal S-1 and S-2 and regular rate and rhythm Respiratory: clear to auscultation (CTA) and no rales, rhonchi or wheeze Musculoskeletal: no peripheral edema and good distal pulses Skin: no stigmata of neurocutaneous disease noted and normal and intact Eyes: extraocular muscles intact (EOMI) and pupils equal, round and reactive to light (PERRL) NEUROLOGIC EXAMINATION: Mental status: Alert and interactive Oriented to full date and location Oriented to person Speech fluent with no evidence of aphasia Cranial Nerves left nasolabial flattening with smile eye brow raise symmetric Sensory: light touch Gait/Stance: Posture lying in bed Motor:moves arms and legs with command Strength: left arm antigravity, lifts right. bilaterally LE left against gravity but not resistance. Current Inpatient Medications Medications (Trade) Dose Ordered Sig/[place] Route Start Time Stop Time Status Last Admin Dose Admin Heparin Sodium (Porcine) (Heparin Sq 5000 Unit/0.5ml) 5,000 unit Q12 SQ 08/07/17 09:00 09/06/17 08:59 08/16/17 08:16 5,000 UNIT Al Hydrox/Mg Hydrox/Simethicone (Maalox Max Susp) 15 ml Q4H PRN PO 08/07/17 00:30 09/06/17 00:29 Magnesium Hydroxide (Milk Of Magnesia Susp) 30 ml Q12H PRN PO 08/07/17 00:30 09/06/17 00:29 Polyethylene (Miralax Powder Packet) 17 gm DAILY PRN PO 08/07/17 00:30 09/06/17 00:29 Aspirin (Ecotrin Tab) 81 mg DAILY PO 08/07/17 09:00 09/06/17 08:59 Future hold 08/08/17 09:11 81 MG Atorvastatin Calcium (Lipitor Tab) 40 mg QPM PO 08/07/17 21:00 09/06/17 20:59 Future Hold Miscellaneous (Iv Fluids Completed) 1 ea PRN PRN N/A 08/07/17 04:30 08/07/18 04:29 Ondansetron HCl 8 mg/Dextrose 54 ml @ 200 mls/hr Q6H PRN IV 08/07/17 10:00 09/06/17 09:59 08/16/17 11:10 200 MLS/HR Lacosamide 400 mg/ Sodium Chloride 90 ml @ 180 mls/hr Q12 IV 08/08/17 11:00 09/07/17 10:59 08/16/17 09:24 180 MLS/HR Promethazine HCl 12.5 mg/Sodium Chloride 50.5 ml @ 204 mls/hr Q6H PRN IV 08/08/17 10:45 09/07/17 10:44 Acetaminophen 650 mg/Empty Bag 65 ml @ 260 mls/hr Q6H PRN IV 08/08/17 10:45 09/07/17 10:44 08/11/17 21:26 260 MLS/HR Aspirin (Aspirin Supp) 300 mg DAILY [place] 08/09/17 09:00 09/08/17 08:59 Future Hold 08/15/17 07:40 300 MG Albuterol/ Ipratropium (Duoneb) 3 ml Q4R INH 08/10/17 04:00 09/09/17 03:59 08/15/17 11:24 3 ML Levetiracetam 1500 mg/Dextrose 265 ml @ 999 mls/hr QAM IV 08/11/17 09:00 09/08/17 08:59 08/16/17 08:16 999 MLS/HR Atropine Sulfate (Atropine Sulfate 1% Oph Soln) 4 drops Q1H PRN PO 08/12/17 13:00 09/11/17 12:59 08/13/17 19:11 4 DROPS Levetiracetam 1500 mg/Dextrose 115 ml @ 440 mls/hr DAILY@2130 IV 08/12/17 21:30 09/11/17 21:29 08/15/17 21:19 440 MLS/HR Parenteral Electrolyte Solution 1,000 ml @ 75 mls/hr [id number] IV 08/13/17 10:00 09/12/17 09:59 08/16/17 05:54 75 MLS/HR Metoclopramide HCl (Reglan Inj) 10 mg Q6H PRN IV 08/13/17 11:00 09/12/17 10:59 08/16/17 08:16 10 MG Potassium Chloride 10 meq/ Prmx 100 ml @ 100 mls/hr DAILY@0800,0900 IV 08/15/17 08:00 09/14/17 07:59 08/16/17 10:47 100 MLS/HR Lisinopril (Zestril Tab) 20 mg QAM PO 08/16/17 08:00 09/15/17 08:59 08/16/17 08:00 20 MG Metoprolol Tartrate (Lopressor Tab) 25 mg BID PO 08/15/17 20:00 09/14/17 20:59 08/16/17 07:59 25 MG Potassium Chloride (Klor-Con M10) 20 meq QAM PO 08/17/17 08:00 09/16/17 07:59 Potassium Chloride (Klor-Con Tab) 20 meq BID NG 08/16/17 20:00 08/17/17 20:01 Impression 67 year old female history of seizure disorder Plan 1. continue Keppra 1500 mg am and 1500 mg pm 08/08 reduced morning dose from 2000 mg to 1500 mg reduce at rate of 500 mg every two weeks until off Keppra 2. continue Vimpat 400 mg am 400 mg pm for now will discuss dosing 3. valproic acid level mistaken drawn patient was not on 5L 4. Keppra level 08/08- 47.8 5. does not appear to have a current infection 6. seizure precautions 7. continue to treat metabolic issues that are reversible 8. CT head- stable ventriculomegaly compared to 05/2017 in [facility] system- MRI with no structural issues or new strokes 9. currently taking oral intake will need continued encouragement and reminding she needs to eat and take meds orally to go home I have seen and discussed above patient with Dr Iris Escobedo, neurology Pt seen and examined, more alert. Oriented to person, follows simple commands, L neglect, no field cut. RUE and RLE full LUE purposeful. LLE greater than antigravity. Imp infectious worsening of neurologic sx. No evidence of subclinical sz on 24 hours of continuous EEG monitoring. Continue gradual Keppra taper, once off I will repeat an EEG, sooner if there is a clinical change. No change in Vimpat. The pt will require inpt tx due to deconditioning from hospitalization. Discussed pt care with . KAVIN Escobedo MD
[2017-08-16 16:04] VITALS: BP 166/78; PULSE 66; TEMP 36.5; O2SAT 99
[2017-08-16 20:30] VITALS: BP 154/78; PULSE 74
[2017-08-16] MEDS: POTASSIUM CHLORIDE 20 MEQ TABCR NG SCH (20:32)
[2017-08-16] MEDS: LEVETIRACETAM IV 1,500 MG in DEXTROSE 5% 100ML 100 ML IV SCH (21:28)
[2017-08-16 23:24] VITALS: BP 191/96; PULSE 74; TEMP 36.8; O2SAT 91
[2017-08-16 23:37] VITALS: BP 180/77
[2017-08-17] VITALS (9 sets, daily range): BP systolic 144–192; BP diastolic 79–96; PULSE 68–80; TEMP 36.5–36.9; O2SAT 93–97
[2017-08-17] MEDS: ALBUT/IPRATROP 3MG/0.5MG NEB 3 ML VIAL INH SCH ×5 (02:08→20:00)
[2017-08-17] MEDS: NORMOSOL R 1,000 ML IV SCH (06:41)
[2017-08-17 07:32] LABS: BUN/CREATININE RATIO 4.1 (10-20); CALCIUM 9.9 mg/dl (8.5-10.1); CREATININE 0.56 mg/dl (0.60-1.20); MAGNESIUM 1.8 mg/dl (1.8-2.4)
[2017-08-17] MEDS ORDERED: MAGNESIUM SULFATE 1GM / D5W 1 GM in PREMIXED IN D5W 100 ML IV ONE (08:00)
[2017-08-17] MEDS ORDERED: POTASSIUM CHLORIDE 10 MEQ TABCR PO SCH (08:00)
[2017-08-17] MEDS: ASPIRIN 81 MG ECTAB PO SCH ×2 (08:00→08:15)
[2017-08-17] MEDS: POTASSIUM CHLR 10 MEQ / WTR 10 MEQ in PREMIXED WATER 100 ML IV SCH ×5 (08:13→17:20)
[2017-08-17] MEDS: DEXTROSE 5% IV SCH (08:14)
[2017-08-17] MEDS: LEVETIRACETAM IV SCH (08:14)
[2017-08-17] MEDS: LISINOPRIL 20 MG TAB PO SCH (08:15)
[2017-08-17] MEDS: METOPROLOL TARTRATE 25 MG TAB PO SCH (08:15)
[2017-08-17] MEDS: POTASSIUM CHLORIDE 20 MEQ TABCR NG SCH (08:16)
[2017-08-17] MEDS: HEPARIN SOD 5000 UNIT/0.5 ML CARP SQ SCH (08:20)
[2017-08-17] MEDS ORDERED: LORAZEPAM INJ 1 MG in SYRINGE 0.5 ML IV PRN (09:15)
[2017-08-17] MEDS: LISINOPRIL 10 MG TAB PO ONE ×2 (09:30→10:04)
[2017-08-17] MEDS ORDERED: LORAZEPAM INJ 1 MG in SYRINGE 0.5 ML IV ONE (09:30)
[2017-08-17] MEDS: LACOSAMIDE IV SCH (09:41)
[2017-08-17] MEDS: SODIUM CHLORIDE 0.9% IV SCH (09:41)
[2017-08-17] MEDS: POTASSIUM CHLR 10MEQ / WTR IV SCH ×2 (11:07→15:08)
[2017-08-17] MEDS ORDERED: HydrALAZINE HCL 20 MG/ML VIAL IV. PRN (11:45)
[2017-08-17] MEDS ORDERED: [UNRECOGNIZED DRUG - CODE] IV (13:31)
[2017-08-17] MEDS ORDERED: POTA10CA28 PO (13:31)
[2017-08-17] MEDS ORDERED: RGLI10 IV (13:31)
[2017-08-17] MEDS ORDERED: LEVE100S IV (13:31)
--- NOTE | 2017-08-17 13:36 | Discharge Instructions ---
Discharge Instructions Date of Service Aug 17, 2017. Admission Reason for Admission: Altered Mental Status, Nausea And Vomiting, Uti Discharge Discharge Diagnosis / Problem: seizure, siadh, aspiration pneumonia Discharge Goals Goal(s): Improve disease control Activity Recommendations Activity Limitations: resume your previous activity Exercise/Sports Limitations: as tolerated . Current Hospital Diet Patient's current hospital diet: AHA Diet (Heart Healthy) Discharge Diet Recommended Diet: AHA Diet (Heart Healthy) Pending Studies Studies pending at discharge: no Medical Emergencies . Who to Call and When: Medical Emergencies: If at any time you feel your situation is an emergency, please call 911 immediately. . Non-Emergent Contact Non-Emergency issues call your: Primary Care Provider Call Non-Emergent contact if: you have any medication questions . Past History Medical & Surgical History: (1) Altered mental status (2) Aspiration pneumonia (3) Seizure (4) Hyponatremia (5) Metabolic encephalopathy (6) Hypertension . "Provider Documentation" section prepared by Leanne Mckee. . VTE Core Measure Inpt VTE Proph given/why not?: SCD's
--- NOTE | 2017-08-17 14:33 | ELECTROENCEPHALOGRAPH REPORT ---
CLINICAL DIAGNOSIS: Question breakthrough seizures with confusion and eye deviation to the left in the course of slow withdrawal from multiple anticonvulsants. ELECTROENCEPHALOGRAM DIAGNOSIS: Moderately diffusely abnormal EEG during wakefulness. DESCRIPTION OF TRACING: This EEG was done shortly after the nursing service reported 2 transient events of left eye deviation and confusion, but during the recording captured by video analysis no such activity was seen. The recording was performed during what appeared to be clinically wakefulness based on the video analysis, but consisted of polymorphic activity in the theta delta range, maximum posterior head regions where the activity was of up to 7-8 Hz of maximum frequency and 40 microvolts of maximum amplitude. It was bilaterally symmetrical. Over the frontal regions and to some degree central regions delta activity was seen with episodic nonrhythmic high amplitude waveforms, some of which correlated with eye movements, but a lot of them were probably of cortical origin. Beta activity is not readily evident. No activation procedures were utilized. Drowsiness and light sleep are not clearly recorded. At no time during the waking tracing is there evidence for a clearcut potentially epileptogenic activity. Specifically, activity originating from the right hemisphere which might indicate focal seizure activity. INTERPRETATION: This EEG is moderately diffusely abnormal during wakefulness without focal or lateralizing features and without evidence for clearcut potentially epileptogenic activity.
--- NOTE | 2017-08-17 14:50 | PROGRESS NOTE ---
DATE: 08/17/2017 DATE: 08/17/2017 I saw Adia today. I had been contacted earlier by her nurse when she had a sudden change in mental status, this time with eye deviation to the left and was unresponsive. She has apparently been improving since I was last on service and actually had some conversation with Iris Zhang and Iris Escobedo and it looked as though she was on an upswing but today she definitely declined and has remained now in a stuporous condition. An EEG was done, somewhat acutely, but did not capture any right-sided sharp waves or spikes which might have been expected if indeed this was a focal seizure originating from the right hemisphere, but again the discharge could have been missed and what we are seeing could be postictal. The tracing is generally slow much like the one that was recorded for 24 hours when she was in the unit being observed for potential epileptogenic activity. Looking over the case and its course since the unfortunate episode in September of 2016 when in the course of lumbar surgery she had intracerebral bleed, subsequent stroke and then had status epilepticus, she has apparently had a gradual decline and some of this has been really accelerating since the head injury 2 weeks ago, although we have not see anything on MRI to suggest a new event and EEGs again have been just slow in a generalized fashion. It was felt potentially that she has had anticonvulsant toxicities and doses of Keppra and Vimpat are high and the Keppra has been slowly tapered off now at 1000 mg in the morning and 1500 at night which is not really that much of a taper, but is significantly down from what she was before. Her level of Keppra prior to tapering down was in the upper range at 47. She has remained afebrile. There has been no evidence for infection, but at this point Dr. Kilpatrick and I discussed the case. We will go ahead with lumbar puncture and search for anything that might be causing this beyond seizure activity and I think it is time she goes off to a tertiary center for more prolonged EEG monitoring. We were able to get a 24-hour study but nothing more than that and protracted one may be necessary. I am not going to add any more anticonvulsants at this time as she is on high doses of both of these agents and I think at this point we will do the lumbar puncture, get preliminary results and send her off to one of the tertiary care center that her insurance would cover which I suspect is going to be [facility]. Family is not particularly enthusiastic about going back to [facility] where they had less than optimal experience back in September 2016. Neurology is going to sign off the case at this point and I agree totally with the plans outlined by Dr. Kilpatrick.
--- NOTE | 2017-08-17 15:06 | DIAGNOSTIC IMAGING REPORT ---
FLUOROSCOPICALLY GUIDED DIAGNOSTIC LUMBAR PUNCTURE CLINICAL HISTORY: Normal pressure hydrocephalus and smoldering infection with atypical organisms COMPARISON STUDY: Lumbar spine CT scan dated 03/02/2017 FINDINGS: A timeout was performed. The patient was unable to consent, and consent was obtained from the patient's . The risks the procedure were explained to the patient's and informed consent was obtained. The patient was prepped and draped in sterile fashion. The skin was anesthetized 1% lidocaine. Under fluoroscopic guidance, 22-gauge spinal needle was introduced into the thecal sac at the L5 level. The opening pressure was 16 cm of H2O. 9 cc of clear CSF was removed via gravity drip and 4 tubes. The fluid was sent for analysis as specified by the referring clinician. 30 seconds of fluoroscopic time was utilized. A single fluoroscopic spot image was obtained. IMPRESSION: Successful fluoroscopically guided diagnostic lumbar puncture. 9 cc of clear CSF was removed via gravity drip and sent for laboratory analysis Electronically signed by: Jaspreet Gilliam M.D. 08/17/2017 3:04 PM Dictated Date/Time: 08/17/2017 3:02 PM
[2017-08-17 15:20] LABS: CSF TOTAL PROTEIN 30.8 mg/dl (15.0-45.0)
[2017-08-17 15:23] LABS: CSF APPEARANCE CLEAR; CSF COLOR COLORLESS; CSF XANTHOCHROMIC NO XANTHOCHROMIA
[2017-08-17 15:33] LABS: CSF CHEMISTRY TUBE # 1
--- NOTE | 2017-08-17 16:26 | Discharge Summary ---
Discharge Summary Date of Service Aug 17, 2017. Discharge Summary Admission Date: Aug 07, 2017 at 14:57 Discharge Date: Aug 17, 2017 Principal Diagnosis: encephalopathy Immunizations: Have You Had Influenza Vaccine: Unknown History of Tetanus Vaccine?: Unknown History of Pneumococcal: Unknown History of Hepatitis B Vaccine: Unknown Procedures: LP 08/17 Medication Reconciliation New Medications: Levetiracetam (Keppra) 500 Mg/5 Ml Inj 1000 MG IV QAM for 7 Days, #7 DOSE Levetiracetam (Levetiracetam) 100 Mg/Ml Kay 1500 MG IV HS for 7 Days, #7 DOSE Metoclopramide HCl (Metoclopramide HCl) 5 Mg/Ml Inj 10 MG IV Q6H PRN for Nausea or Vomiting for 7 Days, #7 DOSE Potassium Chloride (Micro-K Ext Rel) 10 Meq Capcr 20 MEQ PO QAM for 7 Days, #14 DOSE Continued Medications: Aspirin (Aspirin Ec) 81 Mg Tab 81 MG PO DAILY Atorvastatin (Lipitor) 40 Mg Tab 40 MG PO QPM, TAB Desmopressin Acetate (Ddavp) 0.2 Mg Tab 0.2 MG PO Q8 Lacosamide (Vimpat) 100 Mg Tab 400 MG PO BID Lisinopril (Zestril) 20 Mg Tab 20 MG PO QAM, TAB Metoprolol Tartrate (Lopressor) (Lopressor) 25 Mg Tab 25 MG PO BID, TAB Discontinued Medications: Levetiracetam (Keppra) 1,000 Mg Tab 2000 MG PO BID, TAB Discharge Exam Review of Systems: Constitutional: No fever, No chills Respiratory: No cough, No shortness of breath, No dyspnea on exertion Cardiovascular: No chest pain, No edema Abdomen: No pain, No nausea, No vomiting Neurologic: + memory loss, + weakness Physical Exam: General Appearance: WD/WN, + mild distress Eyes: PERRL, EOMI Neck: supple, no JVD Respiratory/Chest: chest non-tender, lungs clear Cardiovascular: regular rate, rhythm, no murmur Abdomen / GI: normal bowel sounds, non tender, soft Neurologic/Psychiatric: + depressed affect, + disoriented Hospital Course 67 yo F presented after a fall while being treated for an outpatient UTI of Escherichia coli. With the fall she sustained left temporal abrasion and subsequently with the encephalopathy was brought into the hospital with nausea vomiting and confusion This patient was in normal condition until 10/07/2016 when she underwent elective lumbar spine surgery at [facility] postoperatively she developed status epilepticus imaging of her brain showed a right frontal abnormality she required emergent transfer to [facility] in [place] where she had a prolonged hospital stay the result of that stay included at evidence of CVA in the right frontal and left cerebellar hemisphere she had evidence of CSF low volume and a dural leak was found to the surgical site which was repaired she required trach and PEG which were eventually removed she recovered to return to rehabilitation during this stay she also was found to have a PFO there was concern of a paradoxical embolus which could've initiated this event. She was discharged on 3 antiepileptics Keppra Vimpat and Topamax. Upon presenting to the hospital in January with pneumonia and obstipation the Topamax was dropped. The patient returned home where she was functioning until the event of this recent UTI and fall. 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 Pittman with desmopressin. Reportedly she was able to assist her and ambulation be fluent in conversation and participate outpatient physical therapy AMS, encephalopathy Subclinical seizure activity? patient has had intermittent episodes any EEG done has not shown any active seizure activity - ICU for 24 hour EEG monitoring from 08/12-08/13 completed - eeg showing encephalopathy without specific findings. - Mental status waxing and waning -s/p with head injury (Left temporal region), from sitting on toilet, this was unwitnessed ~ 10 days prior to admit. CT of the head completed which showed no acute findings at that time. Repeat CT head on 08/06 and 08/07 showing ventriculomegaly and old right frontal and left cerebellar infarcts - this is stable per neurology with comparison to prior studies. MRI on 08/10 without acute cranial abnormalities - Keppra level 08/08 = 47.8, so this was actually therapeutic and not toxic considering high dosages - Neuro still considering keppra toxicity in differential. Currently 1000 in the morning 1500 at night Continue vimpat 500 twice a day - LP performed on 08/17 results are currently pending at time of transfer Waxing waning mental state prevents oral intake Urinary Retention - Urine culture x 2 negative so does not appear to be infectious. Cont indwelling esparza cath. Constipation Fleet enema and a splitting bowel regimen Pulmonary- - CXR showing questionable pneumonia- Zosyn- Finished 08/14.Continue Aspiration precautions, patient has been without fever leukocytosis but continues to have airway concerns during episodes of nonresponsiveness Central diabetes insipidus- Holding desmopressin IV nephrology is following and dosing desmopressin as needed Hypokalemia continues to need repletion - Hypertension metoprolol tartrate 25 mg BID as well as lisinopril 20 mg PO daily - restarted po ASA 81 mg. all been able to take oral intake Hyperlipidemia--Hold atorvastatin 40 mg PO for now. Right ovarian cyst 2.3 cm- pelvic ultrasound, Stable compared to CT of 06/19/2017. - Should have outpatient pelvic US in 6 months for follow up. - CA 125 = 14, not concerning Left adrenal myolipoma 1.7 cm-stable on CT. Right lobe Liver cyst- L4/S1 spinal fusion / L2 compression deformity--no active symptoms. DVT prophylaxis: heparin subq CODE STATUS: FULL CODE Accepted and transferred to [facility] Dr. ZENG Total Time Spent: Greater than 30 minutes This includes examination of the patient, discharge planning, medication reconciliation, and communication with other providers. Discharge Instructions Please refer to the electronic Patient Visit Report (Discharge Instructions) for additional information.
[2017-08-17] MEDS ORDERED: HydrALAZINE HCL 20 MG/ML VIAL IV PRN (16:45)
[2017-08-17] MEDS ORDERED: BOOST VANILLA PUDDING CUP PO SCH (17:00)
[2017-08-18] MEDS ORDERED: LISINOPRIL 20 MG TAB PO SCH (08:00)
[2017-08-18] MEDS ORDERED: DEXTROSE 5% IV SCH (08:00)
[2017-08-18] MEDS ORDERED: LEVETIRACETAM IV SCH (08:00)
== END 2017-08-17 19:40 | disposition short-term general hospital (02) | DRG 177 ==
LOC: C.EDB 20:22 → C.MED 08-07 00:27 → ENRESERV 08-07 00:52 → OBSVTOIN 08-07 14:57 → ENRESERV 08-08 14:53 → C.2E 08-08 15:19 → ENRESERV 08-12 10:23 → C.MSICU 08-12 10:45 → C.2T 08-13 19:23 → ENRESERV 08-15 15:52 → C.MS4W 08-15 16:45
PROVIDERS: ADMIT Hospitalist; ATTEND Internal Medicine
PROC: 00933ZX Drainage of Intracranial Epidural Space, Percutaneous Approach, Diagnostic (ICD-10-PCS; principal; 2017-08-17)
DX: J69.0 Pneumonitis due to inhalation of food and vomit (principal); G93.41 Metabolic encephalopathy; G92 Toxic encephalopathy; E23.2 Diabetes insipidus; E22.2 Syndrome of inappropriate secretion of antidiuretic hormone; R33.9 Retention of urine, unspecified; T42.6X5A Adverse effect of other antiepileptic and sedative-hypnotic drugs, initial encounter; G40.909 Epilepsy, unspecified, not intractable, without status epilepticus; K59.00 Constipation, unspecified; E87.6 Hypokalemia; I10 Essential (primary) hypertension; E78.5 Hyperlipidemia, unspecified; N83.201 Unspecified ovarian cyst, right side; D17.79 Benign lipomatous neoplasm of other sites; K76.89 Other specified diseases of liver; Z51.81 Encounter for therapeutic drug level monitoring; Z79.899 Other long term (current) drug therapy; Z79.82 Long term (current) use of aspirin; Z91.81 History of falling; Z98.1 Arthrodesis status; Z87.440 Personal history of urinary (tract) infections; Z87.01 Personal history of pneumonia (recurrent); Z86.73 Personal history of transient ischemic attack (TIA), and cerebral infarction without residual deficits; Z83.2 Family history of diseases of the blood and blood-forming organs and certain disorders involving the immune mechanism; Z82.61 Family history of arthritis; Z82.5 Family history of asthma and other chronic lower respiratory diseases; Z82.49 Family history of ischemic heart disease and other diseases of the circulatory system